=== PATIENT | female | born 1960 | race African-American/Black ===

== ENCOUNTER → 2016-05-31 | Outpatient (CLI) | payer MEDICARE, MEDICAID ==
[~2016-05-31] MED LIST: ACET-654 PO; ACET65TA PO; AMILODIPINE PO; AMLO2.5T PO; ANTIBIOTIC PO; BABY81CH OR; BACTROBAN TOP; CALCIUM CITRATE PO; CELE40TA PO; CIPR25SS PO; CLIN300C PO; COLA50CA3 PO; COZA50TA18 OR; DETR2CAP PO; DIOV320T OR; DIOV320T PO; DOCU10CA PO; GABAPOW41 PO; GLIP5TAB8 PO; HYDR25TA6 OR; INSULADS SC; INSULANT SC; INSULANT SQ; LASI40TA PO; LIDO5DIS36 TD; LISI20TA5 OR; LOPI600T OR; LOSA100T36 PO; MAG OX PO; METF500T4 OR; MONISTAT PV; MULTIVIT PO; NATU400T PO; NICO14DI3 TD; NICO21DI4 TD; NORCOTAB PO; NORV5TAB OR; NOVOINJ3 SC; PERC5TAB6 PO; PERC5TAB8 PO; ROBA750T4 PO; SITA50TAB PO; TRAM50TA2 PO; TRENTINOIN TOP; TRIA1CR TOP; VIT D PO; VOLT1GEL24 TD; ZOCO40TA OR; ZOLO50TA PO; [UNRECOGNIZED DRUG - OTHER] PO; celexa PO; drisdol PO; lantus SUBQ; trazadone PO
--- NOTE | 2016-06-01 10:14 | SLEEPCENT ---
DATE OF STUDY: 05/31/2016 ORDERING PROVIDER: Aquiles Caldwell DO Nocturnal polysomnography was performed for the titration of pressure therapy in this patient with obstructive sleep apnea syndrome, apnea-hypopnea index of 5.1. For testing, a ResMed Quattro full face mask of extra-small size was used. 4 cm of water pressure were applied to the circuit, and the lights were extinguished. 7 hours and 41 minutes of data were reviewed. There were 415 minutes of sleep identified. Sleep latency was mildly prolonged at 31 minutes. Rapid eye movement (REM) latency was more so prolonged at 179 minutes. Sleep architecture improved with optimal pressure therapy. Overall sleep efficiency was 92%. The patient's electrocardiogram (EKG) showed a sinus rhythm with an average heart rate of 78 beats per minute. Electroencephalogram (EEG) showed normal waveforms for awake and sleep. Respiratory events were best palliated with continuous positive airway pressure (CPAP) at a pressure of +8. CPAP tolerance was good. The remaining measures of sleep physiology were normal. IMPRESSION: Obstructive sleep apnea syndrome (G47.33). RECOMMENDATION: Nightly use of pressure therapy at 8 cm of water.
== END ==
LOC: M SLEEP 19:44
PROVIDERS: ATTEND Internal Medicine Pulmonary Disease
DX: G47.33 Obstructive sleep apnea (adult) (pediatric) (principal)

== ENCOUNTER → 2016-05-31 | Outpatient (CLI) | payer MEDICARE, MEDICAID ==
--- NOTE | 2016-06-11 01:18 | ECWPNPC ---
PATIENT NAME: PABLO HANSEN : 1960 GENDER: FEMALE VISIT DATE: 05/31/2016 DISCHARGE DATE: 05/31/16 1515 VISIT LOCKED DATE TIME: PHYSICIAN: RISSA MOORE RESOURCE: RISSA MOORE REASON FOR APPOINTMENT 1. FOLLOW UP-40 MIN HISTORY OF PRESENT ILLNESS HISTORY OF PRESENT ILLNESS: HERE FOR POST PROCEDURE F/U.HAD TPI 05-03-16. PAIN THE PATIENT DESCRIBES THE PAIN... THE PATIENT DESCRIBES THE PAIN... THE PATIENT DESCRIBES THE PAIN... THE PATIENT DESCRIBES THE PAIN... 55 YEAR OLD FEMALE PATIENT WITH HISTORY OF CHRONIC THORACIC BACK PAIN. PATIENT DESCRIBES THE PAIN THROBBING WITH THE PAIN COMING AND GOING WITH A PAIN SCORE OF 4/10. PATIENT RECEIVED TRIGGER POINT INJECTIONS ON 05-03-16 WHICH SHE STATES HELPED WITH THE PAIN FOR 2 WEEKS. PATIENT IS USING GABAPENTIN 800 MG 2 TIMES A DAY AND ROBAXIN UP TO 3 TABLETS A DAY.DISCUSSED ADDING MYOFASCIAL RELEASE VIA PT LNG WITH TPI. FALL RISK SCREENING: SCREENING :NO FALLS IN THE PAST YEAR :NO FALLS IN THE PAST YEAR SCREENING :NO FALLS IN THE PAST YEAR :NO FALLS IN THE PAST YEAR CURRENT MEDICATIONS TAKING TRIAMCINOLONE ACETONIDE 0.1 % LOTION 1 APPLICATION TO AFFECTED AREA EXTERNALLY TO DARKENED SPOTS ON ARMS AND LEGS TWICE A DAY TO EMEKA KNEES AND ELBOWS, NOTES: 1 MONTH AGO TAKING CALCIUM + D 600-200 MG-UNIT TABLET 1 TABLET ORALLY ONCE A DAY, NOTES: 12/11 AM TAKING BENZOYL PEROXIDE CLEANSER 6 % LOTION 1 APPLICATION TO AFFECTED AREA AT BEDTIME EXTERNALLY TO FACE ONCE A DAY, NOTES: 2 WEEKS TAKING POLYETHYLENE GLYCOL 3350 POWDER 17 GRAM IN WATER ORALLY ONCE A DAY, NOTES: 2 WEEKS TAKING ASPIRIN 81 MG TABLET DELAYED RELEASE 1 TABLET ORALLY ONCE A DAY, NOTES: 12/11 PM TAKING RETIN-A 0.025 % CREAM 1 APPLICATION TO AFFECTED AREA IN THE EVENING TO FACE EXTERNALLY TO FACE ONCE A DAY BEFORE BED, NOTES: 1 WEEK AGO TAKING FREESTYLE TEST STRIPS DX CODE E11.9 STRIP DIRECTED FOUR TIMES A DAY TAKING FREESTYLE SYSTEM DX CODE E11.9 METER DIRECTED DAILY TAKING LASIX 40 MG TABLET 1 TABLET ORALLY ONCE A DAY, NOTES: 12 AFTERNOON TAKING AMLODIPINE BESYLATE 5 MG TABLET 1 TABLET ORALLY ONCE A DAY, NOTES: 05/02 AM TAKING LOSARTAN POTASSIUM 100 TABLET 1 TABLET ORALLY ONCE A DAY, NOTES: 05/02 AM TAKING LANTUS SOLOSTAR 100 UNIT/ML SOLUTION 60 UNITS IN AM, 60 UNITS IN PM SUBCUTANEOUS TWICE A DAY, NOTES: 05/02 9PM TAKING HUMALOG 100 UNIT/ML SOLUTION PER SLIDING SCALE SUBCUTANEOUS DIRECTED PER SLIDING SCALE AC, NOTES: 05/02 NOON TAKING VENTOLIN HFA 108 (90 BASE) MCG/ACT AEROSOL SOLUTION 2 PUFFS NEEDED INHALATION EVERY 4 HRS, NOTES: 05/02 AM TAKING INCRUSE ELLIPTA 62.5 MCG/INH AEROSOL POWDER BREATH ACTIVATED 1 PUFF INHALATION ONCE A DAY, NOTES: 05/02 AM TAKING ATROVENT 0.06 % SOLUTION 2 DROPS IN EACH NOSTRIL NEEDED NASALLY THREE TIMES A DAY, NOTES: 05/02 AM TAKING TRAZODONE 150 150MG TABLET 1 TAB(S) ORAL DAILY, NOTES: 05/02 PM TAKING COLACE 100 MG CAPSULE 1 CAPSULE NEEDED ORALLY ONCE A DAY TAKING PEN NEEDLES 08/05" 31G X 5 MM PEN NEEDLE USE WITH LANTUS PEN SUBCUTANEOUSLY THREE TIMES A DAY DX; 250.00 TAKING DITROPAN 5 MG TABLET 1 TAB(S) ORALLY DAILY, NOTES: 05/02 AM TAKING SPIRONOLACTONE 50 MG TABLET 1 TABLET ORALLY ONCE A DAY, NOTES: 05/02 AM TAKING BLOOD GLUCOSE TEST - STRIP 1 STRIP IN VITRO 4 TIMES DAILY DX:E11.65 TAKING GLUCOMETER DIRECTED _ DX CODE:E11.65 TAKING ZOLOFT 100 MG TABLET 1 TABLET ORALLY ONCE A DAY, NOTES: 05/02 AM TAKING ROBAXIN 500 MG TABLET 1 TABLETS ORALLY TID PRN PRN FOR SPASMS AND PAIN, NOTES: 05/02 AM TAKING GABAPENTIN 800 MG TABLET 1 TABLET ORALLY THREE TIMES A DAY FOR PAIN, NOTES: 05/02 AM TAKING FREESTYLE LANCETS DX CODE E11.9 MISCELLANEOUS DIRECTED SUBCUTANEOUSLY FOUR TIMES A DAY TAKING VITAMIN E 400 UNIT CAPSULE 1 CAPSULE ORALLY ONCE A DAY NOT-TAKING VOLTAREN 1 % GEL TOPICAL TRANSDERMAL TO MID BACK TWICE DAILY NEEDED NOT-TAKING LIDODERM 5 % PATCH 2 PATCH TO INTACT SKIN REMOVE AFTER 12 HOURS EXTERNALLY ONCE A DAY FOR PAIN, NOTES: NONE NOT-TAKING CHANTIX 1 MG TABLET 1 TABLET ORALLY TWICE A DAY NOT-TAKING ZOFRAN 4 MG TABLET 1 TABLET ORALLY ONCE A DAY MEDICATION LIST REVIEWED AND RECONCILED WITH THE PATIENT PAST MEDICAL HISTORY DMII HTN CKD STAGE III - FOLLOWED BY HX DEPRESSIVE DISORDER TOBACCO ABUSE HX PANCREATITIS HYPERLIPIDEMIA ASCVD RISK 27.9% 09/2013 2NDARY HYPERPARATHYROIDISM EYE EXAM 01/2014 [facility] - DIABETES W/O RETINOPATHY POSSIBLE GLAUCOMA. CHOLEDOCHOLYTHIASIS. 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 SOCIAL HISTORY GENERAL: TOBACCO USE ARE YOU A:CURRENT SMOKER HOW MANY CIGARETTES A DAY DO YOU SMOKE?6-10 HOW SOON AFTER YOU WAKE UP DO YOU SMOKE YOUR FIRST CIGARETTE?6-30 MIN PATIENT COUNSELED ON THE DANGERS OF TOBACCO USE AND URGED TO QUIT: PT COUNCELED ON THE IMPORTANCE OF QUITTING. SHE IS INTERESTED IN QUITTING AND ALREADY HAS INFORMATION ON IT. ARE YOU INTERESTED IN QUITTING?THINKING ABOUT QUITTING PREVIOUS QUIT ATTEMPTS?YES, MORE THAN 6 MONTHS AGO. LEARNING BARRIERS / SPECIAL NEEDS ORIENTED TO PLAN OF CARE: PATIENT, PAIN MANAGEMENT PATIENT, ORIENTED TO PLAN OF CARE: PATIENT, PAIN MANAGEMENT PATIENT. NEW PATIENT PAIN DIARY TODAY'S VISITNOTES FROM 0-10, WHAT LEVEL IS YOUR PAIN TODAY?0 PAIN CLINIC PFS, CLERGY, PUBLIC HEALTH REFERRALS PFS REFERRAL NEEDED?NO CLERGY REFERRAL NEEDED?NO PUBLIC HEALTH REFERRAL NEEDED?NO WAS THE PROVIDER NOTIFIED OF ANY PERTINENT INFO?NO PFS REFERRAL NEEDED?NO CLERGY REFERRAL NEEDED?NO PUBLIC HEALTH REFERRAL NEEDED?NO WAS THE PROVIDER NOTIFIED OF ANY PERTINENT INFO?NO REVIEW OF SYSTEMS CONSTITUTIONAL: ANY CHANGE IN YOUR MEDICAL CONDITION? NO . RECENT ILLNESS DENIES . CHILLS NO . FEVER NO . WEIGHT LOSS DENIES . INFECTION: DO YOU HAVE NEW INFECTIONS? NO . DO YOU HAVE HISTORY OF MRSA? YES, RIGHT WRIST 2013 DID HAVE NEG CULTURE AFTER . MUSCULOSKELETAL: ANY NEW PATTERNS OF PAIN OR NUMBNESS? NO . GASTROENTEROLOGY: ANY NEW CHANGE IN BOWEL CONTROL? NO . GENITOURINARY: ANY NEW CHANGE IN BLADDER CONTROL? NO . IS THERE A CHANCE YOU COULD BE ? NO . HEMATOLOGY/LYMPH: DO YOU TAKE ANY BLOOD THINNERS? (FOR EXAMPLE- COUMADIN, PLAVIX, AGGRENOX, PLATEL, PRADAXA, OR XARELTO) NO . WHEN WAS YOUR LAST DOSE? DATE: TIME: . NEUROLOGY: HAVE YOU FALLEN IN THE PAST 6 MONTHS? NO . ANY NEW EXTREMITY NUMBNESS OR WEAKNESS? YES, BOTH LEGS NUMB WITH LEGS CRAMPS. WALKING MORE WITH RIGHT LEG TURNING IN. . CARDIOLOGY: DO YOU HAVE A PACEMAKER OR DEFIBRILLATOR? NO . CHEST PAIN DENIES . SHORTNESS OF BREATH DENIES . RESPIRATORY: HAVE YOU BEEN SICK IN THE PAST WEEK? NO . FEVER NO . FLU LIKE SYMPTOMS? NO . COUGH NO, DENIES . SHORTNESS OF BREATH DENIES . INTEGUMENTARY: DO YOU HAVE ANY RASHES OR OPEN SORES? NO . ALLERGIC/IMMUNO: ARE YOU ALLERGIC TO SHELLFISH OR IV DYE? NO . ANY NEW ALLERGIES? NO . PSYCHIATRIC: DO YOU HAVE THOUGHTS OF HURTING YOURSELF OR SOMEONE ELSE? NO . ARE YOU ABUSED, NEGLECTED, OR IN AN UNSAFE ENVIRONMENT? NO . ENDOCRINOLOGY: ARE YOU DIABETIC? YES FSBS THIS A.M. 123 . OTHER: DO YOU NEED ANY PRESCRIPTIONS? NO . IF YES, PLEASE LIST: ____ . ANY NEW PROBLEMS WITH YOUR MEDICATIONS? NO . WHEN DID YOU LAST EAT? ____ . WHEN DID YOU LAST DRINK? ____ . WHAT DID YOU LAST DRINK? ____ . NAME OF PERSON DRIVING YOU HOME? ____ . DO YOU HAVE ANY OTHER QUESTIONS OR CONCERNS NO . REVIEWED BY: PROVIDER: RISSA FRANCE . VITAL SIGNS WT 220.2 LBS, HT 65 IN, BMI 36.64 INDEX, BP 137/87 MM HG, HR 87 /MIN, RR 16 /MIN, TEMP 96.1 F, OXYGEN SAT % 96, NA INITIALS TL 1349, REVIEWED BY: [id number]. EXAMINATION GENERAL EXAMINATION: LUNGS:LUNG SOUNDS ARE CLEAR. HEART:HEART RATE REGULAR. MUSCULOSKELETAL:*, TRIGGER POINTS:, ELICITED WITH PALPATION OVER MID THORACIC MUSCLES R>L.PAIN IS AGGREVATED WITH USE OF LEFT ARM.. DIAGNOSTIC: . ASSESSMENTS MYALGIA - M79.1 (PRIMARY) PAIN IN THORACIC SPINE - M54.6 TREATMENT MYALGIA CONTINUE ROBAXIN TABLET, 500 MG, 1 TABLETS, ORALLY, TID PRN PRN FOR SPASMS AND PAIN, NOTES: 12/11 AM CONTINUE GABAPENTIN TABLET, 800 MG, 1 TABLET, ORALLY, THREE TIMES A DAY FOR PAIN, NOTES: 12/11 AM TRIGGER POINT 1-2 AREAS NOTES: TRIGGER POINT INJECTION MATERIAL WAS PRINTED,TRIGGER POINT INJECTION: YOUR EXPERIENCE MATERIAL WAS PRINTED. REFERRAL TO:PHYSICAL THERAPIST REASON:RIGHT MYOFASCIAL [id number] RELEASE PAIN IN THORACIC SPINE TRIGGER POINT 1-2 AREAS PROCEDURE CODES FA211 ESTABILISHED PATIENT [facility] CHARGE FOLLOW UP 4 WEEKS (REASON: TPI RIGHT THORACIC) ELECTRONICALLY SIGNED BY EDILMA CISNEROS ON 06/10/2016 AT 10:59 AM EST DISCLAIMER : THIS IS A VISIT SUMMARY EXTRACTED FROM THE [employer] CHART. IT IS NOT A COPY OF THE [employer] PROGRESS NOTE. ISABELLA
== END ==
LOC: M PAIN 14:00
PROVIDERS: ATTEND Nurse Practitioner Family
DX: Z09 Encounter for follow-up examination after completed treatment for conditions other than malignant neoplasm (principal); G89.29 Other chronic pain; M79.1 Myalgia; M54.6 Pain in thoracic spine; E11.319 Type 2 diabetes mellitus with unspecified diabetic retinopathy without macular edema; N18.3 Chronic kidney disease, stage 3 (moderate); I12.9 Hypertensive chronic kidney disease with stage 1 through stage 4 chronic kidney disease, or unspecified chronic kidney disease; E78.5 Hyperlipidemia, unspecified; E21.3 Hyperparathyroidism, unspecified; K80.51 Calculus of bile duct without cholangitis or cholecystitis with obstruction; G47.33 Obstructive sleep apnea (adult) (pediatric); J44.9 Chronic obstructive pulmonary disease, unspecified; F17.200 Nicotine dependence, unspecified, uncomplicated; Z79.82 Long term (current) use of aspirin; Z79.4 Long term (current) use of insulin; Z79.899 Other long term (current) drug therapy; Z86.59 Personal history of other mental and behavioral disorders; Z87.898 Personal history of other specified conditions
CPT/HCPCS: 95811; G0463

== ENCOUNTER → 2016-06-01 | Outpatient (CLI) | payer MEDICARE, MEDICAID | LOC: M HL 14:44 | PROVIDERS: ATTEND Family Medicine | DX: E11.9 Type 2 diabetes mellitus without complications (principal) ==

== ENCOUNTER → 2016-06-10 | Outpatient (CLI) | payer MEDICARE, MEDICAID | LOC: M HL 12:59 | PROVIDERS: ATTEND Family Medicine | DX: E11.9 Type 2 diabetes mellitus without complications (principal) ==

== ENCOUNTER → 2016-06-14 | Outpatient (REF) | payer MEDICARE, MEDICAID ==
[2016-06-14 15:45] LABS: CALCIUM LEVEL 8.9 MG/DL (8.5-10.1); CREATININE FOR GFR 1.35 MG/DL (0.55-1.02); GLOMERULAR FILTRATION RATE 52.7 (>51); POTASSIUM SERUM 4.3 MEQ/L (3.5-5.1)
== END ==
LOC: M SFHCPLAZ 13:14
PROVIDERS: ATTEND Family Medicine
DX: E11.9 Type 2 diabetes mellitus without complications (principal); Z51.81 Encounter for therapeutic drug level monitoring; Z79.4 Long term (current) use of insulin; Z79.82 Long term (current) use of aspirin; Z79.899 Other long term (current) drug therapy

== ENCOUNTER → 2016-06-16 | Outpatient (CLI) | payer MEDICARE, MEDICAID ==
[~2016-06-16] MED LIST changes: +BUPIVACAINE HCL 0.25% 10 ML VIAL As Ordered ONE; +BUPIVACAINE HCL 0.25% 30 ML VIAL As Ordered ONE; +TRIAMCINOLONE ACETONIDE SUSP 40 MG/ML VIAL (J3301) As Ordered ONE
--- NOTE | 2016-06-18 00:18 | ECWPNPC ---
PATIENT NAME: PABLO HANSEN : 1960 GENDER: FEMALE VISIT DATE: 06/16/2016 DISCHARGE DATE: 06/16/16 1058 VISIT LOCKED DATE TIME: PHYSICIAN: ENRICO VARGAS RESOURCE: ENRICO VARGAS REASON FOR APPOINTMENT 1. TRIGGER POINT HISTORY OF PRESENT ILLNESS HISTORY OF PRESENT ILLNESS: PAIN THE PATIENT DESCRIBES THE PAIN... FALL RISK SCREENING: SCREENING :NO FALLS IN THE PAST YEAR CURRENT MEDICATIONS TAKING TRIAMCINOLONE ACETONIDE 0.1 % LOTION 1 APPLICATION TO AFFECTED AREA EXTERNALLY TO DARKENED SPOTS ON ARMS AND LEGS TWICE A DAY TO EMEKA KNEES AND ELBOWS, NOTES: 1 MONTH AGO TAKING CALCIUM + D 600-200 MG-UNIT TABLET 1 TABLET ORALLY ONCE A DAY, NOTES: 06/15/16 1000 TAKING BENZOYL PEROXIDE CLEANSER 6 % LOTION 1 APPLICATION TO AFFECTED AREA AT BEDTIME EXTERNALLY TO FACE ONCE A DAY, NOTES: 2 WEEKS TAKING POLYETHYLENE GLYCOL 3350 POWDER 17 GRAM IN WATER ORALLY ONCE A DAY, NOTES: 2 WEEKS TAKING ASPIRIN 81 MG TABLET DELAYED RELEASE 1 TABLET ORALLY ONCE A DAY, NOTES: 06/15/16 2200 TAKING RETIN-A 0.025 % CREAM 1 APPLICATION TO AFFECTED AREA IN THE EVENING TO FACE EXTERNALLY TO FACE ONCE A DAY BEFORE BED, NOTES: 1 WEEK AGO TAKING [employer] SYSTEM DX CODE E11.9 METER DIRECTED DAILY TAKING AMLODIPINE BESYLATE 5 MG TABLET 1 TABLET ORALLY ONCE A DAY, NOTES: 06/15/16 1000 TAKING HUMALOG 100 UNIT/ML SOLUTION PER SLIDING SCALE SUBCUTANEOUS DIRECTED PER SLIDING SCALE AC, NOTES: 06/15/16 2200 4 UNITS TAKING VENTOLIN HFA 108 (90 BASE) MCG/ACT AEROSOL SOLUTION 2 PUFFS NEEDED INHALATION EVERY 4 HRS, NOTES: 06/15/16 1000 TAKING INCRUSE ELLIPTA 62.5 MCG/INH AEROSOL POWDER BREATH ACTIVATED 1 PUFF INHALATION ONCE A DAY, NOTES: 06/15/16 1000 TAKING ATROVENT 0.06 % SOLUTION 2 DROPS IN EACH NOSTRIL NEEDED NASALLY THREE TIMES A DAY, NOTES: 06/15/16 1000 TAKING COLACE 100 MG CAPSULE 1 CAPSULE NEEDED ORALLY ONCE A DAY, NOTES: 06/15/16 1400 TAKING PEN NEEDLES 3" 31G X 5 MM PEN NEEDLE USE WITH LANTUS PEN SUBCUTANEOUSLY THREE TIMES A DAY DX; 250.00 TAKING DITROPAN 5 MG TABLET 1 TAB(S) ORALLY DAILY, NOTES: 06/15/16 1000 TAKING BLOOD GLUCOSE TEST - STRIP 1 STRIP IN VITRO 4 TIMES DAILY DX:E11.65 TAKING GLUCOMETER DIRECTED _ DX CODE:E11.65 TAKING FREESTYLE LANCETS DX CODE E11.9 MISCELLANEOUS DIRECTED SUBCUTANEOUSLY FOUR TIMES A DAY TAKING VITAMIN E 400 UNIT CAPSULE 1 CAPSULE ORALLY ONCE A DAY, NOTES: 400 TAKING ROBAXIN 500 MG TABLET 1 TABLETS ORALLY TID PRN PRN FOR SPASMS AND PAIN, NOTES: 06/15/162199 TAKING GABAPENTIN 800 MG TABLET 1 TABLET ORALLY THREE TIMES A DAY FOR PAIN, NOTES: 06/15/162199 TAKING TOUJEO SOLOSTAR 300 UNIT/ML SOLUTION PEN-INJECTOR 60 U SUBCUTANEOUS EVERY MORNING, NOTES: HASN'T STARTED YET TAKING ZOLOFT 100 MG TABLET 1 TABLET ORALLY ONCE A DAY, NOTES: 06/15/16 1000 TAKING TRAZODONE 150 150MG TABLET 1 TAB(S) ORAL DAILY, NOTES: 06/15/162199 TAKING LASIX 40 MG TABLET 1 TABLET ORALLY ONCE A DAY, NOTES: 06/15/16 1400 TAKING LOSARTAN POTASSIUM 100 TABLET 1 TABLET ORALLY ONCE A DAY, NOTES: 06/15/16 1000 TAKING FREESTYLE TEST STRIPS DX CODE E11.9 STRIP DIRECTED FOUR TIMES A DAY NOT-TAKING VOLTAREN 1 % GEL TOPICAL TRANSDERMAL TO MID BACK TWICE DAILY NEEDED NOT-TAKING LIDODERM 5 % PATCH 2 PATCH TO INTACT SKIN REMOVE AFTER 12 HOURS EXTERNALLY ONCE A DAY FOR PAIN, NOTES: NONE NOT-TAKING CHANTIX 1 MG TABLET 1 TABLET ORALLY TWICE A DAY NOT-TAKING ZOFRAN 4 MG TABLET 1 TABLET ORALLY ONCE A DAY MEDICATION LIST REVIEWED AND RECONCILED WITH THE PATIENT PAST MEDICAL HISTORY DMII HTN CKD STAGE III - FOLLOWED BY HX DEPRESSIVE DISORDER TOBACCO ABUSE HX PANCREATITIS HYPERLIPIDEMIA ASCVD RISK 27.9% 09/2013 2NDARY HYPERPARATHYROIDISM EYE EXAM 01/2014 [facility] - DIABETES W/O RETINOPATHY POSSIBLE GLAUCOMA. CHOLEDOCHOLYTHIASIS. 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 SOCIAL HISTORY GENERAL: TOBACCO USE ARE YOU A:CURRENT SMOKER HOW MANY CIGARETTES A DAY DO YOU SMOKE?6-10 HOW SOON AFTER YOU WAKE UP DO YOU SMOKE YOUR FIRST CIGARETTE?31-60 MIN HOW OFTEN DO YOU SMOKE CIGARETTES?EVERY DAY PATIENT COUNSELED ON THE DANGERS OF TOBACCO USE AND URGED TO QUIT: COUNCELED ON THE IMPORTANCE OF QUITING. SHE IS THINKING ABOUT IT. SHE DECLINES ANY INFORMATION OR ASSISTANCE WITH THIS. ARE YOU INTERESTED IN QUITTING?THINKING ABOUT QUITTING LEARNING BARRIERS / SPECIAL NEEDS ORIENTED TO PLAN OF CARE: PATIENT, PAIN MANAGEMENT PATIENT, ORIENTED TO PLAN OF CARE: PATIENT, PAIN MANAGEMENT PATIENT. NEW PATIENT PAIN DIARY TODAY'S VISITNOTES FROM 0-10, WHAT LEVEL IS YOUR PAIN TODAY?0 PAIN CLINIC PFS, CLERGY, PUBLIC HEALTH REFERRALS PFS REFERRAL NEEDED?NO CLERGY REFERRAL NEEDED?NO PUBLIC HEALTH REFERRAL NEEDED?NO WAS THE PROVIDER NOTIFIED OF ANY PERTINENT INFO?NO PFS REFERRAL NEEDED?NO CLERGY REFERRAL NEEDED?NO PUBLIC HEALTH REFERRAL NEEDED?NO WAS THE PROVIDER NOTIFIED OF ANY PERTINENT INFO?NO REVIEW OF SYSTEMS CONSTITUTIONAL: ANY CHANGE IN YOUR MEDICAL CONDITION? NO . CHILLS NO . FEVER NO . INFECTION: DO YOU HAVE NEW INFECTIONS? NO . DO YOU HAVE HISTORY OF MRSA? NO . MUSCULOSKELETAL: ANY NEW PATTERNS OF PAIN OR NUMBNESS? NO . GASTROENTEROLOGY: ANY NEW CHANGE IN BOWEL CONTROL? NO . GENITOURINARY: ANY NEW CHANGE IN BLADDER CONTROL? NO . IS THERE A CHANCE YOU COULD BE ? NO . HEMATOLOGY/LYMPH: DO YOU TAKE ANY BLOOD THINNERS? (FOR EXAMPLE- COUMADIN, PLAVIX, AGGRENOX, PLATEL, PRADAXA, OR XARELTO) NO . WHEN WAS YOUR LAST DOSE? DATE: TIME: . NEUROLOGY: HAVE YOU FALLEN IN THE PAST 6 MONTHS? YES FELL WITHIN THE PAST COUPLE OF WEEKS--NO INJURY . ANY NEW EXTREMITY NUMBNESS OR WEAKNESS? NO . CARDIOLOGY: DO YOU HAVE A PACEMAKER OR DEFIBRILLATOR? NO . RESPIRATORY: HAVE YOU BEEN SICK IN THE PAST WEEK? NO . FEVER NO . FLU LIKE SYMPTOMS? NO . COUGH NO . INTEGUMENTARY: DO YOU HAVE ANY RASHES OR OPEN SORES? NO . ALLERGIC/IMMUNO: ARE YOU ALLERGIC TO SHELLFISH OR IV DYE? NO . ANY NEW ALLERGIES? NO . PSYCHIATRIC: DO YOU HAVE THOUGHTS OF HURTING YOURSELF OR SOMEONE ELSE? NO . ARE YOU ABUSED, NEGLECTED, OR IN AN UNSAFE ENVIRONMENT? NO . ENDOCRINOLOGY: ARE YOU DIABETIC? YES FSBS THIS A.M. WAS 94 . OTHER: DO YOU NEED ANY PRESCRIPTIONS? NO . IF YES, PLEASE LIST: ____ . ANY NEW PROBLEMS WITH YOUR MEDICATIONS? NO . WHEN DID YOU LAST EAT? ____06/15/16 BEFORE MIDNIGHT . WHEN DID YOU LAST DRINK? ____06/15/16 BEFORE MIDNIGHT . WHAT DID YOU LAST DRINK? ____ . NAME OF PERSON DRIVING YOU HOME? ____[facility] . DO YOU HAVE ANY OTHER QUESTIONS OR CONCERNS NO . REVIEWED BY: PROVIDER: . VITAL SIGNS WT 220 LBS, HT 65 IN, BMI 36.61 INDEX, BP 136/79 MM HG, HR 75 /MIN, RR 16 /MIN, TEMP 96.0 F, OXYGEN SAT % 96, NA INITIALS TL 0921, REVIEWED BY: AD. ASSESSMENTS MYALGIA - M79.1 (PRIMARY) PROCEDURES PN TRIGGER POINT INJECTION WITH STEROIDS PRE PROCEDURE DIAGNOSIS 1. MYALGIA 2. PAIN AT RIGHT THORACIC AREA POST PROCEDURE DIAGNOSIS 1. MYALGIA 2. PAIN AT RIGHT THORACIC AREA PROCEDURE TRIGGER POINT INJECTION AT RIGHT THORACIC AREA SURGEON DR. ENRICO VARGAS MANAGER MATH NONE ANESTHESIA LOCAL PRE PROCEDURE NOTE THE PATIENT HAS A HISTORY OF CHRONIC PAIN AT THE RIGHT THORACIC AREA. I EVALUATE THE PATIENT AND REVIEWED THE CHART. THERE IS EVIDENCE OF BANDS OF TISSUE WITH RESTRICTION OF MOVEMENT AND PRESENCE OF TRIGGER POINT AT THE AFFECTED AREA. I WENT OVER THE RISKS, ALTERNATIVES, AND BENEFITS ASSOCIATED WITH THIS PROCEDURE. THE PATIENT WOULD LIKE TO PROCEED AND GIVE CONSENT TO PERFORMED THE PROCEDURE. THE PATIENT DENIES UNEXPLAINABLE WEIGHT LOSS, FEVER, CHILLS, OR NEW CHANGES IN URINARY OR BOWEL CONTROL DESCRIPTION OF PROCEDURE THE PATIENT WAS BROUGHT TO THE PROCEDURE ROOM AND PLACED IN THE SITTING POSITION. THE AREA WAS CLEANED WITH ALCOHOL. THE PROCEDURE WAS DONE USING [employer] STERILE TECHNIQUE. I CHECKED LATERALITY AND THE LEVEL WHERE THE PROCEDURE WAS GOING TO BE PERFORMED WITH THE PATIENT AND THE SUPPORTING STAFF AT THE MOMENT OF THE TIME OUT IN THE PROCEDURE ROOM. USING A 25-GAUGE NEEDLE, TRIGGER POINTS WERE INJECTED AT THE RIGHT THORACIC AREA WITH A TOTAL OF 40 ML OF BUPIVACAINE 0.25% AND KENALOG 40 MG. THERE WAS NO EVIDENCE OF BLOOD, PARESTHESIA OR CEREBROSPINAL FLUID DURING THE PROCEDURE. THE PATIENT WAS SENT TO THE RECOVERY ROOM. THE PATIENT WAS MOVING THE EXTREMITIES AND DOING WELL. THERE WAS NO COMPLICATION DURING THE PROCEDURE POST PROCEDURE NOTE THE PATIENT WILL BE SEEN IN A FOLLOW UP IN THE NEXT FEW WEEKS. INSTRUCTIONS WERE GIVEN, QUESTIONS WERE ANSWERED, AND THE PATIENT EXPRESSED UNDERSTANDING AND AGREES WITH THE PLAN. I, OSCAR WILSON, DOCUMENTED THE ABOVE INFORMATION ACTING A SCRIBE FOR DR. VARGAS. I, DR. VARGAS, HAVE REVIEWED THE ABOVE DOCUMENT, SCRIBED BY OSCAR WILSON, AND I VERIFY THAT IT IS ACCURATE PROCEDURE CODES 77652 INJ TRIGGER POINT 05/24 MUSCL FOLLOW UP 3 WEEKS ELECTRONICALLY SIGNED BY ENRICO VARGAS MD ON 06/17/2016 AT 08:42 PM EST DISCLAIMER : THIS IS A VISIT SUMMARY EXTRACTED FROM THE [employer] CHART. IT IS NOT A COPY OF THE [employer] PROGRESS NOTE. ISABELLA
== END ==
LOC: M PAIN 09:20
PROVIDERS: ATTEND Anesthesiology
DX: G89.29 Other chronic pain (principal); M79.1 Myalgia; M54.6 Pain in thoracic spine; E11.319 Type 2 diabetes mellitus with unspecified diabetic retinopathy without macular edema; N18.3 Chronic kidney disease, stage 3 (moderate); I12.9 Hypertensive chronic kidney disease with stage 1 through stage 4 chronic kidney disease, or unspecified chronic kidney disease; E78.5 Hyperlipidemia, unspecified; K80.50 Calculus of bile duct without cholangitis or cholecystitis without obstruction; F17.200 Nicotine dependence, unspecified, uncomplicated; G47.30 Sleep apnea, unspecified; Z79.82 Long term (current) use of aspirin; Z79.4 Long term (current) use of insulin; Z79.899 Other long term (current) drug therapy; Z86.59 Personal history of other mental and behavioral disorders; Z87.19 Personal history of other diseases of the digestive system; Z98.890 Other specified postprocedural states
CPT/HCPCS: 20552; J3301

== ENCOUNTER → 2016-06-18 | Outpatient (CLI) | payer MEDICARE, MEDICAID ==
[~2016-06-18] MED LIST changes: -BUPIVACAINE HCL 0.25% 10 ML VIAL As Ordered ONE; -BUPIVACAINE HCL 0.25% 30 ML VIAL As Ordered ONE; -TRIAMCINOLONE ACETONIDE SUSP 40 MG/ML VIAL (J3301) As Ordered ONE
== END ==
LOC: M HL 12:36
PROVIDERS: ATTEND Family Medicine
DX: E11.9 Type 2 diabetes mellitus without complications (principal)

== ENCOUNTER → 2016-07-14 | Outpatient (CLI) | payer MEDICARE, MEDICAID ==
--- NOTE | 2016-07-20 02:04 | ECWPNPC ---
PATIENT NAME: PABLO HANSEN : 1960 GENDER: FEMALE VISIT DATE: 07/14/2016 DISCHARGE DATE: 07/14/16 1508 VISIT LOCKED DATE TIME: PHYSICIAN: RISSA MOORE RESOURCE: RISSA MOORE REASON FOR APPOINTMENT 1. BACK HISTORY OF PRESENT ILLNESS HISTORY OF PRESENT ILLNESS: HERE FOR POST PROCEDURE F/U.HAD TPI 16 RIGHT SCAPULAR AREA.REPORTS APROXIMATLEY ONE WEEK OF IMPROVEMENT THEN PAIN HAS GRADUALLY RETURNED.RATING PAIN VAS 3/10.GABAPENTIN AND ROBAXIN IS SOMEWHAT HELPFUL. PAIN THE PATIENT DESCRIBES THE PAIN... THE PATIENT DESCRIBES THE PAIN... THE PATIENT DESCRIBES THE PAIN... THE PATIENT DESCRIBES THE PAIN... THE PATIENT DESCRIBES THE PAIN... FALL RISK SCREENING: SCREENING :NO FALLS IN THE PAST YEAR CURRENT MEDICATIONS TAKING CALCIUM + D 600-200 MG-UNIT TABLET 1 TABLET ORALLY ONCE A DAY, NOTES: 06/15/16 1000 TAKING POLYETHYLENE GLYCOL 3350 POWDER 17 GRAM IN WATER ORALLY ONCE A DAY NEEDED, NOTES: 2 WEEKS TAKING ASPIRIN 81 MG TABLET DELAYED RELEASE 1 TABLET ORALLY ONCE A DAY, NOTES: 06/15/16 2200 TAKING FREEAtmospheir SYSTEM DX CODE E11.9 METER DIRECTED DAILY TAKING AMLODIPINE BESYLATE 5 MG TABLET 1 TABLET ORALLY ONCE A DAY, NOTES: 06/15/16 1000 TAKING HUMALOG 100 UNIT/ML SOLUTION PER SLIDING SCALE SUBCUTANEOUS DIRECTED PER SLIDING SCALE AC, NOTES: 06/15/16 2200 4 UNITS TAKING VENTOLIN HFA 108 (90 BASE) MCG/ACT AEROSOL SOLUTION 2 PUFFS NEEDED INHALATION EVERY 4 HRS, NOTES: 06/15/16 1000 TAKING INCRUSE ELLIPTA 62.5 MCG/INH AEROSOL POWDER BREATH ACTIVATED 1 PUFF INHALATION ONCE A DAY, NOTES: 06/15/16 1000 TAKING ATROVENT 0.06 % SOLUTION 2 DROPS IN EACH NOSTRIL NEEDED NASALLY THREE TIMES A DAY, NOTES: 06/15/16 1000 TAKING COLACE 100 MG CAPSULE 1 CAPSULE NEEDED ORALLY ONCE A DAY, NOTES: 06/15/16 1400 TAKING PEN NEEDLES 316" 31G X 5 MM PEN NEEDLE USE WITH LANTUS PEN SUBCUTANEOUSLY THREE TIMES A DAY DX; 250.00 TAKING DITROPAN 5 MG TABLET 1 TAB(S) ORALLY DAILY, NOTES: 06/15/16 1000 TAKING BLOOD GLUCOSE TEST - STRIP 1 STRIP IN VITRO 4 TIMES DAILY DX:E11.65 TAKING GLUCOMETER DIRECTED _ DX CODE:E11.65 TAKING FREESTYLE LANCETS DX CODE E11.9 MISCELLANEOUS DIRECTED SUBCUTANEOUSLY FOUR TIMES A DAY TAKING VITAMIN E 400 UNIT CAPSULE 1 CAPSULE ORALLY ONCE A DAY, NOTES: 400 TAKING ROBAXIN 500 MG TABLET 1 TABLETS ORALLY TID PRN PRN FOR SPASMS AND PAIN, NOTES: 06/15/162199 TAKING GABAPENTIN 800 MG TABLET 1 TABLET ORALLY THREE TIMES A DAY FOR PAIN, NOTES: 06/15/162199 TAKING ZOLOFT 100 MG TABLET 1 TABLET ORALLY ONCE A DAY, NOTES: 06/15/16 1000 TAKING TRAZODONE 150 150MG TABLET 1 TAB(S) ORAL DAILY, NOTES: 06/15/162199 TAKING LASIX 40 MG TABLET 1 TABLET ORALLY ONCE A DAY, NOTES: 06/15/16 1400 TAKING LOSARTAN POTASSIUM 100 TABLET 1 TABLET ORALLY ONCE A DAY, NOTES: 06/15/16 1000 TAKING FREESTYLE TEST STRIPS DX CODE E11.9 STRIP DIRECTED FOUR TIMES A DAY TAKING CHANTIX 1 MG TABLET 1 TABLET ORALLY TWICE A DAY TAKING TOUJEO SOLOSTAR 300 UNIT/ML SOLUTION PEN-INJECTOR 70 U SUBCUTANEOUS EVERY MORNING, NOTES: HASN'T STARTED YET TAKING TRIAMCINOLONE ACETONIDE 0.1 % LOTION 1 APPLICATION TO AFFECTED AREA EXTERNALLY TO DARKENED SPOTS ON ARMS AND LEGS TWICE A DAY TO EMEKA KNEES AND ELBOWS, NOTES: 1 MONTH AGO TAKING BENZOYL PEROXIDE CLEANSER 6 % LOTION 1 APPLICATION TO AFFECTED AREA AT BEDTIME EXTERNALLY TO FACE ONCE A DAY, NOTES: 2 WEEKS TAKING RETIN-A 0.025 % CREAM 1 APPLICATION TO AFFECTED AREA IN THE EVENING TO FACE EXTERNALLY TO FACE ONCE A DAY BEFORE BED, NOTES: 1 WEEK AGO NOT-TAKING VOLTAREN 1 % GEL TOPICAL TRANSDERMAL TO MID BACK TWICE DAILY NEEDED NOT-TAKING LIDODERM 5 % PATCH 2 PATCH TO INTACT SKIN REMOVE AFTER 12 HOURS EXTERNALLY ONCE A DAY FOR PAIN, NOTES: NONE NOT-TAKING ZOFRAN 4 MG TABLET 1 TABLET ORALLY ONCE A DAY MEDICATION LIST REVIEWED AND RECONCILED WITH THE PATIENT PAST MEDICAL HISTORY DMII HTN CKD STAGE III - FOLLOWED BY HX DEPRESSIVE DISORDER TOBACCO ABUSE HX PANCREATITIS HYPERLIPIDEMIA ASCVD RISK 27.9% 09/2013 2NDARY HYPERPARATHYROIDISM EYE EXAM 01/2014 [facility] - DIABETES W/O RETINOPATHY POSSIBLE GLAUCOMA. CHOLEDOCHOLYTHIASIS. 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 SOCIAL HISTORY GENERAL: TOBACCO USE ARE YOU A:NONSMOKER LEARNING BARRIERS / SPECIAL NEEDS ORIENTED TO PLAN OF CARE: PATIENT, PAIN MANAGEMENT PATIENT, ORIENTED TO PLAN OF CARE: PATIENT, PAIN MANAGEMENT PATIENT. NEW PATIENT PAIN DIARY TODAY'S VISITNOTES FROM 0-10, WHAT LEVEL IS YOUR PAIN TODAY?0 PAIN CLINIC PFS, CLERGY, PUBLIC HEALTH REFERRALS PFS REFERRAL NEEDED?NO CLERGY REFERRAL NEEDED?NO PUBLIC HEALTH REFERRAL NEEDED?NO WAS THE PROVIDER NOTIFIED OF ANY PERTINENT INFO?NO PFS REFERRAL NEEDED?NO CLERGY REFERRAL NEEDED?NO PUBLIC HEALTH REFERRAL NEEDED?NO WAS THE PROVIDER NOTIFIED OF ANY PERTINENT INFO?NO REVIEW OF SYSTEMS CONSTITUTIONAL: ANY CHANGE IN YOUR MEDICAL CONDITION? NO . CHILLS NO . FEVER NO . INFECTION: DO YOU HAVE NEW INFECTIONS? NO . DO YOU HAVE HISTORY OF MRSA? YES WOUND RIGHT WRIST . MUSCULOSKELETAL: ANY NEW PATTERNS OF PAIN OR NUMBNESS? NO . GASTROENTEROLOGY: ANY NEW CHANGE IN BOWEL CONTROL? NO . GENITOURINARY: ANY NEW CHANGE IN BLADDER CONTROL? NO . IS THERE A CHANCE YOU COULD BE ? NO . HEMATOLOGY/LYMPH: DO YOU TAKE ANY BLOOD THINNERS? (FOR EXAMPLE- COUMADIN, PLAVIX, AGGRENOX, PLATEL, PRADAXA, OR XARELTO) NO . WHEN WAS YOUR LAST DOSE? DATE: TIME: . NEUROLOGY: HAVE YOU FALLEN IN THE PAST 6 MONTHS? YES FELL TUESDAY-NO INJURY/NO ED EVAL. . ANY NEW EXTREMITY NUMBNESS OR WEAKNESS? NO . CARDIOLOGY: DO YOU HAVE A PACEMAKER OR DEFIBRILLATOR? NO . RESPIRATORY: HAVE YOU BEEN SICK IN THE PAST WEEK? NO . FEVER NO . FLU LIKE SYMPTOMS? NO . COUGH NO . INTEGUMENTARY: DO YOU HAVE ANY RASHES OR OPEN SORES? NO . ALLERGIC/IMMUNO: ARE YOU ALLERGIC TO SHELLFISH OR IV DYE? NO . ANY NEW ALLERGIES? NO . PSYCHIATRIC: DO YOU HAVE THOUGHTS OF HURTING YOURSELF OR SOMEONE ELSE? NO . ARE YOU ABUSED, NEGLECTED, OR IN AN UNSAFE ENVIRONMENT? NO . ENDOCRINOLOGY: ARE YOU DIABETIC? YES . OTHER: DO YOU NEED ANY PRESCRIPTIONS? NO . IF YES, PLEASE LIST: ____ . ANY NEW PROBLEMS WITH YOUR MEDICATIONS? NO . WHEN DID YOU LAST EAT? ____ . WHEN DID YOU LAST DRINK? ____ . WHAT DID YOU LAST DRINK? ____ . NAME OF PERSON DRIVING YOU HOME? ____ . DO YOU HAVE ANY OTHER QUESTIONS OR CONCERNS NO . REVIEWED BY: PROVIDER: RISSA FRANCE . VITAL SIGNS WT 220.6 LBS, HT 65 IN, BMI 36.71 INDEX, BP 134/84 MM HG, HR 95 /MIN, RR 18 /MIN, TEMP 97.0 F, OXYGEN SAT % 94%, NA INITIALS SC 14:17, REVIEWED BY: MLF. EXAMINATION GENERAL EXAMINATION: LUNGS:LUNG SOUNDS ARE CLEAR. HEART:HEART RATE REGULAR. MUSCULOSKELETAL:*, TRIGGER POINTS:, ELICITED WITH PALPATION OVER MID THORACIC MUSCLES R>L.PAIN IS AGGREVATED WITH USE OF LEFT ARM.. DIAGNOSTIC: . ASSESSMENTS MYALGIA - M79.1 (PRIMARY) PAIN IN THORACIC SPINE - M54.6 TREATMENT MYALGIA CONTINUE GABAPENTIN TABLET, 800 MG, 1 TABLET, ORALLY, THREE TIMES A DAY FOR PAIN, NOTES: 06/15/162199 CONTINUE ROBAXIN TABLET, 500 MG, 1 TABLETS, ORALLY, TID PRN PRN FOR SPASMS AND PAIN, NOTES: 06/15/162199 [facility] MRI SPINE,THORACIC WITHOUT [id number] REFERRAL TO:PHYSICAL THERAPY INNOVATIVEPHYSICAL THERAPIST REASON:MYOFASCIAL PAIN RIGHT SCAPULA S/P THORACIC SURGERY 2 YRS AGO-T7,8,9-MYOFASCIAL RELEASE 2XWK X8WK PROCEDURE CODES FA211 ESTABILISHED PATIENT [facility] CHARGE DISPOSITION & COMMUNICATION FOLLOW UP 6 WEEKS ELECTRONICALLY SIGNED BY EDILMA CISNEROS ON 07/19/2016 AT 04:58 PM EST DISCLAIMER : THIS IS A VISIT SUMMARY EXTRACTED FROM THE [employer] CHART. IT IS NOT A COPY OF THE [employer] PROGRESS NOTE. MTDD
== END ==
LOC: M PAIN 14:00
PROVIDERS: ATTEND Nurse Practitioner Family
DX: Z09 Encounter for follow-up examination after completed treatment for conditions other than malignant neoplasm (principal); G89.29 Other chronic pain; M79.1 Myalgia; M54.6 Pain in thoracic spine; E11.65 Type 2 diabetes mellitus with hyperglycemia; I12.9 Hypertensive chronic kidney disease with stage 1 through stage 4 chronic kidney disease, or unspecified chronic kidney disease; N18.3 Chronic kidney disease, stage 3 (moderate); G47.33 Obstructive sleep apnea (adult) (pediatric); Z79.82 Long term (current) use of aspirin; Z79.4 Long term (current) use of insulin; Z79.899 Other long term (current) drug therapy; Z86.59 Personal history of other mental and behavioral disorders; Z87.891 Personal history of nicotine dependence; Z86.14 Personal history of Methicillin resistant Staphylococcus aureus infection

== ENCOUNTER → 2016-07-29 | Outpatient (CLI) | payer MEDICARE, MEDICAID ==
[~2016-07-29] MED LIST changes: +ALBU17IN INH; +AMLO5TAB2 PO; +ASPI1TAB PO; +CALCTAB68 PO; +COLA100C PO; +GABA800T PO; +INCR1INH INH; +OXYB5TA PO; +ROBA500T PO; +SERT-138 PO; +ST J PO; +TOUJ1.2I SC; +TRAZ150T14 PO; +VARE1TA PO; -VOLT1GEL24 TD; +VOLT1GEL24 TOP; +[UNRECOGNIZED DRUG - OTHER]
--- NOTE | 2016-07-29 12:53 | REP ---
MR THORACIC SPINE WITHOUT CONTRAST: HISTORY: Myalgia. COMPARISON: 09/27/2014 and 11/06/2014. A small right paracentral disc protrusion is present at the T1-2 level. There is minimal effacement of the thecal sac without spinal cord compression. The T1 neural foramina are patent. A small left paracentral disc protrusion is present at the T5-6 level. There is minimal effacement of the thecal sac without spinal cord compression. The T5 neural foramina are patent. A disc bulge is present at the T6-7 level. There is minimal effacement of the thecal sac without spinal cord compression. The T6 neural foramina are patent. A small central disc protrusion is present at the T7-8 level. The disc protrusion is decreased in size. There is minimal effacement of the thecal sac without spinal cord compression. The T7 neural foramina are patent. A small left paracentral and intraforaminal disc protrusion is present at the T8-9 level. There is minimal effacement of the thecal sac without spinal cord compression. There is mild narrowing of the left T8 neural foramen without definite nerve compression. A disc bulge is present at the T9-10 level. There is minimal effacement of the thecal sac without spinal cord compression. The T9 neural foramina are patent. There is no other disc bulge or herniation. The remaining neural foramina are patent. Increased signal intensity on T2-weighted images is present in the spinal cord at the T7-8 level. The spinal cord is small in size. This is consistent with myelomalacia. There is posterior retraction of the spinal cord at this level secondary to granulation tissue. Normal signal intensity is present in the thoracic vertebral bodies. The patient is status post T7-9 laminectomy. IMPRESSION: 1. Small disc protrusions at the T1-2, T5-6, and T8-9 levels without spinal cord compression. The disc protrusion at the T7-8 level is decreased in size. The disc protrusion at the T8-9 level is new. 2. Disc bulges at the T6-7 and T9-10 levels without spinal cord compression. The disc bulge at the T9-10 level is new. 3. The patient is status post T7-9 laminectomy. Myelomalacia is present at the T7-8 level. The postoperative change is a new finding. Signed by Cal Tai MD 07/29/2016 01:02 P
== END ==
LOC: M RAD 10:48
PROVIDERS: ATTEND Nurse Practitioner Family
DX: M79.1 Myalgia (principal); Z79.899 Other long term (current) drug therapy; I10 Essential (primary) hypertension; Z13.21 Encounter for screening for nutritional disorder; Z13.220 Encounter for screening for lipoid disorders

== ENCOUNTER → 2016-07-29 | Outpatient (CLI) | payer MEDICARE, MEDICAID ==
[2016-07-29 13:03] LABS: ALBUMIN 3.4 GM/DL (3.2-5.2); ALBUMIN/GLOBULIN RATIO 0.79 (1.00-1.93); ALKALINE PHOSPHATASE 145 U/L (45-117); ALT/SGPT 40 U/L (12-78); ANION GAP 12 MEQ/L (8-16); AST/SGOT 43 U/L (15-37); BILIRUBIN,TOTAL 0.7 MG/DL (0.2-1.0); BLOOD UREA NITROGEN 13 MG/DL (7-18); CALCIUM LEVEL 9.4 MG/DL (8.5-10.1); CARBON DIOXIDE LEVEL 23 MEQ/L (21-32); CHLORIDE LEVEL 108 MEQ/L (98-107); CHOLESTEROL LEVEL 254 MG/DL (<200); CREATININE FOR GFR 1.17 MG/DL (0.55-1.02); GLOMERULAR FILTRATION RATE > 60.0 (>51); GLUCOSE, FASTING 112 MG/DL (70-105); POTASSIUM SERUM 4.2 MEQ/L (3.5-5.1); SODIUM LEVEL 143 MEQ/L (136-145); TOTAL PROTEIN 7.7 GM/DL (6.4-8.2); TRIGLYCERIDES LEVEL 154 MG/DL (<150)
== END ==
LOC: M LAB 11:49
PROVIDERS: ATTEND Family Medicine
DX: Z13.21 Encounter for screening for nutritional disorder (principal); Z13.220 Encounter for screening for lipoid disorders; I10 Essential (primary) hypertension

== ENCOUNTER 2016-08-02 12:56 | Observation (INO) | payer MEDICARE, MEDICAID ==
[~2016-08-02] VITALS: Ht 167.6 cm; Wt 100.8 kg
[2016-08-02] MEDS: ADVAIR DISKUS 250/50 INH PWD INH SCH (03:25)
[~2016-08-02 12:56] MED LIST changes: -ALBU17IN INH; -AMLO5TAB2 PO; -ASPI1TAB PO; -CALCTAB68 PO; -COLA100C PO; -GABA800T PO; -INCR1INH INH; -LACT10SO29 PO; -LACT20EL PO; +NICOTINE 7 MG/24 HR TRANSDERMAL TD ONE; -OXYB5TA PO; -ROBA500T PO; -SERT-138 PO; -ST J PO; -TOUJ1.2I SC; -TRAZ150T14 PO; -VARE1TA PO; -[UNRECOGNIZED DRUG - OTHER]
[2016-08-02] MEDS ORDERED: [UNRECOGNIZED DRUG - OTHER] (13:30)
[2016-08-02 14:00] LABS: CALCIUM LEVEL 9.7 MG/DL (8.5-10.1); CREATININE FOR GFR 1.24 MG/DL (0.55-1.02); GLOMERULAR FILTRATION RATE 58.1 (>51); POTASSIUM SERUM 3.2 MEQ/L (3.5-5.1)
[2016-08-02 14:29] LABS: BASO % 0.5 % (0.0-1.0); EOS % 0.8 % (0.0-3.0); LARGE UNSTAINED CELL % 1.9 % (0.0-4.0); LYMPH % 37.1 % (24.0-44.0); MEAN CORPUSCULAR HEMOGLOBIN 33.5 pg (27.0-33.0); MEAN CORPUSCULAR HGB CONC 33.9 g/dl (32.0-36.5); MEAN CORPUSCULAR VOLUME 98.8 fl (80.0-96.0); MONO % 7.6 % (0.0-5.0); NEUTROPHILS % 52.1 % (36.0-66.0); PLATELET COUNT, AUTOMATED 209 k/mm3 (150-450); RED CELL DISTRIBUTION WIDTH 12.8 % (11.5-14.5); WHITE BLOOD COUNT 10.8 K/mm3 (4.0-10.0)
[2016-08-02 14:30] LABS: BASO # 0.1 K/mm3 (0.0-0.2); DIFF SLIDE NUMBER 237; EOS # 0.1 K/mm3 (0.0-0.50); LARGE UNSTAINED CELL # 0.2 K/mm3 (0.0-0.4); MONO # 0.8 K/mm3 (0.0-0.8); NEUTROPHILS # 5.6 K/mm3 (1.8-7.7)
--- NOTE | 2016-08-02 14:36 | REP ---
AP PORTABLE CHEST: 08/02/2016. Comparison: 11/06/2014. Clinical history: Dyspnea and cough. Findings: There is elevation of the right diaphragm as on previous studies. Old granulomas seen in the right base as on previous chest x-ray and CT. There is no gross cardiomegaly, vascular redistribution or edema. The airway is intact. The aorta is normal for age. Degenerative changes in the spine. No acute finding. Impression: 1. Elevated right diaphragm without cardiomegaly, edema, effusion or acute infiltrate. There are old granulomatous changes noted. Signed by Hermelindo Crowe MD 08/02/2016 05:10 P
[2016-08-02] MEDS ORDERED: DEXTROSE 50% 50 ML SYRINGE IV STA (14:55)
[2016-08-02] MEDS ORDERED: DEXTROSE 50% 50 ML VIAL IV ONE (15:00)
[2016-08-02 15:17] LABS: ABG BASE EXCESS 2.1 (-2.0-2.0); ABG HCO3 28.4 MEQ/L (22.0-26.0); ABG PARTIAL PRESSURE CO2 51.3 mmHg (35.0-45.0); ABG PARTIAL PRESSURE O2 57.9 mmHg (75.0-100.0); ABG STANDARD HCO3 26.2 MEQ/L (22.0-26.0); ABG pH (ARTERIAL) 7.361 UNITS (7.350-7.450)
--- NOTE | 2016-08-02 15:24 | REP ---
CT BRAIN WITHOUT CONTRAST: 08/02/2016. Clinical history: Altered mental status. No prior study. Findings: Noncontrast soft tissue and bone window settings are reviewed. Ventricles are midline symmetric and without abnormal dilatation or displacement. Third and fourth ventricles intact. Basal ganglia symmetric. The wise-white junction show a few areas of subtly hypodense white matter in heterogeneous pattern which reflects some mild and chronic white matter disease. Cortical stripe is preserved. There is no vascular territory infarct, intracranial hemorrhage, mass or mass effect. Brainstem intact. The cerebellum and cisterna magna are also intact. Mastoids are unremarkable. The skull base and calvarium show no fracture or focal lesion. There are vascular calcifications in the carotid siphons. Visualized sinuses clear. Impression: 1. Chronic mild small vessel white matter ischemic changes without acute infarct, hemorrhage, mass or mass effect. 2. No significant atrophy, bleed or abnormalities of the basilar cisterns. 3. Mastoids, sinuses, skull base and calvarium intact. Signed by Hermelidno Crowe MD 08/02/2016 05:11 P
[2016-08-02] MEDS ORDERED: ISOVUE-370 76% 100ML VIAL (Q9967) As Ordered ONE (15:43)
[2016-08-02] MEDS ORDERED: NALOXONE INJ 0.4 MG/1 ML VIAL (J2310) IV STA (15:49)
--- NOTE | 2016-08-02 16:49 | REP ---
CT pulmonary angiogram: With IV contrast. History: Shortness of breath. Comparison studies: July 29, 2015. Contrast dose: 75 cc's of Isovue [address] technique: Helical scanning is acquired and overlapping 1.5 mm and contiguous 3 mm axial images are reformatted. In addition, a 3-D work station is deployed to generate thick slab maximum intensity projection images in sagittal and coronal imaging projections. CT pulmonary angiographic findings: There is good opacification of the pulmonary arterial tree. There is no CT evidence of pulmonary embolism. The thoracic aorta is normal in course and caliber and homogeneous in contrast enhancement. No pleural or pericardial effusion is seen. Maximal intensity projection images show no evidence of filling defect or vessel cutoff. There are granulomatous calcific residuals in the right hilus and right middle lobe. No other significant pulmonary nodule or mass lesion is seen. There is a micronodular liver contour and some hypertrophy of the left lobe of the liver consistent with cirrhosis. The spleen is prominent in size measuring 14 cm. No focal splenic lesion is seen. There are clips in the right upper quadrant post cholecystectomy. No adrenal lesion is seen. There are some slightly prominent aortopulmonary window and anterior mediastinal lymph nodes. The largest of these measures 12 x 13 mm and this is felt to be unchanged from the comparison study. No progressive adenopathy is seen. No bony destructive lesion is observed. Impression: 1. No CT evidence of pulmonary embolism. 2. Old granulomatous disease. 3. Evidence of cirrhosis and mild splenomegaly, unchanged from comparison CT study. 4. Borderline mediastinal lymph nodes, stable since the prior study July 29, 2015. Signed by Maged Kay MD 08/02/2016 07:20 P
[2016-08-02] MEDS ORDERED: TOUJ1.2I SC (16:57)
[2016-08-02] MEDS ORDERED: INCR1INH INH (16:57)
[2016-08-02] MEDS ORDERED: AMLO5TAB2 PO (16:57)
[2016-08-02] MEDS ORDERED: TRAZ150T14 PO (16:57)
[2016-08-02] MEDS ORDERED: SERT-138 PO (16:57)
[2016-08-02] MEDS ORDERED: CALCTAB68 PO (16:57)
[2016-08-02] MEDS ORDERED: OXYB5TA PO (16:57)
[2016-08-02] MEDS ORDERED: ALBU17IN INH (16:57)
[2016-08-02] MEDS ORDERED: VARE1TA PO (16:57)
[2016-08-02] MEDS ORDERED: GABA800T PO (16:57)
[2016-08-02] MEDS ORDERED: ROBA500T PO (16:57)
[2016-08-02] MEDS ORDERED: COLA100C PO (16:57)
[2016-08-02] MEDS ORDERED: ST J PO (16:57)
[2016-08-02] MEDS ORDERED: ASPI1TAB PO (16:58)
[2016-08-02] MEDS ORDERED: POTASSIUM CHLORIDE 10 MEQ SR TABLET PO ONE (17:00)
[2016-08-02] MEDS ORDERED: D5W/0.45% SODIUM CHLORIDE 1,000 ML IV SCH (17:00)
[2016-08-02 17:26] LABS: ALBUMIN 3.5 GM/DL (3.2-5.2); ALBUMIN/GLOBULIN RATIO 0.73 (1.00-1.93); BILIRUBIN,DIRECT 0.2 MG/DL (0.0-0.2); BILIRUBIN,TOTAL 0.6 MG/DL (0.2-1.0); MAGNESIUM LEVEL 2.1 MG/DL (1.8-2.4); TOTAL PROTEIN 8.3 GM/DL (6.4-8.2)
--- NOTE | 2016-08-02 18:13 | HPEPDOC ---
Medical History and Physical Date of Admission Aug 02, 2016 at 17:59 History and Physical HISTORY AND PHYSICAL Date of admission: 08/02/2016 PCP: Dr. Crystal Junior in [place] Chief complaint: She felt like her heart was fluttering and was going to shut down HPI: 63-year-old female with severe aortic stenosis status post porcine aortic valve repair, chronic diastolic CHF, severe pulmonary hypertension, COPD, chronic hypoxic respiratory failure on 2 L of oxygen at home, diabetes mellitus type 2, hypothyroidism, morbid obesity, chronic kidney disease stage III, hypertension, anxiety, depression, hyperlipidemia, history of CVA, leukemia, ovarian cancer who presented to the emergency department with the sensation that her heart was fluttering and felt like it was going to shut down. She describes a heaviness in the center of her chest that did not radiate anywhere. She states it was accompanied by pain that went down her left arm. She says that nothing made it better and nothing made it worse, and she has never experienced anything like this before. She states that after a period of time she cannot determine, it subsided on its own. However, it then returned, and subsided again. In the emergency department, she states that once again returned and subsided on its own. Past medical history: severe aortic stenosis status post porcine aortic valve repair, chronic diastolic CHF, severe pulmonary hypertension, COPD, chronic hypoxic respiratory failure on 2 L of oxygen at home, diabetes mellitus type 2, hypothyroidism, morbid obesity, chronic kidney disease stage III, hypertension, anxiety, depression, hyperlipidemia, history of CVA, leukemia, ovarian cancer Past surgical history: Porcine aortic valve replacement, cholecystectomy, thyroidectomy Family history: Coronary artery disease, thyroid disease, hypertension, CHF, hyperlipidemia Social history: The patient quit smoking over 40 years ago. She denies any drug or alcohol use. She currently lives with her roommate of 22 years Allergies: Meperidine Review of systems: General: Positive for chills. Negative for fever Eyes: Negative for vision changes and ocular discharge ENT: Negative for sore throat and nose bleed Cardiovascular: Positive for chest pain and palpitations Respiratory: Positive for cough and shortness of breath. Negative for sputum GI: Positive for nausea. Negative for vomiting, diarrhea, constipation Musculoskeletal: Negative for neck and back pain Skin: Negative for rash Neuro:. Negative for Headache, dizziness, numbness, tingling Psych: Negative for depression and suicidal ideation Endocrine: Negative for polyuria : Negative for dysuria Heme: Negative for bruising and bleeding Home meds: See below Physical exam: Vital signs: Vital Sign - Last 24 Hours 08/02/16 08/02/16 08/02/16 08/02/16 12:57 13:05 13:35 13:41 Temp 97.8 97.8 Pulse 89 89 78 Resp 18 18 B/P 101/59 101/59 Pulse Ox 91 91 96 O2 Delivery Room Air Room Air Room Air 08/02/16 08/02/16 08/02/16 08/02/16 13:45 13:56 14:00 14:11 Pulse 78 76 B/P 108/61 109/58 Pulse Ox 96 96 08/02/16 08/02/16 08/02/16 08/02/16 14:15 14:26 14:30 14:41 Pulse 74 70 B/P 112/58 107/56 Pulse Ox 96 99 08/02/16 08/02/16 08/02/16 08/02/16 14:44 14:45 14:56 15:00 Pulse 70 B/P 96/57 93/54 100/58 08/02/16 08/02/16 08/02/16 08/02/16 15:11 15:15 15:26 15:30 Pulse 68 66 B/P 98/58 101/56 Pulse Ox 91 92 08/02/16 08/02/16 08/02/16 08/02/16 15:31 15:45 15:46 15:47 Temp 97.0 Pulse 64 62 62 64 Resp 15 B/P 118/69 Pulse Ox 92 94 94 94 O2 Delivery Room Air 08/02/16 08/02/16 08/02/16 08/02/16 16:00 16:02 16:15 16:17 Pulse 64 60 B/P 147/75 109/68 Pulse Ox 95 94 08/02/16 08/02/16 08/02/16 08/02/16 16:18 16:48 16:53 17:03 Pulse 62 68 70 B/P 172/75 Pulse Ox 94 99 99 Gen.: awake, alert, no acute distress Eyes: Extraocular movements intact, normal sclera ENT: Moist mucous membranes Cardiovascular: RRR, no murmurs rubs or gallops Lungs: clear to auscultation bilaterally, no rales, rhonchi, or wheeze Abdomen: Soft, NT/ND, normal BS Musculoskeletal: normal range of motion Extremities: 2+ peripheral edema Neuro: alert and oriented 3, normal speech, no focal deficits Psych: Normal mood with congruent affect Labs and radiology: See below Troponin 0.10, 0.3 to Potassium 3.3 Chest x-ray unremarkable Creatinine 1.35 Hemoglobin 9.4 Assessment and plan: 63-year-old female with severe aortic stenosis status post porcine aortic valve repair, chronic diastolic CHF, severe pulmonary hypertension, COPD, chronic hypoxic respiratory failure on 2 L of oxygen at home, diabetes mellitus type 2, hypothyroidism, morbid obesity, chronic kidney disease stage III, hypertension, anxiety, depression, hyperlipidemia, history of CVA, leukemia, ovarian cancer who presented to the emergency department with the sensation that her heart was fluttering and felt like it was going to shut down. She is admitted with chest pain. 1. Chest pain: Although her EKG does have some T-wave inversion, this appears to be old when it is compared to prior EKGs. We will monitor the patient on telemetry, continue to trend her cardiac markers. The patient will be started on a daily aspirin, and Dr. Payan has graciously agreed to see her in consultation. She does not appear to be volume overloaded, as her chest x-ray is clear. 2. Hypokalemia: Replace, we will also continue her home daily replacement. 3. Chronic diastolic CHF: Although the patient has swelling of her lower extremities, her lungs sound clear, and a chest x-ray is unremarkable. It appears that she is relatively compensated at this time. We will check a BNP, continue her on her home spironolactone, Lasix, KCl. 4. COPD: The patient currently does not have any wheeze. She does not report any home medications for this. We will continue to monitor closely 5. Chronic hypoxic respiratory failure on 2 L of oxygen at home: This is secondary to her multiple underlying conditions such as chronic diastolic CHF, COPD, and severe pulmonary hypertension. She currently appears to be stable at her baseline. 6. Diabetes mellitus type 2: We will continue the patient's home Lantus 85 units twice a day. We will hold the patient's home metformin. We will use sliding scale insulin while the patient is in-house. 7. Hypothyroidism. Continue home replacement therapy. 8. Chronic kidney disease stage III: The patient's baseline creatinine appears to be in the low ones. She appears to be at baseline at this time. Continue home calcitriol. Continue to monitor closely. 9. Hypertension: Blood pressure is currently controlled. The patient does not report any therapy for this at home. Continue to monitor closely. 10. Anxiety and depression: Continue home trazodone, Effexor, Depakote. 11. Hyperlipidemia: The patient does not report any statin at home. 12. History of CVA: The patient is not on any home aspirin or Plavix. As mentioned above, we will be starting the patient on a daily baby aspirin. She does report taking pentoxifylline at home, which we will continue. She is also not on a statin, and I highly recommend that she discuss adding a statin with her primary care physician. 13. Ovarian cancer: Continue home letrozole. 14. Chronic anemia: A slim hemoglobin appears to be in the 8-9 range. She is currently at baseline. We will continue home iron. I suspect this may be secondary to her chronic kidney disease. DVT prophylaxis: Lovenox Dispo: Place in observation status on the service of Dr. Severino CODE STATUS: Full code Vital Signs see above Laboratory Data Labs 24H Laboratory Tests 2 08/02/16 13:31: Aspartate Amino Transf (AST/SGOT) 41H, Alanine Aminotransferase (ALT/SGPT) 40, Alkaline Phosphatase 148H, Total Bilirubin 0.6, Direct Bilirubin 0.2, Albumin 3.5, Albumin/Globulin Ratio 0.73L, Anion Gap 8, B-Type Natriuretic Peptide 51.9 , White Blood Count 10.8H, Red Blood Count 3.98L, Hemoglobin 13.3, Hematocrit 39.3, Mean Corpuscular Volume 98.8H, Mean Corpuscular Hemoglobin 33.5H, Mean Corpuscular Hemoglobin Concent 33.9, Red Cell Distribution Width 12.8, Platelet Count 209, Neutrophils (%) (Auto) 52.1, Lymphocytes (%) (Auto) 37.1, Monocytes ( %) (Auto) 7.6H, Eosinophils (%) (Auto) 0.8, Basophils (%) (Auto) 0.5, Neutrophils # (Auto) 5.6, Lymphocytes # (Auto) 4.0, Monocytes # (Auto) 0.8, Eosinophils # (Auto) 0.1, Basophils # (Auto) 0.1, Calcium Level 9.7, Glomerular Filtration Rate 58.1, Lactic Acid (Sepsis) 1.8, Large Unclassified Cells # 0.2, Large Unclassified Cells % 1.9, Magnesium Level 2.1, Thyroid Stimulating Hormone (TSH) 3.640, Total Protein 8.3H 08/02/16 14:45: Bedside Glucose (Misc Panel) 69L 08/02/16 15:02: Arterial Blood pH 7.361, Arterial Blood Partial Pressure CO2 51.3H, Arterial Blood Partial Pressure O2 57.9L, Arterial Blood Total CO2 30.0H, Arterial Blood HCO3 28.4H, Arterial Blood Base Excess 2.1H, Arterial Blood Oxygen Saturation 89.4L, Blood Gas Bicarbonate Standard 26.2H 08/02/16 16:00: Ammonia 92H 08/02/16 16:42: CBC/BMP Laboratory Tests 08/02/16 13:31 Red Blood Count 3.98 L, Mean Corpuscular Volume 98.8 H, Mean Corpuscular Hemoglobin 33.5 H, Mean Corpuscular Hemoglobin Concent 33.9, Red Cell Distribution Width 12.8, Neutrophils (%) (Auto) 52.1, Lymphocytes (%) (Auto) 37.1, Monocytes (%) (Auto) 7.6 H, Eosinophils (%) (Auto) 0.8, Basophils (%) ( Auto) 0.5, Neutrophils # (Auto) 5.6, Lymphocytes # (Auto) 4.0, Monocytes # (Auto ) 0.8, Eosinophils # (Auto) 0.1, Basophils # (Auto) 0.1 Home Medications Scheduled (Scarlet Hylton) 300 Unit/Ml Inj 800 UNIT SC DAILY (Incruse Ellipta) 62.5 Mcg/Inh Inh 62.5 MCG INH DAILY Alpha Tocopheryl Acid Succinat (Vitamin E) 400 Unit Tab 400 UNIT PO DAILY Amlodipine Besylate (Amlodipine Besylate) 5 Mg Tab 5 MG PO DAILY Aspirin (Aspirin 81) 81 Mg Tab 81 MG PO QHS Calcium/Vitamin D (Calcium 600 + D 600-400 mg-Unit) 1 Tab Tab 1 TAB PO DAILY Furosemide (Lasix) 40 Mg Tab 40 MG PO DAILY Gabapentin (Gabapentin) 800 Mg Tab 800 MG PO TID Losartan Potassium (Losartan Potassium) 100 Mg Tab 100 MG PO DAILY Oxybutynin Chloride (Oxybutynin Chloride) 5 Mg Tab 5 MG PO DAILY Sertraline HCl (Sertraline HCl) 100 Mg Tab 100 MG PO DAILY Trazodone HCl (Trazodone HCl) 150 Mg Tab 150 MG PO QHS Varenicline (Chantix) 1 Mg Tab 1 MG PO DAILY Scheduled PRN (Voltaren) 1 % Gel 1 DOSE TOP QID PRN PRN PAIN APPLY TO MID BACK Albuterol Sulfate (Ventolin Hfa) 200 Puff/8 Gm Aers 2 PUFF INH Q4H PRN PRN SHORTNESS OF BREATH Docusate Sodium (Colace) 100 Mg Cap 100 MG PO BID PRN PRN CONSTIPATION Lidocaine (Lidoderm) 5 % Dis 1 PATCH TD DAILY PRN PRN PAIN APPLY TO MID BACK Methocarbamol (Robaxin) 500 Mg Tab 1 TAB PO TID PRN PRN SPASMS Triamcinolone Acet (Triamcinolone Acetonide 0.1% Crm) 1 Dose/15 Gm Cr 1 DOSE TOP BID PRN PRN ITCHING APPLY TO FACE Allergies Coded Allergies: No Known Allergies (Verified , 02/12/11) NOAH RUFF Aug 02, 2016 18:13
[2016-08-02] MEDS ORDERED: IPRATROPIUM 0.5MG/ALBUTEROL 2.5MG INH SOL UD 3ML (DUONEB)(J7620) NEB PRN (18:15)
[2016-08-02] MEDS ORDERED: ONDANSETRON 4MG/2ML VIAL (J2405) IV PRN (18:15)
[2016-08-02] MEDS ORDERED: ACETAMINOPHEN TAB 650MG DOSE (2X325MG) PO PRN (18:15)
[2016-08-02] MEDS ORDERED: LACTULOSE 20 GM/30 ML SYRUP UD PO ONE (18:30)
[2016-08-02 18:35] LABS: METHADONE URINE NEGATIVE (NEGATIVE)
[2016-08-02] MEDS ORDERED: LIDOCAINE 5% (LIDODERM) PATCH TD PRN (18:45)
[2016-08-02 19:13] LABS: INR 1.04
[2016-08-02] MEDS: HumaLOG INSULIN (NovoLOG) PER UNIT SC SCH (21:00)
[2016-08-02] MEDS ORDERED: **NOTE PATIENT COMMENT** MISC XX SCH (21:00)
[2016-08-02 21:05] VITALS: BP 167/79
--- NOTE | 2016-08-02 21:42 | HPE ---
DATE OF ADMISSION: 08/02/2016 TIME PATIENT WAS SEEN: This afternoon at 1700. PRIMARY CARE PROVIDER: Dr. Winston. CHIEF COMPLAINT: Confusion, shortness of breath. HISTORY OF PRESENT ILLNESS: A 55-year-old female with past medical history of type 2 diabetes insulin dependent, hypertension, chronic kidney disease stage III, follows with Dr. Preston, depressive disorder, tobacco abuse, history of pancreatitis, hyperlipidemia, secondary hyperparathyroidism, choledocholithiasis, history of crack cocaine last use in 2010, anterior herniation of spinal cord, diverticulosis, obstructive sleep apnea on continuous positive airway pressure (CPAP), chronic obstructive pulmonary disease (COPD), who presented with shortness of breath and confusion starting this morning at around 10 a.m. Per patient, she does not remember what happened, and it got worse once the patient arrived at physical therapy. The patient also stated that she has chest pain with it; however, she could not go into detail describing the chest pain. She believes it might be sharp, and could not remember when the chest pain ended. She said she had a similar episode about a month ago and did not seek medical attention. In addition, she recently developed swelling in the lower extremities. According to her, it has been getting worse this morning, and usually better at night, and got worse as soon as she started walking in the morning, and she has been placed on Lasix recently. Otherwise, the patient denies any fever or chills, any abdominal pain, nausea, vomiting, diarrhea, constipation, any problems with urination, any recent weight changes. ALLERGIES: No known drug allergies. HOME MEDICATIONS: - Ventolin two puff inhalation every four hours as needed - vitamin E 400 units one tablet by mouth daily - Norvasc 5 mg one tablet by mouth daily - aspirin 81 mg one tablet at bedtime - calcium/vitamin D one tablet by mouth daily - Colace 100 mg one tablet by mouth twice a day as needed - Lasix 40 mg one tablet by mouth daily - gabapentin 800 mg one tablet by mouth three times a day - Incruse 62.5 mcg one inhalation daily - lidocaine patch topically as needed every day to the mid back - losartan 100 mg one tablet by mouth daily - methocarbamol one tablet by mouth three times a day as needed for muscle spasm - oxybutynin 5 mg one tablet by mouth daily - sertraline 100 mg one tablet by mouth daily - Toujeo 800 units subcutaneously daily - trazodone 150 mg one tablet by mouth at bedtime - triamcinolone one dose topically twice a day as needed - varenicline (Chantix) one mg one tablet by mouth daily - voltaren 1% gel topically four times a day as needed PAST MEDICAL HISTORY: 1. Insulin-dependent type 2 diabetes. 2. Hypertension. 3. Chronic kidney disease stage III. 4. Depressive disorder. 5. Tobacco abuse. 6. History of pancreatitis. 7. Hyperlipidemia. 8. Secondary hyperparathyroidism. 9. Choledocholithiasis. 10. History of crack cocaine use for four years, last use was in 2010. 11. 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 12. Diverticulosis with colonoscopy in 2014. 13. Obstructive sleep apnea on CPAP at night. 14. COPD. PAST SURGICAL HISTORY: 1. Hysterectomy. 2. Cholecystectomy. 3. Left breast cyst removal. 4. T7-9 laminectomy in 2014. 5. Colonoscopy November 2014. SOCIAL HISTORY: The patient smokes about 1/4 pack per day which was reduced from one pack per day about a month ago, and the patient has been smoking since 40 years ago. Denies any drinking or recreational drug use. However, the patient does have a history of cocaine use. Otherwise, the patient lives alone. However, she was taking care of herself at home. FAMILY HISTORY: The patient's mother had diabetes. Uncle had chronic kidney disease, was on hemodialysis. Father also had diabetes. REVIEW OF SYSTEMS: GENERAL: The patient denies any recent traveling, sick contact, weight changes. Denies any fever or chills, any headache. HEENT: Denies any changes with vision, smell, hearing or taste. Denies any sore throat or trouble swallowing. CARDIOVASCULAR: Admits to chest pain in mid sternum, which the patient stated could be sharp and had previous episode about a month ago. PULMONARY: Admits to trouble breathing. Does have a history of COPD and obstructive sleep apnea on CPAP at night. The patient did develop swelling in the lower extremities recently. However, has been controlled on Lasix recently, got slightly worse this morning. The patient otherwise does not use oxygen at home and has long-term tobacco abuse history. GASTROINTESTINAL: Denies any abdominal pain. Denies any nausea, vomiting, diarrhea, constipation, any blood in the stool. GENITOURINARY: Denies any problem with urination, any dysuria, any blood in the urine. MUSCULOSKELETAL: Admits to chronic pains. ENDOCRINE: Admits to insulin-dependent type 2 diabetes. Denies any cold or heat intolerance. HEMATOLOGY/ONCOLOGY: Denies any weight changes, any night sweats, any bruising or bleeding anywhere. NEUROLOGIC: Denies any weakness on any one side of the body. Admits to confusion this morning and does not remember what happened. Denies any change of sensations, any slurred speech or blurred vision. PSYCHIATRIC: Admits to depression, controlled with home medications. PHYSICAL EXAMINATION: VITAL SIGNS: Temperature 97, pulse 70, blood pressure runs between 109/68 and 172/75. Oxygen saturating at 99% on room air. GENERAL: The patient is obese, middle-aged female who is alert, awake, oriented times three; however, earlier the patient was confused before Narcan was given. She was currently lying comfortably in bed with head elevated at a 45-degree angle. HEENT: Normocephalic, atraumatic. Extraocular motor intact. Mucus moist. Neck is supple. No neck lymphadenopathy. The patient does have hirsutism. CARDIOVASCULAR: Regular rate and rhythm. S1, S2. No murmurs, rubs, or gallops. LUNGS: Clear to auscultation bilaterally. No wheezes, rales, or rhonchi. ABDOMEN: Positive bowel sounds. Soft, nontender, nondistended. No peritoneal signs. No ecchymosis. EXTREMITIES: 1+ pedal edema with edema extending to below the ankle. No clubbing , no cyanosis. SKIN: Warm and dry. NEUROLOGIC: Cranial nerves II through XII intact. No focal neurologic deficit. LABORATORY DATA: WBC 10.8, hemoglobin 13.3, hematocrit 39.3, with platelet count of 209, and MCV of 98.8. Sodium 144, potassium 3.2, chloride 108, bicarbonate 28, anion gap 8, BUN 15, creatinine 1.24, GFR 58, fasting glucose was reduced 57, lactic acid 1.7. Calcium 9.7, magnesium 2.1. Total bilirubin 0.6, direct bilirubin 0.2, AST 41, ALT 40, alkaline phosphatase 148. Ammonia level was elevated at 92. BNP 51.9. Total protein 8.3, albumin 3.5. TSH 3.64. Urine toxicology screen is currently pending. The patient had a blood gas in the emergency room that shows a pH of 7.36, pCO2 of 51.3, pO2 of 57.9, with oxygen saturation at 89.4%, with base excess of 2.1. MICROBIOLOGY: No new cultures. Urine culture is pending. IMAGING: The patient did have a portable chest x-ray in the emergency room which shows elevated right hemidiaphragm without cardiomegaly, edema, effusion, or acute infiltrate. The patient had a CT head without contrast in the emergency department (ED) today that shows chronic, mild small-vessel and white-matter ischemic changes without acute infarct, hemorrhage, mass or mass effect. No significant atrophy, bleeding abnormality of the basilar systems. Mastoid sinuses, skull base, and calvarium intact. The patient also had CT angiogram of the chest in the emergency room that shows no evidence for pulmonary embolism (PE), old granulomatous disease. Evidence for cirrhosis and mild splenomegaly unchanged from comparison CT study. Borderline mediastinal lymph nodes, stable since prior study in 07/2015. ASSESSMENT AND PLAN: A 55-year-old female with past medical history of most significantly, type 2 diabetes, hypertension, chronic obstructive pulmonary disease (COPD), obstructive sleep apnea (JAYLEN), history of crack cocaine abuse, who presented with: 1. Confusion with altered mental status and shortness of breath, likely secondary to narcotic overdose. The patient responded with Narcan. However, the patient herself denied that she was on any narcotics. Urine drug screen is currently pending. We will followup. Other possible causes including hypoglycemia which could also be caused by narcotic overdose, as well as metabolic encephalopathy due to hyperammonemia due to ammonia level is 92. Otherwise, we will also rule out infectious etiologies and followup with urine culture and urinalysis. Due to possibility of narcotic overdose, we will start the patient on seizure precautions and continue to monitor patient for any signs of withdrawal. 2. Hyperammonemia with ammonia level of 92. CT angiogram of the chest did show that patient likely has cirrhosis. We will start patient on Lactulose and trend the patient's ammonia level for tomorrow morning. The patient does admit to some tremor. 3. Hypokalemia with a potassium level of 3.2, which has been repleted. We will continue to monitor and replete as necessary. 4. Chronic kidney disease with creatinine of 1.24. The patient does follow with Dr. Preston outpatient. The patient's baseline appears to be around 1.1. We will continue to monitor. Possibly slightly dehydrated. 5. Lower extremity swelling. The patient has been started on Lasix recently. However, the swelling continues present, and appears to be dependent. We will continue to monitor currently. The patient did have slightly worsening creatinine; therefore, will not start Lasix, and the patient's lungs were free of edema. Continue to monitor. 6. Mediastinal lymphadenopathy, stable compared to study in 2016. Will continue to monitor. 7. Hypoglycemia with a glucose of 58. Will continue the patient on insulin sliding scale only for now. The patient did receive boluses of dextrose 5% in water (D5W) in the emergency room. Will restart patient on home insulin as needed. 8. Hypertension. We will continue the patient on home medications as needed, with hold parameters systolic less than 120. 9. Anxiety/depression. Continue home medication. 10. Urinary incontinence. Will hold the patient's medication for now due to altered mental status. 11. Chronic pain. Will hold the muscle relaxer for now due to her altered mental status. 12. History of tobacco abuse. Will place the patient on Nicoderm patch. Continue to monitor. 13. Deep venous thrombosis (DVT) prophylaxis, on subcutaneous heparin. DISPOSITION: The patient's altered mental status and shortness of breath likely secondary to narcotic overdose; however, the patient denies. Will followup with urine drug screen. In the meanwhile, we will need to rule out any infectious etiologies. The patient also appears to have hyperammonemia likely secondary to cirrhosis. The patient may need further workup, as well as hypoglycemia which was likely an effect of her narcotic overdose. Will continue to monitor. The patient has been discussed with attending doctor, Dr. Velazquez. In addition, the patient will be assigned to Dr. Severino for tomorrow. My preceptor for this patient encounter was Dr. Caroline Velazquez. The preceptor was physically present in the building during the encounter and was fully available as needed. All aspects of the patient interview, examination, medical decision making process, and medical care plan development were reviewed and approved by the preceptor. The preceptor is aware and concurs with the plan as stated in the body of this note and will attest to such by his/her co-signature. I, Caroline Velazquez, have seen and examined the above patient and agree with the assessment and plan as documented above. MTDD
[2016-08-02] MEDS ORDERED: GLUCAGON FOR INJ 1 MG VIAL (J1610) SC PRN (22:00)
[2016-08-02] MEDS ORDERED: GLUCOSE 4 GM CHEW TABLET PO PRN (22:00)
[2016-08-02] MEDS ORDERED: DEXTROSE 50% 50 ML SYRINGE IV PRN (22:00)
[2016-08-02] MEDS: ASPIRIN 81 MG ENTERIC TAB PO SCH (22:24)
[2016-08-02] MEDS: traZODone 50 MG TAB PO SCH (22:24)
[2016-08-02] MEDS: DOCUSATE SODIUM 100 MG CAP PO SCH (22:24)
[2016-08-02] MEDS: HEPARIN SOD (PORCINE) 5000 UNITS/ML VIAL SC SCH (22:25)
[2016-08-02] MEDS ORDERED: NICOTINE 7 MG/24 HR TRANSDERMAL TD ONE (23:00)
[2016-08-02] MEDS: IPRATROPIUM 0.5MG/ALBUTEROL 2.5MG INH SOL UD 3ML (DUONEB)(J7620) NEB SCH (23:27)
[2016-08-03 00:09] VITALS: BP 172/89
[2016-08-03] MEDS ORDERED: **NOTE PATIENT COMMENT** MISC XX PRN (00:15)
[2016-08-03] MEDS ORDERED: SLF 3 ML SYR IV PRN (01:30)
[2016-08-03] MEDS ORDERED: hydrALAZINE INJ 20 MG/ML VIAL IV ONE (01:45)
[2016-08-03 04:00] VITALS: BP 132/67
[2016-08-03] MEDS: SLF 3 ML SYR IV SCH ×3 (05:38→21:01)
[2016-08-03] MEDS: HEPARIN SOD (PORCINE) 5000 UNITS/ML VIAL SC SCH ×3 (05:39→21:01)
[2016-08-03 05:45] LABS: MEAN CORPUSCULAR HEMOGLOBIN 33.2 pg (27.0-33.0); MEAN CORPUSCULAR HGB CONC 33.9 g/dl (32.0-36.5); RED CELL DISTRIBUTION WIDTH 12.5 % (11.5-14.5); WHITE BLOOD COUNT 5.5 K/mm3 (4.0-10.0)
[2016-08-03 06:02] LABS: ANION GAP 6 MEQ/L (8-16); BLOOD UREA NITROGEN 15 MG/DL (7-18); CALCIUM LEVEL 8.6 MG/DL (8.5-10.1); CARBON DIOXIDE LEVEL 29 MEQ/L (21-32); CHLORIDE LEVEL 109 MEQ/L (98-107); GLOMERULAR FILTRATION RATE > 60.0 (>51); GLUCOSE, FASTING 153 MG/DL (70-105); POTASSIUM SERUM 3.9 MEQ/L (3.5-5.1); SODIUM LEVEL 144 MEQ/L (136-145)
[2016-08-03] MEDS: HumaLOG INSULIN (NovoLOG) PER UNIT SC SCH ×4 (07:30→21:02)
[2016-08-03] MEDS: ADVAIR DISKUS 250/50 INH PWD INH SCH ×3 (07:33→21:54)
[2016-08-03] MEDS: IPRATROPIUM 0.5MG/ALBUTEROL 2.5MG INH SOL UD 3ML (DUONEB)(J7620) NEB SCH ×2 (07:35→15:25)
[2016-08-03 07:59] VITALS: BP 135/70
[2016-08-03] MEDS: amLODIPine 5 MG TAB PO SCH ×2 (09:00→12:33)
[2016-08-03] MEDS: LOSARTAN 50 MG TAB PO SCH ×2 (09:00→12:35)
--- NOTE | 2016-08-03 09:00 | ECGEPIP ---
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
[2016-08-03] MEDS: DOCUSATE SODIUM 100 MG CAP PO SCH ×2 (10:57→21:00)
[2016-08-03] MEDS: CALCIUM/VITAMIN D 500 MG TAB PO SCH (10:57)
--- NOTE | 2016-08-03 11:03 | REP ---
Right upper quadrant sonography: History: Cirrhosis and ascites. Findings: Scanning through the right upper quadrant of the abdomen demonstrates a somewhat coarse liver texture with micronodular contour consistent with cirrhosis. There is evidence of mild fatty infiltration of the liver. The liver is also felt to be mildly enlarged with craniocaudal span in the midclavicular line of 18 cm. No hepatic mass lesion is seen. The gallbladder is surgically absent. Common bile duct is normal post cholecystectomy measuring 0.6 cm in greatest diameter. Limited views of the pancreas show no abnormality. There is no evidence of ascites. There is a 1.0 cm cyst in the lateral aspect of the right mid kidney. Right renal dimensions are 10.2 x 4.1 x 4.5 cm. The right kidney is otherwise unremarkable. Impression: Mild hepatomegaly and coarse liver texture consistent with cirrhosis. No ascites seen. Gallbladder is surgically absent. Small cyst right kidney. Signed by Maged Kay MD 08/03/2016 01:09 P
[2016-08-03] MEDS ORDERED: METHOCARBAMOL 500 MG TAB PO PRN (12:30)
[2016-08-03] MEDS: GABAPENTIN 300 MG CAP PO SCH ×3 (12:32→21:00)
[2016-08-03] MEDS: LACTULOSE 20 GM/30 ML SYRUP UD PO SCH ×2 (14:15→21:01)
--- NOTE | 2016-08-03 14:25 | IPN ---
DATE: 08/03/2016 SUBJECTIVE: The patient is seen and examined in the room today. The patient stated that her mentation has been improving. She has been having intermittent confusion for the past two weeks; however, it has been getting better. The patient was told that she was diagnosed with liver cirrhosis last year. The patient has been following with her primary care provider. Denies any alcohol use. Denies any recreational drug use. Denies any new medications it the last several months. OBJECTIVE: VITAL SIGNS: Temperature is 97, pulse is 89, respirations 18, blood pressure is 135/70. Pulse oximetry is 98% on room air. GENERAL: No sign of acute distress. Alert and oriented times three. HEENT: Normocephalic, atraumatic. Extraocular motors are grossly intact. CARDIOVASCULAR: Positive S1, S2. Regular rate. LUNGS: Clear to auscultation bilaterally. ABDOMEN: Soft, nontender, nondistended . Bowel sounds present. EXTREMITIES: Mild pitting edema bilaterally. No sign of cyanosis. LABORATORY DATA: WBC is 5.5, hemoglobin 12.3, hematocrit is 36.4, platelet count is 129. Sodium is 144, potassium 3.9, chloride is 109, carbon dioxide is 29, BUN 15, creatinine 1.2, GFR greater than 60, fasting glucose 153, calcium is 8.6, ammonia level is 67. Urine toxicology is negative. PT is 13.7, INR is 1.04. ASSESSMENT AND PLAN: 1. Metabolic encephalopathy. The patient has an elevated ammonia level. Liver ultrasound was ordered and it shows the patient has liver cirrhosis. The patient is currently being treated for elevated ammonia level. We will follow. We will try to also rule out the causes for her liver cirrhosis. The patient denies any significant alcohol usage history. The patient denies any recreational drug use in the last few years. The patient denies any hepatotoxic medication use in the past. 2. Type 2 diabetes, on sliding scale and consistent carbohydrate diet. 3. Chronic kidney disease stage III, stable. 4. Hypertension. 5. Tobacco abuse. 6. Hyperlipidemia. 7. History of crack cocaine use, last use was in 2010. 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 9. History of chronic obstructive pulmonary disease (COPD), currently compensated. 10. Obstructive sleep apnea on CPAP. 11. Anxiety/depression. Continue home medications. 12. Deep vein thrombosis (DVT) prophylaxis. The patient is on heparin. MTDD
[2016-08-03 16:30] VITALS: BP 137/82
[2016-08-03 16:52] LABS: PERCENT SATURATION 25.2 % (13.2-37.4)
[2016-08-03] MEDS: ASPIRIN 81 MG ENTERIC TAB PO SCH (21:00)
[2016-08-03] MEDS: traZODone 50 MG TAB PO SCH (21:00)
[2016-08-03 22:00] VITALS: BP 154/92
[2016-08-04 06:00] VITALS: BP 136/77
[2016-08-04] MEDS: LACTULOSE 20 GM/30 ML SYRUP UD PO SCH (06:06)
[2016-08-04] MEDS: HEPARIN SOD (PORCINE) 5000 UNITS/ML VIAL SC SCH (06:06)
[2016-08-04] MEDS: SLF 3 ML SYR IV SCH (06:06)
[2016-08-04 07:45] LABS: MEAN CORPUSCULAR HEMOGLOBIN 32.7 pg (27.0-33.0); MEAN CORPUSCULAR HGB CONC 33.1 g/dl (32.0-36.5); MEAN CORPUSCULAR VOLUME 98.9 fl (80.0-96.0); RED CELL DISTRIBUTION WIDTH 12.7 % (11.5-14.5); WHITE BLOOD COUNT 5.3 K/mm3 (4.0-10.0)
[2016-08-04] MEDS: ADVAIR DISKUS 250/50 INH PWD INH SCH (07:47)
[2016-08-04] MEDS: IPRATROPIUM 0.5MG/ALBUTEROL 2.5MG INH SOL UD 3ML (DUONEB)(J7620) NEB SCH ×2 (07:48)
[2016-08-04 08:22] LABS: ANION GAP 9 MEQ/L (8-16); BLOOD UREA NITROGEN 14 MG/DL (7-18); CALCIUM LEVEL 9.1 MG/DL (8.5-10.1); CARBON DIOXIDE LEVEL 28 MEQ/L (21-32); CHLORIDE LEVEL 106 MEQ/L (98-107); CREATININE FOR GFR 1.13 MG/DL (0.55-1.02); GLOMERULAR FILTRATION RATE > 60.0 (>51); GLUCOSE, FASTING 190 MG/DL (70-105); SODIUM LEVEL 143 MEQ/L (136-145)
[2016-08-04 09:42] VITALS: BP 129/89
[2016-08-04] MEDS: amLODIPine 5 MG TAB PO SCH (09:42)
[2016-08-04] MEDS: LOSARTAN 50 MG TAB PO SCH (09:42)
[2016-08-04] MEDS: GABAPENTIN 300 MG CAP PO SCH (09:42)
[2016-08-04] MEDS: DOCUSATE SODIUM 100 MG CAP PO SCH (09:42)
[2016-08-04] MEDS: CALCIUM/VITAMIN D 500 MG TAB PO SCH (09:42)
[2016-08-04] MEDS: HumaLOG INSULIN (NovoLOG) PER UNIT SC SCH ×2 (09:43→12:09)
[2016-08-04] MEDS ORDERED: LACT20EL PO (11:14)
[2016-08-04] MEDS ORDERED: LACT10SO29 PO ×2 (12:46→12:57)
--- NOTE | 2016-08-04 13:43 | DSES ---
DATE OF ADMISSION: 08/02/2016 DATE OF DISCHARGE: PRIMARY CARE PROVIDER: Dr. Mahamed Winston CONSULTANTS: None. PROCEDURES: None. COMPLICATIONS: None. ADMISSION/DISCHARGE DIAGNOSES: 1. Metabolic encephalopathy. 2. Type 2 diabetes. 3. Chronic kidney disease Stage III. 4. Hypertension. 5. Tobacco abuse. 6. Hyperlipidemia. 7. History of crack cocaine use. 8. Herniation of spinal cord at T7. 9. Chronic obstructive pulmonary disease. 10. Obstructive sleep apnea on CPAP. 11. Anxiety/depression. HOSPITAL COURSE: The patient is a 55-year-old female who presented to [facility] on 08/02/2016 for worsening confusion. In the emergency room, the patient received one dose of Narcan and the patient's mentation showed significant improvement afterwards. Urine sample was obtained for urine toxicology and the patient was also found to have elevated ammonia level and lactulose was initiated. With continued lactulose treatment, the patient's ammonia level continued to trend down and there was no recurrence of the altered mental status. Later, the urine toxicology came back negative for any type of illicit medication use. Due to suspicion for liver cirrhosis, abdominal ultrasound was obtained which confirmed the diagnosis for liver cirrhosis. Laboratory work up was ordered to further investigate the possible cause of the liver cirrhosis. On 08/04/2016, the patient was been determined medically stable for discharge home with the recommendation to continue taking lactulose. The patient will need to followup with her primary care provider, Dr. Mahamed Winston, within one week. OBJECTIVE: VITAL SIGNS: Temperature 97.4, pulse 70, respirations 22, blood pressure 136/77, pulse oximetry 98% in room air . LABORATORY DATA: WBC 5.3, hemoglobin 12.4, hematocrit 37.5, and platelet count 137. Sodium 143, potassium 4, chloride 106, carbon dioxide 28, BUN 14, creatinine 1.13, GFR greater than 60, fasting glucose 190. Calcium is 9.1. Ammonia level is 53 (initial ammonia level was 92). PT 13.7, INR 1.04. Urine toxicology negative. IgG level is 1480. LENKA antibody level pending. Hepatitis A, B and C is negative. IMAGING STUDIES: Chest x-ray showed elevated right hemidiaphragm without cardiomegaly, edema, effusion, or acute infiltrate. Old granulomatous change noted. CT of the head without contrast showed chronic mild small vessel white matter ischemic changes without acute infarct, hemorrhage, mass or mass effect. No significant atrophy, bleed or abnormalities of the basal cisterns. CT angiogram of the chest showed no evidence of pulmonary embolus (PE). Old granulomatous disease. Evidence of cirrhosis and mild splenomegaly. Abdominal ultrasound showed coarse liver texture consistent with cirrhosis. No ascites seen. Gallbladder is surgical absent. Small cyst of the right kidney. DISCHARGE MEDICATIONS: - lactulose 30 mL by mouth three times a day - Ventolin 2 puff inhalation every 4 hours as needed for shortness of breath - Vitamin E 400 units by mouth daily - amlodipine 5 mg by mouth daily - aspirin 81 mg by mouth at bedtime - calcium with vitamin D 1 tablet by mouth daily - Colace 100 mg by mouth twice a day as needed for constipation - Lasix 40 mg by mouth daily - gabapentin 800 mg by mouth three times a day - Incruse Ellipta 62.5 mcg inhalation daily - Lidoderm patch transdermal daily as needed - Losartan 100 mg by mouth daily - Robaxin 1 tablet by mouth three times a day as needed for muscle spasms - oxybutynin 5 mg by mouth daily - Sertraline 100 mg by mouth daily - Toujeo Solostar 800 units subcutaneous daily - trazodone 150 mg by mouth at bedtime - Chantix 1 mg by mouth daily - Voltaren gel topical four times a day as needed DISCHARGE INSTRUCTIONS: Discharge home. Activity as tolerated. Consistent carbohydrate diet as tolerated. The patient will continue taking lactulose three times daily. The patient will have repeat laboratory tests done two days before the PCP appointment. The patient will followup with her primary care provider, Dr. Mahamed Winston, in one week. DISCHARGE CONDITION: Stable. DISCHARGE TIME: Greater than 30 minutes.
[2016-08-06 00:10] LABS: SJOGREN'S ANTI SS-A <0.2 AI (0.0-0.9); SJOGREN'S ANTI SS-B <0.2 AI (0.0-0.9)
== END 2016-08-04 13:07 | disposition home or self-care (01) ==
LOC: M ED 14:33 → M ED INP 17:59 → M PCU 20:51 → M MSPAV 08-03 16:15
PROVIDERS: ADMIT Hospitalist; ATTEND Internal Medicine
DX: G93.41 Metabolic encephalopathy (principal); E11.9 Type 2 diabetes mellitus without complications; N18.3 Chronic kidney disease, stage 3 (moderate); E78.4 Other hyperlipidemia; J44.9 Chronic obstructive pulmonary disease, unspecified; G47.33 Obstructive sleep apnea (adult) (pediatric); F14.10 Cocaine abuse, uncomplicated; Z79.899 Other long term (current) drug therapy; Z79.82 Long term (current) use of aspirin; F41.9 Anxiety disorder, unspecified; F32.9 Major depressive disorder, single episode, unspecified; R06.02 Shortness of breath; Z13.220 Encounter for screening for lipoid disorders; Z13.21 Encounter for screening for nutritional disorder; Z11.59 Encounter for screening for other viral diseases
CPT/HCPCS: 36415; 36600; 70450; 71010; 71275; 76705; 80048; 80076; 80306; 82043; 82140; 82164; 82550; 82553; 82728; 82784; 83550; 83605; 83690; 83735; 83880; 84443; 84484; 85025; 85027; 85610; 85730; 86038; 86255; 86705; 86709; 86803; 87340; 93005; 93041; 94640; 94760; 96372; 96375; 97161; 97530; 99285; G0378; J2310; Q9967

== ENCOUNTER → 2016-08-02 | Outpatient (REF) | payer MEDICARE, MEDICAID ==
[~2016-08-02] MED LIST changes: +LACT10SO29 PO; +LACT20EL PO
== END ==
LOC: M SFHCPLAZ 15:04
PROVIDERS: ATTEND Family Medicine
DX: I10 Essential (primary) hypertension (principal); Z13.21 Encounter for screening for nutritional disorder; Z13.220 Encounter for screening for lipoid disorders

== ENCOUNTER 2016-08-06 15:17 | Emergency (ER) | payer MEDICARE, MEDICAID ==
[~2016-08-06] VITALS: Ht 167.6 cm; Wt 99.8 kg
[~2016-08-06 15:17] MED LIST changes: +ALBU17IN INH; +AMLO5TAB2 PO; +ASPI1TAB PO; +CALCTAB68 PO; +COLA100C PO; +GABA800T PO; +INCR1INH INH; +LACT10SO29 PO; +LACT20EL PO; -NICOTINE 7 MG/24 HR TRANSDERMAL TD ONE; +OXYB5TA PO; +ROBA500T PO; +SERT-138 PO; +ST J PO; +TOUJ1.2I SC; +TRAZ150T14 PO; +VARE1TA PO; +[UNRECOGNIZED DRUG - OTHER]
[2016-08-06] MEDS ORDERED: TOUJ1.2I SC (15:42)
[2016-08-06 19:20] LABS: BASO % 0.6 % (0.0-1.0); EOS # 0.1 K/mm3 (0.0-0.50); EOS % 2.2 % (0.0-3.0); LARGE UNSTAINED CELL # 0.1 K/mm3 (0.0-0.4); LARGE UNSTAINED CELL % 1.5 % (0.0-4.0); LYMPH # 1.8 K/mm3 (1.5-4.5); MEAN CORPUSCULAR HEMOGLOBIN 32.1 pg (27.0-33.0); MEAN CORPUSCULAR HGB CONC 32.4 g/dl (32.0-36.5); MEAN CORPUSCULAR VOLUME 99.1 fl (80.0-96.0); MONO # 0.4 K/mm3 (0.0-0.8); MONO % 6.5 % (0.0-5.0); NEUTROPHILS # 3.1 K/mm3 (1.8-7.7); NEUTROPHILS % 56.2 % (36.0-66.0); PLATELET COUNT, AUTOMATED 161 k/mm3 (150-450); RED CELL DISTRIBUTION WIDTH 12.5 % (11.5-14.5); WHITE BLOOD COUNT 5.6 K/mm3 (4.0-10.0)
[2016-08-06 19:43] LABS: ALBUMIN 3.5 GM/DL (3.2-5.2); ALBUMIN/GLOBULIN RATIO 0.8 (1.00-1.93); BILIRUBIN,DIRECT 0.2 MG/DL (0.0-0.2); BILIRUBIN,TOTAL 0.5 MG/DL (0.2-1.0); TOTAL PROTEIN 7.9 GM/DL (6.4-8.2)
[2016-08-06 20:12] VITALS: BP 136/87
[2016-08-06] MEDS: LACTULOSE 20 GM/30 ML SYRUP UD PO ONE (20:24)
--- NOTE | 2016-08-06 20:32 | REP ---
Abdomen series: Two views. History: Abdominal cramping. Findings: Supine and erect views of the abdomen show clips in the right upper quadrant. Moderate colonic stool is seen. No significant air-fluid level is noted. Psoas margins and flank stripes are unremarkable. Impression: Moderate stool. Clips in the right upper quadrant. Otherwise negative. Signed by Maged Kay MD 08/07/2016 07:46 A
[2016-08-06] MEDS ORDERED: LACT10SO29 PO (20:51)
[2016-08-06] MEDS ORDERED: FLEEENE4 PR (20:54)
== END 2016-08-06 21:11 | disposition home or self-care (01) ==
LOC: M ED 16:27
DX: K59.00 Constipation, unspecified (principal)

== ENCOUNTER → 2016-08-11 | Outpatient (CLI) | payer MEDICARE, MEDICAID ==
[~2016-08-11] MED LIST changes: +FLEEENE4 PR
[2016-08-11 14:17] LABS: ALBUMIN 3.2 GM/DL (3.2-5.2); ALBUMIN/GLOBULIN RATIO 0.76 (1.00-1.93); BILIRUBIN,DIRECT 0.2 MG/DL (0.0-0.2); BILIRUBIN,TOTAL 0.5 MG/DL (0.2-1.0); CREATININE FOR GFR 1.28 MG/DL (0.55-1.02); POTASSIUM SERUM 4.2 MEQ/L (3.5-5.1); TOTAL PROTEIN 7.4 GM/DL (6.4-8.2)
== END ==
LOC: M LAB 13:19
PROVIDERS: ATTEND Internal Medicine
DX: K74.69 Other cirrhosis of liver (principal)

== ENCOUNTER → 2016-08-29 | Outpatient (CLI) | payer MEDICARE, MEDICAID ==
[~2016-08-29] MED LIST changes: -COLA100C PO; +COLA100C3 PO
== END ==
LOC: M WUC 13:53
DX: R76.8 Other specified abnormal immunological findings in serum (principal); E72.20 Disorder of urea cycle metabolism, unspecified

== ENCOUNTER → 2016-08-30 | Outpatient (REF) | payer MEDICARE, MEDICAID | LOC: M SFHCPLAZ 13:32 | PROVIDERS: ATTEND Family Medicine | DX: E72.20 Disorder of urea cycle metabolism, unspecified (principal); Z53.8 Procedure and treatment not carried out for other reasons ==

== ENCOUNTER → 2016-08-31 | Outpatient (CLI) | payer MEDICARE, MEDICAID ==
--- NOTE | 2016-09-03 00:49 | ECWPNPC ---
PATIENT NAME: PABLO HANSEN : 1960 GENDER: FEMALE VISIT DATE: 08/31/2016 DISCHARGE DATE: 08/31/16 1220 VISIT LOCKED DATE TIME: PHYSICIAN: RISSA MOORE RESOURCE: RISSA MOORE REASON FOR APPOINTMENT 1. BACK HISTORY OF PRESENT ILLNESS HISTORY OF PRESENT ILLNESS: 55 Y/O FEMALE HERE FOR ONE MONTH F/U FOR CHRONIC RIGHT MID THORACIC PAIN THAT RADIATES INTO RIGHT AXILLARY REGION.DESCRIBES PAIN INTERMITTENT STABBING PAIN.RATING PAIN VAS 2/10.RECENT HOSPITALIZATION FOR HIGH AMMONIA LEVELS AND DIAGNOSED WITH ELEVATED AMMONIA LEVELS AND DIAGNOSED WITH CIRHOSIS OF LIVER.DISCUSSED MEDICATION AND TREATMENT OPTIONS.REVIEWED MRI THORACIC SPINE DONE 07-29-16. PAIN THE PATIENT DESCRIBES THE PAIN... FALL RISK SCREENING: SCREENING :NO FALLS IN THE PAST YEAR CURRENT MEDICATIONS TAKING ZOLOFT 100 MG TABLET 1 TABLET ORALLY ONCE A DAY TAKING PEN NEEDLES 08/05" 31G X 5 MM PEN NEEDLE USE WITH LANTUS PEN SUBCUTANEOUSLY THREE TIMES A DAY DX; 250.00 TAKING DITROPAN 5 MG TABLET 1 TAB(S) ORALLY DAILY TAKING CALCIUM + D 600-200 MG-UNIT TABLET 1 TABLET ORALLY ONCE A DAY TAKING POLYETHYLENE GLYCOL 3350 POWDER 17 GRAM IN WATER ORALLY ONCE A DAY NEEDED, NOTES: 2 WEEKS TAKING FREESTYLE SYSTEM DX CODE E11.9 METER DIRECTED DAILY TAKING VENTOLIN HFA 108 (90 BASE) MCG/ACT AEROSOL SOLUTION 2 PUFFS NEEDED INHALATION EVERY 4 HRS TAKING INCRUSE ELLIPTA 62.5 MCG/INH AEROSOL POWDER BREATH ACTIVATED 1 PUFF INHALATION ONCE A DAY TAKING ATROVENT 0.06 % SOLUTION 2 DROPS IN EACH NOSTRIL NEEDED NASALLY THREE TIMES A DAY TAKING BLOOD GLUCOSE TEST - STRIP 1 STRIP IN VITRO 4 TIMES DAILY DX:E11.65 TAKING GLUCOMETER DIRECTED _ DX CODE:E11.65 TAKING FREESTYLE LANCETS DX CODE E11.9 MISCELLANEOUS DIRECTED SUBCUTANEOUSLY FOUR TIMES A DAY TAKING VITAMIN E 400 UNIT CAPSULE 1 CAPSULE ORALLY ONCE A DAY TAKING TRAZODONE 150 150MG TABLET 1 TAB(S) ORAL DAILY TAKING LASIX 40 MG TABLET 1 TABLET ORALLY ONCE A DAY TAKING FREESTYLE TEST STRIPS DX CODE E11.9 STRIP DIRECTED FOUR TIMES A DAY TAKING TRIAMCINOLONE ACETONIDE 0.1 % LOTION 1 APPLICATION TO AFFECTED AREA EXTERNALLY TO DARKENED SPOTS ON ARMS AND LEGS TWICE A DAY TO EMEKA KNEES AND ELBOWS, NOTES: 1 MONTH AGO TAKING BENZOYL PEROXIDE CLEANSER 6 % LOTION 1 APPLICATION TO AFFECTED AREA AT BEDTIME EXTERNALLY TO FACE ONCE A DAY, NOTES: 2 WEEKS TAKING GABAPENTIN 800 MG TABLET 1 TABLET ORALLY THREE TIMES A DAY FOR PAIN TAKING ROBAXIN 500 MG TABLET 1 TABLETS ORALLY TID PRN PRN FOR SPASMS AND PAIN TAKING TOUJEO SOLOSTAR 300 UNIT/ML SOLUTION PEN-INJECTOR 70 U SUBCUTANEOUS EVERY MORNING TAKING HUMALOG 100 UNIT/ML SOLUTION PER SLIDING SCALE SUBCUTANEOUS DIRECTED PER SLIDING SCALE AC, NOTES: 06/15/16 2200 4 UNITS TAKING AMLODIPINE BESYLATE 5 MG TABLET 1 TABLET ORALLY ONCE A DAY TAKING ASPIRIN 81 MG TABLET DELAYED RELEASE 1 TABLET ORALLY ONCE A DAY TAKING LOSARTAN POTASSIUM 100 TABLET 1 TABLET ORALLY ONCE A DAY TAKING LACTULOSE 10 GM/15ML SYRUP 45 ML ORALLY BID TAKING RIFAXIMIN 550 MG TABLET 1 TABLET ORALLY TWICE A DAY NOT-TAKING RETIN-A 0.025 % CREAM 1 APPLICATION TO AFFECTED AREA IN THE EVENING TO FACE EXTERNALLY TO FACE ONCE A DAY BEFORE BED, NOTES: 1 WEEK AGO NOT-TAKING CHANTIX 1 MG TABLET 1 TABLET ORALLY ONCE A DAY NOT-TAKING VOLTAREN 1 % GEL TOPICAL TRANSDERMAL TO MID BACK TWICE DAILY NEEDED NOT-TAKING LIDODERM 5 % PATCH 2 PATCH TO INTACT SKIN REMOVE AFTER 12 HOURS EXTERNALLY ONCE A DAY FOR PAIN, NOTES: NONE NOT-TAKING ZOFRAN 4 MG TABLET 1 TABLET ORALLY ONCE A DAY MEDICATION LIST REVIEWED AND RECONCILED WITH THE PATIENT PAST MEDICAL HISTORY DMII HTN CKD STAGE III - FOLLOWED BY HX DEPRESSIVE DISORDER TOBACCO ABUSE HX PANCREATITIS HYPERLIPIDEMIA ASCVD RISK 27.9% 09/2013 2NDARY HYPERPARATHYROIDISM EYE EXAM 01/2014 [facility] - DIABETES W/O RETINOPATHY POSSIBLE GLAUCOMA. CHOLEDOCHOLYTHIASIS. 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 SOCIAL HISTORY GENERAL: PAIN CLINIC PFS, CLERGY, PUBLIC HEALTH REFERRALS CLERGY REFERRAL NEEDED?NO WAS THE PROVIDER NOTIFIED OF ANY PERTINENT INFO?NO PFS REFERRAL NEEDED?NO PUBLIC HEALTH REFERRAL NEEDED?NO PATIENT: ____. REVIEW OF SYSTEMS CONSTITUTIONAL: ANY CHANGE IN YOUR MEDICAL CONDITION? , YES RECENT DIAGNOSED WITH HIGH AMMONIA LEVELS AND DIAGNOSED W CIRHOSISLIVER.HOSPITALIZED X3 DAYS IN [place] . CHILLS NO . FEVER NO . INFECTION: DO YOU HAVE NEW INFECTIONS? NO . DO YOU HAVE HISTORY OF MRSA? NO . MUSCULOSKELETAL: ANY NEW PATTERNS OF PAIN OR NUMBNESS? NO . GASTROENTEROLOGY: ANY NEW CHANGE IN BOWEL CONTROL? NO . GENITOURINARY: ANY NEW CHANGE IN BLADDER CONTROL? NO . IS THERE A CHANCE YOU COULD BE ? NO . HEMATOLOGY/LYMPH: DO YOU TAKE ANY BLOOD THINNERS? (FOR EXAMPLE- COUMADIN, PLAVIX, AGGRENOX, PLATEL, PRADAXA, OR XARELTO) NO . WHEN WAS YOUR LAST DOSE? DATE: TIME: . NEUROLOGY: HAVE YOU FALLEN IN THE PAST 6 MONTHS? NO . ANY NEW EXTREMITY NUMBNESS OR WEAKNESS? NO . CARDIOLOGY: DO YOU HAVE A PACEMAKER OR DEFIBRILLATOR? NO . RESPIRATORY: HAVE YOU BEEN SICK IN THE PAST WEEK? NO . FEVER NO . FLU LIKE SYMPTOMS? NO . COUGH NO . INTEGUMENTARY: DO YOU HAVE ANY RASHES OR OPEN SORES? NO . ALLERGIC/IMMUNO: ARE YOU ALLERGIC TO SHELLFISH OR IV DYE? NO . ANY NEW ALLERGIES? NO . PSYCHIATRIC: DO YOU HAVE THOUGHTS OF HURTING YOURSELF OR SOMEONE ELSE? NO . ARE YOU ABUSED, NEGLECTED, OR IN AN UNSAFE ENVIRONMENT? NO . ENDOCRINOLOGY: ARE YOU DIABETIC? YES . OTHER: DO YOU NEED ANY PRESCRIPTIONS? NO . IF YES, PLEASE LIST: ____ . ANY NEW PROBLEMS WITH YOUR MEDICATIONS? NO . WHEN DID YOU LAST EAT? ____ . WHEN DID YOU LAST DRINK? ____ . WHAT DID YOU LAST DRINK? ____ . NAME OF PERSON DRIVING YOU HOME? ____ . DO YOU HAVE ANY OTHER QUESTIONS OR CONCERNS NO . REVIEWED BY: PROVIDER: RISSA FRANCE . VITAL SIGNS WT 222 LBS, HT 65 IN, BMI 36.94 INDEX, BP 122/73 MM HG, HR 88 /MIN, RR 20 /MIN, TEMP 97.7 F, OXYGEN SAT % 93, NA INITIALS AW 1135. EXAMINATION GENERAL EXAMINATION: LUNGS:LUNG SOUNDS ARE CLEAR. HEART:HEART RATE REGULAR. MUSCULOSKELETAL:*, TRIGGER POINTS:, ELICITED WITH PALPATION OVER MID THORACIC MUSCLES R>L.PAIN IS AGGREVATED WITH USE OF LEFT ARM.. DIAGNOSTIC:MRI THORACIC [id number]-REVIEWED. ASSESSMENTS MYALGIA - M79.1 (PRIMARY) PAIN IN THORACIC SPINE - M54.6 TREATMENT MYALGIA CONTINUE GABAPENTIN TABLET, 800 MG, 1 TABLET, ORALLY, THREE TIMES A DAY FOR PAIN STOP ROBAXIN TABLET, 500 MG, 1 TABLETS, ORALLY, TID PRN PRN FOR SPASMS AND PAIN NOTES: SLOWLY DECREASE AND DISCONTINUE ROBAXIN. CONTINUE PT,LUMBAR EPIDURAL INJECTION: YOUR PROCEDURE MATERIAL WAS PRINTED. PAIN IN THORACIC SPINE SPINAL INJECTION PROCEDURES RISSA BROWN 08/31/2016 12:04:07 PM > T9/10 EPIDURA PROCEDURE CODES FA211 ESTABILISHED PATIENT [facility] CHARGE G8730 PAIN ASSESS POS TOOL F/U PLAN DOC G8427 DOC MEDS VERIFIED W/PT OR RE DISPOSITION & COMMUNICATION FOLLOW UP 2WK POST (REASON: T9/10 THORACIC EPIDURAL) ELECTRONICALLY SIGNED BY EDILMA CISNEROS ON 08/31/2016 AT 12:20 PM EDT DISCLAIMER : THIS IS A VISIT SUMMARY EXTRACTED FROM THE [email or web address] CHART. IT IS NOT A COPY OF THE [employer] PROGRESS NOTE. MTDD
== END ==
LOC: M PAIN 11:00
PROVIDERS: ATTEND Nurse Practitioner Family
DX: Z09 Encounter for follow-up examination after completed treatment for conditions other than malignant neoplasm (principal); G89.29 Other chronic pain; M79.1 Myalgia; M54.6 Pain in thoracic spine; E11.9 Type 2 diabetes mellitus without complications; I12.9 Hypertensive chronic kidney disease with stage 1 through stage 4 chronic kidney disease, or unspecified chronic kidney disease; N18.3 Chronic kidney disease, stage 3 (moderate); F32.9 Major depressive disorder, single episode, unspecified; Z87.891 Personal history of nicotine dependence; N25.81 Secondary hyperparathyroidism of renal origin; F10.20 Alcohol dependence, uncomplicated; G47.33 Obstructive sleep apnea (adult) (pediatric); J44.9 Chronic obstructive pulmonary disease, unspecified; K74.60 Unspecified cirrhosis of liver; Z79.4 Long term (current) use of insulin; Z79.82 Long term (current) use of aspirin; Z79.899 Other long term (current) drug therapy

== ENCOUNTER → 2016-09-13 | Outpatient (REF) | payer MEDICARE, MEDICAID | LOC: M SFHCPLAZ 14:17 | PROVIDERS: ATTEND Family Medicine | DX: E72.20 Disorder of urea cycle metabolism, unspecified (principal) ==

== ENCOUNTER → 2016-09-15 | Outpatient (REF) | payer MEDICARE, MEDICAID | LOC: M SFHCPLAZ 09:34 | PROVIDERS: ATTEND Family Medicine | DX: E72.20 Disorder of urea cycle metabolism, unspecified (principal); Z53.8 Procedure and treatment not carried out for other reasons ==

== ENCOUNTER → 2016-09-16 | Outpatient (CLI) | payer MEDICARE, MEDICAID ==
--- NOTE | 2016-09-28 02:04 | ECWPNPC ---
PATIENT NAME: PABLO HANSEN : 1960 GENDER: FEMALE VISIT DATE: 09/16/2016 DISCHARGE DATE: 09/16/16 1151 VISIT LOCKED DATE TIME: PHYSICIAN: ENRICO VARGAS RESOURCE: ENRICO VARGAS REASON FOR APPOINTMENT 1. THORACIC EPIDURAL HISTORY OF PRESENT ILLNESS HISTORY OF PRESENT ILLNESS: PAIN THE PATIENT DESCRIBES THE PAIN... 56 YEAR OLD FEMALE WITH HISTORY OF CHRONIC THORACIC PAIN. PATIENT DESCRIBES THE PAIN TENDER AND IT COMES AND GOES WITH A PAIN SCORE OF 2/10 ON TODAY'S VISIT. PATIENT REPORTS OF THORACIC BACK PAIN THAT RADIATES IN THE RIGHT RIB AREA. PATIENT DENIES UNEXPLAINABLE WEIGHT LOSS, FEVER, CHILLS, NEW CHANGES ON HER URINARY OR BOWEL CONTROL. FALL RISK SCREENING: SCREENING :NO FALLS IN THE PAST YEAR CURRENT MEDICATIONS TAKING LACTULOSE 10 GM/15ML SYRUP 35 ML ORALLY BID, NOTES: 09/15/16 1800 TAKING RIFAXIMIN 550 MG TABLET 1 TABLET ORALLY TWICE A DAY, NOTES: 09/15/16 1800 TAKING ZOLOFT 100 MG TABLET 1 TABLET ORALLY ONCE A DAY, NOTES: 09/15/16 1100 TAKING PEN NEEDLES 3" 31G X 5 MM PEN NEEDLE USE WITH LANTUS PEN SUBCUTANEOUSLY THREE TIMES A DAY DX; 250.00 TAKING DITROPAN 5 MG TABLET 1 TAB(S) ORALLY DAILY, NOTES: 09/15/16 1100 TAKING CALCIUM + D 600-200 MG-UNIT TABLET 1 TABLET ORALLY ONCE A DAY, NOTES: 09/15/16 1100 TAKING POLYETHYLENE GLYCOL 3350 POWDER 17 GRAM IN WATER ORALLY ONCE A DAY NEEDED, NOTES: 3-4 WEEKS TAKING FREESTYLE SYSTEM DX CODE E11.9 METER DIRECTED DAILY TAKING VENTOLIN HFA 108 (90 BASE) MCG/ACT AEROSOL SOLUTION 2 PUFFS NEEDED INHALATION EVERY 4 HRS, NOTES: 09/15/16 1800 TAKING ATROVENT 0.06 % SOLUTION 2 DROPS IN EACH NOSTRIL NEEDED NASALLY THREE TIMES A DAY, NOTES: 09/15/16 1100 TAKING BLOOD GLUCOSE TEST - STRIP 1 STRIP IN VITRO 4 TIMES DAILY DX:E11.65 TAKING GLUCOMETER DIRECTED _ DX CODE:E11.65 TAKING FREESTYLE LANCETS DX CODE E11.9 MISCELLANEOUS DIRECTED SUBCUTANEOUSLY FOUR TIMES A DAY TAKING VITAMIN E 400 UNIT CAPSULE 1 CAPSULE ORALLY ONCE A DAY, NOTES: 09/15/161799 TAKING TRAZODONE 150 150MG TABLET 1 TAB(S) ORAL DAILY, NOTES: 09/15/161799 TAKING LASIX 40 MG TABLET 1 TABLET ORALLY ONCE A DAY, NOTES: 09/15/161799 TAKING FREESTYLE TEST STRIPS DX CODE E11.9 STRIP DIRECTED FOUR TIMES A DAY TAKING TRIAMCINOLONE ACETONIDE 0.1 % LOTION 1 APPLICATION TO AFFECTED AREA EXTERNALLY TO DARKENED SPOTS ON ARMS AND LEGS TWICE A DAY TO EMEKA KNEES AND ELBOWS, NOTES: 09/14/16 TAKING BENZOYL PEROXIDE CLEANSER 6 % LOTION 1 APPLICATION TO AFFECTED AREA AT BEDTIME EXTERNALLY TO FACE ONCE A DAY, NOTES: 09/15/161799 TAKING TOUJEO SOLOSTAR 300 UNIT/ML SOLUTION PEN-INJECTOR 70 U SUBCUTANEOUS EVERY MORNING, NOTES: 09/15/161099 TAKING HUMALOG 100 UNIT/ML SOLUTION PER SLIDING SCALE SUBCUTANEOUS DIRECTED PER SLIDING SCALE AC, NOTES: 09/15/161799 TAKING AMLODIPINE BESYLATE 5 MG TABLET 1 TABLET ORALLY ONCE A DAY, NOTES: 09/15/161099 TAKING ASPIRIN 81 MG TABLET DELAYED RELEASE 1 TABLET ORALLY ONCE A DAY, NOTES: 09/15/161799 TAKING LOSARTAN POTASSIUM 100 TABLET 1 TABLET ORALLY ONCE A DAY, NOTES: 09/15/161099 TAKING GABAPENTIN 800 MG TABLET 1 TABLET ORALLY THREE TIMES A DAY FOR PAIN, NOTES: 09/15/161799 TAKING RETIN-A 0.025 % CREAM 1 APPLICATION TO AFFECTED AREA IN THE EVENING TO FACE EXTERNALLY TO FACE ONCE A DAY BEFORE BED, NOTES: 09/15/161799 TAKING CHANTIX 1 MG TABLET 1 TABLET ORALLY ONCE A DAY, NOTES: NONE RECENTLY TAKING VOLTAREN 1 % GEL TOPICAL TRANSDERMAL TO MID BACK TWICE DAILY NEEDED, NOTES: 1 WEEK AGO TAKING LIDODERM 5 % PATCH 2 PATCH TO INTACT SKIN REMOVE AFTER 12 HOURS EXTERNALLY ONCE A DAY FOR PAIN, NOTES: NONE RECENTLY NOT-TAKING INCRUSE ELLIPTA 62.5 MCG/INH AEROSOL POWDER BREATH ACTIVATED 1 PUFF INHALATION ONCE A DAY NOT-TAKING ZOFRAN 4 MG TABLET 1 TABLET ORALLY ONCE A DAY MEDICATION LIST REVIEWED AND RECONCILED WITH THE PATIENT PAST MEDICAL HISTORY DMII HTN CKD STAGE III - FOLLOWED BY HX DEPRESSIVE DISORDER TOBACCO ABUSE HX PANCREATITIS HYPERLIPIDEMIA ASCVD RISK 27.9% 09/2013 2NDARY HYPERPARATHYROIDISM EYE EXAM 01/2014 [facility] - DIABETES W/O RETINOPATHY POSSIBLE GLAUCOMA. CHOLEDOCHOLYTHIASIS. 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 SURGICAL HISTORY HYSTERECTOMY 2007 CHOLECYSTECTOMY LEFT BREAST CYST REMOVAL T 7-9 LAMINECTOMY 12/2014 COLONOSCOPY 12/12/14 FAMILY HISTORY FATHER: ALIVE, DIABETES, HTN MOTHER: ALIVE, DIABETES, HTN SIBLINGS: ALIVE 2 BROTHER(S) , 1 SISTER(S) - HEALTHY. SOCIAL HISTORY GENERAL: PAIN CLINIC PFS, CLERGY, PUBLIC HEALTH REFERRALS CLERGY REFERRAL NEEDED?NO WAS THE PROVIDER NOTIFIED OF ANY PERTINENT INFO?NO PFS REFERRAL NEEDED?NO PUBLIC HEALTH REFERRAL NEEDED?NO PATIENT: ____. UNEMPLOYED, NOT , NO CHILDREN. MOVED TO [place] FROM [place] AT BEGINNING OF 2010. CURRENTLY SMOKES 1/2PPD PRIOR TO HOSPITALIZATION 1 PPD FOR 35 YEARS, NO ETOH OR ILLICITS, 3 CAFFEINATED BEVERAGES A DAY, NO REGULAR EXERCISE. HOSPITALIZATION/MAJOR DIAGNOSTIC PROCEDURE [facility] ACUTE PANCREATITIS SECONDARY TO HYPERTRIGLYCERDEMIA AND UNCONTROLED DMII 02/11- [facility] MRSA CELLULITIS 02/17/2011 [place] E COLI INFECTION [facility] ACUTE PANCREATITIS 03/16- BACK SURGERY 01/06/15-01/10/15 FAINTING SPELLS 08/02/16-08/04/16 REVIEW OF SYSTEMS CONSTITUTIONAL: ANY CHANGE IN YOUR MEDICAL CONDITION? NO . CHILLS NO . FEVER NO . INFECTION: DO YOU HAVE NEW INFECTIONS? NO . DO YOU HAVE HISTORY OF MRSA? NO . MUSCULOSKELETAL: ANY NEW PATTERNS OF PAIN OR NUMBNESS? NO . GASTROENTEROLOGY: ANY NEW CHANGE IN BOWEL CONTROL? NO . GENITOURINARY: ANY NEW CHANGE IN BLADDER CONTROL? NO . IS THERE A CHANCE YOU COULD BE ? NO . HEMATOLOGY/LYMPH: DO YOU TAKE ANY BLOOD THINNERS? (FOR EXAMPLE- COUMADIN, PLAVIX, AGGRENOX, PLATEL, PRADAXA, OR XARELTO) NO . WHEN WAS YOUR LAST DOSE? DATE: TIME: . NEUROLOGY: HAVE YOU FALLEN IN THE PAST 6 MONTHS? YES . ANY NEW EXTREMITY NUMBNESS OR WEAKNESS? NO . CARDIOLOGY: DO YOU HAVE A PACEMAKER OR DEFIBRILLATOR? NO . RESPIRATORY: HAVE YOU BEEN SICK IN THE PAST WEEK? NO . FEVER NO . FLU LIKE SYMPTOMS? NO . COUGH NO . INTEGUMENTARY: DO YOU HAVE ANY RASHES OR OPEN SORES? NO . ALLERGIC/IMMUNO: ARE YOU ALLERGIC TO SHELLFISH OR IV DYE? NO . ANY NEW ALLERGIES? NO . PSYCHIATRIC: DO YOU HAVE THOUGHTS OF HURTING YOURSELF OR SOMEONE ELSE? NO . ARE YOU ABUSED, NEGLECTED, OR IN AN UNSAFE ENVIRONMENT? NO . ENDOCRINOLOGY: ARE YOU DIABETIC? YES . OTHER: DO YOU NEED ANY PRESCRIPTIONS? YES . IF YES, PLEASE LIST: GABAPENTIN, ROBAXIN . ANY NEW PROBLEMS WITH YOUR MEDICATIONS? NO . WHEN DID YOU LAST EAT? LAST NIGHT . WHEN DID YOU LAST DRINK? LAST NIGHT . WHAT DID YOU LAST DRINK? WATER . NAME OF PERSON DRIVING YOU HOME? ____ . DO YOU HAVE ANY OTHER QUESTIONS OR CONCERNS NO . REVIEWED BY: PROVIDER: ENRICO VARGAS MD . VITAL SIGNS WT 225.0 LBS, HT 65 IN, BMI 37.44 INDEX, BP 141/85 MM HG, HR 87 /MIN, RR 16 /MIN, TEMP 97.7 F, OXYGEN SAT % 96%, NA INITIALS TL 1022, REVIEWED BY: LS. EXAMINATION : PATIENT IS ALERT O X 3 AND COOPERATIVE. THERE IS TENDERNESS IN THE THORACIC AREA LATERAL TO THE SCAR. MRI OF THE THORACIC SPINE DONE ON 07-29-2016 SHOWS A DISC PROTRUSIONS AT T1-2, T5-6, T7-8, AND T8-9, A DISC BULGE AT T6-7 AND T9-10, AND A STATUS POST LAMINECTOMY AT T7-9. 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 TREATMENT POSTLAMINECTOMY SYNDROME, NOT ELSEWHERE CLASSIFIED NOTES: WE DISCUSSED SEVERAL ISSUES WITH MS. HANSEN'S PAIN MANAGEMENT CASE. AT THIS TIME THE PATIENT WILL CONTINUE ON THE SAME MEDICATION REGIMEN BEFORE. DUE TO THE LAMINECTOMY SCAR IN THE THORACIC AREA, DOING AN EPIDURAL IS NOT ADVISED AT THIS TIME, AFTER FURTHER EXAMINING THE PATIENT AND REVIEWING THE MRI, PATIENT IS A GOOD CANDIDATE FOR A THORACIC FACET BLOCK THERAPEUTIC. BUT DUE TO THE HIGH AMMONIA LEVELS IN THE BLOOD, PATIENT WILL FOLLOW UP WITH THE PRIMARY. DISCUSSED WITH THE PATIENT THAT ONCE THE AMMONIA LEVELS HAVE DECREASE WE CAN PROCEED FORWARD WITH THE TFBT. WE DISCUSSED THE RISK, BENEFITS, AND ALTERNATIVES AND THE PATIENT WOULD LIKE TO PROCEED. PATIENT TO FOLLOW UP WITH RISSA MOORE IN 3 WEEKS. INSTRUCTIONS WERE GIVEN, QUESTIONS WERE ANSWERED, PATIENT REPORTS UNDERSTANDING AND AGREES WITH THE PLAN. I, SABINE LAMAS, DOCUMENTED THE ABOVE INFORMATION ACTING A SCRIBE FOR DR. VARGAS. I HAVE REVIEWED THE ABOVE DOCUMENT, WRITTEN BY SABINE LAMAS SCRIBE AND I VERIFY THAT IT IS ACCURATE. PROCEDURE CODES FA211 ESTABILISHED PATIENT [facility] CHARGE G8730 PAIN ASSESS POS TOOL F/U PLAN DOC G8427 DOC MEDS VERIFIED W/PT OR RE DISPOSITION & COMMUNICATION FOLLOW UP 3 WEEKS ELECTRONICALLY SIGNED BY ENRICO VARGAS MD ON 09/27/2016 AT 01:10 PM EDT DISCLAIMER : THIS IS A VISIT SUMMARY EXTRACTED FROM THE [employer] CHART. IT IS NOT A COPY OF THE [employer] PROGRESS NOTE. MTDD
== END ==
LOC: M PAIN 10:20
PROVIDERS: ATTEND Anesthesiology
DX: M96.1 Postlaminectomy syndrome, not elsewhere classified (principal); M47.814 Spondylosis without myelopathy or radiculopathy, thoracic region; Z79.891 Long term (current) use of opiate analgesic; Z79.899 Other long term (current) drug therapy; Z79.84 Long term (current) use of oral hypoglycemic drugs; Z79.52 Long term (current) use of systemic steroids; Z79.4 Long term (current) use of insulin; E11.65 Type 2 diabetes mellitus with hyperglycemia; F32.9 Major depressive disorder, single episode, unspecified; N18.3 Chronic kidney disease, stage 3 (moderate); E11.42 Type 2 diabetes mellitus with diabetic polyneuropathy; E11.49 Type 2 diabetes mellitus with other diabetic neurological complication; M54.30 Sciatica, unspecified side; F17.200 Nicotine dependence, unspecified, uncomplicated; I12.9 Hypertensive chronic kidney disease with stage 1 through stage 4 chronic kidney disease, or unspecified chronic kidney disease

== ENCOUNTER 2016-10-04 14:49 | Outpatient (RCR) | payer MEDICARE, MEDICAID | END 2016-10-20 | disposition home or self-care (01) | LOC: M PT 14:49 | PROVIDERS: ATTEND Nurse Practitioner Family | DX: Z51.89 Encounter for other specified aftercare (principal); M79.1 Myalgia; M54.6 Pain in thoracic spine | CPT/HCPCS: 97110; 97140; 97161; G8981; G8982 ==

== ENCOUNTER → 2016-10-04 | Outpatient (REF) | payer MEDICARE, MEDICAID | LOC: M SFHCPLAZ 13:26 | PROVIDERS: ATTEND Family Medicine | DX: E72.20 Disorder of urea cycle metabolism, unspecified (principal) ==

== ENCOUNTER → 2016-10-20 | Outpatient (CLI) | payer MEDICARE, MEDICAID | LOC: M LAB 13:32 | PROVIDERS: ATTEND Family Medicine | DX: E72.20 Disorder of urea cycle metabolism, unspecified (principal) ==

== ENCOUNTER → 2016-10-29 | Outpatient (REF) | payer MEDICARE, MEDICAID | LOC: M SFHCPLAZ 10:51 | PROVIDERS: ATTEND Family Medicine | DX: E72.20 Disorder of urea cycle metabolism, unspecified (principal); Z53.8 Procedure and treatment not carried out for other reasons ==

== ENCOUNTER → 2016-11-05 | Outpatient (CLI) | payer MEDICARE, MEDICAID ==
[~2016-11-05] MED LIST changes: -COLA100C3 PO; +COLA100C5 PO; -LIDO5DIS36 TD; +LIDO5DIS41 TD; -OXYB5TA PO; +OXYB5TAB10 PO; +PERC5TAB12 PO; -PERC5TAB6 PO; -TRAZ150T14 PO; +TRAZ1TAB14 PO; +VOLT1GEL15 TOP; -VOLT1GEL24 TOP
--- NOTE | 2016-11-16 02:10 | ECWPNPC ---
PATIENT NAME: PABLO HANSEN : 1960 GENDER: FEMALE VISIT DATE: 11/05/2016 DISCHARGE DATE: 11/05/16 1131 VISIT LOCKED DATE TIME: PHYSICIAN: RISSA MOORE RESOURCE: RISSA MOORE REASON FOR APPOINTMENT 1. BACK HISTORY OF PRESENT ILLNESS HISTORY OF PRESENT ILLNESS: 55 Y/O FEMALE HERE FOR ONE MONTH F/U FOR CHRONIC RIGHT MID THORACIC PAIN THAT RADIATES INTO RIGHT AXILLARY REGION.DESCRIBES PAIN INTERMITTENT STABBING PAIN.RATING PAIN VAS 2/10.RECENT HOSPITALIZATION FOR HIGH AMMONIA LEVELS AND DIAGNOSED WITH ELEVATED AMMONIA LEVELS AND DIAGNOSED WITH CIRHOSIS OF LIVER.DISCUSSED MEDICATION AND TREATMENT OPTIONS.REVIEWED MRI THORACIC SPINE DONE 07-29-16. PAIN THE PATIENT DESCRIBES THE PAIN... THE PATIENT DESCRIBES THE PAIN... PAIN THE PATIENT DESCRIBES THE PAIN... THE PATIENT DESCRIBES THE PAIN... FALL RISK SCREENING: SCREENING :NO FALLS IN THE PAST YEAR CURRENT MEDICATIONS TAKING TRAZODONE 150 150MG TABLET 1 TAB(S) ORAL DAILY TAKING BLOOD GLUCOSE TEST - STRIP 1 STRIP IN VITRO 4 TIMES DAILY DX:E11.65 TAKING GABAPENTIN 800 MG TABLET 1 TABLET ORALLY THREE TIMES A DAY FOR PAIN TAKING ZOLOFT 100 MG TABLET 1 TABLET ORALLY ONCE A DAY TAKING PEN NEEDLES 08/05" 31G X 5 MM PEN NEEDLE USE WITH LANTUS PEN SUBCUTANEOUSLY THREE TIMES A DAY DX; 250.00 TAKING DITROPAN 5 MG TABLET 1 TAB(S) ORALLY DAILY TAKING CALCIUM + D 600-200 MG-UNIT TABLET 1 TABLET ORALLY ONCE A DAY TAKING POLYETHYLENE GLYCOL 3350 POWDER 17 GRAM IN WATER ORALLY ONCE A DAY NEEDED TAKING FREESTYLE SYSTEM DX CODE E11.9 METER DIRECTED DAILY TAKING VENTOLIN HFA 108 (90 BASE) MCG/ACT AEROSOL SOLUTION 2 PUFFS NEEDED INHALATION EVERY 4 HRS TAKING ATROVENT 0.06 % SOLUTION 2 DROPS IN EACH NOSTRIL NEEDED NASALLY THREE TIMES A DAY TAKING GLUCOMETER DIRECTED _ DX CODE:E11.65 TAKING FREESTYLE LANCETS DX CODE E11.9 MISCELLANEOUS DIRECTED SUBCUTANEOUSLY FOUR TIMES A DAY TAKING VITAMIN E 400 UNIT CAPSULE 1 CAPSULE ORALLY ONCE A DAY TAKING LASIX 40 MG TABLET 1 TABLET ORALLY TWICE DAILY TAKING FREESTYLE TEST STRIPS DX CODE E11.9 STRIP DIRECTED FOUR TIMES A DAY TAKING TRIAMCINOLONE ACETONIDE 0.1 % LOTION 1 APPLICATION TO AFFECTED AREA EXTERNALLY TO DARKENED SPOTS ON ARMS AND LEGS TWICE A DAY TO EMEKA KNEES AND ELBOWS TAKING BENZOYL PEROXIDE CLEANSER 6 % LOTION 1 APPLICATION TO AFFECTED AREA AT BEDTIME EXTERNALLY TO FACE ONCE A DAY TAKING TOUJEO SOLOSTAR 300 UNIT/ML SOLUTION PEN-INJECTOR 70 U SUBCUTANEOUS EVERY MORNING TAKING HUMALOG 100 UNIT/ML SOLUTION PER SLIDING SCALE SUBCUTANEOUS DIRECTED PER SLIDING SCALE AC TAKING AMLODIPINE BESYLATE 5 MG TABLET 1 TABLET ORALLY ONCE A DAY TAKING ASPIRIN 81 MG TABLET DELAYED RELEASE 1 TABLET ORALLY ONCE A DAY TAKING LOSARTAN POTASSIUM 100 TABLET 1 TABLET ORALLY ONCE A DAY TAKING RETIN-A 0.025 % CREAM 1 APPLICATION TO AFFECTED AREA IN THE EVENING TO FACE EXTERNALLY TO FACE ONCE A DAY BEFORE BED TAKING VOLTAREN 1 % GEL TOPICAL TRANSDERMAL TO MID BACK TWICE DAILY NEEDED TAKING LIDODERM 5 % PATCH 2 PATCH TO INTACT SKIN REMOVE AFTER 12 HOURS EXTERNALLY ONCE A DAY FOR PAIN TAKING ROBAXIN 500 MG TABLET 1.5 TABLETS ORALLY EVERY 8H PRN TAKING INCRUSE ELLIPTA 62.5 MCG/INH AEROSOL POWDER BREATH ACTIVATED 1 PUFF INHALATION ONCE A DAY TAKING LACTULOSE 10 GM/15ML SYRUP 45 ML ORALLY BID TAKING RIFAXIMIN 550 MG TABLET 1 TABLET ORALLY TWICE A DAY NOT-TAKING CHANTIX 1 MG TABLET 1 TABLET ORALLY ONCE A DAY, NOTES: NONE RECENTLY NOT-TAKING ZOFRAN 4 MG TABLET 1 TABLET ORALLY ONCE A DAY MEDICATION LIST REVIEWED AND RECONCILED WITH THE PATIENT PAST MEDICAL HISTORY DMII HTN CKD STAGE III - FOLLOWED BY HX DEPRESSIVE DISORDER TOBACCO ABUSE HX PANCREATITIS HYPERLIPIDEMIA ASCVD RISK 27.9% 09/2013 2NDARY HYPERPARATHYROIDISM EYE EXAM 01/2014 [facility] - DIABETES W/O RETINOPATHY POSSIBLE GLAUCOMA. CHOLEDOCHOLYTHIASIS. 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 SOCIAL HISTORY GENERAL: TOBACCO USE ARE YOU A:CURRENT SMOKER HOW MANY CIGARETTES A DAY DO YOU SMOKE?5 OR LESS HOW SOON AFTER YOU WAKE UP DO YOU SMOKE YOUR FIRST CIGARETTE?6-30 MIN HOW OFTEN DO YOU SMOKE CIGARETTES?EVERY DAY PATIENT COUNSELED ON THE DANGERS OF TOBACCO USE AND URGED TO QUIT:08/13/2016 PT COUNCELED ON THE IMPORTANCE OF QUITTING. SHE IS INTERESTED IN QUITTING AND ALREADY HAS INFORMATION ON IT. ARE YOU INTERESTED IN QUITTING?THINKING ABOUT QUITTING PREVIOUS QUIT ATTEMPTS?YES, WITHIN THE LAST 6 MONTHS. COUNSELED THE PATIENT ON SMOKING CESSATION, EDUCATION [id number]/24/2017 BMI CARE GOAL FOLLOW-UP ABOVE NORMAL BMI FOLLOW-UPDIETARY NEEDS EDUCATION ALCOHOL SCREENING DID YOU HAVE A DRINK CONTAINING ALCOHOL IN THE PAST YEAR?NO POINTS0 INTERPRETATIONNEGATIVE RECREATIONAL DRUG USE DRUG USE?NO CAFFEINE CAFFEINE USE?YES SEXUAL HX HAD SEX IN THE LAST 12 MONTHS (VAGINAL, ORAL, OR ANAL)?NO HIV / HEP-C SCREENING HIV TEST OFFERED TO PATIENT:YES DATE OFFERED:06/10/2011 TEST ACCEPTED:NO REASON:PATIENT DECLINED OCCUPATION: UNEMPLOYED. DIET: REGULAR. EXERCISE: NO REGULAR EXERCISE. MARITAL STATUS: .. OTHERS AT HOME: NONE. PETS: NONE. [place]VENT NO GNOSTICISM BELIEFS THAT WOULD IMPACT HEALTH CARE. LANGUAGE CHADIAN. LEARNING BARRIERS / SPECIAL NEEDS CHANGE FROM LAST VISIT?YES BARRIERS TO LEARNING?NO HEARING IMPAIRED?NO VISION IMPAIRED?YES :CORRECTIVE LENSES COGNITIVELY IMPAIRED?NO READINESS TO LEARN?YES LEARNING PREFERENCES?NO LEARNING CAPABILITIES PRESENT?YES EMOTIONAL BARRIERS?NO SPECIAL DEVICES?NO SOCIAL SERVICES DIRECTOR NEEDED?NO NEW PATIENT PAIN DIARY TODAY'S VISIT NOTES, FROM 0-10, WHAT LEVEL IS YOUR PAIN TODAY? 0. PAIN CLINIC PFS, CLERGY, PUBLIC HEALTH REFERRALS PFS REFERRAL NEEDED?NO CLERGY REFERRAL NEEDED?NO PUBLIC HEALTH REFERRAL NEEDED?NO HAS THE PATIENT BEEN EDUCATED REGARDING HIS/HER PLAN OF CARE?YES HAS THE PATIENT BEEN EDUCATED REGARDING PAIN, THE RISK FOR PAIN, THE IMPORTANCE OF EFFECTIVE PAIN MANAGEMENT, AND THE PAIN ASSESSMENT PROCESS?YES UNEMPLOYED, NOT , NO CHILDREN. MOVED TO [place] FROM [place] AT BEGINNING OF 2010. CURRENTLY SMOKES 1/2PPD PRIOR TO HOSPITALIZATION 1 PPD FOR 35 YEARS, NO ETOH OR ILLICITS, 3 CAFFEINATED BEVERAGES A DAY, NO REGULAR EXERCISE. REVIEW OF SYSTEMS REVIEWED BY: PROVIDER: RISSA FRANCE . CONSTITUTIONAL: ANY CHANGE IN YOUR MEDICAL CONDITION? NO . CHILLS NO . FEVER NO . INFECTION: DO YOU HAVE NEW INFECTIONS? NO . DO YOU HAVE HISTORY OF MRSA? NO . MUSCULOSKELETAL: ANY NEW PATTERNS OF PAIN OR NUMBNESS? NO . GASTROENTEROLOGY: ANY NEW CHANGE IN BOWEL CONTROL? NO . GENITOURINARY: ANY NEW CHANGE IN BLADDER CONTROL? NO . IS THERE A CHANCE YOU COULD BE ? NO . HEMATOLOGY/LYMPH: DO YOU TAKE ANY BLOOD THINNERS? (FOR EXAMPLE- COUMADIN, PLAVIX, AGGRENOX, PLATEL, PRADAXA, OR XARELTO) NO . WHEN WAS YOUR LAST DOSE? DATE: TIME: . NEUROLOGY: HAVE YOU FALLEN IN THE PAST 6 MONTHS? YES . ANY NEW EXTREMITY NUMBNESS OR WEAKNESS? NO . CARDIOLOGY: DO YOU HAVE A PACEMAKER OR DEFIBRILLATOR? NO . RESPIRATORY: HAVE YOU BEEN SICK IN THE PAST WEEK? NO . FEVER NO . FLU LIKE SYMPTOMS? NO . COUGH NO . INTEGUMENTARY: DO YOU HAVE ANY RASHES OR OPEN SORES? NO . ALLERGIC/IMMUNO: ARE YOU ALLERGIC TO SHELLFISH OR IV DYE? NO . ANY NEW ALLERGIES? NO . PSYCHIATRIC: DO YOU HAVE THOUGHTS OF HURTING YOURSELF OR SOMEONE ELSE? NO . ARE YOU ABUSED, NEGLECTED, OR IN AN UNSAFE ENVIRONMENT? NO . ENDOCRINOLOGY: ARE YOU DIABETIC? YES . OTHER: DO YOU NEED ANY PRESCRIPTIONS? NO . IF YES, PLEASE LIST: ____ . ANY NEW PROBLEMS WITH YOUR MEDICATIONS? NO . WHEN DID YOU LAST EAT? ____ . WHEN DID YOU LAST DRINK? ____ . WHAT DID YOU LAST DRINK? ____ . NAME OF PERSON DRIVING YOU HOME? ____ . DO YOU HAVE ANY OTHER QUESTIONS OR CONCERNS NO . VITAL SIGNS WT 222.8 LBS, HT 65 IN, BMI 37.07 INDEX, BP 144/86 MM HG, HR 97 /MIN, RR 18 /MIN, TEMP 97.0 F, OXYGEN SAT % 96%, NA INITIALS TL 1046, REVIEWED BY: CS. EXAMINATION GENERAL EXAMINATION: LUNGS:LUNG SOUNDS ARE CLEAR. HEART:HEART RATE REGULAR. MUSCULOSKELETAL:*, TRIGGER POINTS:, ELICITED WITH PALPATION OVER MID THORACIC MUSCLES R>L.PAIN IS AGGREVATED WITH USE OF LEFT ARM.. DIAGNOSTIC:MRI THORACIC RSOAD-4-4-17-REVIEWED. ASSESSMENTS MYALGIA - M79.1 (PRIMARY) PAIN IN THORACIC SPINE - M54.6 TREATMENT MYALGIA STOP GABAPENTIN TABLET, 800 MG, 1 TABLET, ORALLY, THREE TIMES A DAY FOR PAIN START GABAPENTIN CAPSULE, 300 MG, 2, ORALLY, BID, 30 DAY(S), 120, REFILLS 2 NOTES: REDUCE GABAPENTIN SLOWLY-TAKE TWO 300MG THREE TIMES PER DAY X 10 DAYS THEN TWO TAB TWICE PER DAYLIFENET [phone] 2XWK X 6 WK. PREVENTIVE MEDICINE PAIN CLINIC TEACHING: MEDICATIONS INSTRUCTIONS ON DECREASING GABAPENTIN. PROCEDURE CODES FA211 ESTABILISHED PATIENT [facility] CHARGE DISPOSITION & COMMUNICATION FOLLOW UP 6 WEEKS ELECTRONICALLY SIGNED BY EDILMA CISNEROS ON 11/15/2016 AT 01:31 PM EDT DISCLAIMER : THIS IS A VISIT SUMMARY EXTRACTED FROM THE [employer] CHART. IT IS NOT A COPY OF THE [employer] PROGRESS NOTE. ISABELLA
== END ==
LOC: M PAIN 10:40
PROVIDERS: ATTEND Nurse Practitioner Family
DX: M79.1 Myalgia (principal); M54.6 Pain in thoracic spine; G89.29 Other chronic pain; Z79.4 Long term (current) use of insulin; Z79.82 Long term (current) use of aspirin; Z79.899 Other long term (current) drug therapy; F17.210 Nicotine dependence, cigarettes, uncomplicated; E11.9 Type 2 diabetes mellitus without complications; I10 Essential (primary) hypertension; F32.9 Major depressive disorder, single episode, unspecified; N18.3 Chronic kidney disease, stage 3 (moderate); E78.2 Mixed hyperlipidemia; L68.0 Hirsutism; E27.0 Other adrenocortical overactivity

== ENCOUNTER → 2016-11-08 | Outpatient (REF) | payer MEDICARE, MEDICAID ==
[~2016-11-08] MED LIST changes: +COLA100C3 PO; -COLA100C5 PO; +LIDO5DIS36 TD; -LIDO5DIS41 TD; +OXYB5TA PO; -OXYB5TAB10 PO; -PERC5TAB12 PO; +PERC5TAB6 PO; +TRAZ150T14 PO; -TRAZ1TAB14 PO; -VOLT1GEL15 TOP; +VOLT1GEL24 TOP
== END ==
LOC: M SFHCPLAZ 16:09
PROVIDERS: ATTEND Family Medicine
DX: E11.9 Type 2 diabetes mellitus without complications (principal); Z53.8 Procedure and treatment not carried out for other reasons

== ENCOUNTER 2016-11-09 12:29 | Outpatient (RCR) | payer MEDICARE, MEDICAID ==
[~2016-11-09 12:29] MED LIST changes: -COLA100C3 PO; +COLA100C5 PO; -LIDO5DIS36 TD; +LIDO5DIS41 TD; -OXYB5TA PO; +OXYB5TAB10 PO; +PERC5TAB12 PO; -PERC5TAB6 PO; -TRAZ150T14 PO; +TRAZ1TAB14 PO; +VOLT1GEL15 TOP; -VOLT1GEL24 TOP
== END 2016-11-19 | disposition home or self-care (01) ==
LOC: M PT 12:29
PROVIDERS: ATTEND Nurse Practitioner Family
DX: M79.1 Myalgia (principal); M54.6 Pain in thoracic spine; Z51.89 Encounter for other specified aftercare

== ENCOUNTER → 2016-11-12 | Outpatient (CLI) | payer MEDICARE, MEDICAID ==
[~2016-11-12] MED LIST changes: +COLA100C3 PO; -COLA100C5 PO; +LIDO5DIS36 TD; -LIDO5DIS41 TD; +OXYB5TA PO; -OXYB5TAB10 PO; -PERC5TAB12 PO; +PERC5TAB6 PO; +TRAZ150T14 PO; -TRAZ1TAB14 PO; -VOLT1GEL15 TOP; +VOLT1GEL24 TOP
== END ==
LOC: M LAB 12:25
PROVIDERS: ATTEND Family Medicine
DX: E11.9 Type 2 diabetes mellitus without complications (principal)

== ENCOUNTER → 2016-12-03 | Outpatient (REF) | payer MEDICARE, MEDICAID ==
[~2016-12-03] MED LIST changes: -COLA100C3 PO; +COLA100C5 PO; -LIDO5DIS36 TD; +LIDO5DIS41 TD; -OXYB5TA PO; +OXYB5TAB10 PO; +PERC5TAB12 PO; -PERC5TAB6 PO; -TRAZ150T14 PO; +TRAZ1TAB14 PO; +VOLT1GEL15 TOP; -VOLT1GEL24 TOP
== END ==
LOC: M SFHCPLAZ 10:07
PROVIDERS: ATTEND Family Medicine
DX: E72.20 Disorder of urea cycle metabolism, unspecified (principal); E11.65 Type 2 diabetes mellitus with hyperglycemia; K74.69 Other cirrhosis of liver; N18.3 Chronic kidney disease, stage 3 (moderate); E78.2 Mixed hyperlipidemia

== ENCOUNTER → 2016-12-07 | Outpatient (CLI) | payer MEDICARE, MEDICAID ==
[2016-12-07 14:48] LABS: INR 1.06
[2016-12-07 15:04] LABS: ALBUMIN 3.6 GM/DL (3.2-5.2); ALBUMIN/GLOBULIN RATIO 0.75 (1.00-1.93); BILIRUBIN,TOTAL 0.7 MG/DL (0.2-1.0); CALCIUM LEVEL 9.6 MG/DL (8.5-10.1); CREATININE FOR GFR 1.78 MG/DL (0.55-1.02); GLOMERULAR FILTRATION RATE 38.2 (>51); POTASSIUM SERUM 3.5 MEQ/L (3.5-5.1); TOTAL PROTEIN 8.4 GM/DL (6.4-8.2)
== END ==
LOC: M LAB 14:13
PROVIDERS: ATTEND Family Medicine
DX: E11.65 Type 2 diabetes mellitus with hyperglycemia (principal)

== ENCOUNTER 2016-12-16 13:34 | Outpatient (RCR) | payer MEDICARE, MEDICAID | END 2016-12-20 | LOC: M PT 13:34 | PROVIDERS: ATTEND Nurse Practitioner Family | DX: Z51.89 Encounter for other specified aftercare (principal); M79.1 Myalgia; M54.6 Pain in thoracic spine ==

== ENCOUNTER → 2016-12-20 | Outpatient (CLI) | payer MEDICARE, MEDICAID ==
--- NOTE | 2017-01-09 00:03 | ECWPNPC ---
PATIENT NAME: PABLO HANSEN : 1960 GENDER: FEMALE VISIT DATE: 12/20/2016 DISCHARGE DATE: 12/20/16 1257 VISIT LOCKED DATE TIME: PHYSICIAN: RISSA MOORE RESOURCE: RISSA MOORE REASON FOR APPOINTMENT 1. FOLLOWUP HISTORY OF PRESENT ILLNESS HISTORY OF PRESENT ILLNESS: 55 Y/O FEMALE HERE FOR ONE MONTH F/U FOR CHRONIC RIGHT MID THORACIC PAIN THAT RADIATES INTO RIGHT AXILLARY REGION.DESCRIBES PAIN INTERMITTENT STABBING PAIN.RATING PAIN VAS 3/10.RECENT HOSPITALIZATION FOR HIGH AMMONIA LEVELS AND DIAGNOSED WITH ELEVATED AMMONIA LEVELS AND DIAGNOSED WITH CIRHOSIS OF LIVER.DISCUSSED MEDICATION AND TREATMENT OPTIONS.REVIEWED MRI THORACIC SPINE DONE 07-29-16.CURRENTLY ATTENDING PT 2X WEEK WHICH SHE STATES IS HELPFUL. PAIN THE PATIENT DESCRIBES THE PAIN... THE PATIENT DESCRIBES THE PAIN... THE PATIENT DESCRIBES THE PAIN... FALL RISK SCREENING: SCREENING :NO FALLS IN THE PAST YEAR CURRENT MEDICATIONS TAKING TOUJEO SOLOSTAR 300 UNIT/ML SOLUTION PEN-INJECTOR 70 U SUBCUTANEOUS EVERY MORNING TAKING DITROPAN 5 MG TABLET 1 TAB(S) ORALLY DAILY TAKING ZOLOFT 100 MG TABLET 1 TABLET ORALLY ONCE A DAY TAKING LASIX 40 MG TABLET 1 TABLET ORALLY ONCE DAILY TAKING TRAZODONE 150 150MG TABLET 1 TAB(S) ORAL DAILY TAKING BLOOD GLUCOSE TEST - STRIP 1 STRIP IN VITRO 4 TIMES DAILY DX:E11.65 TAKING PEN NEEDLES 3/16" 31G X 5 MM PEN NEEDLE USE WITH LANTUS PEN SUBCUTANEOUSLY THREE TIMES A DAY DX; 250.00 TAKING CALCIUM + D 600-200 MG-UNIT TABLET 1 TABLET ORALLY ONCE A DAY TAKING FREESTYLE SYSTEM DX CODE E11.9 METER DIRECTED DAILY TAKING VENTOLIN HFA 108 (90 BASE) MCG/ACT AEROSOL SOLUTION 2 PUFFS NEEDED INHALATION EVERY 4 HRS TAKING ATROVENT 0.06 % SOLUTION 2 DROPS IN EACH NOSTRIL NEEDED NASALLY THREE TIMES A DAY TAKING GLUCOMETER DIRECTED _ DX CODE:E11.65 TAKING FREESTYLE LANCETS DX CODE E11.9 MISCELLANEOUS DIRECTED SUBCUTANEOUSLY FOUR TIMES A DAY TAKING VITAMIN E 400 UNIT CAPSULE 1 CAPSULE ORALLY ONCE A DAY TAKING FREESTYLE TEST STRIPS DX CODE E11.9 STRIP DIRECTED FOUR TIMES A DAY TAKING TRIAMCINOLONE ACETONIDE 0.1 % LOTION 1 APPLICATION TO AFFECTED AREA EXTERNALLY TO DARKENED SPOTS ON ARMS AND LEGS TWICE A DAY TO EMEKA KNEES AND ELBOWS TAKING BENZOYL PEROXIDE CLEANSER 6 % LOTION 1 APPLICATION TO AFFECTED AREA AT BEDTIME EXTERNALLY TO FACE ONCE A DAY TAKING HUMALOG 100 UNIT/ML SOLUTION PER SLIDING SCALE SUBCUTANEOUS DIRECTED PER SLIDING SCALE AC TAKING AMLODIPINE BESYLATE 5 MG TABLET 1 TABLET ORALLY ONCE A DAY TAKING ASPIRIN 81 MG TABLET DELAYED RELEASE 1 TABLET ORALLY ONCE A DAY TAKING LOSARTAN POTASSIUM 100 TABLET 1 TABLET ORALLY ONCE A DAY TAKING RETIN-A 0.025 % CREAM 1 APPLICATION TO AFFECTED AREA IN THE EVENING TO FACE EXTERNALLY TO FACE ONCE A DAY BEFORE BED TAKING VOLTAREN 1 % GEL TOPICAL TRANSDERMAL TO MID BACK TWICE DAILY NEEDED TAKING LIDODERM 5 % PATCH 2 PATCH TO INTACT SKIN REMOVE AFTER 12 HOURS EXTERNALLY ONCE A DAY FOR PAIN TAKING ROBAXIN 500 MG TABLET 1.5 TABLETS ORALLY EVERY 8H PRN TAKING LACTULOSE 10 GM/15ML SYRUP 35 ML ORALLY BID TAKING RIFAXIMIN 550 MG TABLET 1 TABLET ORALLY TWICE A DAY TAKING GABAPENTIN 300 MG CAPSULE 2 ORALLY BID TAKING NICODERM CQ 21 MG/24HR PATCH 24 HOUR 1 PATCH TO SKIN TRANSDERMAL ONCE A DAY TAKING SPIRONOLACTONE 25 MG TABLET 1 TABLET ORALLY ONCE A DAY MEDICATION LIST REVIEWED AND RECONCILED WITH THE PATIENT PAST MEDICAL HISTORY DMII HTN CKD STAGE III - FOLLOWED BY MAJOR DEPRESSIVE DISORDER TOBACCO ABUSE HX PANCREATITIS HYPERLIPIDEMIA ASCVD RISK 14.0% 07/2016 (10 YEAR RISK) 2NDARY HYPERPARATHYROIDISM EYE EXAM 01/2014 [facility] - DIABETES W/O RETINOPATHY POSSIBLE GLAUCOMA. 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 SURGICAL HISTORY HYSTERECTOMY 2007 CHOLECYSTECTOMY LEFT BREAST CYST REMOVAL T 7-9 LAMINECTOMY 12/2014 COLONOSCOPY 12/12/14 HOSPITALIZATION/MAJOR DIAGNOSTIC PROCEDURE [facility] ACUTE PANCREATITIS SECONDARY TO HYPERTRIGLYCERDEMIA AND UNCONTROLED DMII 02/11- [facility] MRSA CELLULITIS 02/17/2011 [place] COLI INFECTION [facility] ACUTE PANCREATITIS 03/16- BACK SURGERY 01/06/15-01/10/15 FAINTING SPELLS (HYPERAMMONEMIA) 08/02/16-08/04/16 REVIEW OF SYSTEMS REVIEWED BY: PROVIDER: RISSA FRANCE . CONSTITUTIONAL: ANY CHANGE IN YOUR MEDICAL CONDITION? NO . CHILLS NO . FEVER NO . INFECTION: DO YOU HAVE NEW INFECTIONS? NO . DO YOU HAVE HISTORY OF MRSA? NO . MUSCULOSKELETAL: ANY NEW PATTERNS OF PAIN OR NUMBNESS? NO . GASTROENTEROLOGY: ANY NEW CHANGE IN BOWEL CONTROL? NO . GENITOURINARY: ANY NEW CHANGE IN BLADDER CONTROL? NO . IS THERE A CHANCE YOU COULD BE ? NO . HEMATOLOGY/LYMPH: DO YOU TAKE ANY BLOOD THINNERS? (FOR EXAMPLE- COUMADIN, PLAVIX, AGGRENOX, PLATEL, PRADAXA, OR XARELTO) NO . WHEN WAS YOUR LAST DOSE? DATE: TIME: . NEUROLOGY: HAVE YOU FALLEN IN THE PAST 6 MONTHS? YES, PT STATES SHE FELL FROM LOSS OF BALANCE, PT STATES SHE CANNOT RECALL THE DETAILS . ANY NEW EXTREMITY NUMBNESS OR WEAKNESS? NO . CARDIOLOGY: DO YOU HAVE A PACEMAKER OR DEFIBRILLATOR? NO . RESPIRATORY: HAVE YOU BEEN SICK IN THE PAST WEEK? NO . FEVER NO . FLU LIKE SYMPTOMS? NO . COUGH NO . INTEGUMENTARY: DO YOU HAVE ANY RASHES OR OPEN SORES? NO . ALLERGIC/IMMUNO: ARE YOU ALLERGIC TO SHELLFISH OR IV DYE? NO . ANY NEW ALLERGIES? NO . PSYCHIATRIC: DO YOU HAVE THOUGHTS OF HURTING YOURSELF OR SOMEONE ELSE? NO . ARE YOU ABUSED, NEGLECTED, OR IN AN UNSAFE ENVIRONMENT? NO . ENDOCRINOLOGY: ARE YOU DIABETIC? YES . OTHER: DO YOU NEED ANY PRESCRIPTIONS? NO . IF YES, PLEASE LIST: ____ . ANY NEW PROBLEMS WITH YOUR MEDICATIONS? NO . WHEN DID YOU LAST EAT? ____ . WHEN DID YOU LAST DRINK? ____ . WHAT DID YOU LAST DRINK? ____ . NAME OF PERSON DRIVING YOU HOME? ____ . DO YOU HAVE ANY OTHER QUESTIONS OR CONCERNS NO . VITAL SIGNS WT 216.4 LBS, HT 65 IN, BMI 36.01 INDEX, BP 140/86 MM HG, HR 71 /MIN, RR 16 /MIN, TEMP 97.4 F, OXYGEN SAT % 96%, SAFE IN ENV? (Y/N) Y, NA INITIALS TL 1100, REVIEWED BY: EM. EXAMINATION GENERAL EXAMINATION: LUNGS:LUNG SOUNDS ARE CLEAR. HEART:HEART RATE REGULAR. MUSCULOSKELETAL:*, TRIGGER POINTS:, ELICITED WITH PALPATION OVER MID THORACIC MUSCLES R>L.PAIN IS AGGREVATED WITH USE OF LEFT ARM.. DIAGNOSTIC:MRI THORACIC [id number]-REVIEWED. ASSESSMENTS MYALGIA - M79.1 (PRIMARY) PAIN IN THORACIC SPINE - M54.6 TREATMENT MYALGIA DECREASE GABAPENTIN CAPSULE, 300 MG, 1, ORALLY, BID, 30 DAY(S), 60, REFILLS 2 REFILL ROBAXIN TABLET, 500 MG, 1.5 TABLETS, ORALLY, EVERY 8H PRN, 30 DAY(S), 90, REFILLS 2 PROCEDURE CODES FA211 ESTABILISHED PATIENT [facility] CHARGE G8730 PAIN ASSESS POS TOOL F/U PLAN DOC G8427 DOC MEDS VERIFIED W/PT OR RE DISPOSITION & COMMUNICATION FOLLOW UP 2 MONTHS ELECTRONICALLY SIGNED BY EDILMA CISNEROS ON 01/06/2017 AT 06:34 PM EDT DISCLAIMER : THIS IS A VISIT SUMMARY EXTRACTED FROM THE [employer] CHART. IT IS NOT A COPY OF THE [employer] PROGRESS NOTE. MTDD
== END ==
LOC: M PAIN 11:00
PROVIDERS: ATTEND Nurse Practitioner Family
DX: M79.1 Myalgia (principal); M54.6 Pain in thoracic spine; G89.29 Other chronic pain; E11.65 Type 2 diabetes mellitus with hyperglycemia; I12.9 Hypertensive chronic kidney disease with stage 1 through stage 4 chronic kidney disease, or unspecified chronic kidney disease; L68.0 Hirsutism; N18.3 Chronic kidney disease, stage 3 (moderate); G47.33 Obstructive sleep apnea (adult) (pediatric); E55.9 Vitamin D deficiency, unspecified; F32.9 Major depressive disorder, single episode, unspecified; Z79.82 Long term (current) use of aspirin; Z79.4 Long term (current) use of insulin; Z79.899 Other long term (current) drug therapy; Z87.891 Personal history of nicotine dependence

== ENCOUNTER 2016-12-30 12:40 | Outpatient (RCR) | payer MEDICARE, MEDICAID | END 2017-01-20 | disposition home or self-care (01) | LOC: M PT 12:40 | PROVIDERS: ATTEND Nurse Practitioner Family | DX: Z51.89 Encounter for other specified aftercare (principal); M79.1 Myalgia; M54.6 Pain in thoracic spine ==

== ENCOUNTER → 2017-01-17 | Outpatient (CLI) | payer MEDICARE, MEDICAID ==
--- NOTE | 2017-01-17 13:30 | REP ---
Bilateral rib series: Five views including PA chest. History: No known injury. Discomfort and pain under the right 10th rib and mid epigastric region. Comparison study: August 02, 2016. Findings: PA chest radiograph is unremarkable. There is no evidence of pneumothorax, hydrothorax, mediastinal widening, or pulmonary infiltrate. There is a granulomatous calcification in the right base again noted unchanged. Multiple views of the rib cage bilaterally shows clips in the right upper quadrant. No bony destructive lesion or fracture is seen. Impression: Negative bilateral rib series. Signed by Maged Kay MD 01/17/2017 02:48 P
== END ==
LOC: M RAD 12:09
PROVIDERS: ATTEND Hospitalist
DX: R07.89 Other chest pain (principal)

== ENCOUNTER → 2017-01-31 | Outpatient (REF) | payer MEDICARE, MEDICAID | LOC: M SFHCPLAZ 18:52 | PROVIDERS: ATTEND Family Medicine | DX: E72.20 Disorder of urea cycle metabolism, unspecified (principal); E11.65 Type 2 diabetes mellitus with hyperglycemia ==

== ENCOUNTER → 2017-01-31 | Outpatient (REF) | payer MEDICARE, MEDICAID | LOC: M SFHCPLAZ 14:50 | PROVIDERS: ATTEND Obstetrics & Gynecology | DX: E72.20 Disorder of urea cycle metabolism, unspecified (principal); E11.65 Type 2 diabetes mellitus with hyperglycemia ==

== ENCOUNTER → 2017-02-02 | Outpatient (CLI) | payer MEDICARE, MEDICAID ==
--- NOTE | 2017-02-13 23:28 | ECWPNPC ---
PATIENT NAME: PABLO HANSEN : 1960 GENDER: FEMALE VISIT DATE: 02/02/2017 DISCHARGE DATE: 02/02/17 1505 VISIT LOCKED DATE TIME: PHYSICIAN: RISSA MOORE RESOURCE: RISSA MOORE REASON FOR APPOINTMENT 1. BACK HISTORY OF PRESENT ILLNESS HISTORY OF PRESENT ILLNESS: 55 Y/O FEMALE HERE FOR ONE MONTH F/U FOR CHRONIC RIGHT MID THORACIC PAIN THAT RADIATES INTO RIGHT AXILLARY REGION.DESCRIBES PAIN INTERMITTENT STABBING PAIN.RATING PAIN VAS 4/10.RECENT HOSPITALIZATION FOR HIGH AMMONIA LEVELS AND DIAGNOSED WITH ELEVATED AMMONIA LEVELS AND DIAGNOSED WITH CIRHOSIS OF LIVER.DISCUSSED MEDICATION AND TREATMENT OPTIONS.REVIEWED MRI THORACIC SPINE DONE 07-29-16.STATES SHE WAS DECREASED TO ONCE DAILY ON GABAPENTIN 300MG AND PAIN HAS INCREASED.TAKING ROBAXIN 500MG TID WHICH IS SOMEWHAT HELPFUL. PAIN THE PATIENT DESCRIBES THE PAIN... THE PATIENT DESCRIBES THE PAIN... THE PATIENT DESCRIBES THE PAIN... THE PATIENT DESCRIBES THE PAIN... FALL RISK SCREENING: SCREENING :NO FALLS IN THE PAST YEAR CURRENT MEDICATIONS TAKING PENNSAID 1.5% 1.5% DROPS 10 TOPICALLY FOUR TIMES DAILY TAKING DITROPAN 5 MG TABLET 1 TAB(S) ORALLY DAILY TAKING ZOLOFT 100 MG TABLET 1 TABLET ORALLY ONCE A DAY TAKING LASIX 40 MG TABLET 1 TABLET ORALLY ONCE DAILY TAKING BLOOD GLUCOSE TEST - STRIP 1 STRIP IN VITRO 4 TIMES DAILY DX:E11.65 TAKING PEN NEEDLES 08/05" 31G X 5 MM PEN NEEDLE USE WITH LANTUS PEN SUBCUTANEOUSLY THREE TIMES A DAY DX; 250.00 TAKING CALCIUM + D 600-200 MG-UNIT TABLET 1 TABLET ORALLY ONCE A DAY TAKING FREESTYLE SYSTEM DX CODE E11.9 METER DIRECTED DAILY TAKING VENTOLIN HFA 108 (90 BASE) MCG/ACT AEROSOL SOLUTION 2 PUFFS NEEDED INHALATION EVERY 4 HRS TAKING ATROVENT 0.06 % SOLUTION 2 DROPS IN EACH NOSTRIL NEEDED NASALLY THREE TIMES A DAY TAKING VITAMIN E 400 UNIT CAPSULE 1 CAPSULE ORALLY ONCE A DAY TAKING FREESTYLE TEST STRIPS DX CODE E11.9 STRIP DIRECTED FOUR TIMES A DAY TAKING TRIAMCINOLONE ACETONIDE 0.1 % LOTION 1 APPLICATION TO AFFECTED AREA EXTERNALLY TO DARKENED SPOTS ON ARMS AND LEGS TWICE A DAY TO EMEKA KNEES AND ELBOWS TAKING BENZOYL PEROXIDE CLEANSER 6 % LOTION 1 APPLICATION TO AFFECTED AREA AT BEDTIME EXTERNALLY TO FACE ONCE A DAY TAKING HUMALOG 100 UNIT/ML SOLUTION PER SLIDING SCALE SUBCUTANEOUS DIRECTED PER SLIDING SCALE AC TAKING AMLODIPINE BESYLATE 5 MG TABLET 1 TABLET ORALLY ONCE A DAY TAKING ASPIRIN 81 MG TABLET DELAYED RELEASE 1 TABLET ORALLY ONCE A DAY TAKING LOSARTAN POTASSIUM 100 TABLET 1 TABLET ORALLY ONCE A DAY TAKING RETIN-A 0.025 % CREAM 1 APPLICATION TO AFFECTED AREA IN THE EVENING TO FACE EXTERNALLY TO FACE ONCE A DAY BEFORE BED TAKING LACTULOSE 10 GM/15ML SYRUP 35 ML ORALLY BID TAKING RIFAXIMIN 550 MG TABLET 1 TABLET ORALLY TWICE A DAY TAKING SPIRONOLACTONE 25 MG TABLET 1 TABLET ORALLY ONCE A DAY TAKING GABAPENTIN 300 MG CAPSULE 1 ORALLY BID TAKING TOUJEO SOLOSTAR 300 UNIT/ML SOLUTION PEN-INJECTOR 70 U SUBCUTANEOUS EVERY MORNING TAKING TRAZODONE 150 150MG TABLET 1 TAB(S) ORAL DAILY NOT-TAKING PENNSAID 1.5% 1.5% DROPS 10 10 GTTS TO AFFECTED AREA FOUR TIMES DAILY MEDICATION LIST REVIEWED AND RECONCILED WITH THE PATIENT PAST MEDICAL HISTORY DMII HTN CKD STAGE III - FOLLOWED BY MAJOR DEPRESSIVE DISORDER TOBACCO ABUSE HX PANCREATITIS HYPERLIPIDEMIA ASCVD RISK 14.0% 07/2016 (10 YEAR RISK) 2NDARY HYPERPARATHYROIDISM EYE EXAM 01/2014 [facility] - DIABET[facility] W/O RETINOPATHY POSSIBLE GLAUCOMA. 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 SURGICAL HISTORY HYSTERECTOMY 2007 CHOLECYSTECTOMY LEFT BREAST CYST REMOVAL T 7-9 LAMINECTOMY 12/2014 COLONOSCOPY 12/12/14 HOSPITALIZATION/MAJOR DIAGNOSTIC PROCEDURE [facility] ACUTE PANCREATITIS SECONDARY TO HYPERTRIGLYCERDEMIA AND UNCONTROLED DMII 02/11- [facility] MRSA CELLULITIS 02/17/2011 [place] COLI INFECTION [facility] ACUTE PANCREATITIS 03/16- BACK SURGERY 01/06/15-01/10/15 FAINTING SPELLS (HYPERAMMONEMIA) 08/02/16-08/04/16 REVIEW OF SYSTEMS REVIEWED BY: PROVIDER: RISSA FRANCE . CONSTITUTIONAL: ANY CHANGE IN YOUR MEDICAL CONDITION? NO . CHILLS NO . FEVER NO . INFECTION: DO YOU HAVE NEW INFECTIONS? NO . DO YOU HAVE HISTORY OF MRSA? NO . MUSCULOSKELETAL: ANY NEW PATTERNS OF PAIN OR NUMBNESS? NO . GASTROENTEROLOGY: ANY NEW CHANGE IN BOWEL CONTROL? NO . GENITOURINARY: ANY NEW CHANGE IN BLADDER CONTROL? NO . IS THERE A CHANCE YOU COULD BE ? NO . HEMATOLOGY/LYMPH: DO YOU TAKE ANY BLOOD THINNERS? (FOR EXAMPLE- COUMADIN, PLAVIX, AGGRENOX, PLATEL, PRADAXA, OR XARELTO) NO . WHEN WAS YOUR LAST DOSE? DATE: TIME: . NEUROLOGY: HAVE YOU FALLEN IN THE PAST 6 MONTHS? YES, PT STATES SHE FELL FROM LOSS OF BALANCE, PT DENIES MAJOR INJURIES REQUIRING MEDICAL ATTENTION . ANY NEW EXTREMITY NUMBNESS OR WEAKNESS? NO . CARDIOLOGY: DO YOU HAVE A PACEMAKER OR DEFIBRILLATOR? NO . RESPIRATORY: HAVE YOU BEEN SICK IN THE PAST WEEK? NO . FEVER NO . FLU LIKE SYMPTOMS? NO . COUGH NO . INTEGUMENTARY: DO YOU HAVE ANY RASHES OR OPEN SORES? NO . ALLERGIC/IMMUNO: ARE YOU ALLERGIC TO SHELLFISH OR IV DYE? NO . ANY NEW ALLERGIES? NO . PSYCHIATRIC: DO YOU HAVE THOUGHTS OF HURTING YOURSELF OR SOMEONE ELSE? NO . ARE YOU ABUSED, NEGLECTED, OR IN AN UNSAFE ENVIRONMENT? NO . ENDOCRINOLOGY: ARE YOU DIABETIC? YES . OTHER: DO YOU NEED ANY PRESCRIPTIONS? NO . IF YES, PLEASE LIST: ____ . ANY NEW PROBLEMS WITH YOUR MEDICATIONS? NO . WHEN DID YOU LAST EAT? ____ . WHEN DID YOU LAST DRINK? ____ . WHAT DID YOU LAST DRINK? ____ . NAME OF PERSON DRIVING YOU HOME? ____ . DO YOU HAVE ANY OTHER QUESTIONS OR CONCERNS NO . VITAL SIGNS WT 208 LBS, HT 65 IN, BMI 34.61 INDEX, BP 144/88 MM HG, HR 93 /MIN, RR 16 /MIN, TEMP 98.0 F, OXYGEN SAT % 99, REVIEWED BY: EM. EXAMINATION GENERAL EXAMINATION: LUNGS:LUNG SOUNDS ARE CLEAR. HEART:HEART RATE REGULAR. MUSCULOSKELETAL:*, TRIGGER POINTS:, ELICITED WITH PALPATION OVER MID THORACIC MUSCLES R>L.PAIN IS AGGREVATED WITH USE OF LEFT ARM.. DIAGNOSTIC:MRI THORACIC UPGAT-1-5-17-REVIEWED. ASSESSMENTS MYALGIA - M79.1 (PRIMARY) PAIN IN THORACIC SPINE - M54.6 TREATMENT MYALGIA INCREASE GABAPENTIN CAPSULE, 300 MG, 1, ORALLY, TID, 30 DAY(S), 90, REFILLS 2 START ROBAXIN TABLET, 500 MG, 1 CAP, ORALLY, TID, 30 DAY(S), 90, REFILLS 2 NOTES: ASPERCREME/WITH LIDOCAINE. PROCEDURE CODES FA211 ESTABILISHED PATIENT [facility] CHARGE G8730 PAIN ASSESS POS TOOL F/U PLAN DOC G8427 DOC MEDS VERIFIED W/PT OR RE DISPOSITION & COMMUNICATION FOLLOW UP 2 MONTHS ELECTRONICALLY SIGNED BY EDILMA CISNEROS ON 02/13/2017 AT 06:49 PM EDT DISCLAIMER : THIS IS A VISIT SUMMARY EXTRACTED FROM THE Company CHART. IT IS NOT A COPY OF THE [employer] PROGRESS NOTE. NELDAD
== END ==
LOC: M PAIN 14:30
PROVIDERS: ATTEND Nurse Practitioner Family
DX: M79.1 Myalgia (principal); M54.6 Pain in thoracic spine

== ENCOUNTER → 2017-02-14 | Outpatient (CLI) | payer MEDICARE, MEDICAID ==
--- NOTE | 2017-02-14 09:47 | REP ---
RIGHT UPPER QUADRANT ULTRASOUND: Real-time sonographic evaluation of the right upper quadrant performed. The patient has had a prior cholecystectomy. The common bile duct is upper limits of normal at 7 mm. The liver demonstrates diffuse heterogeneous coarsened echotexture with no focal mass. Pancreas demonstrates no focal mass. Right kidney demonstrates no hydronephrosis with normal size at 10 cm in length. There is a cyst in the mid right kidney 1.0 cm in diameter. The visualized abdominal aorta is normal in caliber. No free fluid is seen. IMPRESSION: Status post cholecystectomy. Heterogenous echotexture of the liver. No biliary dilatation. Right renal cyst. Signed by Cy Henderson MD 02/14/2017 05:31 P
== END ==
LOC: M RAD 06:44
PROVIDERS: ATTEND Nurse Practitioner Family
DX: R76.8 Other specified abnormal immunological findings in serum (principal); N28.1 Cyst of kidney, acquired; Z90.49 Acquired absence of other specified parts of digestive tract

== ENCOUNTER → 2017-02-28 | Outpatient (CLI) | payer MEDICARE, MEDICAID ==
--- NOTE | 2017-02-28 11:55 | REP ---
KUB, TWO VIEWS: HISTORY: Cirrhosis. COMPARISON: 08/06/2016. Air is present in small and large intestine. There are no air fluid levels or dilated loops of intestine. There is no pneumoperitoneum. Surgical clips are present in the right upper quadrant. IMPRESSION: Nonspecific bowel gas pattern. Signed by Cal Tai MD 02/28/2017 11:59 A
[2017-02-28 12:07] LABS: INR 1.07
[2017-02-28 12:20] LABS: FERRITIN 70 NG/ML (8-252); GAMMA GLUTAMYLTRANSPEPTIDASE 681 U/L (5-55); IMMUNOGLOBULIN G 1470 MG/DL (681-1648)
[2017-03-02 00:20] LABS: ALPHA 1 ANTITRYPSIN 161 mg/dL (90-200)
== END ==
LOC: M LAB 10:53
PROVIDERS: ATTEND Internal Medicine Gastroenterology
DX: K74.69 Other cirrhosis of liver (principal)

== ENCOUNTER → 2017-04-04 | Outpatient (CLI) | payer MEDICARE, MEDICAID | LOC: M PAIN 13:45 | PROVIDERS: ATTEND Nurse Practitioner Family | DX: G89.29 Other chronic pain (principal); M79.1 Myalgia; M54.6 Pain in thoracic spine; E11.22 Type 2 diabetes mellitus with diabetic chronic kidney disease; I12.9 Hypertensive chronic kidney disease with stage 1 through stage 4 chronic kidney disease, or unspecified chronic kidney disease; N18.3 Chronic kidney disease, stage 3 (moderate); F32.9 Major depressive disorder, single episode, unspecified; E78.5 Hyperlipidemia, unspecified; N25.81 Secondary hyperparathyroidism of renal origin; G47.33 Obstructive sleep apnea (adult) (pediatric); K74.60 Unspecified cirrhosis of liver; F17.210 Nicotine dependence, cigarettes, uncomplicated; K75.4 Autoimmune hepatitis; J43.9 Emphysema, unspecified; Z79.4 Long term (current) use of insulin; Z79.82 Long term (current) use of aspirin; Z79.899 Other long term (current) drug therapy ==

== ENCOUNTER → 2017-04-04 | Outpatient (CLI) | payer MEDICARE, MEDICAID ==
--- NOTE | 2017-04-04 15:27 | REP ---
Clinical: Cirrhosis . Comparison: 01/17/2017 . Technique: PA and lateral. Findings: The mediastinum and cardiac silhouette are normal. The lung waller are clear and without acute consolidation, effusion, or pneumothorax. The skeletal structures are intact and normal. Impression: 1. No acute cardiopulmonary process. Signed by Pierre Bower MD 04/04/2017 03:18 P
--- NOTE | 2017-04-04 15:28 | REP ---
Clinical: Bilateral hand pain. History of cirrhosis. Technique: AP and lateral views of the right and left hand. Findings: Age-related degenerative changes at the metacarpophalangeal and interphalangeal joints is appreciated. The osseous structures are intact and relatively normal. No acute fracture or dislocation. Surrounding soft tissues are grossly unremarkable. Impression: Symmetric age-related changes. Signed by Pierre Bower MD 04/04/2017 03:19 P
--- NOTE | 2017-04-04 15:30 | REP ---
Clinical: Bilateral pain. History of cirrhosis. Technique: AP and lateral views of the right and left foot. Findings: Age-related degenerative changes are appreciated primarily involving the midfoot and tarsometatarsal joints. Moderate right and small left calcaneal heel spurs are identified. No acute fracture or dislocation. Surrounding soft tissues are grossly unremarkable. Impression: Age-related degenerative changes. Signed by Pierre Bower MD 04/04/2017 03:20 P
[2017-04-08 00:06] LABS: ANTI SCLERODERMA ANTIBODIES 6.7 AI (0.0-0.9); MYELOPEROXIDASE ANTIBODY <9.0 U/mL (0.0-9.0); PR3 ANTIPROTEINASE ANTIBODIES <3.5 U/mL (0.0-3.5)
== END ==
LOC: M LAB 14:25
PROVIDERS: ATTEND Internal Medicine
DX: K74.69 Other cirrhosis of liver (principal); M19.041 Primary osteoarthritis, right hand; M19.042 Primary osteoarthritis, left hand; M19.071 Primary osteoarthritis, right ankle and foot; M19.072 Primary osteoarthritis, left ankle and foot
CPT/HCPCS: 36415; 71020; 73120; 73620; 81001; 82164; 83520; 84166; 85730; 86146; 86147; 86200; 86235; 86255; 86256; G0463

== ENCOUNTER → 2017-04-29 | Outpatient (REF) | payer MEDICARE, MEDICAID ==
[2017-04-29 13:55] LABS: ALBUMIN 3.5 GM/DL (3.2-5.2); ALBUMIN/GLOBULIN RATIO 0.78 (1.00-1.93); BILIRUBIN,DIRECT 0.3 MG/DL (0.0-0.2); BILIRUBIN,TOTAL 0.7 MG/DL (0.2-1.0)
== END ==
LOC: M LAB REF 13:30
PROVIDERS: ATTEND Internal Medicine Gastroenterology
DX: R94.5 Abnormal results of liver function studies (principal); E11.65 Type 2 diabetes mellitus with hyperglycemia

== ENCOUNTER → 2017-04-29 | Outpatient (REF) | payer MEDICARE, MEDICAID | LOC: M SFHCPLAZ 13:28 | PROVIDERS: ATTEND Obstetrics & Gynecology | DX: E11.65 Type 2 diabetes mellitus with hyperglycemia (principal) ==

== ENCOUNTER → 2017-05-02 | Outpatient (CLI) | payer MEDICARE, MEDICAID | LOC: M LAB 13:37 | PROVIDERS: ATTEND Internal Medicine | DX: R76.8 Other specified abnormal immunological findings in serum (principal) ==

== ENCOUNTER → 2017-05-02 | Outpatient (CLI) | payer MEDICARE, MEDICAID ==
[2017-05-02 14:06] LABS: BASO % 0.7 % (0.0-1.0); EOS # 0.1 10^3/uL (0.0-0.50); IMMATURE GRANULOCYTE % 0.3 % (0-0); LYMPH # 1.6 10^3/uL (1.5-4.5); LYMPH % 25.7 % (24.0-44.0); MEAN CORPUSCULAR HEMOGLOBIN 32.3 pg (27.0-33.0); MEAN CORPUSCULAR HGB CONC 33.7 g/dl (32.0-36.5); MEAN CORPUSCULAR VOLUME 95.9 fl (80.0-96.0); MONO # 0.6 10^3/uL (0.0-0.8); MONO % 9.8 % (0.0-5.0); NEUTROPHILS # 3.8 10^3/uL (1.8-7.7); NEUTROPHILS % 62.5 % (36.0-66.0); PLATELET COUNT, AUTOMATED 150 10^3/uL (150-450); RED CELL DISTRIBUTION WIDTH 12.5 % (11.5-14.5); WHITE BLOOD COUNT 6.1 10^3/uL (4.0-10.0)
[2017-05-02 14:19] LABS: INR 1.01
[2017-05-02 14:31] LABS: ALBUMIN 3.6 GM/DL (3.2-5.2); ALBUMIN/GLOBULIN RATIO 0.78 (1.00-1.93); CALCIUM LEVEL 9.4 MG/DL (8.5-10.1); CREATININE FOR GFR 1.46 MG/DL (0.55-1.02); POTASSIUM SERUM 3.6 MEQ/L (3.5-5.1); TOTAL PROTEIN 8.2 GM/DL (6.4-8.2)
== END ==
LOC: M LAB 13:32
PROVIDERS: ATTEND Internal Medicine Gastroenterology
DX: R94.5 Abnormal results of liver function studies (principal); R76.8 Other specified abnormal immunological findings in serum; E11.65 Type 2 diabetes mellitus with hyperglycemia

== ENCOUNTER → 2017-05-03 | Outpatient (CLI) | payer MEDICARE, MEDICAID ==
[~2017-05-03] MED LIST changes: +LIDOCAINE 1% MDV 20ML VIAL As Ordered ONE
--- NOTE | 2017-05-03 18:02 | REP ---
ULTRASOUND GUIDED LIVER BIOPSY: The procedure was performed under the direct supervision of Dr. Henderson. The risks and benefits of the procedure were explained to the patient and informed consent was obtained. The left lobe of the liver was localized using ultrasound guidance. The skin was prepped and draped in a sterile fashion. 1% Xylocaine was used as a local anesthetic. Using ultrasound guidance a 19/20-gauge coaxial needle biopsy system was inserted and advanced into the liver. 4 core biopsy samples were obtained and sent to the lab. The patient tolerated the procedure well and there were no immediate complications. After the appropriate amount of monitored convalescence the patient was discharged from the department. Reviewed by SAMUEL Blackmon 05/04/2017 08:36 AEdited and Signed by Cy Henderson MD 05/04/2017 08:52 A
== END ==
LOC: M RADPRO 08:00
PROVIDERS: ATTEND Internal Medicine Gastroenterology
DX: K74.60 Unspecified cirrhosis of liver (principal)

== ENCOUNTER → 2017-05-10 | Day surgery (SDC) | payer MEDICARE, MEDICAID ==
[~2017-05-10] VITALS: Ht 167.6 cm; Wt 95.7 kg
[~2017-05-10] MED LIST changes: -LIDOCAINE 1% MDV 20ML VIAL As Ordered ONE; +LIDOCAINE 2% INJ 100 MG/5 ML SDV (FOR ANES.) As Ordered ONE; +NS 1,000 ML IV ONE; +PROPOFOL 500 MG/50 ML VIAL As Ordered ONE
--- NOTE | 2017-05-10 11:58 | ROOR ---
Patient Name: Jill Avery Procedure Date: 05/10/2017 11:34 AM Date of : 1960 Age: 56 Room: [facility] Gender: Female Note Status: Finalized Procedure: Upper GI endoscopy Indications: Cirrhosis rule out esophageal varices Providers: Eagle Boyle MD Referring MD: Kylee Plunkett DO Requestdebbi Provider: Medicines: Monitored Anesthesia Care Complications: No immediate complications. Procedure: Pre-Anesthesia Assessment: - Prior to the procedure, a History and Physical was performed, and patient medications and allergies were reviewed. The patient is competent. The risks and benefits of the procedure and the sedation options and risks were discussed with the patient. All questions were answered and informed consent was obtained. Patient identification and proposed procedure were verified by the physician, the nurse and the anesthesiologist in the procedure room. Mental Status Examination: alert and oriented. Airway Examination: normal oropharyngeal airway and neck mobility. Respiratory Examination: clear to auscultation. CV Examination: normal. Prophylactic Antibiotics: The patient does not require prophylactic antibiotics. Prior Anticoagulants: The patient has taken no previous anticoagulant or antiplatelet agents. ASA Grade Assessment: III - A patient with severe systemic disease. After reviewing the risks and benefits, the patient was deemed in satisfactory condition to undergo the procedure. The anesthesia plan was to use monitored anesthesia care (MAC). Immediately prior to administration of medications, the patient was re-assessed for adequacy to receive sedatives. The heart rate, respiratory rate, oxygen saturations, blood pressure, adequacy of pulmonary ventilation, and response to care were monitored throughout the procedure. The physical status of the patient was re-assessed after the procedure. The Endoscope was introduced through the mouth, and advanced to the second part of duodenum. The upper GI endoscopy was accomplished without difficulty. The patient tolerated the procedure well. Findings: The examined esophagus was normal. There is no endoscopic evidence of varices in the entire esophagus. Diffuse granular mucosa was found in the entire examined stomach. Biopsies were taken with a cold forceps for Helicobacter pylori testing. Verification of patient identification for the specimen was done by the physician and nurse using the patient's name, date and medical record number. Estimated blood loss was minimal. Patchy moderately congested mucosa without active bleeding and with no stigmata of bleeding was found in the duodenal bulb. The second portion of the duodenum was normal. Impression: - Normal esophagus. - Granular gastric mucosa. Biopsied. - Congested duodenal mucosa. - Normal second portion of the duodenum. Recommendation: - Patient has a contact number available for emergencies. The signs and symptoms of potential delayed complications were discussed with the patient. Return to normal activities tomorrow. Written discharge instructions were provided to the patient. - Low sodium diet. - Continue present medications. - No aspirin, ibuprofen, naproxen, or other non-steroidal anti-inflammatory drugs. - Await pathology results. - Repeat upper endoscopy for surveillance of esophageal varices based on clinical course.. - Return to GI clinic 1 - 2 weeks. Please call GI clinic @ [phone] for apppointment date and time. - Return to primary care physician. Eagle Boyle MD Eagle Boyle MD 05/10/2017 11:57:54 AM This report has been signed electronically. Number of Addenda: 0 Note Initiated On: 05/10/2017 11:34 AM Estimated Blood Loss: Estimated blood loss was minimal.
[2017-05-10 12:15] VITALS: BP 128/77
== END | disposition home or self-care (01) ==
LOC: M OPP 09:41
PROVIDERS: ATTEND Internal Medicine Gastroenterology
DX: K74.60 Unspecified cirrhosis of liver (principal); K31.89 Other diseases of stomach and duodenum; I12.9 Hypertensive chronic kidney disease with stage 1 through stage 4 chronic kidney disease, or unspecified chronic kidney disease; E78.5 Hyperlipidemia, unspecified; E11.9 Type 2 diabetes mellitus without complications; R60.0 Localized edema; M54.9 Dorsalgia, unspecified; F32.9 Major depressive disorder, single episode, unspecified; N18.3 Chronic kidney disease, stage 3 (moderate); G62.9 Polyneuropathy, unspecified; J44.9 Chronic obstructive pulmonary disease, unspecified; G47.30 Sleep apnea, unspecified; F17.210 Nicotine dependence, cigarettes, uncomplicated; Z79.82 Long term (current) use of aspirin; Z79.899 Other long term (current) drug therapy; Z98.1 Arthrodesis status; Z80.8 Family history of malignant neoplasm of other organs or systems

== ENCOUNTER → 2017-06-01 | Outpatient (CLI) | payer MEDICARE, MEDICAID | LOC: M CARPUL 09:27 | DX: I31.3 Pericardial effusion (noninflammatory) (principal); I35.0 Nonrheumatic aortic (valve) stenosis; I35.8 Other nonrheumatic aortic valve disorders; R76.8 Other specified abnormal immunological findings in serum; R07.9 Chest pain, unspecified | CPT/HCPCS: 93306 ==

== ENCOUNTER → 2017-06-03 | Outpatient (CLI) | payer MEDICARE, MEDICAID | LOC: M PAIN 14:00 | DX: G89.29 Other chronic pain (principal); M54.6 Pain in thoracic spine; M79.1 Myalgia; E11.319 Type 2 diabetes mellitus with unspecified diabetic retinopathy without macular edema; E11.22 Type 2 diabetes mellitus with diabetic chronic kidney disease; I12.9 Hypertensive chronic kidney disease with stage 1 through stage 4 chronic kidney disease, or unspecified chronic kidney disease; N18.3 Chronic kidney disease, stage 3 (moderate); F32.9 Major depressive disorder, single episode, unspecified; F17.210 Nicotine dependence, cigarettes, uncomplicated; E78.5 Hyperlipidemia, unspecified; G47.33 Obstructive sleep apnea (adult) (pediatric); K74.60 Unspecified cirrhosis of liver; Z79.4 Long term (current) use of insulin; Z79.82 Long term (current) use of aspirin; Z79.899 Other long term (current) drug therapy; Z86.59 Personal history of other mental and behavioral disorders | CPT/HCPCS: G0463 ==

== ENCOUNTER → 2017-06-06 | Outpatient (REF) | payer MEDICARE, MEDICAID | LOC: M LAB REF 07:47 | DX: E11.9 Type 2 diabetes mellitus without complications (principal) ==

== ENCOUNTER → 2017-06-24 | Outpatient (CLI) | payer MEDICARE, MEDICAID ==
[2017-06-24 11:06] LABS: ALBUMIN 3.5 GM/DL (3.2-5.2); ALBUMIN/GLOBULIN RATIO 0.73 (1.00-1.93); ALKALINE PHOSPHATASE 230 U/L (45-117); ALT/SGPT 40 U/L (12-78); AST/SGOT 41 U/L (7-37); BILIRUBIN,DIRECT 0.3 MG/DL (0.0-0.2); BILIRUBIN,TOTAL 0.9 MG/DL (0.2-1.0); BLOOD UREA NITROGEN 15 MG/DL (7-18); GAMMA GLUTAMYLTRANSPEPTIDASE 901 U/L (5-55); GLOMERULAR FILTRATION RATE 50.4 (>51); TOTAL PROTEIN 8.3 GM/DL (6.4-8.2)
[2017-06-25 08:07] LABS: ALPHA 1 ANTITRYPSIN 151 mg/dL (90-200)
== END ==
LOC: M LAB 09:24
DX: R94.5 Abnormal results of liver function studies (principal); R93.3 Abnormal findings on diagnostic imaging of other parts of digestive tract; Z79.899 Other long term (current) drug therapy; R76.8 Other specified abnormal immunological findings in serum
CPT/HCPCS: 82565

== ENCOUNTER → 2017-06-24 | Outpatient (CLI) | payer MEDICARE, MEDICAID ==
[2017-06-24 11:12] LABS: IMMUNOGLOBULIN G 1610 MG/DL (681-1648); IMMUNOGLOBULIN M 378 MG/DL (40-230)
== END ==
LOC: M LAB 09:33
DX: R76.8 Other specified abnormal immunological findings in serum (principal)
CPT/HCPCS: 82784

== ENCOUNTER → 2017-06-28 | Outpatient (CLI) | payer MEDICARE, MEDICAID ==
[~2017-06-28] MED LIST changes: -ACET-654 PO; -ACET65TA PO; -ALBU17IN INH; -AMILODIPINE PO; -AMLO2.5T PO; -AMLO5TAB2 PO; -ANTIBIOTIC PO; -ASPI1TAB PO; -BABY81CH OR; -BACTROBAN TOP; -CALCIUM CITRATE PO; -CALCTAB68 PO; -CELE40TA PO; -CIPR25SS PO; -CLIN300C PO; -COLA100C5 PO; -COLA50CA3 PO; -COZA50TA18 OR; -DETR2CAP PO; -DIOV320T OR; -DIOV320T PO; -DOCU10CA PO; -FLEEENE4 PR; -GABA800T PO; -GABAPOW41 PO; -GLIP5TAB8 PO; -HYDR25TA6 OR; -INCR1INH INH; -INSULADS SC; -INSULANT SC; -INSULANT SQ; -LACT10SO29 PO; -LACT20EL PO; -LASI40TA PO; -LIDO5DIS41 TD; -LIDOCAINE 2% INJ 100 MG/5 ML SDV (FOR ANES.) As Ordered ONE; -LISI20TA5 OR; -LOPI600T OR; -LOSA100T36 PO; -MAG OX PO; -METF500T4 OR; -MONISTAT PV; -MULTIVIT PO; -NATU400T PO; -NICO14DI3 TD; -NICO21DI4 TD; -NORCOTAB PO; -NORV5TAB OR; -NOVOINJ3 SC; -NS 1,000 ML IV ONE; -OXYB5TAB10 PO; -PERC5TAB12 PO; -PERC5TAB8 PO; +PROHANCE 279.3MG/ML 15ML VIAL (A9576) As Ordered; -PROPOFOL 500 MG/50 ML VIAL As Ordered ONE; -ROBA500T PO; -ROBA750T4 PO; -SERT-138 PO; -SITA50TAB PO; -ST J PO; -TOUJ1.2I SC; -TRAM50TA2 PO; -TRAZ1TAB14 PO; -TRENTINOIN TOP; -TRIA1CR TOP; -VARE1TA PO; -VIT D PO; -VOLT1GEL15 TOP; -ZOCO40TA OR; -ZOLO50TA PO; -[UNRECOGNIZED DRUG - OTHER]; -[UNRECOGNIZED DRUG - OTHER] PO; -celexa PO; -drisdol PO; -lantus SUBQ; -trazadone PO
== END ==
LOC: M RAD 08:01
DX: K74.60 Unspecified cirrhosis of liver (principal)
CPT/HCPCS: A9576

== ENCOUNTER → 2017-07-04 | Outpatient (CLI) | payer MEDICARE, MEDICAID ==
[~2017-07-04] MED LIST changes: -PROHANCE 279.3MG/ML 15ML VIAL (A9576) As Ordered; +diazePAM 5 MG TAB As Ordered; +oxyCODONE 5MG TAB As Ordered
== END ==
LOC: M PAIN 11:45
DX: Z53.29 Procedure and treatment not carried out because of patient's decision for other reasons (principal)

== ENCOUNTER → 2017-07-08 | Outpatient (CLI) | payer MEDICARE, MEDICAID | LOC: M RAD 14:33 | DX: J84.9 Interstitial pulmonary disease, unspecified (principal) | CPT/HCPCS: 71250 ==

== ENCOUNTER → 2017-07-11 | Outpatient (REF) | payer MEDICARE, MEDICAID ==
[2017-07-11 16:05] LABS: ESTIMATED AVERAGE GLUCOSE 289 MG/DL (60-110); HEMOGLOBIN A1c 11.7 %
== END ==
LOC: M SFHCPLAZ 13:32
DX: E11.65 Type 2 diabetes mellitus with hyperglycemia (principal)
CPT/HCPCS: 83036

== ENCOUNTER → 2017-09-05 | Outpatient (CLI) | payer MEDICARE, MEDICAID ==
[2017-09-05 12:53] LABS: ALBUMIN 3.3 GM/DL (3.2-5.2); ALBUMIN/GLOBULIN RATIO 0.73 (1.00-1.93); ALKALINE PHOSPHATASE 194 U/L (45-117); ALT/SGPT 31 U/L (12-78); ANION GAP 5 MEQ/L (8-16); AST/SGOT 32 U/L (7-37); BILIRUBIN,DIRECT 0.2 MG/DL (0.0-0.2); BILIRUBIN,TOTAL 0.6 MG/DL (0.2-1.0); BLOOD UREA NITROGEN 12 MG/DL (7-18); CALCIUM LEVEL 9.2 MG/DL (8.5-10.1); CARBON DIOXIDE LEVEL 29 MEQ/L (21-32); CHLORIDE LEVEL 107 MEQ/L (98-107); CREATININE FOR GFR 1.19 MG/DL (0.55-1.30); GAMMA GLUTAMYLTRANSPEPTIDASE 181 U/L (5-55); GLOMERULAR FILTRATION RATE > 60.0 (>51); GLUCOSE, FASTING 293 MG/DL (70-100); POTASSIUM SERUM 3.9 MEQ/L (3.5-5.1); SODIUM LEVEL 141 MEQ/L (136-145); TOTAL PROTEIN 7.8 GM/DL (6.4-8.2)
== END ==
LOC: M LAB 11:09
DX: K74.60 Unspecified cirrhosis of liver (principal)
CPT/HCPCS: 82977

== ENCOUNTER → 2017-09-07 | Outpatient (REF) | payer MEDICARE, MEDICAID ==
[2017-09-07 17:43] LABS: AMMONIA 103 uMOL/L (<32)
== END ==
LOC: M SFHCPLAZ 16:53
DX: E72.20 Disorder of urea cycle metabolism, unspecified (principal)
CPT/HCPCS: 82140

== ENCOUNTER → 2017-09-15 | Outpatient (CLI) | payer MEDICARE, MEDICAID | LOC: M PAIN 10:15 | DX: G89.29 Other chronic pain (principal); M79.1 Myalgia; E11.22 Type 2 diabetes mellitus with diabetic chronic kidney disease; I12.9 Hypertensive chronic kidney disease with stage 1 through stage 4 chronic kidney disease, or unspecified chronic kidney disease; N18.3 Chronic kidney disease, stage 3 (moderate); F32.9 Major depressive disorder, single episode, unspecified; E78.5 Hyperlipidemia, unspecified; N25.81 Secondary hyperparathyroidism of renal origin; G47.33 Obstructive sleep apnea (adult) (pediatric); J43.9 Emphysema, unspecified; K74.60 Unspecified cirrhosis of liver; K75.4 Autoimmune hepatitis; F17.210 Nicotine dependence, cigarettes, uncomplicated; Z79.82 Long term (current) use of aspirin; Z79.899 Other long term (current) drug therapy; Z79.4 Long term (current) use of insulin | CPT/HCPCS: G0463 ==

== ENCOUNTER → 2017-10-03 | Outpatient (CLI) | payer MEDICARE, MEDICAID ==
[~2017-10-03] MED LIST changes: +BUPIVACAINE HCL 0.25% 10 ML VIAL As Ordered; +BUPIVACAINE HCL 0.25% 30 ML VIAL As Ordered; +TRIAMCINOLONE ACETONIDE SUSP 40 MG/ML VIAL (J3301) As Ordered
== END ==
LOC: M PAIN 14:30
DX: M79.1 Myalgia (principal); E11.9 Type 2 diabetes mellitus without complications; I12.9 Hypertensive chronic kidney disease with stage 1 through stage 4 chronic kidney disease, or unspecified chronic kidney disease; N18.3 Chronic kidney disease, stage 3 (moderate); F32.9 Major depressive disorder, single episode, unspecified; F17.210 Nicotine dependence, cigarettes, uncomplicated; E78.5 Hyperlipidemia, unspecified; N28.81 Hypertrophy of kidney; G47.33 Obstructive sleep apnea (adult) (pediatric); J43.9 Emphysema, unspecified; K74.69 Other cirrhosis of liver; Z79.4 Long term (current) use of insulin; Z79.82 Long term (current) use of aspirin; Z79.899 Other long term (current) drug therapy; Z90.49 Acquired absence of other specified parts of digestive tract; Z86.59 Personal history of other mental and behavioral disorders
CPT/HCPCS: J3301

== ENCOUNTER → 2017-10-10 | Outpatient (CLI) | payer MEDICARE, MEDICAID | LOC: M RAD 12:39 | DX: Z12.2 Encounter for screening for malignant neoplasm of respiratory organs (principal); F17.218 Nicotine dependence, cigarettes, with other nicotine-induced disorders | CPT/HCPCS: G0297 ==

== ENCOUNTER 2017-10-16 13:37 | Emergency (ER) | payer MEDICARE, MEDICAID ==
[2017-10-16] MEDS: ACETAMINOPH W/CODEINE #3 TAB UD PO ×2 (16:41→17:37)
== END 2017-10-16 17:38 | disposition home or self-care (01) ==
LOC: M ED 13:37
DX: S70.02XA Contusion of left hip, initial encounter (principal); S76.811D Strain of other specified muscles, fascia and tendons at thigh level, right thigh, subsequent encounter; W10.9XXA Fall (on) (from) unspecified stairs and steps, initial encounter; Y92.009 Unspecified place in unspecified non-institutional (private) residence as the place of occurrence of the external cause; M51.26 Other intervertebral disc displacement, lumbar region; E11.40 Type 2 diabetes mellitus with diabetic neuropathy, unspecified; J44.9 Chronic obstructive pulmonary disease, unspecified; I10 Essential (primary) hypertension; K21.9 Gastro-esophageal reflux disease without esophagitis; F33.9 Major depressive disorder, recurrent, unspecified; F17.200 Nicotine dependence, unspecified, uncomplicated; Z98.890 Other specified postprocedural states; Z79.4 Long term (current) use of insulin; Z79.82 Long term (current) use of aspirin; Z79.899 Other long term (current) drug therapy
CPT/HCPCS: 73502

== ENCOUNTER 2017-10-21 15:01 | Emergency (ER) | payer MEDICARE, MEDICAID ==
[2017-10-21] MEDS: ALBUTEROL SULFATE 2.5 MG/0.5 ML INH NEB SOLN INH (16:02)
[2017-10-21] MEDS: IPRATROPIUM 0.5MG/ALBUTEROL 2.5MG INH SOL UD 3ML (DUONEB)(J7620) NEB (16:02)
[2017-10-21 16:49] LABS: BASO % 0.4 % (0.0-1.0); EOS % 0.6 % (0.0-3.0); HEMATOCRIT 38.5 % (36.0-47.0); HEMOGLOBIN 12.8 g/dl (12.0-15.5); IMMATURE GRANULOCYTE % 0.1 % (0-3.0); LYMPH # 2.1 10^3/uL (1.5-4.5); LYMPH % 29.8 % (24.0-44.0); MEAN CORPUSCULAR HEMOGLOBIN 33.5 pg (27.0-33.0); MEAN CORPUSCULAR HGB CONC 33.2 g/dl (32.0-36.5); MEAN CORPUSCULAR VOLUME 100.8 fl (80.0-96.0); MONO # 0.8 10^3/uL (0.0-0.8); NEUTROPHILS % 57.1 % (36.0-66.0); PLATELET COUNT, AUTOMATED 117 10^3/uL (150-450); RED BLOOD COUNT 3.82 10^6/uL (4.00-5.40); RED CELL DISTRIBUTION WIDTH 13.8 % (11.5-14.5); WHITE BLOOD COUNT 6.9 10^3/uL (4.0-10.0)
[2017-10-21 16:59] LABS: INR 1.02; PROTHROMBIN TIME 13.5 SECONDS (12.4-14.5)
[2017-10-21 17:00] LABS: PARTIAL THROMBOPLASTIN TIME 31.3 SECONDS (26.8-37.9)
[2017-10-21 17:11] LABS: LACTIC ACID SEPSIS PROTOCOL 2.3 MMOL/L (0.4-2.0)
[2017-10-21 17:11] LABS: ALBUMIN/GLOBULIN RATIO 0.68 (1.00-1.93); ALKALINE PHOSPHATASE 181 U/L (45-117); ALT/SGPT 41 U/L (12-78); AMYLASE 44 U/L (25-115); ANION GAP 7 MEQ/L (8-16); AST/SGOT 34 U/L (7-37); BILIRUBIN,DIRECT 0.3 MG/DL (0.0-0.2); BILIRUBIN,TOTAL 0.8 MG/DL (0.2-1.0); BLOOD UREA NITROGEN 18 MG/DL (7-18); CALCIUM LEVEL 8.6 MG/DL (8.5-10.1); CARBON DIOXIDE LEVEL 23 MEQ/L (21-32); CHLORIDE LEVEL 107 MEQ/L (98-107); CPK CREATINE PHOSPHOKINASE 200 U/L (26-192); CREATININE FOR GFR 1.62 MG/DL (0.55-1.30); FREE T4 1.06 NG/DL (0.76-1.46); GLOMERULAR FILTRATION RATE 42.4 (>51); GLUCOSE, FASTING 272 MG/DL (70-100); LIPASE 189 U/L (73-393); POTASSIUM SERUM 3.8 MEQ/L (3.5-5.1); SODIUM LEVEL 137 MEQ/L (136-145); TOTAL PROTEIN 7.4 GM/DL (6.4-8.2); TROPONIN I < 0.02 NG/ML (< 0.10)
[2017-10-21 17:17] LABS: NT-PRO BNP 49 PG/ML (<125)
== END 2017-10-21 18:48 | disposition home or self-care (01) ==
LOC: M ED 15:01
DX: K74.60 Unspecified cirrhosis of liver (principal); R18.8 Other ascites; N18.9 Chronic kidney disease, unspecified; R94.31 Abnormal electrocardiogram [ECG] [EKG]; E11.9 Type 2 diabetes mellitus without complications; I12.9 Hypertensive chronic kidney disease with stage 1 through stage 4 chronic kidney disease, or unspecified chronic kidney disease; J44.9 Chronic obstructive pulmonary disease, unspecified; G47.30 Sleep apnea, unspecified; F17.200 Nicotine dependence, unspecified, uncomplicated; Z79.4 Long term (current) use of insulin; Z79.82 Long term (current) use of aspirin; Z79.51 Long term (current) use of inhaled steroids; Z79.899 Other long term (current) drug therapy
CPT/HCPCS: 71045

== ENCOUNTER → 2017-10-22 | Outpatient (CLI) | payer MEDICARE, MEDICAID ==
[2017-10-22 12:23] LABS: ALBUMIN 3.1 GM/DL (3.2-5.2); ALBUMIN/GLOBULIN RATIO 0.78 (1.00-1.93); ALKALINE PHOSPHATASE 170 U/L (45-117); ALT/SGPT 41 U/L (12-78); AST/SGOT 34 U/L (7-37); BILIRUBIN,DIRECT 0.5 MG/DL (0.0-0.2); BILIRUBIN,TOTAL 1.1 MG/DL (0.2-1.0); BLOOD UREA NITROGEN 18 MG/DL (7-18); CREATININE FOR GFR 1.37 MG/DL (0.55-1.30); GAMMA GLUTAMYLTRANSPEPTIDASE 100 U/L (5-55); GLOMERULAR FILTRATION RATE 51.4 (>51); TOTAL PROTEIN 7.1 GM/DL (6.4-8.2)
== END ==
LOC: M LAB 11:30
DX: K74.60 Unspecified cirrhosis of liver (principal)
CPT/HCPCS: 82565

== ENCOUNTER → 2017-10-26 | Outpatient (REF) | payer MEDICARE, MEDICAID ==
[2017-10-26 16:18] LABS: ANION GAP 8 MEQ/L (8-16); BLOOD UREA NITROGEN 22 MG/DL (7-18); CALCIUM LEVEL 9.3 MG/DL (8.5-10.1); CARBON DIOXIDE LEVEL 28 MEQ/L (21-32); CHLORIDE LEVEL 105 MEQ/L (98-107); CREATININE FOR GFR 1.49 MG/DL (0.55-1.30); GLOMERULAR FILTRATION RATE 46.7 (>51); GLUCOSE, FASTING 104 MG/DL (70-100); POTASSIUM SERUM 4.2 MEQ/L (3.5-5.1); SODIUM LEVEL 141 MEQ/L (136-145)
[2017-10-26 16:24] LABS: VITAMIN B12 LEVEL 744 PG/ML
[2017-10-26 16:25] LABS: FOLATE 10.4 NG/ML
== END ==
LOC: M SFHCPLAZ 11:12
DX: D53.9 Nutritional anemia, unspecified (principal); N18.3 Chronic kidney disease, stage 3 (moderate)
CPT/HCPCS: 82746

== ENCOUNTER → 2017-11-10 | Outpatient (CLI) | payer MEDICARE, MEDICAID | LOC: M WHC 14:15 | DX: Z12.31 Encounter for screening mammogram for malignant neoplasm of breast (principal); Z98.890 Other specified postprocedural states | CPT/HCPCS: 77067 ==

== ENCOUNTER → 2017-11-15 | Outpatient (CLI) | payer MEDICARE, MEDICAID ==
[2017-11-15 10:02] LABS: ALBUMIN 3.2 GM/DL (3.2-5.2); ALBUMIN/GLOBULIN RATIO 0.74 (1.00-1.93); ALKALINE PHOSPHATASE 180 U/L (45-117); ALT/SGPT 42 U/L (12-78); AST/SGOT 37 U/L (7-37); BILIRUBIN,DIRECT 0.4 MG/DL (0.0-0.2); BILIRUBIN,TOTAL 0.8 MG/DL (0.2-1.0); GAMMA GLUTAMYLTRANSPEPTIDASE 92 U/L (5-55); TOTAL PROTEIN 7.5 GM/DL (6.4-8.2)
[2017-11-15 10:06] LABS: ALPHA FETOPROTEIN TUMOR QUANT 1.5 NG/ML (<8.1)
[2017-11-17 09:06] LABS: IgG SUBCLASS 4(ONLY) 85 mg/dL (2-96)
== END ==
LOC: M RAD 09:14
DX: K74.69 Other cirrhosis of liver (principal)
CPT/HCPCS: 76700

== ENCOUNTER → 2017-11-28 | Outpatient (CLI) | payer MEDICARE, MEDICAID | LOC: M PAIN 14:15 | DX: M79.1 Myalgia (principal); E11.22 Type 2 diabetes mellitus with diabetic chronic kidney disease; I12.9 Hypertensive chronic kidney disease with stage 1 through stage 4 chronic kidney disease, or unspecified chronic kidney disease; N18.3 Chronic kidney disease, stage 3 (moderate); F32.9 Major depressive disorder, single episode, unspecified; E78.5 Hyperlipidemia, unspecified; G47.33 Obstructive sleep apnea (adult) (pediatric); K74.69 Other cirrhosis of liver; F17.210 Nicotine dependence, cigarettes, uncomplicated; Z79.82 Long term (current) use of aspirin; Z79.4 Long term (current) use of insulin; Z79.899 Other long term (current) drug therapy; Z86.59 Personal history of other mental and behavioral disorders | CPT/HCPCS: G0463 ==

== ENCOUNTER → 2017-11-30 | Outpatient (REF) | payer MEDICARE, MEDICAID | LOC: M SFHCPLAZ 12:53 | DX: Z13.220 Encounter for screening for lipoid disorders (principal); Z53.8 Procedure and treatment not carried out for other reasons ==

== ENCOUNTER → 2017-11-30 | Outpatient (REF) | payer MEDICARE, MEDICAID ==
[2017-11-30 12:35] LABS: CK-MB VALUE MASS 3.9 NG/ML (<3.6); CPK CREATINE PHOSPHOKINASE 132 U/L (26-192); MB/CK RELATIVE INDEX 2.95 (< OR =4); TROPONIN I < 0.02 NG/ML (< 0.10)
[2017-11-30 14:57] LABS: CHOLESTEROL LEVEL 211 MG/DL (<200); HDL CHOLESTEROL 79 MG/DL (>40); NON-HDL-C 132 MG/DL; TRIGLYCERIDES LEVEL 125 MG/DL (<150)
== END ==
LOC: M LABDRAWP 11:21
DX: Z13.220 Encounter for screening for lipoid disorders (principal)
CPT/HCPCS: 82550

== ENCOUNTER → 2017-12-16 | Outpatient (CLI) | payer MEDICARE, MEDICAID | LOC: M PAIN 10:30 | DX: G89.29 Other chronic pain (principal); M79.1 Myalgia; M54.6 Pain in thoracic spine; E11.22 Type 2 diabetes mellitus with diabetic chronic kidney disease; I12.9 Hypertensive chronic kidney disease with stage 1 through stage 4 chronic kidney disease, or unspecified chronic kidney disease; N18.3 Chronic kidney disease, stage 3 (moderate); F32.9 Major depressive disorder, single episode, unspecified; E78.5 Hyperlipidemia, unspecified; G47.33 Obstructive sleep apnea (adult) (pediatric); F17.210 Nicotine dependence, cigarettes, uncomplicated; Z79.82 Long term (current) use of aspirin; Z79.4 Long term (current) use of insulin; Z79.899 Other long term (current) drug therapy; Z90.49 Acquired absence of other specified parts of digestive tract; Z86.59 Personal history of other mental and behavioral disorders | CPT/HCPCS: J3301 ==

== ENCOUNTER 2017-12-23 13:44 | Emergency (ER) | payer MEDICARE, MEDICAID ==
[2017-12-23 15:06] LABS: BASO % 0.3 % (0.0-1.0); EOS % 0.4 % (0.0-3.0); HEMATOCRIT 46.8 % (36.0-47.0); HEMOGLOBIN 16.2 g/dl (12.0-15.5); IMMATURE GRANULOCYTE % 0.4 % (0-3.0); LYMPH # 1.8 10^3/uL (1.5-4.5); MEAN CORPUSCULAR HEMOGLOBIN 33.8 pg (27.0-33.0); MEAN CORPUSCULAR HGB CONC 34.6 g/dl (32.0-36.5); MEAN CORPUSCULAR VOLUME 97.5 fl (80.0-96.0); MONO # 1.2 10^3/uL (0.0-0.8); MONO % 12.1 % (0.0-5.0); NEUTROPHILS # 6.5 10^3/uL (1.8-7.7); NEUTROPHILS % 67.8 % (36.0-66.0); PLATELET COUNT, AUTOMATED 158 10^3/uL (150-450); RED CELL DISTRIBUTION WIDTH 12.2 % (11.5-14.5); WHITE BLOOD COUNT 9.6 10^3/uL (4.0-10.0)
[2017-12-23 15:14] LABS: ANION GAP 10 MEQ/L (8-16); BLOOD UREA NITROGEN 44 MG/DL (7-18); CALCIUM LEVEL 9.7 MG/DL (8.5-10.1); CARBON DIOXIDE LEVEL 26 MEQ/L (21-32); CHLORIDE LEVEL 101 MEQ/L (98-107); CREATININE FOR GFR 1.89 MG/DL (0.55-1.30); GLOMERULAR FILTRATION RATE 35.5 (>51); GLUCOSE, FASTING 287 MG/DL (70-100); POTASSIUM SERUM 4.3 MEQ/L (3.5-5.1); SODIUM LEVEL 137 MEQ/L (136-145)
[2017-12-23] MEDS: NS 1,000 ML IV (16:08)
[2017-12-23 16:28] LABS: ALBUMIN 3.7 GM/DL (3.2-5.2); ETHYL ALCOHOL (ETHANOL) < 0.003 % (0.000-0.010); SALICYLATE LEVEL 4.4 MG/DL (5.0-30.0); TROPONIN I < 0.02 NG/ML (< 0.10)
[2017-12-23 16:34] LABS: ALBUMIN/GLOBULIN RATIO 0.79 (1.00-1.93); ALKALINE PHOSPHATASE 167 U/L (45-117); ALT/SGPT 35 U/L (12-78); AST/SGOT 33 U/L (7-37); BILIRUBIN,DIRECT 0.4 MG/DL (0.0-0.2); BILIRUBIN,TOTAL 0.9 MG/DL (0.2-1.0); CK-MB VALUE MASS 3.1 NG/ML (<3.6); CPK CREATINE PHOSPHOKINASE 146 U/L (26-192); MB/CK RELATIVE INDEX 2.12 (< OR =4); TOTAL PROTEIN 8.4 GM/DL (6.4-8.2)
[2017-12-23 16:43] LABS: ACETAMINOPHEN LEVEL < 2.0 UG/ML (10.0-30.0)
[2017-12-23 17:00] LABS: KETONE, URINE AUTO RFX NEGATIVE (NEGATIVE); LEUKOCYTE ESTERASE UR AUTO RFX NEGATIVE (NEGATIVE); NITRITE, URINE AUTO RFX NEGATIVE (NEGATIVE); RBC, URINE AUTO RFX 1 /HPF (0-3); SPECIFIC GRAVITY UR AUTO RFX 1.009 (1.002-1.035); SQUAM EPITHELIAL CELL UR AURFX 1 /HPF (0-6); WBC, URINE AUTO RFX 1 /HPF (0-3)
[2017-12-23 17:01] LABS: MYOGLOBIN 194 NG/ML (13-71)
[2017-12-23 17:11] LABS: AMMONIA 91 uMOL/L (<32)
[2017-12-23 17:11] LABS: AMPHETAMINES LEVEL URINE NEGATIVE (NEGATIVE); BARBITURATES URINE NEGATIVE (NEGATIVE); BENZODIAZEPINES URINE NEGATIVE (NEGATIVE); CANNABINOIDS URINE NEGATIVE (NEGATIVE); COCAINE METABOLITE URINE NEGATIVE (NEGATIVE); METHADONE URINE NEGATIVE (NEGATIVE); OPIATES URINE NEGATIVE (NEGATIVE); PHENCYCLIDINE URINE NEGATIVE (NEGATIVE)
== END 2017-12-23 18:32 | disposition home or self-care (01) ==
LOC: M ED 13:44
DX: R53.83 Other fatigue (principal); R53.81 Other malaise; E72.20 Disorder of urea cycle metabolism, unspecified; Z91.81 History of falling; R42 Dizziness and giddiness; I11.9 Hypertensive heart disease without heart failure; E11.9 Type 2 diabetes mellitus without complications; J44.9 Chronic obstructive pulmonary disease, unspecified; Z79.899 Other long term (current) drug therapy; Z79.82 Long term (current) use of aspirin; Z79.4 Long term (current) use of insulin; Z79.51 Long term (current) use of inhaled steroids
CPT/HCPCS: 71045

== ENCOUNTER 2018-01-14 11:32 | Emergency (ER) | payer MEDICARE, MEDICAID ==
[2018-01-14 13:08] LABS: BASO % 0.7 % (0.0-1.0); EOS # 0.1 10^3/uL (0.0-0.50); EOS % 0.9 % (0.0-3.0); HEMATOCRIT 41.6 % (36.0-47.0); HEMOGLOBIN 13.7 g/dl (12.0-15.5); IMMATURE GRANULOCYTE % 0.4 % (0-3.0); LYMPH # 1.2 10^3/uL (1.5-4.5); LYMPH % 22.2 % (24.0-44.0); MEAN CORPUSCULAR HEMOGLOBIN 33.8 pg (27.0-33.0); MEAN CORPUSCULAR HGB CONC 32.9 g/dl (32.0-36.5); MEAN CORPUSCULAR VOLUME 102.7 fl (80.0-96.0); MONO # 0.6 10^3/uL (0.0-0.8); MONO % 11.1 % (0.0-5.0); NEUTROPHILS # 3.6 10^3/uL (1.8-7.7); NEUTROPHILS % 64.7 % (36.0-66.0); PLATELET COUNT, AUTOMATED 114 10^3/uL (150-450); RED BLOOD COUNT 4.05 10^6/uL (4.00-5.40); RED CELL DISTRIBUTION WIDTH 12.6 % (11.5-14.5); WHITE BLOOD COUNT 5.6 10^3/uL (4.0-10.0)
[2018-01-14 13:27] LABS: AMMONIA 17 uMOL/L (<32)
[2018-01-14 13:30] LABS: ALBUMIN/GLOBULIN RATIO 0.75 (1.00-1.93); ALKALINE PHOSPHATASE 151 U/L (45-117); ALT/SGPT 40 U/L (12-78); ANION GAP 7 MEQ/L (8-16); AST/SGOT 45 U/L (7-37); BILIRUBIN,DIRECT 0.4 MG/DL (0.0-0.2); BILIRUBIN,TOTAL 0.8 MG/DL (0.2-1.0); BLOOD UREA NITROGEN 25 MG/DL (7-18); CALCIUM LEVEL 8.9 MG/DL (8.5-10.1); CARBON DIOXIDE LEVEL 26 MEQ/L (21-32); CHLORIDE LEVEL 110 MEQ/L (98-107); CREATININE FOR GFR 1.28 MG/DL (0.55-1.30); GLOMERULAR FILTRATION RATE 55.6 (>51); GLUCOSE, FASTING 171 MG/DL (70-100); POTASSIUM SERUM 3.6 MEQ/L (3.5-5.1); SODIUM LEVEL 143 MEQ/L (136-145)
[2018-01-14] MEDS: NS 500 ML IV (13:31)
== END 2018-01-14 17:52 | disposition home or self-care (01) ==
LOC: M ED 11:32
DX: R19.7 Diarrhea, unspecified (principal); I12.9 Hypertensive chronic kidney disease with stage 1 through stage 4 chronic kidney disease, or unspecified chronic kidney disease; E78.5 Hyperlipidemia, unspecified; N18.3 Chronic kidney disease, stage 3 (moderate); E11.22 Type 2 diabetes mellitus with diabetic chronic kidney disease; G47.33 Obstructive sleep apnea (adult) (pediatric); J44.9 Chronic obstructive pulmonary disease, unspecified; F32.9 Major depressive disorder, single episode, unspecified; K74.60 Unspecified cirrhosis of liver; Z87.891 Personal history of nicotine dependence; Z79.899 Other long term (current) drug therapy; Z79.82 Long term (current) use of aspirin; Z79.4 Long term (current) use of insulin
CPT/HCPCS: 82140

== ENCOUNTER → 2018-01-18 | Outpatient (CLI) | payer MEDICARE, MEDICAID | LOC: M PAIN 10:00 | DX: M79.1 Myalgia (principal); M54.6 Pain in thoracic spine; G89.29 Other chronic pain; E11.22 Type 2 diabetes mellitus with diabetic chronic kidney disease; I12.9 Hypertensive chronic kidney disease with stage 1 through stage 4 chronic kidney disease, or unspecified chronic kidney disease; N18.3 Chronic kidney disease, stage 3 (moderate); E78.5 Hyperlipidemia, unspecified; J43.9 Emphysema, unspecified; G47.33 Obstructive sleep apnea (adult) (pediatric); K74.60 Unspecified cirrhosis of liver; F17.200 Nicotine dependence, unspecified, uncomplicated; Z79.82 Long term (current) use of aspirin; Z79.4 Long term (current) use of insulin; Z79.899 Other long term (current) drug therapy; Z86.59 Personal history of other mental and behavioral disorders | CPT/HCPCS: 85610 ==

== ENCOUNTER → 2018-01-20 | Outpatient (REF) | payer MEDICARE, MEDICAID ==
[2018-01-20 13:24] LABS: ALBUMIN 3.2 GM/DL (3.2-5.2); ALKALINE PHOSPHATASE 164 U/L (45-117); ALT/SGPT 69 U/L (12-78); ANION GAP 9 MEQ/L (8-16); AST/SGOT 63 U/L (7-37); BILIRUBIN,TOTAL 0.9 MG/DL (0.2-1.0); BLOOD UREA NITROGEN 14 MG/DL (7-18); CALCIUM LEVEL 9.4 MG/DL (8.5-10.1); CARBON DIOXIDE LEVEL 25 MEQ/L (21-32); CHLORIDE LEVEL 108 MEQ/L (98-107); CREATININE FOR GFR 1.33 MG/DL (0.55-1.30); GLOMERULAR FILTRATION RATE 53.2 (>51); GLUCOSE, FASTING 93 MG/DL (70-100); POTASSIUM SERUM 3.6 MEQ/L (3.5-5.1); SODIUM LEVEL 142 MEQ/L (136-145); TOTAL PROTEIN 7.2 GM/DL (6.4-8.2)
== END ==
LOC: M LAB 12:50
DX: K74.60 Unspecified cirrhosis of liver (principal)
CPT/HCPCS: 80053

== ENCOUNTER → 2018-02-14 | Outpatient (CLI) | payer MEDICARE, MEDICAID | LOC: M PAIN 14:30 | DX: M79.1 Myalgia (principal); E11.22 Type 2 diabetes mellitus with diabetic chronic kidney disease; I12.9 Hypertensive chronic kidney disease with stage 1 through stage 4 chronic kidney disease, or unspecified chronic kidney disease; N18.3 Chronic kidney disease, stage 3 (moderate); F32.9 Major depressive disorder, single episode, unspecified; F17.210 Nicotine dependence, cigarettes, uncomplicated; E78.5 Hyperlipidemia, unspecified; N25.81 Secondary hyperparathyroidism of renal origin; G47.33 Obstructive sleep apnea (adult) (pediatric); K74.60 Unspecified cirrhosis of liver; Z79.82 Long term (current) use of aspirin; Z79.899 Other long term (current) drug therapy; Z79.4 Long term (current) use of insulin | CPT/HCPCS: J3301 ==

== ENCOUNTER → 2018-02-28 | Outpatient (REF) | payer MEDICARE, MEDICAID ==
[2018-02-28 15:23] LABS: AMMONIA 78 uMOL/L (<32)
[2018-02-28 16:57] LABS: ESTIMATED AVERAGE GLUCOSE 206 MG/DL (60-110); HEMOGLOBIN A1c 8.8 %
== END ==
LOC: M SFHCPLAZ 13:57
DX: E11.65 Type 2 diabetes mellitus with hyperglycemia (principal); E72.20 Disorder of urea cycle metabolism, unspecified
CPT/HCPCS: 82140

== ENCOUNTER 2018-03-07 14:28 | Emergency (ER) | payer MEDICARE, MEDICAID ==
[2018-03-07] MEDS: NS 500 ML IV ×2 (14:45)
[2018-03-07 15:49] LABS: BASO # 0.1 10^3/uL (0.0-0.2); BASO % 0.8 % (0.0-1.0); EOS # 0.1 10^3/uL (0.0-0.50); EOS % 0.8 % (0.0-3.0); HEMATOCRIT 47.6 % (36.0-47.0); HEMOGLOBIN 15.8 g/dl (12.0-15.5); IMMATURE GRANULOCYTE % 0.3 % (0-3.0); LYMPH # 1.5 10^3/uL (1.5-4.5); LYMPH % 23.6 % (24.0-44.0); MEAN CORPUSCULAR HEMOGLOBIN 33.8 pg (27.0-33.0); MEAN CORPUSCULAR HGB CONC 33.2 g/dl (32.0-36.5); MEAN CORPUSCULAR VOLUME 101.7 fl (80.0-96.0); MONO # 0.9 10^3/uL (0.0-0.8); NEUTROPHILS # 3.8 10^3/uL (1.8-7.7); NEUTROPHILS % 60.5 % (36.0-66.0); PLATELET COUNT, AUTOMATED 119 10^3/uL (150-450); RED BLOOD COUNT 4.68 10^6/uL (4.00-5.40); RED CELL DISTRIBUTION WIDTH 12.7 % (11.5-14.5); WHITE BLOOD COUNT 6.3 10^3/uL (4.0-10.0)
[2018-03-07 15:59] LABS: INR 1.03; PROTHROMBIN TIME 13.6 SECONDS (12.1-14.4)
[2018-03-07 16:30] LABS: ALBUMIN 3.2 GM/DL (3.2-5.2); ALBUMIN/GLOBULIN RATIO 0.74 (1.00-1.93); ALKALINE PHOSPHATASE 181 U/L (45-117); ALT/SGPT 36 U/L (12-78); ANION GAP 9 MEQ/L (8-16); AST/SGOT 29 U/L (7-37); BILIRUBIN,DIRECT 0.5 MG/DL (0.0-0.2); BILIRUBIN,TOTAL 1.1 MG/DL (0.2-1.0); BLOOD UREA NITROGEN 27 MG/DL (7-18); CALCIUM LEVEL 8.8 MG/DL (8.5-10.1); CARBON DIOXIDE LEVEL 33 MEQ/L (21-32); CHLORIDE LEVEL 98 MEQ/L (98-107); CPK CREATINE PHOSPHOKINASE 108 U/L (26-192); CREATININE FOR GFR 1.88 MG/DL (0.55-1.30); GLOMERULAR FILTRATION RATE 35.7 (>51); GLUCOSE, FASTING 252 MG/DL (70-100); MB/CK RELATIVE INDEX 1.67 (< OR =4); NT-PRO BNP 67 PG/ML (<125); POTASSIUM SERUM 3.8 MEQ/L (3.5-5.1); SODIUM LEVEL 140 MEQ/L (136-145); TOTAL PROTEIN 7.5 GM/DL (6.4-8.2); TROPONIN I < 0.02 NG/ML (< 0.10)
[2018-03-07 21:06] LABS: CPK CREATINE PHOSPHOKINASE 110 U/L (26-192); MB/CK RELATIVE INDEX 1.73 (< OR =4); TROPONIN I < 0.02 NG/ML (< 0.10)
== END 2018-03-07 21:50 | disposition home or self-care (01) ==
LOC: M ED 14:28
DX: R00.2 Palpitations (principal); I12.9 Hypertensive chronic kidney disease with stage 1 through stage 4 chronic kidney disease, or unspecified chronic kidney disease; N18.9 Chronic kidney disease, unspecified; E11.9 Type 2 diabetes mellitus without complications; J44.9 Chronic obstructive pulmonary disease, unspecified; G47.33 Obstructive sleep apnea (adult) (pediatric); E21.3 Hyperparathyroidism, unspecified; F32.9 Major depressive disorder, single episode, unspecified; K75.4 Autoimmune hepatitis; R74.8 Abnormal levels of other serum enzymes; F17.200 Nicotine dependence, unspecified, uncomplicated; Z79.899 Other long term (current) drug therapy; Z79.82 Long term (current) use of aspirin; Z79.4 Long term (current) use of insulin
CPT/HCPCS: 71045

== ENCOUNTER → 2018-03-07 | Outpatient (CLI) | payer MEDICARE, MEDICAID | LOC: M PAIN 13:15 | DX: M79.18 Myalgia, other site (principal); E11.22 Type 2 diabetes mellitus with diabetic chronic kidney disease; I12.9 Hypertensive chronic kidney disease with stage 1 through stage 4 chronic kidney disease, or unspecified chronic kidney disease; N18.3 Chronic kidney disease, stage 3 (moderate); F32.9 Major depressive disorder, single episode, unspecified; E78.5 Hyperlipidemia, unspecified; G47.33 Obstructive sleep apnea (adult) (pediatric); F17.210 Nicotine dependence, cigarettes, uncomplicated; Z79.82 Long term (current) use of aspirin; Z79.4 Long term (current) use of insulin; Z79.899 Other long term (current) drug therapy; Z86.39 Personal history of other endocrine, nutritional and metabolic disease; Z86.59 Personal history of other mental and behavioral disorders; Z86.19 Personal history of other infectious and parasitic diseases | CPT/HCPCS: G0463 ==

== ENCOUNTER → 2018-04-18 | Outpatient (CLI) | payer MEDICARE, MEDICAID | LOC: M PAIN 13:15 | DX: M54.6 Pain in thoracic spine (principal); G89.29 Other chronic pain; E11.22 Type 2 diabetes mellitus with diabetic chronic kidney disease; I12.9 Hypertensive chronic kidney disease with stage 1 through stage 4 chronic kidney disease, or unspecified chronic kidney disease; N18.3 Chronic kidney disease, stage 3 (moderate); J43.9 Emphysema, unspecified; F32.9 Major depressive disorder, single episode, unspecified; E78.5 Hyperlipidemia, unspecified; G47.33 Obstructive sleep apnea (adult) (pediatric); K74.69 Other cirrhosis of liver; F17.210 Nicotine dependence, cigarettes, uncomplicated; Z79.4 Long term (current) use of insulin; Z79.82 Long term (current) use of aspirin; Z79.899 Other long term (current) drug therapy; Z86.59 Personal history of other mental and behavioral disorders; Z86.19 Personal history of other infectious and parasitic diseases | CPT/HCPCS: G0463 ==

== ENCOUNTER → 2018-05-11 | Outpatient (CLI) | payer MEDICARE, MEDICAID ==
[~2018-05-11] MED LIST changes: +ACET-654 PO; +ACET30TAB PO; +ACET65TA PO; +ALBU17IN INH; +AMILODIPINE PO; +AMLO2.5T3 PO; +AMLO5TAB6 PO; +ANTIBIOTIC PO; +ASPI1TAB PO; +BABY81CH OR; +BACTROBAN TOP; +BREO1INH3 INH; -BUPIVACAINE HCL 0.25% 10 ML VIAL As Ordered; +BUPIVACAINE HCL 0.25% 10 ML VIAL As Ordered ONE; -BUPIVACAINE HCL 0.25% 30 ML VIAL As Ordered; +BUPIVACAINE HCL 0.25% 30 ML VIAL As Ordered ONE; +CALCIUM CITRATE PO; +CALCTAB68 PO; +CELE40TA PO; +CIPR25SS PO; +CLIN300C PO; +COLA100C5 PO; +COLA50CA3 PO; +CONS10SO3 PO; +COZA50TA18 OR; +DETR2CAP PO; +DIOV320T OR; +DIOV320T PO; +DOCU10CA PO; +ESCI20TA PO; +FLEEENE4 PR; +FLUC150T; +GABA-843 PO; +GABA800T4 PO; +GABAPOW41 PO; +GLIP5TAB8 PO; +HUMA100I5 SC; +HYDR25TA6 OR; +IMOD2CAP PO; +INCR1INH INH; +INSULADS SC; +INSULANT SC; +INSULANT SQ; +IPRA6SP; +LACT10SO29 PO; +LACT20EL PO; +LASI40TA9 PO; +LIDO5DIS41 TD; +LISI20TA5 OR; +LOPI600T OR; +LOSA100T50 PO; +LOSA25TA14 PO; +MAG OX PO; +METF500T4 OR; +METH75TA; +MONISTAT PV; +MULTIVIT PO; +NATU400T PO; +NICO14DI3 TD; +NICO21DI34 TD; +NICO21DI4 TD; +NORCOTAB PO; +NORV5TAB OR; +NOVOINJ3 SC; +OXYB5TAB10 PO; +PERC5TAB12 PO; +PERC5TAB8 PO; +ROBA500T PO; +ROBA750T4 PO; +SERT-138 PO; +SITA50TAB PO; +SPIR-10 PO; +SPIR12.9 INH; +ST J PO; +TOUJ1.2I SC; +TRAM50TA2 PO; +TRAZ1TAB14 PO; +TRENTINOIN TOP; +TRIA1CR TOP; -TRIAMCINOLONE ACETONIDE SUSP 40 MG/ML VIAL (J3301) As Ordered; +TRIAMCINOLONE ACETONIDE SUSP 40 MG/ML VIAL (J3301) As Ordered ONE; +URSO1TAB6 PO; +VARE1TA PO; +VIT D PO; +VOLT1GEL15 TOP; +XIFA550T PO; +ZOCO40TA OR; +ZOLO50TA PO; +[UNRECOGNIZED DRUG - OTHER]; +[UNRECOGNIZED DRUG - OTHER] PO; +celexa PO; -diazePAM 5 MG TAB As Ordered; +diazePAM 5 MG TAB As Ordered ONE; +drisdol PO; +lantus SUBQ; -oxyCODONE 5MG TAB As Ordered; +oxyCODONE 5MG TAB As Ordered ONE; +trazadone PO
--- NOTE | 2018-05-28 23:53 | ECWPNPC ---
PATIENT NAME: PABLO HANSEN : 1960 GENDER: FEMALE VISIT DATE: 05/11/2018 DISCHARGE DATE: 05/11/18 1136 VISIT LOCKED DATE TIME: PHYSICIAN: ENRICO VARGAS MD RESOURCE: ENRICO VARGAS MD REASON FOR APPOINTMENT 1. TPI HISTORY OF PRESENT ILLNESS HISTORY OF PRESENT ILLNESS: PAIN THE PATIENT DESCRIBES THE PAIN... FALL RISK SCREENING: SCREENING :NO FALLS IN THE PAST YEAR CURRENT MEDICATIONS TAKING FREESTYLE SYSTEM DX CODE E11.9 METER DIRECTED DAILY TAKING VENTOLIN HFA 108 (90 BASE) MCG/ACT AEROSOL SOLUTION 2 PUFFS NEEDED INHALATION EVERY 4 HRS, NOTES: 05/10 1000 TAKING ATROVENT 0.06 % SOLUTION 2 DROPS IN EACH NOSTRIL NEEDED NASALLY THREE TIMES A DAY, NOTES: 05/10 1000 TAKING FREESTYLE TEST STRIPS DX CODE E11.9 STRIP DIRECTED FOUR TIMES A DAY TAKING LACTULOSE 10 GM/15ML SYRUP 35 ML ORALLY BID, NOTES: NONE RECENT TAKING TRAZODONE 150 150MG TABLET 1 TAB(S) ORALLY DAILY, NOTES: 05/09 TAKING VITAMIN E 400 UNIT CAPSULE 1 CAPSULE ORALLY ONCE A DAY, NOTES: 05/10 1400 TAKING ASPIRIN 81 MG TABLET DELAYED RELEASE 1 TABLET ORALLY ONCE A DAY, NOTES: 05/10 12 MIDNIGHT TAKING TOUJEO SOLOSTAR 300 UNIT/ML SOLUTION PEN-INJECTOR 60 U SUBCUTANEOUS EVERY MORNING, NOTES: 05/09 1000 TAKING BLOOD GLUCOSE TEST - STRIP 1 STRIP IN VITRO 4 TIMES DAILY DX:E11.65 TAKING LANCETS LANCETS MISCELLANEOUS 1 STRIP _ DX:E11.65 BEFORE MEALS AND AT BEDTIME TAKING SPIRIVA RESPIMAT 2.5 MCG/ACT AEROSOL SOLUTION 2 PUFFS INHALATION ONCE A DAY, NOTES: 05/10 1000 TAKING IPRATROPIUM BROMIDE 0.03 % SOLUTION 2 SPRAYS IN EACH NOSTRIL ORALLY TWICE A DAY, NOTES: 05/10 1000 TAKING NICODERM CQ 14 MG/24HR PATCH 24 HOUR 1 PATCH TO SKIN TRANSDERMAL ONCE A DAY, NOTES: NONE RECENT TAKING VOLTAREN 1 % GEL DIRECTED TRANSDERMAL APPLY TO RIGHT THORACIC TID, NOTES: 05/08 TAKING HUMALOG KWIKPEN 100 UNIT/ML SOLUTION PEN-INJECTOR DIRECTED SUBCUTANEOUS DAILY, MDD: 30 UNITS, NOTES: 05/09 TAKING GLUCOSE 4 GM TABLET CHEWABLE DIRECTED ORALLY 4 TABS NEEDED, NOTES: NONE RECENT TAKING SPIRONOLACTONE 25 MG TABLET 1 TABLET ORALLY ONCE DAILY, NOTES: 05/10 1000 TAKING TORSEMIDE 20 MG TABLET 1 TAB ORALLY DAILY, NOTES: 05/09 TAKING GABAPENTIN 300 MG CAPSULE 1 ORALLY TID, NOTES: 05/10 12 MIDNIGHT TAKING TRAZODONE HCL 150 MG TABLET TAKE ONE TABLET BY MOUTH ONCE DAILY , NOTES: 05/09 TAKING ESCITALOPRAM OXALATE 20 MG TABLET 1 TABLET ORALLY ONCE A DAY, NOTES: 05/10 1000 TAKING CETIRIZINE HCL 10 MG TABLET 1 TABLET ORALLY ONCE A DAY, NOTES: 05/10 1400 TAKING ROBAXIN-750 750 MG TABLET 1/2 TAB ORALLY Q6H PRN, NOTES: 05/10 12 MIDNIGHT TAKING URSODIOL 300 MG CAPSULE 1 CAP ORALLY THREE TIMES A DAY, NOTES: 05/10 12 MIDNIGHT TAKING PEN NEEDLES 3/16" 31G X 5 MM PEN NEEDLE USE WITH LANTUS PEN SUBCUTANEOUSLY THREE TIMES A DAY DX; 250.00 TAKING RIFAXIMIN 550 MG TABLET 1 TABLET ORALLY TWICE A DAY, NOTES: 05/10 12 MIDNIGHT DISCONTINUED XIFAXAN 550 MG TABLET TAKE ONE TABLET BY MOUTH TWICE DAILY , NOTES: DUPLICATE MEDICATION LIST REVIEWED AND RECONCILED WITH THE PATIENT PAST MEDICAL HISTORY DMII HTN CKD STAGE III - FOLLOWED BY MAJOR DEPRESSIVE DISORDER TOBACCO ABUSE HX PANCREATITIS HYPERLIPIDEMIA ASCVD RISK 14.0% 07/2016 (10 YEAR RISK) 2NDARY HYPERPARATHYROIDISM EYE EXAM 01/2014 [facility] - DIABETES W/O RETINOPATHY POSSIBLE GLAUCOMA. 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 SURGICAL HISTORY HYSTERECTOMY 2007 CHOLECYSTECTOMY LEFT BREAST CYST REMOVAL T 7-9 LAMINECTOMY 12/2014 COLONOSCOPY 12/12/14 FAMILY HISTORY FATHER: ALIVE, DIABETES, HTN MOTHER: ALIVE, DIABETES, HTN SIBLINGS: ALIVE 2 BROTHER(S) , 1 SISTER(S) - HEALTHY. SOCIAL HISTORY GENERAL: TOBACCO USE ARE YOU A:CURRENT SMOKER ARE YOU INTERESTED IN QUITTING?THINKING ABOUT QUITTING STATES SHE HAS PATCHES THAT IS USES AT TIMES PREVIOUS QUIT ATTEMPTS?YES, WITHIN THE LAST 6 MONTHS. COUNSELED THE PATIENT ON SMOKING CESSATION, EDUCATION [id number]/20/2018 HOW MANY CIGARETTES A DAY DO YOU SMOKE?5 OR LESS HOW SOON AFTER YOU WAKE UP DO YOU SMOKE YOUR FIRST CIGARETTE?6-30 MIN HOW OFTEN DO YOU SMOKE CIGARETTES?EVERY DAY PATIENT COUNSELED ON THE DANGERS OF TOBACCO USE AND URGED TO QUIT:05/11/2018 PT COUNCELED ON THE IMPORTANCE OF QUITTING. SHE IS INTERESTED IN QUITTING AND ALREADY HAS INFORMATION ON IT. ADDITIONAL FINDINGS: TOBACCO USER PT IS CURRENTLY USING PATCH ON AND OFF TRYING TO CUT DOWN ON SMOKING LUNG CANCER SCREENING SMOKING STATUS:CURRENT SMOKER BMI CARE GOAL FOLLOW-UP ABOVE NORMAL BMI FOLLOW-UPDIETARY NEEDS EDUCATION ALCOHOL SCREENING DID YOU HAVE A DRINK CONTAINING ALCOHOL IN THE PAST YEAR?NO POINTS0 INTERPRETATIONNEGATIVE RECREATIONAL DRUG USE DRUG USE?NO CAFFEINE CAFFEINE USE?YES SEXUAL HX HAD SEX IN THE LAST 12 MONTHS (VAGINAL, ORAL, OR ANAL)?NO HIV / HEP-C SCREENING HIV TEST OFFERED TO PATIENT:YES DATE OFFERED:06/10/2011 TEST ACCEPTED:NO REASON:PATIENT DECLINED CONFUCIANISM [id number] JUDAISM LANGUAGE TAJIK. EDUCATION LEVEL OF EDUCATION:HIGH SCHOOL LEARNING BARRIERS / SPECIAL NEEDS CHANGE FROM LAST VISIT?NO BARRIERS TO LEARNING?NO HEARING IMPAIRED?NO VISION IMPAIRED?YES COGNITIVELY IMPAIRED?NO :CORRECTIVE LENSES READINESS TO LEARN?YES LEARNING PREFERENCES?NO LEARNING CAPABILITIES PRESENT?YES EMOTIONAL BARRIERS?NO SPECIAL DEVICES?NO FAMILY PRACTITIONER NEEDED?NO OCCUPATION: UNEMPLOYED. DIET: REGULAR. EXERCISE: NO REGULAR EXERCISE. MARITAL STATUS: .. OTHERS AT HOME: NONE. NEW PATIENT PAIN DIARY FROM 0-10, WHAT LEVEL IS YOUR PAIN TODAY?5 PAIN CLINIC PFS, CLERGY, PUBLIC HEALTH REFERRALS PFS REFERRAL NEEDED?NO CLERGY REFERRAL NEEDED?NO PUBLIC HEALTH REFERRAL NEEDED?NO WAS THE PROVIDER NOTIFIED OF ANY PERTINENT INFO?YES HAS THE PATIENT BEEN EDUCATED REGARDING HIS/HER PLAN OF CARE?YES HAS THE PATIENT BEEN EDUCATED REGARDING PAIN, THE RISK FOR PAIN, THE IMPORTANCE OF EFFECTIVE PAIN MANAGEMENT, AND THE PAIN ASSESSMENT PROCESS?YES ADVANCE DIRECTIVE ADVANCE DIRECTIVE DISCUSSED WITH PATIENT:YES PT. HAS DNR AND HCP UNEMPLOYED, NOT , NO CHILDREN. MOVED TO [place] FROM [place] AT BEGINNING OF 2010. CURRENTLY SMOKES 1/2PPD PRIOR TO HOSPITALIZATION 1 PPD FOR 35 YEARS, NO ETOH OR ILLICITS, 3 CAFFEINATED BEVERAGES A DAY, NO REGULAR EXERCISE5/14/18 1500 INFORMATION REVIEWED WITH PT. SUSHANT WITH PT 03/07/18 2548 BV. HOSPITALIZATION/MAJOR DIAGNOSTIC PROCEDURE [facility] ACUTE PANCREATITIS SECONDARY TO HYPERTRIGLYCERDEMIA AND UNCONTROLED DMII 02/11- [facility] MRSA CELLULITIS 02/17/2011 [place] COLI INFECTION [facility] ACUTE PANCREATITIS 03/16- BACK SURGERY 01/06/15-01/10/15 FAINTING SPELLS (HYPERAMMONEMIA) 08/02/16-08/04/16 REVIEW OF SYSTEMS REVIEWED BY: PROVIDER: . CONSTITUTIONAL: ANY CHANGE IN YOUR MEDICAL CONDITION? NO . CHILLS NO . FEVER NO . INFECTION: DO YOU HAVE NEW INFECTIONS? NO . DO YOU HAVE HISTORY OF MRSA? NO . MUSCULOSKELETAL: ANY NEW PATTERNS OF PAIN OR NUMBNESS? NO . GASTROENTEROLOGY: ANY NEW CHANGE IN BOWEL CONTROL? NO . GENITOURINARY: ANY NEW CHANGE IN BLADDER CONTROL? NO . IS THERE A CHANCE YOU COULD BE ? NO . HEMATOLOGY/LYMPH: DO YOU TAKE ANY BLOOD THINNERS? (FOR EXAMPLE- COUMADIN, PLAVIX, AGGRENOX, PLATEL, PRADAXA, OR XARELTO) NO . WHEN WAS YOUR LAST DOSE? DATE: TIME: . NEUROLOGY: HAVE YOU FALLEN IN THE PAST 6 MONTHS? NO . ANY NEW EXTREMITY NUMBNESS OR WEAKNESS? NO . CARDIOLOGY: DO YOU HAVE A PACEMAKER OR DEFIBRILLATOR? NO . RESPIRATORY: HAVE YOU BEEN SICK IN THE PAST WEEK? NO . FEVER NO . FLU LIKE SYMPTOMS? NO . COUGH NO . INTEGUMENTARY: DO YOU HAVE ANY RASHES OR OPEN SORES? NO . ALLERGIC/IMMUNO: ARE YOU ALLERGIC TO SHELLFISH OR IV DYE? NO . ANY NEW ALLERGIES? NO . PSYCHIATRIC: DO YOU HAVE THOUGHTS OF HURTING YOURSELF OR SOMEONE ELSE? NO . ARE YOU ABUSED, NEGLECTED, OR IN AN UNSAFE ENVIRONMENT? NO . ENDOCRINOLOGY: ARE YOU DIABETIC? YES, FSBS @ 1026 WAS 160 . OTHER: DO YOU NEED ANY PRESCRIPTIONS? NO . IF YES, PLEASE LIST: ____ . ANY NEW PROBLEMS WITH YOUR MEDICATIONS? NO . WHEN DID YOU LAST EAT? ____05/10/18 . WHEN DID YOU LAST DRINK? ____05/10/18 . WHAT DID YOU LAST DRINK? ____WATER . NAME OF PERSON DRIVING YOU HOME? ____[facility] [employer] . DO YOU HAVE ANY OTHER QUESTIONS OR CONCERNS NO . VITAL SIGNS WT 207.4 LBS, HT 65 IN, BMI 34.51 INDEX, BP 143/99 MM HG, HR 78 /MIN, RR 16 /MIN, TEMP 97.3 F, OXYGEN SAT % 97%, SAFE IN ENV? (Y/N) Y, NA INITIALS [place] 09:36, REVIEWED BY: VD. ASSESSMENTS MYALGIA, OTHER SITE - M79.18 (PRIMARY) PROCEDURES PN TRIGGER POINT INJECTION WITH STEROIDS PRE PROCEDURE DIAGNOSIS 1. MYALGIA 2. PAIN AT RIGHT THORACIC AREA POST PROCEDURE DIAGNOSIS 1. MYALGIA 2. PAIN AT RIGHT THORACIC AREA PROCEDURE TRIGGER POINT INJECTION AT RIGHT THORACIC AREA SURGEON DR. ENRICO VARGAS UNDERGROUND SUPERVISOR NONE ANESTHESIA LOCAL PRE PROCEDURE NOTE THE PATIENT HAS A HISTORY OF CHRONIC PAIN AT THE RIGHT THORACIC AREA. I EVALUATE THE PATIENT AND REVIEWED THE CHART. THERE IS EVIDENCE OF BANDS OF TISSUE WITH RESTRICTION OF MOVEMENT AND PRESENCE OF TRIGGER POINT AT THE AFFECTED AREA. I WENT OVER THE RISKS, ALTERNATIVES, AND BENEFITS ASSOCIATED WITH THIS PROCEDURE. THE PATIENT WOULD LIKE TO PROCEED AND GIVE CONSENT TO PERFORMED THE PROCEDURE. THE PATIENT DENIES UNEXPLAINABLE WEIGHT LOSS, FEVER, CHILLS, OR NEW CHANGES IN URINARY OR BOWEL CONTROL DESCRIPTION OF PROCEDURE THE PATIENT WAS BROUGHT TO THE PROCEDURE ROOM AND PLACED IN THE SITTING POSITION. THE AREA WAS CLEANED WITH ALCOHOL. THE PROCEDURE WAS DONE USING ASEPTIC STERILE TECHNIQUE. I CHECKED LATERALITY AND THE LEVEL WHERE THE PROCEDURE WAS GOING TO BE PERFORMED WITH THE PATIENT AND THE SUPPORTING STAFF AT THE MOMENT OF THE TIME OUT IN THE PROCEDURE ROOM. USING A 25-GAUGE NEEDLE, TRIGGER POINTS WERE INJECTED AT THE RIGHT THORACIC AREA WITH A TOTAL OF 40 ML OF BUPIVACAINE 0.25% AND KENALOG 40 MG. THERE WAS NO EVIDENCE OF BLOOD, PARESTHESIA OR CEREBROSPINAL FLUID DURING THE PROCEDURE. THE PATIENT WAS SENT TO THE RECOVERY ROOM. THE PATIENT WAS MOVING THE EXTREMITIES AND DOING WELL. THERE WAS NO COMPLICATION DURING THE PROCEDURE POST PROCEDURE NOTE THE PATIENT WILL BE SEEN IN A FOLLOW UP IN THE NEXT FEW WEEKS. INSTRUCTIONS WERE GIVEN, QUESTIONS WERE ANSWERED, AND THE PATIENT EXPRESSED UNDERSTANDING AND AGREES WITH THE PLAN. I, GEORGETTE NELSON, DOCUMENTED THE ABOVE INFORMATION ACTING A SCRIBE FOR DR. VARGAS. I HAVE REVIEWED THE ABOVE DOCUMENT, WRITTEN BY GEORGETTE HOBSON AND I VERIFY THAT IT IS ACCURATE. PROCEDURE CODES 29974 INJ TRIGGER POINT 05/24 [facility] FOLLOW UP 3 WEEKS ELECTRONICALLY SIGNED BY ENRICO VARGAS MD, MD ON 05/28/2018 AT 02:27 PM EST DISCLAIMER : THIS IS A VISIT SUMMARY EXTRACTED FROM THE [employer] CHART. IT IS NOT A COPY OF THE [employer] PROGRESS NOTE. ISABELLA
== END ==
LOC: M PAIN 09:45
PROVIDERS: ATTEND Anesthesiology
DX: M79.18 Myalgia, other site (principal); M54.6 Pain in thoracic spine; E11.22 Type 2 diabetes mellitus with diabetic chronic kidney disease; I12.9 Hypertensive chronic kidney disease with stage 1 through stage 4 chronic kidney disease, or unspecified chronic kidney disease; N18.3 Chronic kidney disease, stage 3 (moderate); F32.9 Major depressive disorder, single episode, unspecified; E78.5 Hyperlipidemia, unspecified; J43.9 Emphysema, unspecified; G47.33 Obstructive sleep apnea (adult) (pediatric); E72.20 Disorder of urea cycle metabolism, unspecified; F17.210 Nicotine dependence, cigarettes, uncomplicated; E66.01 Morbid (severe) obesity due to excess calories; Z68.34 Body mass index [BMI] 34.0-34.9, adult; Z79.82 Long term (current) use of aspirin; Z79.4 Long term (current) use of insulin; Z79.899 Other long term (current) drug therapy; Z90.49 Acquired absence of other specified parts of digestive tract; Z86.59 Personal history of other mental and behavioral disorders
CPT/HCPCS: 20552; J3301

== ENCOUNTER 2018-05-29 15:52 | Emergency (ER) | payer MEDICARE, MEDICAID ==
[~2018-05-29] VITALS: Ht 165.1 cm; Wt 92.7 kg
[~2018-05-29 15:52] MED LIST changes: -BUPIVACAINE HCL 0.25% 10 ML VIAL As Ordered ONE; -BUPIVACAINE HCL 0.25% 30 ML VIAL As Ordered ONE; -TRIAMCINOLONE ACETONIDE SUSP 40 MG/ML VIAL (J3301) As Ordered ONE; -diazePAM 5 MG TAB As Ordered ONE; -oxyCODONE 5MG TAB As Ordered ONE
[2018-05-29] MEDS ORDERED: NS 500 ML IV ONE (16:15)
--- NOTE | 2018-05-29 16:33 | REP ---
CT Head without contrast HISTORY: Head injury COMPARISON: 12/23/2017 Areas of decreased attenuation are present in the periventricular and subcortical white matter. This represents small-vessel ischemic disease. There is no intraparenchymal hemorrhage, acute infarct, mass or midline shift. The ventricular system is normal in appearance. There is no extra cerebral collection. There is no fracture. The visualized sinuses are clear. IMPRESSION: Small vessel ischemic disease. Electronically Signed by Cal Tai MD 05/29/2018 04:25 P
[2018-05-29 16:58] LABS: BASO % 0.7 % (0.0-1.0); EOS % 0.5 % (0.0-3.0); HEMATOCRIT 42.1 % (36.0-47.0); HEMOGLOBIN 14.3 g/dl (12.0-15.5); LYMPH # 1.5 10^3/uL (1.5-4.5); LYMPH % 26.7 % (24.0-44.0); MEAN CORPUSCULAR HEMOGLOBIN 32.9 pg (27.0-33.0); MONO # 0.7 10^3/uL (0.0-0.8); MONO % 11.8 % (0.0-5.0); NEUTROPHILS # 3.5 10^3/uL (1.8-7.7); NEUTROPHILS % 60.1 % (36.0-66.0); PLATELET COUNT, AUTOMATED 145 10^3/uL (150-450); RED BLOOD COUNT 4.34 10^6/uL (4.00-5.40); WHITE BLOOD COUNT 5.8 10^3/uL (4.0-10.0)
--- NOTE | 2018-05-29 17:05 | REP ---
Chest one-view HISTORY: Altered mental status Comparison: 03/07/2018 There is elevation of the right hemidiaphragm. A calcified granuloma is present in the right lower lobe. The left lung is clear. The heart is normal in size. The pulmonary vasculature is normal in appearance. Impression: No acute disease. Electronically Signed by Cal Tai MD 05/29/2018 04:56 P
[2018-05-29 17:09] LABS: AMPHETAMINES LEVEL URINE NEGATIVE (NEGATIVE); BARBITURATES URINE NEGATIVE (NEGATIVE); BENZODIAZEPINES URINE NEGATIVE (NEGATIVE); CANNABINOIDS URINE NEGATIVE (NEGATIVE); COCAINE METABOLITE URINE NEGATIVE (NEGATIVE); METHADONE URINE NEGATIVE (NEGATIVE); OPIATES URINE NEGATIVE (NEGATIVE); PHENCYCLIDINE URINE NEGATIVE (NEGATIVE)
[2018-05-29 17:10] LABS: INR 1.2; PROTHROMBIN TIME 15.4 SECONDS (12.1-14.4)
[2018-05-29 17:11] LABS: PARTIAL THROMBOPLASTIN TIME 32.9 SECONDS (25.4-37.6)
[2018-05-29 17:21] LABS: OSMOLALITY SERUM 302 MOSM/KG (275-295)
[2018-05-29 17:45] LABS: ALBUMIN 3.3 GM/DL (3.2-5.2); ALT/SGPT 28 U/L (12-78); BILIRUBIN,DIRECT 0.3 MG/DL (0.0-0.2); BILIRUBIN,TOTAL 1.1 MG/DL (0.2-1.0); BLOOD UREA NITROGEN 12 MG/DL (7-18); CALCIUM LEVEL 8.4 MG/DL (8.5-10.1); CARBON DIOXIDE LEVEL 27 MEQ/L (21-32); CHLORIDE LEVEL 107 MEQ/L (98-107); CPK CREATINE PHOSPHOKINASE 170 U/L (26-192); ETHYL ALCOHOL (ETHANOL) < 0.003 % (0.000-0.010); GLOMERULAR FILTRATION RATE > 60.0 (>51); GLUCOSE, FASTING 124 MG/DL (70-100); MB/CK RELATIVE INDEX 1.65 (< OR =4); SODIUM LEVEL 141 MEQ/L (136-145); TOTAL PROTEIN 7.5 GM/DL (6.4-8.2); TROPONIN I < 0.02 NG/ML (< 0.10)
[2018-05-29] MEDS ORDERED: NS 1,000 ML IV ONE (18:00)
[2018-05-29] MEDS ORDERED: ISOVUE-370 76% 100ML VIAL (Q9967) As Ordered ONE (18:09)
--- NOTE | 2018-05-29 18:45 | REP ---
CT abdomen and pelvis with IV but without oral contrast: History: Abdominal pain. The patient gives a history of pancreatitis, cirrhosis, and a prior hysterectomy. Comparison study: October 21, 2017. CT contrast dose: 100 mL of intravenous Isovue [address] findings: Preliminary digital side show entertainer radiograph shows clips in right upper quadrant. The lung bases are clear on axial CT images. There is a minimal amount of perihepatic and perisplenic upper abdominal ascites. Very mild lower abdominal ascites is seen. The liver edge has a micronodular contour with the left lobe somewhat prominent consistent with a history of cirrhosis. The spleen is enlarged measuring up to 13.4 cm in greatest diameter. No focal hepatic or splenic lesion is seen. There are clips in the gallbladder fossa. No pancreatic cyst or mass is seen. Peripancreatic soft tissues are unremarkable. No adrenal lesion is seen. The kidneys enhance symmetrically. No hydronephrosis is seen. Small and large intestinal bowel loops are unremarkable in the abdomen and pelvis. Urinary bladder is intact. The uterus is surgically absent. No abdominal wall defect is seen. No bony lesion is appreciated. Multilevel lower thoracic laminectomy has been performed. No bony destructive lesion. Impression: Findings consistent with cirrhosis with minimal ascites. Post cholecystectomy and hysterectomy. No acute abdominal or pelvic abnormality seen. Electronically Signed by Maged Kay MD 05/29/2018 07:50 P
[2018-05-29 19:15] VITALS: BP 164/86
[2018-05-29] MEDS ORDERED: CONS10SO3 PO (19:21)
--- NOTE | 2018-05-30 18:23 | ECGEPIP ---
Stationary ECG Study [facility] - ED Test Date: 2018-05-29 Pat Name: PABLO HANSEN Department: Room: - Gender: F Analytical Manager: jcarla : 1960 Requested By: TANIYA Dale Order Number: [id number] Reading MD: Jose Alfredo Armendariz Measurements Intervals Gibson Rate: 68 P: 9 CT: 133 QRS: -25 QRSD: 106 T: 31 QT: 433 QTc: 463 Interpretive Statements SINUS RHYTHM LEFT ATRIAL ENLARGEMENT MINIMAL VOLTAGE CRITERIA FOR LVH, CONSIDER NORMAL VARIANT NSTTW ABNORMALITIES SIMILAR TO 03/07/18 Electronically Signed On 05-30-2018 18:22:59 EST by Jose Alfredo Armendariz
== END 2018-05-29 19:40 | disposition home or self-care (01) ==
LOC: M ED 15:52
DX: E72.20 Disorder of urea cycle metabolism, unspecified (principal); K75.4 Autoimmune hepatitis; E11.22 Type 2 diabetes mellitus with diabetic chronic kidney disease; I12.9 Hypertensive chronic kidney disease with stage 1 through stage 4 chronic kidney disease, or unspecified chronic kidney disease; N18.3 Chronic kidney disease, stage 3 (moderate); J44.9 Chronic obstructive pulmonary disease, unspecified; Z91.14 Patient's other noncompliance with medication regimen; G47.33 Obstructive sleep apnea (adult) (pediatric)
CPT/HCPCS: 70450; 71045; 74177; 80048; 80076; 80307; 81001; 82140; 82550; 82553; 83605; 83930; 84443; 84484; 85025; 85610; 85730; 87040; 93005; 93041; 94760; 96360; 96361; 99285; G0480; Q9967

== ENCOUNTER → 2018-06-22 | Outpatient (CLI) | payer MEDICARE, MEDICAID ==
--- NOTE | 2018-06-22 10:04 | REP ---
Clinical: History of cirrhosis. Technique: Henderson scale ultrasound using curved array transducer. Findings: The liver demonstrates coarsened echotexture consistent with cirrhosis. No focal hepatic lesions are identified. The spleen is enlarged measuring 12.6 x 5.4 x 12.5 cm with multiple calcified granulomata identified. The pancreas is incompletely evaluated due to interposed bowel gas but visualized portions appear normal. The patient is noted to be status post cholecystectomy with mild compensatory biliary ductal dilatation; common bile duct measures 8.2 mm diameter. The bilateral kidneys demonstrate small calcifications which may represent vascular calcifications versus nonobstructing calculi. There is no evidence for hydronephrosis. Right kidney measures 10.3 x 4.4 x 4.8 cm and includes 8 mm upper pole cyst, 1.6 cm mid pole cyst, and 1.6 cm lower pole cyst. Left kidney measures 11.6 x 5.3 x 4.6 cm with 1.2 cm mid pole cyst. Abdominal aorta measures 2.5 cm maximal diameter. Small amount of upper abdominal perihepatic and perisplenic fluid noted. Impression: 1. Findings consistent with cirrhosis and splenomegaly suggesting portal venous hypertension. 2. Changes related to granulomas disease. 3. Few scattered bilateral renal cysts may warrant annual follow-up as they cannot be considered a simple/benign by current sonographic evaluation. 4. Bilateral nonobstructing intrarenal calculi up to 4 mm versus renovascular calcifications. Electronically Signed by Pierre Bower MD 06/22/2018 09:56 A
[2018-06-22 10:37] LABS: BASO % 0.9 % (0.0-1.0); EOS # 0.1 10^3/uL (0.0-0.50); EOS % 1.2 % (0.0-3.0); HEMATOCRIT 42.3 % (36.0-47.0); HEMOGLOBIN 13.9 g/dl (12.0-15.5); LYMPH # 1.1 10^3/uL (1.5-4.5); LYMPH % 26.1 % (24.0-44.0); MEAN CORPUSCULAR HEMOGLOBIN 33.3 pg (27.0-33.0); MEAN CORPUSCULAR HGB CONC 32.9 g/dl (32.0-36.5); MEAN CORPUSCULAR VOLUME 101.4 fl (80.0-96.0); MONO # 0.5 10^3/uL (0.0-0.8); MONO % 11.8 % (0.0-5.0); NEUTROPHILS # 2.5 10^3/uL (1.8-7.7); NEUTROPHILS % 59.5 % (36.0-66.0); PLATELET COUNT, AUTOMATED 136 10^3/uL (150-450); RED BLOOD COUNT 4.17 10^6/uL (4.00-5.40); WHITE BLOOD COUNT 4.2 10^3/uL (4.0-10.0)
[2018-06-22 11:01] LABS: ALBUMIN 3.1 GM/DL (3.2-5.2); BILIRUBIN,DIRECT 0.3 MG/DL (0.0-0.2); BILIRUBIN,TOTAL 0.7 MG/DL (0.2-1.0); CREATININE FOR GFR 1.2 MG/DL (0.55-1.30); GLOMERULAR FILTRATION RATE 59.9 (>51); TOTAL PROTEIN 7.1 GM/DL (6.4-8.2)
== END ==
LOC: M RAD 08:47
PROVIDERS: ATTEND Internal Medicine Gastroenterology
DX: K74.60 Unspecified cirrhosis of liver (principal)

== ENCOUNTER → 2018-07-11 | Outpatient (REF) | payer MEDICARE, MEDICAID ==
[2018-07-11 16:33] LABS: HEMOGLOBIN A1c 8.8 %
== END ==
LOC: M SFHCPLAZ 14:23
PROVIDERS: ATTEND Family Medicine
DX: E72.20 Disorder of urea cycle metabolism, unspecified (principal); E11.65 Type 2 diabetes mellitus with hyperglycemia; E55.9 Vitamin D deficiency, unspecified

== ENCOUNTER → 2018-07-17 | Outpatient (CLI) | payer MEDICARE, MEDICAID ==
--- NOTE | 2018-07-31 00:16 | ECWPNPC ---
PATIENT NAME: PABLO HANSEN : 1960 GENDER: FEMALE VISIT DATE: 07/17/2018 DISCHARGE DATE: 07/17/18 1310 VISIT LOCKED DATE TIME: PHYSICIAN: RISSA MOORE RESOURCE: RISSA MOORE REASON FOR APPOINTMENT 1. POST TPI HISTORY OF PRESENT ILLNESS HISTORY OF PRESENT ILLNESS: HERE FOR POST PROC. F/U.HAD TPI RIGHT THORACIC REGION ON 05-11-18.REPORTING NO IMPROVEMENT IN PAIN POST PROCEDURE.DESCRIBES RIGHT THORACIC PAIN INTERMITTENT,TENDER AND SORE.RATING PAIN VAS 3/10. PAIN THE PATIENT DESCRIBES THE PAIN... THE PATIENT DESCRIBES THE PAIN... FALL RISK SCREENING: SCREENING : NO FALLS IN THE PAST YEAR. CURRENT MEDICATIONS TAKING FREESTYLE SYSTEM DX CODE E11.9 METER DIRECTED DAILY TAKING VENTOLIN HFA 108 (90 BASE) MCG/ACT AEROSOL SOLUTION 2 PUFFS NEEDED INHALATION EVERY 4 HRS TAKING ATROVENT 0.06 % SOLUTION 2 DROPS IN EACH NOSTRIL NEEDED NASALLY THREE TIMES A DAY TAKING FREESTYLE TEST STRIPS DX CODE E11.9 STRIP DIRECTED FOUR TIMES A DAY TAKING TRAZODONE 150 150MG TABLET 1 TAB(S) ORALLY DAILY TAKING VITAMIN E 400 UNIT CAPSULE 1 CAPSULE ORALLY ONCE A DAY TAKING ASPIRIN 81 MG TABLET DELAYED RELEASE 1 TABLET ORALLY ONCE A DAY TAKING LANCETS LANCETS MISCELLANEOUS 1 STRIP _ DX:E11.65 BEFORE MEALS AND AT BEDTIME TAKING SPIRIVA RESPIMAT 2.5 MCG/ACT AEROSOL SOLUTION 2 PUFFS INHALATION ONCE A DAY TAKING IPRATROPIUM BROMIDE 0.03 % SOLUTION 2 SPRAYS IN EACH NOSTRIL ORALLY TWICE A DAY TAKING VOLTAREN 1 % GEL DIRECTED TRANSDERMAL APPLY TO RIGHT THORACIC TID TAKING HUMALOG KWIKPEN 100 UNIT/ML SOLUTION PEN-INJECTOR DIRECTED SUBCUTANEOUS SLIDING SCALE 2-3X/DAILY TAKING GLUCOSE 4 GM TABLET CHEWABLE DIRECTED ORALLY 4 TABS NEEDED TAKING SPIRONOLACTONE 25 MG TABLET 1 TABLET ORALLY ONCE DAILY TAKING TORSEMIDE 20 MG TABLET 1 TAB ORALLY DAILY TAKING TRAZODONE HCL 150 MG TABLET TAKE ONE TABLET BY MOUTH ONCE DAILY , NOTES: 05/09 TAKING ESCITALOPRAM OXALATE 20 MG TABLET 1 TABLET ORALLY ONCE A DAY TAKING CETIRIZINE HCL 10 MG TABLET 1 TABLET ORALLY ONCE A DAY TAKING ROBAXIN-750 750 MG TABLET 1/2 TAB ORALLY Q6H PRN TAKING LACTULOSE 10 GM/15ML SYRUP 35 ML ORALLY BID TAKING RIFAXIMIN 550 MG TABLET 1 TABLET ORALLY TWICE A DAY TAKING URSODIOL 300 MG CAPSULE 1 CAP ORALLY THREE TIMES A DAY TAKING CLINDAMYCIN PHOSPHATE 1 % GEL 1 APPLICATION TO AFFECTED AREA EXTERNALLY TWO TIMES A DAY TO LOWER FACE AND NECK MIXED 1:1 WITH OTC HYDROCORTISONE 1% AFTER WASHING TAKING PEN NEEDLES 08/05" 31G X 5 MM PEN NEEDLE USE WITH LANTUS PEN SUBCUTANEOUSLY THREE TIMES A DAY DX; 250.00 TAKING TOUJEO SOLOSTAR 300 UNIT/ML SOLUTION PEN-INJECTOR 70 U SUBCUTANEOUS EVERY MORNING TAKING BENZOYL PEROXIDE 5 % GEL 1 APPLICATION TO AFFECTED AREA EXTERNALLY ONCE A DAY TAKING DICLOFENAC SODIUM 1 % GEL DIRECTED TRANSDERMAL, APPLY TO LOW BACK BILATERALLY FOUR TIMES DAILY NEEDED TAKING GABAPENTIN 300 MG CAPSULE 1 ORALLY TID TAKING BLOOD GLUCOSE TEST - STRIP 1 STRIP IN VITRO 4 TIMES DAILY DX:E11.65 TAKING BRIEFS OVERNIGHT LARGE - MISCELLANEOUS WEAR 1 UNDERPAD NEEDED VIVIENNE __# [id number]; DX: R15.2, K52.1: WAIST 47 INCHES, HIPS 45 INCHES EVERY 4 HOURS NEEDED, 6 PER DAY TAKING NICODERM CQ 14 MG/24HR PATCH 24 HOUR 1 PATCH TO SKIN TRANSDERMAL ONCE A DAY, NOTES: NONE RECENT MEDICATION LIST REVIEWED AND RECONCILED WITH THE PATIENT PAST MEDICAL HISTORY DMII , EYE EXAM AND FOOT EXAM BOTH DUE IN AUGUST HTN, GOAL <140/<90 CKD STAGE III - FOLLOWED BY MAJOR DEPRESSIVE DISORDER TOBACCO ABUSE HX PANCREATITIS HYPERLIPIDEMIA ASCVD RISK 14.0% 07/2016 (10 YEAR RISK) 2NDARY HYPERPARATHYROIDISM DIABETES W/O RETINOPATHY POSSIBLE GLAUCOMA; [facility] HX CHOLEDOCHOLYTHIASIS (S/P CHOLECYSTECTOMY) HISTORY OF CRACK COCAINE USE FOR 4 YEARS LAST USE WAS 2009 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 ADEN ELEVATED AMMONIA LEVEL ALLERGIES N.K.D.A. SURGICAL HISTORY HYSTERECTOMY 2007 CHOLECYSTECTOMY LEFT BREAST CYST REMOVAL T 7-9 LAMINECTOMY 12/2014 COLONOSCOPY 12/12/14 FAMILY HISTORY FATHER: ALIVE, DIABETES, HTN MOTHER: ALIVE, DIABETES, HTN SIBLINGS: ALIVE 2 BROTHER(S) , 1 SISTER(S) - HEALTHY. DENIES FAMILY HX OF MELANOMA OR PANCREATIC CANCER. SOCIAL HISTORY GENERAL: TOBACCO USE ARE YOU A:CURRENT SMOKER ARE YOU INTERESTED IN QUITTING?THINKING ABOUT QUITTING STATES SHE HAS PATCHES THAT IS USES AT TIMES PREVIOUS QUIT ATTEMPTS?YES, WITHIN THE LAST 6 MONTHS. COUNSELED THE PATIENT ON SMOKING CESSATION, EDUCATION [id number]/25/2019 HOW MANY CIGARETTES A DAY DO YOU SMOKE?5 OR LESS HOW SOON AFTER YOU WAKE UP DO YOU SMOKE YOUR FIRST CIGARETTE?6-30 MIN HOW OFTEN DO YOU SMOKE CIGARETTES?EVERY DAY PATIENT COUNSELED ON THE DANGERS OF TOBACCO USE AND URGED TO QUIT:07/17/2018 PT COUNCELED ON THE IMPORTANCE OF QUITTING. SHE IS INTERESTED IN QUITTING AND ALREADY HAS INFORMATION ON IT. ADDITIONAL FINDINGS: TOBACCO USER PT IS CURRENTLY USING PATCH ON AND OFF TRYING TO CUT DOWN ON SMOKING LUNG CANCER SCREENING SMOKING STATUS:CURRENT SMOKER BMI CARE GOAL FOLLOW-UP ABOVE NORMAL BMI FOLLOW-UPDIETARY NEEDS EDUCATION ALCOHOL SCREENING DID YOU HAVE A DRINK CONTAINING ALCOHOL IN THE PAST YEAR?NO POINTS0 INTERPRETATIONNEGATIVE RECREATIONAL DRUG USE DRUG USE?NO CAFFEINE CAFFEINE USE?YES SEXUAL HX HAD SEX IN THE LAST 12 MONTHS (VAGINAL, ORAL, OR ANAL)?NO HIV / HEP-C SCREENING HIV TEST OFFERED TO PATIENT:YES DATE OFFERED:06/10/2011 TEST ACCEPTED:NO REASON:PATIENT DECLINED H[employer]U [id number] [employer] LANGUAGE FAROESE. EDUCATION LEVEL OF EDUCATION:HIGH SCHOOL LEARNING BARRIERS / SPECIAL NEEDS CHANGE FROM LAST VISIT?NO BARRIERS TO LEARNING?NO HEARING IMPAIRED?NO VISION IMPAIRED?YES COGNITIVELY IMPAIRED?NO :CORRECTIVE LENSES READINESS TO LEARN?YES LEARNING PREFERENCES?NO LEARNING CAPABILITIES PRESENT?YES EMOTIONAL BARRIERS?NO SPECIAL DEVICES?NO PAINTER RAILROAD CAR NEEDED?NO DOMESTIC VIOLENCE DO YOU FEEL SAFE IN YOUR ENVIRONMENT?YES OCCUPATION: UNEMPLOYED. DIET: REGULAR. EXERCISE: NO REGULAR EXERCISE. MARITAL STATUS: .. OTHERS AT HOME: NONE. PAIN CLINIC PFS, CLERGY, PUBLIC HEALTH REFERRALS PFS REFERRAL NEEDED?NO CLERGY REFERRAL NEEDED?NO PUBLIC HEALTH REFERRAL NEEDED?NO WAS THE PROVIDER NOTIFIED OF ANY PERTINENT INFO?YES HAS THE PATIENT BEEN EDUCATED REGARDING HIS/HER PLAN OF CARE?YES HAS THE PATIENT BEEN EDUCATED REGARDING PAIN, THE RISK FOR PAIN, THE IMPORTANCE OF EFFECTIVE PAIN MANAGEMENT, AND THE PAIN ASSESSMENT PROCESS?YES ADVANCE DIRECTIVE ADVANCE DIRECTIVE DISCUSSED WITH PATIENT:YES PT. HAS DNR AND HCP-APRIL MOCK [phone] ASKED TO BRING COPY IN AD UNEMPLOYED, NOT , NO CHILDREN. MOVED TO [place] FROM [place] AT BEGINNING OF 2010. CURRENTLY SMOKES 1/2PPD PRIOR TO HOSPITALIZATION 1 PPD FOR 35 YEARS, NO ETOH OR ILLICITS, 3 CAFFEINATED BEVERAGES A DAY, NO REGULAR EXERCISE10/03/17 1500 INFORMATION REVIEWED WITH PT. ADREVIEWED WITH PT 03/07/18 1338 BV07/17/18 REVIEWED WITH PT. AD. HOSPITALIZATION/MAJOR DIAGNOSTIC PROCEDURE [facility] ACUTE PANCREATITIS SECONDARY TO HYPERTRIGLYCERDEMIA AND UNCONTROLED DMII 02/11- [facility] MRSA CELLULITIS 02/17/2011 [place] E COLI INFECTION [facility] ACUTE PANCREATITIS 03/16- BACK SURGERY 01/06/15-01/10/15 FAINTING SPELLS (HYPERAMMONEMIA) 08/02/16-08/04/16 ELEVATED AMMONIA LEVELS REVIEW OF SYSTEMS REVIEWED BY: PROVIDER: RISSA FRANCE . CONSTITUTIONAL: ANY CHANGE IN YOUR MEDICAL CONDITION? NO . CHILLS NO . FEVER NO . INFECTION: DO YOU HAVE NEW INFECTIONS? NO . DO YOU HAVE HISTORY OF MRSA? NO . MUSCULOSKELETAL: ANY NEW PATTERNS OF PAIN OR NUMBNESS? NO . GASTROENTEROLOGY: ANY NEW CHANGE IN BOWEL CONTROL? NO . GENITOURINARY: ANY NEW CHANGE IN BLADDER CONTROL? NO . IS THERE A CHANCE YOU COULD BE ? NO . HEMATOLOGY/LYMPH: DO YOU TAKE ANY BLOOD THINNERS? (FOR EXAMPLE- COUMADIN, PLAVIX, AGGRENOX, PLATEL, PRADAXA, OR XARELTO) NO . WHEN WAS YOUR LAST DOSE? DATE: TIME: . NEUROLOGY: HAVE YOU FALLEN IN THE PAST 12 MONTHS? NO . ANY NEW EXTREMITY NUMBNESS OR WEAKNESS? NO . CARDIOLOGY: DO YOU HAVE A PACEMAKER OR DEFIBRILLATOR? NO . RESPIRATORY: HAVE YOU BEEN SICK IN THE PAST WEEK? NO . FEVER NO . FLU LIKE SYMPTOMS? NO . COUGH NO . INTEGUMENTARY: DO YOU HAVE ANY RASHES OR OPEN SORES? NO . ALLERGIC/IMMUNO: ARE YOU ALLERGIC TO IV DYE? NO . ANY NEW ALLERGIES? NO . PSYCHIATRIC: DO YOU HAVE THOUGHTS OF HURTING YOURSELF OR SOMEONE ELSE? NO . ARE YOU ABUSED, NEGLECTED, OR IN AN UNSAFE ENVIRONMENT? NO . ENDOCRINOLOGY: ARE YOU DIABETIC? YES FSBS THIS A.M. 224 . OTHER: DO YOU NEED ANY PRESCRIPTIONS? NO . IF YES, PLEASE LIST: ____ . ANY NEW PROBLEMS WITH YOUR MEDICATIONS? NO . WHEN DID YOU LAST EAT? ____ . WHEN DID YOU LAST DRINK? ____ . WHAT DID YOU LAST DRINK? ____ . NAME OF PERSON DRIVING YOU HOME? ____ . DO YOU HAVE ANY OTHER QUESTIONS OR CONCERNS NO . VITAL SIGNS WT 206.6 LBS, HT 65 IN, BMI 34.38 INDEX, BP 131/77 MM HG, HR 90 /MIN, RR 16 /MIN, TEMP 97.5 F, OXYGEN SAT % 91%, SAFE IN ENV? (Y/N) Y, NA INITIALS SC 12:38, REVIEWED BY: AD. EXAMINATION GENERAL EXAMINATION: LUNGS:LUNG SOUNDS ARE CLEAR . HEART:HEART RATE REGULAR . MUSCULOSKELETAL:*, TRIGGER POINTS:, ELICITED WITH PALPATION OVER MID THORACIC MUSCLES RIGHT.PAIN IS AGGREVATED WITH USE OF RIGHT ARM. . DIAGNOSTIC:MRI THORACIC [id number]-REVIEWED . ASSESSMENTS PAIN IN THORACIC SPINE - M54.6 TREATMENT PAIN IN THORACIC SPINE NOTES: TPI RIGHT THORACIC. PREVENTIVE MEDICINE PAIN CLINIC TEACHING: PROCEDURE TEACHING REVIEWED TRIGGER POINT INJECTION PROCEDURE INFORMATION WITH PATIENT. ALSO REVIEWED PRE-PROCEDURE INSTRUCTIONS. PATIENT VERBALIZED AN UNDERSTANDING. EMMA SANDY 07/17/2018 1:14:36 PM > . PROCEDURE CODES FA211 ESTABILISHED PATIENT [facility] FACILITY CHARGE DISPOSITION & COMMUNICATION ELECTRONICALLY SIGNED BY EDILMA LAM ON 07/30/2018 AT 02:44 PM EDT DISCLAIMER : THIS IS A VISIT SUMMARY EXTRACTED FROM THE [employer] CHART. IT IS NOT A COPY OF THE [employer] PROGRESS NOTE. ISABELLA
== END ==
LOC: M PAIN 11:45
PROVIDERS: ATTEND Nurse Practitioner Family
DX: M54.6 Pain in thoracic spine (principal); E11.22 Type 2 diabetes mellitus with diabetic chronic kidney disease; I12.9 Hypertensive chronic kidney disease with stage 1 through stage 4 chronic kidney disease, or unspecified chronic kidney disease; N18.3 Chronic kidney disease, stage 3 (moderate); F32.9 Major depressive disorder, single episode, unspecified; E78.5 Hyperlipidemia, unspecified; J43.9 Emphysema, unspecified; G47.33 Obstructive sleep apnea (adult) (pediatric); F17.210 Nicotine dependence, cigarettes, uncomplicated; Z79.82 Long term (current) use of aspirin; Z79.4 Long term (current) use of insulin; Z79.899 Other long term (current) drug therapy; Z86.59 Personal history of other mental and behavioral disorders

== ENCOUNTER → 2018-08-08 | Outpatient (CLI) | payer MEDICARE, MEDICAID ==
[~2018-08-08] MED LIST changes: +BUPIVACAINE HCL 0.25% 10 ML VIAL As Ordered ONE; +BUPIVACAINE HCL 0.25% 30 ML VIAL As Ordered ONE; +TRIAMCINOLONE ACETONIDE SUSP 40 MG/ML VIAL (J3301) As Ordered ONE; +diazePAM 5 MG TAB As Ordered ONE; +oxyCODONE 5MG TAB As Ordered ONE
--- NOTE | 2018-08-18 01:27 | ECWPNPC ---
PATIENT NAME: PABLO HANSEN : 1960 GENDER: FEMALE VISIT DATE: 08/08/2018 DISCHARGE DATE: 08/08/18 1023 VISIT LOCKED DATE TIME: PHYSICIAN: ENRICO VARGAS MD RESOURCE: ENRICO VARGAS MD REASON FOR APPOINTMENT 1. TPI THORACIC HISTORY OF PRESENT ILLNESS HISTORY OF PRESENT ILLNESS: PAIN THE PATIENT DESCRIBES THE PAIN... FALL RISK SCREENING: SCREENING : NO FALLS IN THE PAST YEAR. CURRENT MEDICATIONS TAKING TRAZODONE 150 150MG TABLET 1 TAB(S) ORALLY DAILY, NOTES: 08-08-182099 TAKING ATROVENT 0.06 % SOLUTION 2 DROPS IN EACH NOSTRIL NEEDED NASALLY THREE TIMES A DAY TAKING FREESTYLE TEST STRIPS DX CODE E11.9 STRIP DIRECTED FOUR TIMES A DAY TAKING VITAMIN E 400 UNIT CAPSULE 1 CAPSULE ORALLY ONCE A DAY, NOTES: 08-08-18899 TAKING ASPIRIN 81 MG TABLET DELAYED RELEASE 1 TABLET ORALLY ONCE A DAY, NOTES: 08-07-18899 TAKING LANCETS LANCETS MISCELLANEOUS 1 STRIP _ DX:E11.65 BEFORE MEALS AND AT BEDTIME TAKING SPIRIVA RESPIMAT 2.5 MCG/ACT AEROSOL SOLUTION 2 PUFFS INHALATION ONCE A DAY, NOTES: 08-07-18899 TAKING IPRATROPIUM BROMIDE 0.03 % SOLUTION 2 SPRAYS IN EACH NOSTRIL ORALLY TWICE A DAY, NOTES: 08-07-18899 TAKING VOLTAREN 1 % GEL DIRECTED TRANSDERMAL APPLY TO RIGHT THORACIC TID, NOTES: NOT LATELY TAKING HUMALOG KWIKPEN 100 UNIT/ML SOLUTION PEN-INJECTOR DIRECTED SUBCUTANEOUS SLIDING SCALE 2-3X/DAILY, NOTES: 08-07-182099 TAKING GLUCOSE 4 GM TABLET CHEWABLE DIRECTED ORALLY 4 TABS NEEDED, NOTES: NOT LATELY TAKING SPIRONOLACTONE 25 MG TABLET 1 TABLET ORALLY ONCE DAILY, NOTES: 899 TAKING TORSEMIDE 20 MG TABLET 1 TAB ORALLY DAILY, NOTES: 08-07-18899 TAKING ESCITALOPRAM OXALATE 20 MG TABLET 1 TABLET ORALLY ONCE A DAY, NOTES: 08-07-18899 TAKING CETIRIZINE HCL 10 MG TABLET 1 TABLET ORALLY ONCE A DAY, NOTES: 08-07-18899 TAKING ROBAXIN-750 750 MG TABLET 1/2 TAB ORALLY Q6H PRN, NOTES: 08-07-18899 TAKING LACTULOSE 10 GM/15ML SYRUP 35 ML ORALLY BID, NOTES: 08-07-182099 TAKING RIFAXIMIN 550 MG TABLET 1 TABLET ORALLY TWICE A DAY, NOTES: 08-08-182099 TAKING URSODIOL 300 MG CAPSULE 1 CAP ORALLY THREE TIMES A DAY TAKING CLINDAMYCIN PHOSPHATE 1 % GEL 1 APPLICATION TO AFFECTED AREA EXTERNALLY TWO TIMES A DAY TO LOWER FACE AND NECK MIXED 1:1 WITH OTC HYDROCORTISONE 1% AFTER WASHING, NOTES: 08-08-18899 TAKING TOUJEO SOLOSTAR 300 UNIT/ML SOLUTION PEN-INJECTOR 60 UNITS SUBCUTANEOUS EVERY MORNING, NOTES: 08-07-18899 TAKING BENZOYL PEROXIDE 5 % GEL 1 APPLICATION TO AFFECTED AREA EXTERNALLY ONCE A DAY, NOTES: 08-07-182099 TAKING DICLOFENAC SODIUM 1 % GEL DIRECTED TRANSDERMAL, APPLY TO LOW BACK BILATERALLY FOUR TIMES DAILY NEEDED, NOTES: 08-07-18899 TAKING GABAPENTIN 300 MG CAPSULE 1 ORALLY TID, NOTES: 08-07-182099 TAKING BLOOD GLUCOSE TEST - STRIP 1 STRIP IN VITRO 4 TIMES DAILY DX:E11.65 TAKING BRIEFS OVERNIGHT LARGE - MISCELLANEOUS WEAR 1 UNDERPAD NEEDED VIVIENNE __# [id number]; DX: R15.2, K52.1: WAIST 47 INCHES, HIPS 45 INCHES EVERY 4 HOURS NEEDED, 6 PER DAY TAKING NICODERM CQ 14 MG/24HR PATCH 24 HOUR 1 PATCH TO SKIN TRANSDERMAL ONCE A DAY, NOTES: NONE RECENT TAKING PEN NEEDLES 08/05" 31G X 5 MM PEN NEEDLE USE WITH LANTUS PEN SUBCUTANEOUSLY THREE TIMES A DAY DX; 250 NOT-TAKING TRAZODONE HCL 150 MG TABLET TAKE ONE TABLET BY MOUTH ONCE DAILY UNKNOWN [employer] C[employer] CompanySTYLE SYSTEM DX CODE E11.9 METER DIRECTED DAILY UNKNOWN VENTOLIN HFA 108 (90 BASE) MCG/ACT AEROSOL SOLUTION 2 PUFFS NEEDED INHALATION EVERY 4 HRS MEDICATION LIST REVIEWED AND RECONCILED WITH THE PATIENT PAST MEDICAL HISTORY DMII , EYE EXAM AND FOOT EXAM BOTH DUE IN AUGUST HTN, GOAL < 140/< 90 CKD STAGE III - FOLLOWED BY MAJOR DEPRESSIVE DISORDER TOBACCO ABUSE HX PANCREATITIS HYPERLIPIDEMIA ASCVD RISK 14.0% 07/2016 (10 YEAR RISK) 2NDARY HYPERPARATHYROIDISM DIABETES W/O RETINOPATHY POSSIBLE [facility]; [facility] HX CHOLEDOCHOLYTHIASIS (S/P CHOLECYSTECTOMY) HISTORY OF CRACK COCAINE USE FOR 4 YEARS LAST USE WAS 2009 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 ADEN ELEVATED AMMONIA LEVEL ALLERGIES N.K.D.A. SURGICAL HISTORY HYSTERECTOMY 2007 CHOLECYSTECTOMY LEFT BREAST CYST REMOVAL T 7-9 LAMINECTOMY 12/2014 COLONOSCOPY 12/12/14 FAMILY HISTORY FATHER: ALIVE, DIABETES, HTN MOTHER: ALIVE, DIABETES, HTN SIBLINGS: ALIVE 2 BROTHER(S) , 1 SISTER(S) - HEALTHY. DENIES FAMILY HX OF MELANOMA OR PANCREATIC CANCER. SOCIAL HISTORY GENERAL: TOBACCO USE ARE YOU A:CURRENT SMOKER HOW OFTEN DO YOU SMOKE CIGARETTES?EVERY DAY HOW SOON AFTER YOU WAKE UP DO YOU SMOKE YOUR FIRST CIGARETTE?6-30 MIN HOW MANY CIGARETTES A DAY DO YOU SMOKE?5 OR LESS ARE YOU INTERESTED IN QUITTING?THINKING ABOUT QUITTING STATES SHE HAS PATCHES THAT IS USES AT TIMES ADDITIONAL FINDINGS: TOBACCO USER PT IS CURRENTLY USING PATCH ON AND OFF TRYING TO CUT DOWN ON SMOKING PATIENT COUNSELED ON THE DANGERS OF TOBACCO USE AND URGED TO QUIT:07/17/2018 PT COUNCELED ON THE IMPORTANCE OF QUITTING. SHE IS INTERESTED IN QUITTING AND ALREADY HAS INFORMATION ON IT. COUNSELED THE PATIENT ON SMOKING CESSATION, EDUCATION [id number]/25/2019 PREVIOUS QUIT ATTEMPTS?YES, WITHIN THE LAST 6 MONTHS. LUNG CANCER SCREENING SMOKING STATUS:CURRENT SMOKER BMI CARE GOAL FOLLOW-UP ABOVE NORMAL BMI FOLLOW-UPDIETARY NEEDS EDUCATION ALCOHOL SCREENING DID YOU HAVE A DRINK CONTAINING ALCOHOL IN THE PAST YEAR?NO POINTS0 INTERPRETATIONNEGATIVE RECREATIONAL DRUG USE DRUG USE?NO CAFFEINE CAFFEINE USE?YES SEXUAL HX HAD SEX IN THE LAST 12 MONTHS (VAGINAL, ORAL, OR ANAL)?NO HIV / HEP-C SCREENING HIV TEST OFFERED TO PATIENT:YES DATE OFFERED:06/10/2011 TEST ACCEPTED:NO REASON:PATIENT DECLINED CHRISTIANITY [id number] CHRISTIANITY LANGUAGE PORTUGUESE. EDUCATION LEVEL OF EDUCATION:HIGH SCHOOL LEARNING BARRIERS / SPECIAL NEEDS CHANGE FROM LAST VISIT?NO BARRIERS TO LEARNING?NO HEARING IMPAIRED?NO VISION IMPAIRED?YES COGNITIVELY IMPAIRED?NO :CORRECTIVE LENSES READINESS TO LEARN?YES LEARNING PREFERENCES?NO LEARNING CAPABILITIES PRESENT?YES EMOTIONAL BARRIERS?NO SPECIAL DEVICES?NO CERTIFIED BREASTFEEDING EDUCATOR NEEDED?NO DOMESTIC VIOLENCE DO YOU FEEL SAFE IN YOUR ENVIRONMENT?YES OCCUPATION: UNEMPLOYED. DIET: REGULAR. EXERCISE: NO REGULAR EXERCISE. MARITAL STATUS: .. OTHERS AT HOME: NONE. PAIN CLINIC PFS, CLERGY, PUBLIC HEALTH REFERRALS PFS REFERRAL NEEDED?NO CLERGY REFERRAL NEEDED?NO PUBLIC HEALTH REFERRAL NEEDED?NO WAS THE PROVIDER NOTIFIED OF ANY PERTINENT INFO?YES HAS THE PATIENT BEEN EDUCATED REGARDING HIS/HER PLAN OF CARE?YES HAS THE PATIENT BEEN EDUCATED REGARDING PAIN, THE RISK FOR PAIN, THE IMPORTANCE OF EFFECTIVE PAIN MANAGEMENT, AND THE PAIN ASSESSMENT PROCESS?YES ADVANCE DIRECTIVE ADVANCE DIRECTIVE DISCUSSED WITH PATIENT:YES PT. HAS DNR AND HCP-APRIL MOCK [phone] ASKED TO BRING COPY IN AD UNEMPLOYED, NOT , NO CHILDREN. MOVED TO [place] FROM [place] AT BEGINNING OF 2010. CURRENTLY SMOKES 1/2PPD PRIOR TO HOSPITALIZATION 1 PPD FOR 35 YEARS, NO ETOH OR ILLICITS, 3 CAFFEINATED BEVERAGES A DAY, NO REGULAR EXERCISE10/03/17 1500 INFORMATION REVIEWED WITH PT. ADREVIEWED WITH PT 03/07/18 1338 BV07/17/18 REVIEWED WITH PT. AD. HOSPITALIZATION/MAJOR DIAGNOSTIC PROCEDURE [facility] ACUTE PANCREATITIS SECONDARY TO HYPERTRIGLYCERDEMIA AND UNCONTROLED DMII 02/11- [facility] MRSA CELLULITIS 02/17/2011 [place] E COLI INFECTION [facility] ACUTE PANCREATITIS 03/16- BACK SURGERY 01/06/15-01/10/15 FAINTING SPELLS (HYPERAMMONEMIA) 08/02/16-08/04/16 ELEVATED AMMONIA LEVELS REVIEW OF SYSTEMS REVIEWED BY: PROVIDER: . CONSTITUTIONAL: ANY CHANGE IN YOUR MEDICAL CONDITION? NO . CHILLS NO . FEVER NO . INFECTION: DO YOU HAVE NEW INFECTIONS? NO . DO YOU HAVE HISTORY OF MRSA? NO . MUSCULOSKELETAL: ANY NEW PATTERNS OF PAIN OR NUMBNESS? NO . GASTROENTEROLOGY: ANY NEW CHANGE IN BOWEL CONTROL? NO . GENITOURINARY: ANY NEW CHANGE IN BLADDER CONTROL? NO . IS THERE A CHANCE YOU COULD BE ? NO . HEMATOLOGY/LYMPH: DO YOU TAKE ANY BLOOD THINNERS? (FOR EXAMPLE- COUMADIN, PLAVIX, AGGRENOX, PLATEL, PRADAXA, OR XARELTO) NO . WHEN WAS YOUR LAST DOSE? DATE: TIME: . NEUROLOGY: HAVE YOU FALLEN IN THE PAST 12 MONTHS? NO . ANY NEW EXTREMITY NUMBNESS OR WEAKNESS? NO . CARDIOLOGY: DO YOU HAVE A PACEMAKER OR DEFIBRILLATOR? NO . RESPIRATORY: HAVE YOU BEEN SICK IN THE PAST WEEK? NO . FEVER NO . FLU LIKE SYMPTOMS? NO . COUGH NO . INTEGUMENTARY: DO YOU HAVE ANY RASHES OR OPEN SORES? NO . ALLERGIC/IMMUNO: ARE YOU ALLERGIC TO IV DYE? NO . ANY NEW ALLERGIES? NO . PSYCHIATRIC: DO YOU HAVE THOUGHTS OF HURTING YOURSELF OR SOMEONE ELSE? NO . ARE YOU ABUSED, NEGLECTED, OR IN AN UNSAFE ENVIRONMENT? NO . ENDOCRINOLOGY: ARE YOU DIABETIC? NO . OTHER: DO YOU NEED ANY PRESCRIPTIONS? NO . IF YES, PLEASE LIST: ____ . ANY NEW PROBLEMS WITH YOUR MEDICATIONS? NO . WHEN DID YOU LAST EAT? ____A BOOST YESTYERDAY . WHEN DID YOU LAST DRINK? ____ . WHAT DID YOU LAST DRINK? ____A BOOST YESTERDAY . NAME OF PERSON DRIVING YOU HOME? ____[employer] . DO YOU HAVE ANY OTHER QUESTIONS OR CONCERNS NO . VITAL SIGNS WT 205.2 LBS, HT 65 IN, BMI 34.14 INDEX, BP 140/74 MM HG, HR 92 /MIN, RR 18 /MIN, TEMP 97.6 F, OXYGEN SAT % 95%, NA INITIALS 09:11. ASSESSMENTS MYALGIA, OTHER SITE - M79.18 (PRIMARY) PROCEDURES PN TRIGGER POINT INJECTION WITH STEROIDS PRE PROCEDURE DIAGNOSIS 1. MYALGIA 2. PAIN AT RIGHT THORACIC AREA POST PROCEDURE DIAGNOSIS 1. MYALGIA 2. PAIN AT RIGHT THORACIC AREA PROCEDURE TRIGGER POINT INJECTION AT RIGHT THORACIC AREA SURGEON DR. ENRICO VARGAS CATH LAB TECH NONE ANESTHESIA LOCAL PRE PROCEDURE NOTE THE PATIENT HAS A HISTORY OF CHRONIC PAIN AT THE RIGHT THORACIC AREA. I EVALUATE THE PATIENT AND REVIEWED THE CHART. THERE IS EVIDENCE OF BANDS OF TISSUE WITH RESTRICTION OF MOVEMENT AND PRESENCE OF TRIGGER POINT AT THE AFFECTED AREA. I WENT OVER THE RISKS, ALTERNATIVES, AND BENEFITS ASSOCIATED WITH THIS PROCEDURE. THE PATIENT WOULD LIKE TO PROCEED AND GIVE CONSENT TO PERFORMED THE PROCEDURE. THE PATIENT DENIES UNEXPLAINABLE WEIGHT LOSS, FEVER, CHILLS, OR NEW CHANGES IN URINARY OR BOWEL CONTROL DESCRIPTION OF PROCEDURE THE PATIENT WAS BROUGHT TO THE PROCEDURE ROOM AND PLACED IN THE SITTING POSITION. THE AREA WAS CLEANED WITH ALCOHOL. THE PROCEDURE WAS DONE USING ASEPTIC STERILE TECHNIQUE. I CHECKED LATERALITY AND THE LEVEL WHERE THE PROCEDURE WAS GOING TO BE PERFORMED WITH THE PATIENT AND THE SUPPORTING STAFF AT THE MOMENT OF THE TIME OUT IN THE PROCEDURE ROOM. USING A 25-GAUGE NEEDLE, TRIGGER POINTS WERE INJECTED AT THE RIGHT THORACIC AREA WITH A TOTAL OF 40 ML OF BUPIVACAINE 0.25% AND KENALOG 40 MG. THERE WAS NO EVIDENCE OF BLOOD, PARESTHESIA OR CEREBROSPINAL FLUID DURING THE PROCEDURE. THE PATIENT WAS SENT TO THE RECOVERY ROOM. THE PATIENT WAS MOVING THE EXTREMITIES AND DOING WELL. THERE WAS NO COMPLICATION DURING THE PROCEDURE POST PROCEDURE NOTE THE PATIENT WILL BE SEEN IN A FOLLOW UP IN THE NEXT FEW WEEKS. INSTRUCTIONS WERE GIVEN, QUESTIONS WERE ANSWERED, AND THE PATIENT EXPRESSED UNDERSTANDING AND AGREES WITH THE PLAN. I, GEORGETTE NELSON, DOCUMENTED THE ABOVE INFORMATION ACTING A SCRIBE FOR DR. VARGAS. I HAVE REVIEWED THE ABOVE DOCUMENT, WRITTEN BY GEORGETTE CHUNGIBPoly AND I VERIFY THAT IT IS ACCURATE. PROCEDURE CODES 46233 INJ TRIGGER POINT 05/24 [facility] DISPOSITION & COMMUNICATION FOLLOW UP 3 WEEKS ELECTRONICALLY SIGNED BY ENRICO VARGAS MD, MD ON 08/17/2018 AT 09:26 AM EDT DISCLAIMER : THIS IS A VISIT SUMMARY EXTRACTED FROM THE [employer] CHART. IT IS NOT A COPY OF THE [employer] PROGRESS NOTE. ISABELLA
== END ==
LOC: M PAIN 08:30
PROVIDERS: ATTEND Anesthesiology
DX: M79.18 Myalgia, other site (principal); M54.6 Pain in thoracic spine; E11.22 Type 2 diabetes mellitus with diabetic chronic kidney disease; I12.9 Hypertensive chronic kidney disease with stage 1 through stage 4 chronic kidney disease, or unspecified chronic kidney disease; N18.3 Chronic kidney disease, stage 3 (moderate); F32.9 Major depressive disorder, single episode, unspecified; E78.5 Hyperlipidemia, unspecified; G47.33 Obstructive sleep apnea (adult) (pediatric); K74.69 Other cirrhosis of liver; F17.210 Nicotine dependence, cigarettes, uncomplicated; Z79.82 Long term (current) use of aspirin; Z79.4 Long term (current) use of insulin; Z79.899 Other long term (current) drug therapy; Z86.59 Personal history of other mental and behavioral disorders; Z86.19 Personal history of other infectious and parasitic diseases
CPT/HCPCS: 20552; J3301

== ENCOUNTER → 2018-09-06 | Outpatient (CLI) | payer MEDICARE, MEDICAID ==
[~2018-09-06] MED LIST changes: +ACET-716 PO; -ACET30TAB PO; -ASPI1TAB PO; +ASPI81TA26 PO; -BUPIVACAINE HCL 0.25% 10 ML VIAL As Ordered ONE; -BUPIVACAINE HCL 0.25% 30 ML VIAL As Ordered ONE; +HYDR-3715 PO; +LACT10SO7 PO; -LACT20EL PO; -NORCOTAB PO; +TRIA0.1C60 TOP; -TRIA1CR TOP; -TRIAMCINOLONE ACETONIDE SUSP 40 MG/ML VIAL (J3301) As Ordered ONE; -URSO1TAB6 PO; +URSO500T7 PO; -diazePAM 5 MG TAB As Ordered ONE; -oxyCODONE 5MG TAB As Ordered ONE
--- NOTE | 2018-09-22 01:52 | ECWPNPC ---
PATIENT NAME: PABLO HANSEN : 1960 GENDER: FEMALE VISIT DATE: 09/06/2018 DISCHARGE DATE: 09/06/18 1331 VISIT LOCKED DATE TIME: PHYSICIAN: RISSA MOORE RESOURCE: RISSA MOORE REASON FOR APPOINTMENT 1. POST PROC TPI HISTORY OF PRESENT ILLNESS HISTORY OF PRESENT ILLNESS: HERE FOR POST PROCEDURE F/U.HAD TPI RIGHT THORACIC REGION ON 08/08/18.REPORTING >80 PERCENT REDUCTION IN PAIN THAT CONTINUES TODAY.RATING PAIN VAS 1/10. PAIN THE PATIENT DESCRIBES THE PAIN... FALL RISK SCREENING: SCREENING :NO FALLS REPORTED IN THE LAST YEAR CURRENT MEDICATIONS TAKING TRAZODONE 150 150MG TABLET 1 TAB(S) ORALLY DAILY TAKING ATROVENT 0.06 % SOLUTION 2 DROPS IN EACH NOSTRIL NEEDED NASALLY THREE TIMES A DAY TAKING FREESTYLE TEST STRIPS DX CODE E11.9 STRIP DIRECTED FOUR TIMES A DAY TAKING VITAMIN E 400 UNIT CAPSULE 1 CAPSULE ORALLY ONCE A DAY TAKING ASPIRIN 81 MG TABLET DELAYED RELEASE 1 TABLET ORALLY ONCE A DAY TAKING LANCETS LANCETS MISCELLANEOUS 1 STRIP _ DX:E11.65 BEFORE MEALS AND AT BEDTIME TAKING SPIRIVA RESPIMAT 2.5 MCG/ACT AEROSOL SOLUTION 2 PUFFS INHALATION ONCE A DAY TAKING IPRATROPIUM BROMIDE 0.03 % SOLUTION 2 SPRAYS IN EACH NOSTRIL ORALLY TWICE A DAY TAKING VOLTAREN 1 % GEL DIRECTED TRANSDERMAL APPLY TO RIGHT THORACIC TID TAKING HUMALOG KWIKPEN 100 UNIT/ML SOLUTION PEN-INJECTOR DIRECTED SUBCUTANEOUS SLIDING SCALE 2-3X/DAILY TAKING GLUCOSE 4 GM TABLET CHEWABLE DIRECTED ORALLY 4 TABS NEEDED TAKING SPIRONOLACTONE 25 MG TABLET 1 TABLET ORALLY ONCE DAILY TAKING TORSEMIDE 20 MG TABLET 1 TAB ORALLY DAILY TAKING ESCITALOPRAM OXALATE 20 MG TABLET 1 TABLET ORALLY ONCE A DAY TAKING CETIRIZINE HCL 10 MG TABLET 1 TABLET ORALLY ONCE A DAY TAKING ROBAXIN-750 750 MG TABLET 1/2 TAB ORALLY Q6H PRN TAKING LACTULOSE 10 GM/15ML SYRUP 35 ML ORALLY BID TAKING RIFAXIMIN 550 MG TABLET 1 TABLET ORALLY TWICE A DAY TAKING URSODIOL 300 MG CAPSULE 1 CAP ORALLY THREE TIMES A DAY TAKING BENZOYL PEROXIDE 5 % GEL 1 APPLICATION TO AFFECTED AREA EXTERNALLY ONCE A DAY TAKING DICLOFENAC SODIUM 1 % GEL DIRECTED TRANSDERMAL, APPLY TO LOW BACK BILATERALLY FOUR TIMES DAILY NEEDED TAKING GABAPENTIN 300 MG CAPSULE 1 ORALLY TID TAKING BLOOD GLUCOSE TEST - STRIP 1 STRIP IN VITRO 4 TIMES DAILY DX:E11.65 TAKING NICODERM CQ 14 MG/24HR PATCH 24 HOUR 1 PATCH TO SKIN TRANSDERMAL ONCE A DAY, NOTES: NONE RECENT TAKING PEN NEEDLES 3" 31G X 5 MM PEN NEEDLE USE WITH LANTUS PEN SUBCUTANEOUSLY THREE TIMES A DAY DX; 250 TAKING TOUJEO SOLOSTAR 300 UNIT/ML SOLUTION PEN-INJECTOR 60 U SUBCUTANEOUS EVERY MORNING TAKING CLINDAMYCIN PHOSPHATE 1 % GEL 1 APPLICATION TO AFFECTED AREA EXTERNALLY TWO TIMES A DAY TO LOWER FACE AND NECK MIXED 1:1 WITH OTC HYDROCORTISONE 1% AFTER WASHING TAKING BRIEFS OVERNIGHT LARGE - MISCELLANEOUS WEAR 1 UNDERPAD NEEDED VIVIENNE ___# [id number]; DX: R15.2, K52.1: WAIST 47 INCHES, HIPS 45 INCHES EVERY 4 HOURS NEEDED, 6 PER DAY NOT-TAKING VENTOLIN HFA 108 (90 BASE) MCG/ACT AEROSOL SOLUTION 2 PUFFS NEEDED INHALATION EVERY 4 HRS MEDICATION LIST REVIEWED AND RECONCILED WITH THE PATIENT PAST MEDICAL HISTORY DMII , EYE EXAM AND FOOT EXAM BOTH DUE IN AUGUST HTN, GOAL < 140/< 90 CKD STAGE III - FOLLOWED BY MAJOR DEPRESSIVE DISORDER TOBACCO ABUSE HX PANCREATITIS HYPERLIPIDEMIA ASCVD RISK 14.0% 07/2016 (10 YEAR RISK) 2NDARY HYPERPARATHYROIDISM DIABETES W/O RETINOPATHY POSSIBLE GLAUCOMA; [facility] HX CHOLEDOCHOLYTHIASIS (S/P CHOLECYSTECTOMY) HISTORY OF CRACK COCAINE USE FOR 4 YEARS LAST USE WAS 2009 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 ADEN ELEVATED AMMONIA LEVEL ALLERGIES N.K.D.A. SURGICAL HISTORY HYSTERECTOMY 2007 CHOLECYSTECTOMY LEFT BREAST CYST REMOVAL T 7-9 LAMINECTOMY 12/2014 COLONOSCOPY 12/12/14 FAMILY HISTORY FATHER: ALIVE, DIABETES, HTN MOTHER: ALIVE, DIABETES, HTN SIBLINGS: ALIVE 2 BROTHER(S) , 1 SISTER(S) - HEALTHY. DENIES FAMILY HX OF MELANOMA OR PANCREATIC CANCER. SOCIAL HISTORY GENERAL: TOBACCO USE ARE YOU A:CURRENT SMOKER ARE YOU INTERESTED IN QUITTING?THINKING ABOUT QUITTING STATES SHE HAS PATCHES THAT IS USES AT TIMES PREVIOUS QUIT ATTEMPTS?YES, WITHIN THE LAST 6 MONTHS. COUNSELED THE PATIENT ON SMOKING CESSATION, EDUCATION [id number]/17/2019 HOW MANY CIGARETTES A DAY DO YOU SMOKE?5 OR LESS HOW SOON AFTER YOU WAKE UP DO YOU SMOKE YOUR FIRST CIGARETTE?6-30 MIN HOW OFTEN DO YOU SMOKE CIGARETTES?EVERY DAY PATIENT COUNSELED ON THE DANGERS OF TOBACCO USE AND URGED TO QUIT:08/15/2018 PT COUNCELED ON THE IMPORTANCE OF QUITTING. SHE IS INTERESTED IN QUITTING AND ALREADY HAS INFORMATION ON IT. ADDITIONAL FINDINGS: TOBACCO USER PT IS CURRENTLY USING PATCH ON AND OFF TRYING TO CUT DOWN ON SMOKING LUNG CANCER SCREENING SMOKING STATUS:CURRENT SMOKER BMI CARE GOAL FOLLOW-UP ABOVE NORMAL BMI FOLLOW-UPDIETARY NEEDS EDUCATION ALCOHOL SCREENING DID YOU HAVE A DRINK CONTAINING ALCOHOL IN THE PAST YEAR?NO POINTS0 INTERPRETATIONNEGATIVE RECREATIONAL DRUG USE DRUG USE?NO CAFFEINE CAFFEINE USE?YES SEXUAL HX HAD SEX IN THE LAST 12 MONTHS (VAGINAL, ORAL, OR ANAL)?NO HIV / HEP-C SCREENING HIV TEST OFFERED TO PATIENT:YES DATE OFFERED:06/10/2011 TEST ACCEPTED:NO REASON:PATIENT DECLINED SIKHISM [id number] 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 EDUCATION LEVEL OF EDUCATION:HIGH SCHOOL LEARNING BARRIERS / SPECIAL NEEDS CHANGE FROM LAST VISIT?NO BARRIERS TO LEARNING?NO HEARING IMPAIRED?NO VISION IMPAIRED?YES COGNITIVELY IMPAIRED?NO :CORRECTIVE LENSES READINESS TO LEARN?YES LEARNING PREFERENCES?NO LEARNING CAPABILITIES PRESENT?YES EMOTIONAL BARRIERS?NO SPECIAL DEVICES?NO DESCRIPTIVE CATALOG LIBRARIAN NEEDED?NO DOMESTIC VIOLENCE DO YOU FEEL SAFE IN YOUR ENVIRONMENT?YES OCCUPATION: UNEMPLOYED. DIET: REGULAR. EXERCISE: NO REGULAR EXERCISE. MARITAL STATUS: .. OTHERS AT HOME: NONE. PAIN CLINIC PFS, CLERGY, PUBLIC HEALTH REFERRALS PFS REFERRAL NEEDED?NO CLERGY REFERRAL NEEDED?NO PUBLIC HEALTH REFERRAL NEEDED?NO WAS THE PROVIDER NOTIFIED OF ANY PERTINENT INFO?YES HAS THE PATIENT BEEN EDUCATED REGARDING HIS/HER PLAN OF CARE?YES HAS THE PATIENT BEEN EDUCATED REGARDING PAIN, THE RISK FOR PAIN, THE IMPORTANCE OF EFFECTIVE PAIN MANAGEMENT, AND THE PAIN ASSESSMENT PROCESS?YES ADVANCE DIRECTIVE ADVANCE DIRECTIVE DISCUSSED WITH PATIENT:YES PT. HAS DNR AND HCP-MOTHERAPRIL [phone] ASKED TO BRING COPY IN UNEMPLOYED, NOT , NO CHILDREN. MOVED TO [place] FROM [place] AT BEGINNING OF 2010. CURRENTLY SMOKES 1/2PPD PRIOR TO HOSPITALIZATION 1 PPD FOR 35 YEARS, NO ETOH OR ILLICITS, 3 CAFFEINATED BEVERAGES A DAY, NO REGULAR EXERCISE10/03/17 1500 INFORMATION REVIEWED WITH PT. ADREVIEWED WITH PT 03/07/18 1338 BV07/17/18 REVIEWED WITH PT. AD. HOSPITALIZATION/MAJOR DIAGNOSTIC PROCEDURE [facility] ACUTE PANCREATITIS SECONDARY TO HYPERTRIGLYCERDEMIA AND UNCONTROLED DMII 02/11- [facility] MRSA CELLULITIS 02/17/2011 [place] E COLI INFECTION [facility] ACUTE PANCREATITIS 03/16- BACK SURGERY 01/06/15-01/10/15 FAINTING SPELLS (HYPERAMMONEMIA) 08/02/16-08/04/16 ELEVATED AMMONIA LEVELS REVIEW OF SYSTEMS REVIEWED BY: PROVIDER: RISSA FRANCE . CONSTITUTIONAL: ANY CHANGE IN YOUR MEDICAL CONDITION? NO . CHILLS NO . FEVER NO . INFECTION: DO YOU HAVE NEW INFECTIONS? NO . DO YOU HAVE HISTORY OF MRSA? NO . MUSCULOSKELETAL: ANY NEW PATTERNS OF PAIN OR NUMBNESS? NO . GASTROENTEROLOGY: ANY NEW CHANGE IN BOWEL CONTROL? NO . GENITOURINARY: ANY NEW CHANGE IN BLADDER CONTROL? NO . IS THERE A CHANCE YOU COULD BE ? NO . HEMATOLOGY/LYMPH: DO YOU TAKE ANY BLOOD THINNERS? (FOR EXAMPLE- COUMADIN, PLAVIX, AGGRENOX, PLATEL, PRADAXA, OR XARELTO) NO . WHEN WAS YOUR LAST DOSE? DATE: TIME: . NEUROLOGY: HAVE YOU FALLEN IN THE PAST 12 MONTHS? YES, FELL 2 DAYS AGO GETTING ON THE BUS FROM LOSS OF BALANCE, PT DENIES INJURIES . ANY NEW EXTREMITY NUMBNESS OR WEAKNESS? NO . CARDIOLOGY: DO YOU HAVE A PACEMAKER OR DEFIBRILLATOR? NO . RESPIRATORY: HAVE YOU BEEN SICK IN THE PAST WEEK? NO . FEVER NO . FLU LIKE SYMPTOMS? NO . COUGH NO . INTEGUMENTARY: DO YOU HAVE ANY RASHES OR OPEN SORES? NO . ALLERGIC/IMMUNO: ARE YOU ALLERGIC TO IV DYE? NO . ANY NEW ALLERGIES? NO . PSYCHIATRIC: DO YOU HAVE THOUGHTS OF HURTING YOURSELF OR SOMEONE ELSE? NO . ARE YOU ABUSED, NEGLECTED, OR IN AN UNSAFE ENVIRONMENT? NO . ENDOCRINOLOGY: ARE YOU DIABETIC? YES . OTHER: DO YOU NEED ANY PRESCRIPTIONS? NO . IF YES, PLEASE LIST: ____ . ANY NEW PROBLEMS WITH YOUR MEDICATIONS? NO . WHEN DID YOU LAST EAT? ____ . WHEN DID YOU LAST DRINK? ____ . WHAT DID YOU LAST DRINK? ____ . NAME OF PERSON DRIVING YOU HOME? ____ . DO YOU HAVE ANY OTHER QUESTIONS OR CONCERNS NO . VITAL SIGNS WT 209.2 LBS, HT 65 IN, BMI 34.81 INDEX, BP 120/72 MM HG, HR 95 /MIN, RR 18 /MIN, TEMP 97.7 F, OXYGEN SAT % 93%, NA INITIALS AW 1307, REVIEWED BY: NARENDRA. EXAMINATION GENERAL EXAMINATION: GENERAL APPEARANCE:AWAKE,ALERT ,PLEAASANT . PSYCHAFFECT NORMAL . LUNGS:LUNG ESPINAL ARE CLEAR TO AUSCULTATION BILATERALLY. GOOD MOVEMENT OF AIR . HEART:S1, S2 IN A REGULAR RATE AND RHYTHM. NO SIGNIFICANT MURMURS, RUBS OR GALLOPS NOTED . ASSESSMENTS PAIN IN THORACIC SPINE - M54.6 (PRIMARY) TREATMENT PAIN IN THORACIC SPINE CONTINUE ROBAXIN-750 TABLET, 750 MG, 1/2 TAB, ORALLY, Q6H PRN CONTINUE GABAPENTIN CAPSULE, 300 MG, 1, ORALLY, TID PROCEDURE CODES FA211 ESTABILISHED PATIENT [facility] CHARGE DISPOSITION & COMMUNICATION FOLLOW UP 2 MONTHS ELECTRONICALLY SIGNED BY EDILMA LAM ON 09/21/2018 AT 04:22 PM EDT DISCLAIMER : THIS IS A VISIT SUMMARY EXTRACTED FROM THE [employer] CHART. IT IS NOT A COPY OF THE [employer] PROGRESS NOTE. MTDD
== END ==
LOC: M PAIN 13:00
PROVIDERS: ATTEND Nurse Practitioner Family
DX: M54.6 Pain in thoracic spine (principal); E11.9 Type 2 diabetes mellitus without complications; I12.9 Hypertensive chronic kidney disease with stage 1 through stage 4 chronic kidney disease, or unspecified chronic kidney disease; N18.3 Chronic kidney disease, stage 3 (moderate); Z86.59 Personal history of other mental and behavioral disorders; E78.5 Hyperlipidemia, unspecified; G47.33 Obstructive sleep apnea (adult) (pediatric); F17.210 Nicotine dependence, cigarettes, uncomplicated; Z86.14 Personal history of Methicillin resistant Staphylococcus aureus infection; Z79.82 Long term (current) use of aspirin; Z79.4 Long term (current) use of insulin; Z79.899 Other long term (current) drug therapy

== ENCOUNTER → 2018-09-14 | Outpatient (CLI) | payer MEDICARE, MEDICAID ==
--- NOTE | 2018-09-14 10:13 | REP ---
Bilateral lower extremity Duplex Doppler venous ultrasound: Real time compression and duplex Doppler interrogation of the bilateral lower extremity deep venous system is performed. Bilaterally, the common femoral, superficial femoral and popliteal veins are fully compressible with transducer pressure and demonstrate normal spontaneous and phasic flow, without evidence of deep venous thrombosis. Impression: No evidence of deep venous thrombosis of the bilateral lower extremity femoral popliteal venous system. Electronically Signed by Cy Henderson MD 09/14/2018 10:05 A
--- NOTE | 2018-09-14 10:25 | REP ---
ULTRASOUND ABDOMEN: Real-time sonographic of the abdomen performed. Gallbladder has been surgically removed. There is no intrahepatic or extrahepatic biliary dilatation, common bile duct measuring 5 mm. The liver demonstrates heterogeneous echotexture with somewhat irregular borders compatible with cirrhosis. No liver mass is seen. The pancreas is grossly unremarkable, tail is not well seen due to overlying bowel gas. Spleen is mildly enlarged measuring 11.5 x 4.4 x 11.1 cm, splenic index 561. No intrinsic abnormalities are seen. Kidneys are normal in size and echotexture, right kidney measuring 9.7 x 4.2 x 4.6 cm and left kidney 10.6 x 5.2 x 5.3 cm. There is no renal mass or hydronephrosis. Abdominal aorta is normal in caliber with no aneurysm, proximally measuring 1.9 cm and distally 1.7 cm in an AP dimension. There is no significant ascites. IMPRESSION: Status post cholecystectomy. Findings compatible with cirrhosis of the liver with no sonographic evidence of liver mass. Mild splenomegaly. No ascites. Electronically Signed by Cy Henderson MD 09/14/2018 11:12 A
== END ==
LOC: M RAD 09:04
PROVIDERS: ATTEND Internal Medicine Gastroenterology
DX: R22.42 Localized swelling, mass and lump, left lower limb (principal); K74.60 Unspecified cirrhosis of liver; R16.1 Splenomegaly, not elsewhere classified; Z90.49 Acquired absence of other specified parts of digestive tract; Z86.79 Personal history of other diseases of the circulatory system; R93.2 Abnormal findings on diagnostic imaging of liver and biliary tract

== ENCOUNTER → 2018-09-25 | Outpatient (REF) | payer MEDICARE, MEDICAID ==
[2018-09-25 16:29] LABS: HEMOGLOBIN A1c 11.6 %
[2018-09-25 16:30] LABS: CHOLESTEROL RISK RATIO 2.843 (<5)
== END ==
LOC: M SFHCPLAZ 14:32
PROVIDERS: ATTEND Family Medicine
DX: E11.65 Type 2 diabetes mellitus with hyperglycemia (principal); E78.2 Mixed hyperlipidemia

== ENCOUNTER 2018-10-04 11:58 | Emergency (ER) | payer MEDICARE, MEDICAID ==
[~2018-10-04] VITALS: Ht 167.6 cm; Wt 96.0 kg
[2018-10-04 12:58] LABS: BASO % 0.7 % (0.0-1.0); EOS % 0.5 % (0.0-3.0); HEMATOCRIT 44.3 % (36.0-47.0); HEMOGLOBIN 14.5 g/dl (12.0-15.5); LYMPH # 1.3 10^3/uL (1.5-4.5); LYMPH % 22.9 % (24.0-44.0); MEAN CORPUSCULAR HEMOGLOBIN 33.3 pg (27.0-33.0); MEAN CORPUSCULAR HGB CONC 32.7 g/dl (32.0-36.5); MEAN CORPUSCULAR VOLUME 101.6 fl (80.0-96.0); MONO # 0.7 10^3/uL (0.0-0.8); MONO % 12.7 % (0.0-5.0); NEUTROPHILS # 3.6 10^3/uL (1.8-7.7); PLATELET COUNT, AUTOMATED 112 10^3/uL (150-450); RED BLOOD COUNT 4.36 10^6/uL (4.00-5.40); WHITE BLOOD COUNT 5.7 10^3/uL (4.0-10.0)
[2018-10-04 13:10] LABS: BLOOD UREA NITROGEN 23 MG/DL (7-18); CALCIUM LEVEL 9.5 MG/DL (8.5-10.1); CARBON DIOXIDE LEVEL 30 MEQ/L (21-32); CHLORIDE LEVEL 105 MEQ/L (98-107); CPK CREATINE PHOSPHOKINASE 183 U/L (26-192); CREATININE FOR GFR 1.56 MG/DL (0.55-1.30); GLOMERULAR FILTRATION RATE 44.1 (>51); GLUCOSE, FASTING 169 MG/DL (70-100); MB/CK RELATIVE INDEX 2.19 (< OR =4); POTASSIUM SERUM 4.4 MEQ/L (3.5-5.1); SODIUM LEVEL 139 MEQ/L (136-145); TROPONIN I < 0.02 NG/ML (< 0.10)
--- NOTE | 2018-10-04 13:44 | ECGEPIP ---
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
[2018-10-04 13:46] LABS: ALBUMIN 3.4 GM/DL (3.2-5.2); ALT/SGPT 45 U/L (12-78); BILIRUBIN,DIRECT 0.4 MG/DL (0.0-0.2); BILIRUBIN,TOTAL 0.9 MG/DL (0.2-1.0); NT-PRO BNP 38 PG/ML (<125); TOTAL PROTEIN 7.8 GM/DL (6.4-8.2)
--- NOTE | 2018-10-04 14:27 | REP ---
Portable chest x-ray: Single view. History: Altered mental status. Comparison chest x-ray: May 29, 2018. Findings: EKG monitoring electrodes overlie the chest. There is a granulomatous calcification in the right base. Slight fissural thickening is seen. No infiltrate or sarita pleural effusion is seen. Heart is not enlarged. Pulmonary vasculature is not increased. Impression: No acute disease. Electronically Signed by Maged Kay MD 10/04/2018 04:31 P
[2018-10-04] MEDS ORDERED: NS 1,000 ML IV ONE (14:30)
[2018-10-04 15:27] LABS: AMPHETAMINES LEVEL URINE NEGATIVE (NEGATIVE); BARBITURATES URINE NEGATIVE (NEGATIVE); BENZODIAZEPINES URINE NEGATIVE (NEGATIVE); CANNABINOIDS URINE NEGATIVE (NEGATIVE); COCAINE METABOLITE URINE NEGATIVE (NEGATIVE); METHADONE URINE NEGATIVE (NEGATIVE); OPIATES URINE NEGATIVE (NEGATIVE); PHENCYCLIDINE URINE NEGATIVE (NEGATIVE)
[2018-10-04 16:10] VITALS: BP 135/93
== END 2018-10-04 16:12 | disposition home or self-care (01) ==
LOC: M ED 11:58 → EDBD 11:58 → M ED 16:12
DX: E86.0 Dehydration (principal); I95.1 Orthostatic hypotension; E11.9 Type 2 diabetes mellitus without complications; I10 Essential (primary) hypertension; G47.30 Sleep apnea, unspecified; N18.3 Chronic kidney disease, stage 3 (moderate); H40.9 Unspecified glaucoma; K74.60 Unspecified cirrhosis of liver; E78.5 Hyperlipidemia, unspecified; K75.4 Autoimmune hepatitis; Z72.0 Tobacco use; Z79.82 Long term (current) use of aspirin; Z79.4 Long term (current) use of insulin; Z79.899 Other long term (current) drug therapy

== ENCOUNTER → 2018-10-24 | Outpatient (CLI) | payer MEDICARE, MEDICAID ==
--- NOTE | 2018-11-09 01:31 | ECWPNPC ---
PATIENT NAME: PABLO HANSEN : 1960 GENDER: FEMALE VISIT DATE: 10/24/2018 DISCHARGE DATE: 10/24/18 1523 VISIT LOCKED DATE TIME: PHYSICIAN: RISSA MOORE RESOURCE: RISSA MOORE REASON FOR APPOINTMENT 1. BACK HISTORY OF PRESENT ILLNESS HISTORY OF PRESENT ILLNESS: HERE F/U OF CHRONIC RIGHT THORACIC PAIN.RATING PAIN VAS 5/1O.PAIN HAS ESCALATED OVER THE PAST 2 WEEKS.FINDS MEDICATION FOR CHRONIC PAIN MINIMALLY EFFECTIVE LASTELY AND IS DESCRIBING DISRUPTION IN SLEEP DUE TO UNCONTROLLED CHRONIC PAIN.CURRENTLY USING ROBAXIN 750MG TID AND GABAPENTIN TID.DESCRIBES PAIN CONTINUOUS ACHING AND TENDER.DISCUSSED TREATMENT OPTIONS. PAIN THE PATIENT DESCRIBES THE PAIN... THE PATIENT DESCRIBES THE PAIN... THE PATIENT DESCRIBES THE PAIN... THE PATIENT DESCRIBES THE PAIN... FALL RISK SCREENING: SCREENING :NO FALLS REPORTED IN THE LAST YEAR CURRENT MEDICATIONS TAKING TRAZODONE 150 150MG TABLET 1 TAB(S) ORALLY DAILY TAKING ATROVENT 0.06 % SOLUTION 2 DROPS IN EACH NOSTRIL NEEDED NASALLY THREE TIMES A DAY TAKING FREESTYLE TEST STRIPS DX CODE E11.9 STRIP DIRECTED FOUR TIMES A DAY TAKING VITAMIN E 400 UNIT CAPSULE 1 CAPSULE ORALLY ONCE A DAY TAKING ASPIRIN 81 MG TABLET DELAYED RELEASE 1 TABLET ORALLY ONCE A DAY TAKING LANCETS LANCETS MISCELLANEOUS 1 STRIP _ DX:E11.65 BEFORE MEALS AND AT BEDTIME TAKING SPIRIVA RESPIMAT 2.5 MCG/ACT AEROSOL SOLUTION 2 PUFFS INHALATION ONCE A DAY TAKING IPRATROPIUM BROMIDE 0.03 % SOLUTION 2 SPRAYS IN EACH NOSTRIL ORALLY TWICE A DAY TAKING VOLTAREN 1 % GEL DIRECTED TRANSDERMAL APPLY TO RIGHT THORACIC TID TAKING GLUCOSE 4 GM TABLET CHEWABLE DIRECTED ORALLY 4 TABS NEEDED TAKING SPIRONOLACTONE 25 MG TABLET 1 TABLET ORALLY ONCE DAILY TAKING TORSEMIDE 20 MG TABLET 1 TAB ORALLY DAILY TAKING ESCITALOPRAM OXALATE 20 MG TABLET 1 TABLET ORALLY ONCE A DAY TAKING CETIRIZINE HCL 10 MG TABLET 1 TABLET ORALLY ONCE A DAY TAKING LACTULOSE 10 GM/15ML SYRUP 35 ML ORALLY BID TAKING RIFAXIMIN 550 MG TABLET 1 TABLET ORALLY TWICE A DAY TAKING BENZOYL PEROXIDE 5 % GEL 1 APPLICATION TO AFFECTED AREA EXTERNALLY ONCE A DAY TAKING DICLOFENAC SODIUM 1 % GEL DIRECTED TRANSDERMAL, APPLY TO LOW BACK BILATERALLY FOUR TIMES DAILY NEEDED TAKING BLOOD GLUCOSE TEST - STRIP 1 STRIP IN VITRO 4 TIMES DAILY DX:E11.65 TAKING NICODERM CQ 14 MG/24HR PATCH 24 HOUR 1 PATCH TO SKIN TRANSDERMAL ONCE A DAY, NOTES: NONE RECENT TAKING PEN NEEDLES 3" 31G X 5 MM PEN NEEDLE USE WITH LANTUS PEN SUBCUTANEOUSLY THREE TIMES A DAY DX; 250 TAKING CLINDAMYCIN PHOSPHATE 1 % GEL 1 APPLICATION TO AFFECTED AREA EXTERNALLY TWO TIMES A DAY TO LOWER FACE AND NECK MIXED 1:1 WITH OTC HYDROCORTISONE 1% AFTER WASHING TAKING ROBAXIN-750 750 MG TABLET 1/2 TAB ORALLY Q6H PRN TAKING TOUJEO SOLOSTAR 300 UNIT/ML SOLUTION PEN-INJECTOR 70 U EVERY MORNING SUBCUTANEOUS 38 TAKING HUMALOG KWIKPEN 100 UNIT/ML SOLUTION PEN-INJECTOR DIRECTED DAILY SUBCUTANEOUS 30 DAY(S) TAKING DRISDOL 74066 UNIT CAPSULE 1 CAPSULE ORALLY WEEKLY TAKING COMPRESSION STOCKINGS 15-20 MMHG 1 PAIR OF STOCKING VIVIENNE __#[id number], DX: R60.9 DAILY TAKING GABAPENTIN 400 MG CAPSULE 1 CAPSULE ORALLY THREE TIMES DAILY TAKING BRIEFS OVERNIGHT LARGE - MISCELLANEOUS WEAR 1 UNDERPAD NEEDED VIVIENNE # [id number]; DX: R15.2, K52.1: WAIST 47 INCHES, HIPS 45 INCHES EVERY 4 HOURS NEEDED, 6 PER DAY NOT-TAKING URSODIOL 300 MG CAPSULE 1 CAP ORALLY THREE TIMES A DAY NOT-TAKING VENTOLIN HFA 108 (90 BASE) MCG/ACT AEROSOL SOLUTION 2 PUFFS NEEDED INHALATION EVERY 4 HRS MEDICATION LIST REVIEWED AND RECONCILED WITH THE PATIENT PAST MEDICAL HISTORY DMII , EYE EXAM AND FOOT EXAM BOTH DUE IN AUGUST HTN, GOAL < 140/< 90 CKD STAGE III - FOLLOWED BY MAJOR DEPRESSIVE DISORDER TOBACCO ABUSE HX PANCREATITIS HYPERLIPIDEMIA ASCVD RISK 14.0% 07/2016 (10 YEAR RISK) 2NDARY HYPERPARATHYROIDISM DIABETES W/O RETINOPATHY POSSIBLE GLAUCOMA; [facility] HX CHOLEDOCHOLYTHIASIS (S/P CHOLECYSTECTOMY) HISTORY OF CRACK COCAINE USE FOR 4 YEARS LAST USE WAS 2009 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 ADEN ELEVATED AMMONIA LEVEL ALLERGIES N.K.D.A. SURGICAL HISTORY HYSTERECTOMY 2007 CHOLECYSTECTOMY LEFT BREAST CYST REMOVAL T 7-9 LAMINECTOMY 12/2014 COLONOSCOPY 12/12/14 FAMILY HISTORY FATHER: ALIVE, DIABETES, HTN MOTHER: ALIVE, DIABETES, HTN SIBLINGS: ALIVE 2 BROTHER(S) , 1 SISTER(S) - HEALTHY. DENIES FAMILY HX OF MELANOMA OR PANCREATIC CANCER. SOCIAL HISTORY GENERAL: TOBACCO USE ARE YOU A:CURRENT SMOKER ARE YOU INTERESTED IN QUITTING?THINKING ABOUT QUITTING STATES SHE HAS PATCHES THAT IS USES AT TIMES PREVIOUS QUIT ATTEMPTS?YES, WITHIN THE LAST 6 MONTHS. COUNSELED THE PATIENT ON SMOKING CESSATION, EDUCATION [id number]/04/2019 HOW MANY CIGARETTES A DAY DO YOU SMOKE?5 OR LESS HOW SOON AFTER YOU WAKE UP DO YOU SMOKE YOUR FIRST CIGARETTE?6-30 MIN HOW OFTEN DO YOU SMOKE CIGARETTES?EVERY DAY PATIENT COUNSELED ON THE DANGERS OF TOBACCO USE AND URGED TO QUIT:08/15/2018 PT COUNCELED ON THE IMPORTANCE OF QUITTING. SHE IS INTERESTED IN QUITTING AND ALREADY HAS INFORMATION ON IT. ADDITIONAL FINDINGS: TOBACCO USER PT IS CURRENTLY USING PATCH ON AND OFF TRYING TO CUT DOWN ON SMOKING HIV / HEP-C SCREENING HIV TEST OFFERED TO PATIENT:YES DATE OFFERED:06/10/2011 TEST ACCEPTED:NO REASON:PATIENT DECLINED OTHERS AT HOME: NONE. EDUCATION LEVEL OF EDUCATION:HIGH SCHOOL DIET: REGULAR. LANGUAGE LAO. DOMESTIC VIOLENCE DO YOU FEEL SAFE IN YOUR ENVIRONMENT?YES BMI CARE GOAL FOLLOW-UP ABOVE NORMAL BMI FOLLOW-UPDIETARY NEEDS EDUCATION RECREATIONAL DRUG USE DRUG USE?NO EXERCISE: NO REGULAR EXERCISE. LEARNING BARRIERS / SPECIAL NEEDS CHANGE FROM LAST VISIT?NO BARRIERS TO LEARNING?NO HEARING IMPAIRED?NO VISION IMPAIRED?YES COGNITIVELY IMPAIRED?NO :CORRECTIVE LENSES READINESS TO LEARN?YES LEARNING PREFERENCES?NO LEARNING CAPABILITIES PRESENT?YES EMOTIONAL BARRIERS?NO SPECIAL DEVICES?NO LINING STITCHER NEEDED?NO LUNG CANCER SCREENING SMOKING STATUS:CURRENT SMOKER PAIN CLINIC PFS, CLERGY, PUBLIC HEALTH REFERRALS PFS REFERRAL NEEDED?NO CLERGY REFERRAL NEEDED?NO PUBLIC HEALTH REFERRAL NEEDED?NO WAS THE PROVIDER NOTIFIED OF ANY PERTINENT INFO?YES HAS THE PATIENT BEEN EDUCATED REGARDING HIS/HER PLAN OF CARE?YES HAS THE PATIENT BEEN EDUCATED REGARDING PAIN, THE RISK FOR PAIN, THE IMPORTANCE OF EFFECTIVE PAIN MANAGEMENT, AND THE PAIN ASSESSMENT PROCESS?YES CAFFEINE CAFFEINE USE?YES ADVANCE DIRECTIVE ADVANCE DIRECTIVE DISCUSSED WITH PATIENT:YES PT. HAS DNR AND HCP-APRIL MOCK [phone] ASKED TO BRING COPY IN [employer] [id number] YARSANI MARITAL STATUS: .. ALCOHOL SCREENING DID YOU HAVE A DRINK CONTAINING ALCOHOL IN THE PAST YEAR?NO POINTS0 INTERPRETATIONNEGATIVE OCCUPATION: UNEMPLOYED. SEXUAL HX HAD SEX IN THE LAST 12 MONTHS (VAGINAL, ORAL, OR ANAL)?NO UNEMPLOYED, NOT , NO CHILDREN. MOVED TO [place] FROM [place] AT BEGINNING OF 2010. CURRENTLY SMOKES 1/2PPD PRIOR TO HOSPITALIZATION 1 PPD FOR 35 YEARS, NO ETOH OR ILLICITS, 3 CAFFEINATED BEVERAGES A DAY, NO REGULAR EXERCISE10/03/17 1500 INFORMATION REVIEWED WITH PT. ADREVIEWED WITH PT 03/07/18 1338 BV07/17/18 REVIEWED WITH PT. AD. HOSPITALIZATION/MAJOR DIAGNOSTIC PROCEDURE [facility] ACUTE PANCREATITIS SECONDARY TO HYPERTRIGLYCERDEMIA AND UNCONTROLED DMII 02/11- [facility] MRSA CELLULITIS 02/17/2011 [place] E COLI INFECTION [facility] ACUTE PANCREATITIS 03/16- BACK SURGERY 01/06/15-01/10/15 FAINTING SPELLS (HYPERAMMONEMIA) 08/02/16-08/04/16 ELEVATED AMMONIA LEVELS REVIEW OF SYSTEMS REVIEWED BY: PROVIDER: RISSA FRANCE . CONSTITUTIONAL: ANY CHANGE IN YOUR MEDICAL CONDITION? NO . CHILLS NO . FEVER NO . INFECTION: DO YOU HAVE NEW INFECTIONS? NO . DO YOU HAVE HISTORY OF MRSA? YES . MUSCULOSKELETAL: ANY NEW PATTERNS OF PAIN OR NUMBNESS? NO . GASTROENTEROLOGY: ANY NEW CHANGE IN BOWEL CONTROL? NO . GENITOURINARY: ANY NEW CHANGE IN BLADDER CONTROL? NO . IS THERE A CHANCE YOU COULD BE ? NO . HEMATOLOGY/LYMPH: DO YOU TAKE ANY BLOOD THINNERS? (FOR EXAMPLE- COUMADIN, PLAVIX, AGGRENOX, PLATEL, PRADAXA, OR XARELTO) NO . WHEN WAS YOUR LAST DOSE? DATE: TIME: . NEUROLOGY: HAVE YOU FALLEN IN THE PAST 12 MONTHS? YES, FELL LAST MONTH FROM WEAKNESS . ANY NEW EXTREMITY NUMBNESS OR WEAKNESS? YES, L>R LEG NUMBNESS TINGLING BURNING PAIN . CARDIOLOGY: DO YOU HAVE A PACEMAKER OR DEFIBRILLATOR? NO . RESPIRATORY: HAVE YOU BEEN SICK IN THE PAST WEEK? NO . FEVER NO . FLU LIKE SYMPTOMS? NO . COUGH NO . INTEGUMENTARY: DO YOU HAVE ANY RASHES OR OPEN SORES? NO . ALLERGIC/IMMUNO: ARE YOU ALLERGIC TO IV DYE? NO . ANY NEW ALLERGIES? NO . PSYCHIATRIC: DO YOU HAVE THOUGHTS OF HURTING YOURSELF OR SOMEONE ELSE? NO . ARE YOU ABUSED, NEGLECTED, OR IN AN UNSAFE ENVIRONMENT? NO . ENDOCRINOLOGY: ARE YOU DIABETIC? YES . OTHER: DO YOU NEED ANY PRESCRIPTIONS? NO . IF YES, PLEASE LIST: ____ . ANY NEW PROBLEMS WITH YOUR MEDICATIONS? NO . WHEN DID YOU LAST EAT? ____ . WHEN DID YOU LAST DRINK? ____ . WHAT DID YOU LAST DRINK? ____ . NAME OF PERSON DRIVING YOU HOME? ____ . DO YOU HAVE ANY OTHER QUESTIONS OR CONCERNS NO . VITAL SIGNS WT 207.6 LBS, HT 65 IN, BMI 34.54 INDEX, BP 102/56 MM HG, HR 102 /MIN, RR 18 /MIN, TEMP 97.4 F, OXYGEN SAT % 96%, NA INITIALS SC 14:29, REVIEWED BY: NARENDRA. EXAMINATION GENERAL EXAMINATION: LUNGS:LUNG SOUNDS ARE CLEAR . HEART:HEART RATE REGULAR . MUSCULOSKELETAL:*, TRIGGER POINTS:, ELICITED WITH PALPATION OVER MID THORACIC MUSCLES RIGHT.PAIN IS AGGREVATED WITH USE OF RIGHT ARM. . DIAGNOSTIC:MRI THORACIC [id number]-REVIEWED . ASSESSMENTS MYALGIA, OTHER SITE - M79.18 (PRIMARY) PAIN IN THORACIC SPINE - M54.6 TREATMENT MYALGIA, OTHER SITE START OXYCODONE HCL TABLET, 5 MG, 1 TABLET NEEDED, ORALLY, Q8H PRN MDD3, 30 DAY(S), 30, REFILLS 0 NOTES: TPI RIGHT THORACIC SPINEISTOP REGISTRY REVIEWED AND DEMONSTRATES COMPLLIANCE. RISKS AND BENEFITS OF NARCOTIC/OPIOD MEDICATIONS WERE REVIEWED WITH PATIENT - THIS INCLUDES BUT IS NOT LIMITED TO RISK OF DEPENDANCE/DEVELOPMENT OF ADDICTION, MOOD DISTURBANCE AND DEPRESSION, OSTEOPOROSIS, HORMONAL AND LABIDAL CHANGES, RESPIRATORY DEPRESSION AND . PATIENT IS ADVISED NOT TO DRIVE OR DRINK ALCOHOL WHILE ON THESE MEDICATIONS, , [facility] NARCOTIC AGREEMENT WAS REVIEWED AND SIGNED TODAY BY THE PATIENT. SEE ATTACHED DOCUMENT FOR FULL DETAILS; SPECIFIC ISSUES WERE REVIEWED: 1) KEEP PAIN MEDS IN THEIR ORIGINAL BOTTLES AND ANY WEEKLY PLANNERS ARE TO BE BROUGHT TO THE PAIN CENTER AT EVERY VISIT. 2) THE PATIENT IS NOT TO INCREASE DOSING OR TIMING OF THEIR PAIN MEDICATION WITHOUT SPECIFIC DIRECTION OF THEIR PAIN CENTERPROVIDER (NOT ER OR OTHER PROVIDERS). 3) ALL PAIN MEDS ARE TO BE KEPT SECURED, IN A LOCKED BOX. 4) NO PAIN MEDS ARE TO BE SHARED WITH ANY OTHER PERSON FOR ANY REASON. 5) NO PAIN MEDS MAY BE TAKEN FROM ANY FRIENDS OR RELATIVES FOR ANY REASON 6) NO MEDS OR SUBSTANCES WHICH ARE NOT LEGAL ARE TO BE USED- NO MARIJUANA, NO COCAINE, AMPHETAMINES, HEROIN, OR OTHERS ARE EVER TO BE USED. 7)URINE TESTING IS DONE TO ACCOUNT FOR MEDS AND SUBSTANCES BEING TAKEN AND WILL BE DONE RANDOMLY. PROCEDURE CODES FA211 ESTABILISHED PATIENT [facility] CHARGE DISPOSITION & COMMUNICATION FOLLOW UP POST ELECTRONICALLY SIGNED BY EDILMA LAM ON 11/07/2018 AT 01:36 PM EDT DISCLAIMER : THIS IS A VISIT SUMMARY EXTRACTED FROM THE [employer] CHART. IT IS NOT A COPY OF THE [employer] PROGRESS NOTE. ISABELLA
== END ==
LOC: M PAIN 14:15
PROVIDERS: ATTEND Nurse Practitioner Family
DX: M79.18 Myalgia, other site (principal); M54.6 Pain in thoracic spine; E11.9 Type 2 diabetes mellitus without complications; I10 Essential (primary) hypertension; N18.9 Chronic kidney disease, unspecified; Z79.4 Long term (current) use of insulin; Z79.82 Long term (current) use of aspirin; Z79.899 Other long term (current) drug therapy; F17.210 Nicotine dependence, cigarettes, uncomplicated

== ENCOUNTER 2018-11-08 09:44 | Day surgery (SDC) | payer MEDICARE, MEDICAID ==
[~2018-11-08] VITALS: Ht 165.1 cm; Wt 93.3 kg
[~2018-11-08 09:44] MED LIST changes: +LIDOCAINE 1% MDV 20ML VIAL SQ PRN
[2018-11-08 10:09] LABS: HEMATOCRIT 39.8 % (36.0-47.0); HEMOGLOBIN 13.6 g/dl (12.0-15.5); MEAN CORPUSCULAR HEMOGLOBIN 33.1 pg (27.0-33.0); MEAN CORPUSCULAR HGB CONC 34.2 g/dl (32.0-36.5); MEAN CORPUSCULAR VOLUME 96.8 fl (80.0-96.0); PLATELET COUNT, AUTOMATED 187 10^3/uL (150-450); RED BLOOD COUNT 4.11 10^6/uL (4.00-5.40)
[2018-11-08] MEDS ORDERED: LR 1,000 ML IV ONE (10:45)
[2018-11-08] MEDS ORDERED: dexameTHASONE 4 MG/ML 1ML VIAL (J1100) As Ordered ONE (11:42)
[2018-11-08] MEDS ORDERED: KETOROLAC 60 MG/2 ML VIAL (J1885) As Ordered ONE (11:42)
[2018-11-08] MEDS ORDERED: ACETAMINOPHEN 1000MG 100ML IV BTL (OFIRMEV) (J0131 PER 10MG) As Ordered ONE (11:42)
[2018-11-08] MEDS ORDERED: PROPOFOL 200 MG/20 ML VIAL As Ordered ONE ×2 (11:42→13:19)
[2018-11-08] MEDS ORDERED: LIDOCAINE 2% INJ 100 MG/5 ML SDV (FOR ANES.) As Ordered ONE (11:42)
[2018-11-08] MEDS ORDERED: fentaNYL 100 MCG/2 ML INJECTION (J3010) As Ordered ONE (11:43)
[2018-11-08] MEDS ORDERED: MIDAZOLAM INJ 2 MG/2 ML VIAL (J2250) As Ordered ONE (11:43)
[2018-11-08] MEDS ORDERED: ESTROGENS VAGINAL CREAM 30GM As Ordered ONE (12:17)
[2018-11-08] MEDS ORDERED: BUPIVACAINE HCL 0.25% 30 ML VIAL As Ordered ONE (12:17)
[2018-11-08] MEDS ORDERED: PHENYLephrine HCL 500 MCG/5 ML (100MCG/ML) SYRINGE (J2370) As Ordered ONE (13:16)
[2018-11-08] MEDS: PERCOCET 5MG/325MG TAB PO PRN ×3 (14:15→19:56)
[2018-11-08] MEDS ORDERED: PERCOCET 5MG/325MG TAB As Ordered ONE (14:15)
[2018-11-08] MEDS ORDERED: LR 1,000 ML IV SCH ×2 (14:30→14:45)
[2018-11-08] MEDS ORDERED: CHLOROPROCAINE 2 % INJ PRES.FREE 20 ML VIAL (J2400) As Ordered ONE (14:42)
[2018-11-08] MEDS ORDERED: PERCOCET 5MG/325MG TAB PO PRN (14:45)
[2018-11-08] MEDS ORDERED: fentaNYL 100 MCG/2 ML INJECTION (J3010) IV PRN (14:45)
[2018-11-08] MEDS ORDERED: ONDANSETRON 4MG/2ML VIAL (J2405) IV PRN (14:45)
[2018-11-08] MEDS ORDERED: GLUCAGON FOR INJ 1 MG VIAL (J1610) SC PRN (15:45)
[2018-11-08] MEDS ORDERED: GLUCOSE 4 GM CHEW TABLET PO PRN (15:45)
[2018-11-08] MEDS ORDERED: DEXTROSE 50% 50 ML SYRINGE IV PRN (15:45)
[2018-11-08 17:02] VITALS: BP 161/79
[2018-11-08] MEDS: HumaLOG INSULIN (NovoLOG) PER UNIT SC SCH (18:05)
[2018-11-08 19:25] VITALS: BP 151/84
[2018-11-08] MEDS: rifAXIMin 550 MG TAB (XIFAXAN) PO SCH (20:07)
[2018-11-08 20:25] VITALS: BP 148/98
[2018-11-08] MEDS ORDERED: ASPIRIN 81 MG ENTERIC TAB PO SCH (21:00)
[2018-11-08] MEDS ORDERED: traZODone 50 MG TAB PO SCH (21:00)
[2018-11-08] MEDS ORDERED: IPRATROPIUM 0.06% NASAL SPRAY 15 ML (ATROVENT) SCH (21:00)
[2018-11-08] MEDS: GABAPENTIN 400 MG CAP PO SCH (21:18)
[2018-11-08] MEDS: METHOCARBAMOL 500 MG TAB PO SCH (21:18)
[2018-11-08 21:25] VITALS: BP 159/84
[2018-11-09 02:00] VITALS: BP 130/71
[2018-11-09 06:00] VITALS: BP 120/60
[2018-11-09 06:56] LABS: ALBUMIN 2.6 GM/DL (3.2-5.2); BILIRUBIN,TOTAL 0.9 MG/DL (0.2-1.0); CALCIUM LEVEL 9.1 MG/DL (8.5-10.1); CREATININE FOR GFR 1.59 MG/DL (0.55-1.30); GLOMERULAR FILTRATION RATE 43.2 (>51); POTASSIUM SERUM 4.9 MEQ/L (3.5-5.1); TOTAL PROTEIN 7.3 GM/DL (6.4-8.2)
[2018-11-09] MEDS ORDERED: TIOTROPIUM INHALER/CAPSULE (SPIRIVA) INH SCH (08:00)
[2018-11-09] MEDS: HumaLOG INSULIN (NovoLOG) PER UNIT SC SCH ×2 (08:28→12:05)
[2018-11-09] MEDS: GABAPENTIN 400 MG CAP PO SCH (08:28)
[2018-11-09] MEDS: TORSEMIDE 20 MG TAB PO SCH ×2 (08:29→08:53)
[2018-11-09] MEDS: rifAXIMin 550 MG TAB (XIFAXAN) PO SCH (08:29)
[2018-11-09] MEDS: PERCOCET 5MG/325MG TAB PO PRN (08:41)
[2018-11-09] MEDS: METHOCARBAMOL 500 MG TAB PO SCH (08:41)
[2018-11-09] MEDS ORDERED: SPIRONOLACTONE 25 MG TAB PO SCH (09:00)
[2018-11-09] MEDS ORDERED: ESCITALOPRAM OXALATE 10 MG TAB (LEXAPRO) PO SCH (09:00)
[2018-11-09] MEDS ORDERED: CETIRIZINE (ZyrTEC) 10 MG TAB PO SCH (09:00)
[2018-11-09] MEDS ORDERED: NICOTINE 21MG/24HR 1 EA TRANSDERMAL TD SCH (09:00)
[2018-11-09 10:00] VITALS: BP 105/53
[2018-11-09] MEDS ORDERED: OXYC1TAB23 PO (14:31)
--- NOTE | 2018-11-09 16:24 | RO ---
DATE OF PROCEDURE: 11/08/2018 PREPROCEDURE DIAGNOSIS: Left bulbar mass. POSTPROCEDURE DIAGNOSIS: Left bulbar mass. OPERATIVE PROCEDURE: Excision of left bulbar mass. SURGEON: Cal Calero MD PARADICHLOROBENZENE MACHINE OPERATOR: Carmel Stovall MD ANESTHESIA: General endotracheal. ESTIMATED BLOOD LOSS: 50 mL . URINE OUTPUT: 100 mL FINDINGS: Solid mass involving the left labia majora approximately 4 to 5 cm in size. Normal right labia. Normal vagina. Surgically absent uterus. DESCRIPTION OF PROCEDURE: The patient was taken to the operating room where general endotracheal anesthesia was induced. She was prepped and draped in a sterile fashion in the dorsal lithotomy position. The bladder was emptied through the catheter. The outline of the mass was marked with marking pen. Allis clamps were used to grasp the skin overlying the mass. The mass was located in the subcutaneous tissue. Peritoneal skin in this area was excised and elliptical fashion. The mass was then grasped with Allis clamps and dissected sharply. The mass had a fleshy appearance of subcutaneous tissue that was dense and calcified. The borders of the mass were indistinct from the surrounding subcutaneous tissue. The mass was excised in its entirety in several pieces. The deep space was closed with #3-0 Vicryl interrupted sutures. The skin was closed with #3-0 Vicryl in a running fashion. Good hemostasis noted. The patient received dilute Marcaine solution injected into the area, a total of 6 mL. Sponge, instrument and needle counts were correct.
== END 2018-11-09 13:26 | disposition home or self-care (01) ==
LOC: M SDC 09:44 → M MSPAV 17:02 → M SDC 11-09 13:26
PROVIDERS: ATTEND Specialist
DX: L72.0 Epidermal cyst (principal); I12.9 Hypertensive chronic kidney disease with stage 1 through stage 4 chronic kidney disease, or unspecified chronic kidney disease; E11.42 Type 2 diabetes mellitus with diabetic polyneuropathy; E11.22 Type 2 diabetes mellitus with diabetic chronic kidney disease; N18.3 Chronic kidney disease, stage 3 (moderate); R60.0 Localized edema; K74.60 Unspecified cirrhosis of liver; F32.9 Major depressive disorder, single episode, unspecified; M54.5 Low back pain; J44.9 Chronic obstructive pulmonary disease, unspecified; G47.33 Obstructive sleep apnea (adult) (pediatric); Z72.0 Tobacco use; Z90.710 Acquired absence of both cervix and uterus; Z79.899 Other long term (current) drug therapy; Z79.82 Long term (current) use of aspirin; Z79.4 Long term (current) use of insulin
CPT/HCPCS: 11426; 36415; 80053; 85027; 88304; J0131; J2250; J2370; J3010

== ENCOUNTER → 2019-01-02 | Outpatient (CLI) | payer MEDICARE, MEDICAID ==
[~2019-01-02] MED LIST changes: +BUPIVACAINE HCL 0.25% 10 ML VIAL As Ordered ONE; +BUPIVACAINE HCL 0.25% 30 ML VIAL As Ordered ONE; -LIDOCAINE 1% MDV 20ML VIAL SQ PRN; +METH750T2; -METH75TA; +OXYC1TAB23 PO; +TRIAMCINOLONE ACETONIDE SUSP 40 MG/ML VIAL (J3301) As Ordered ONE; +URSO1TAB8 PO; -URSO500T7 PO; +diazePAM 5 MG TAB As Ordered ONE; +oxyCODONE 5MG TAB As Ordered ONE
--- NOTE | 2019-01-10 01:09 | ECWPNPC ---
PATIENT NAME: PABLO HANSEN : 1960 GENDER: FEMALE VISIT DATE: 01/02/2019 DISCHARGE DATE: 01/02/19 1300 VISIT LOCKED DATE TIME: PHYSICIAN: ENRICO VARGAS MD RESOURCE: ENRICO VARGAS MD REASON FOR APPOINTMENT 1. TPI RIGHT THORACIC SPINE HISTORY OF PRESENT ILLNESS HISTORY OF PRESENT ILLNESS: PAIN THE PATIENT DESCRIBES THE PAIN... FALL RISK SCREENING: SCREENING :NO FALLS REPORTED IN THE LAST YEAR CURRENT MEDICATIONS TAKING TRAZODONE 150 150MG TABLET 1 TAB(S) ORALLY DAILY, NOTES: 01/02 800 TAKING ATROVENT 0.06 % SOLUTION 2 DROPS IN EACH NOSTRIL NEEDED NASALLY THREE TIMES A DAY, NOTES: 01/02/19 09 TAKING FREESTYLE TEST STRIPS DX CODE E11.9 STRIP DIRECTED FOUR TIMES A DAY TAKING VITAMIN E 400 UNIT CAPSULE 1 CAPSULE ORALLY ONCE A DAY, NOTES: 01/01/19 0800 TAKING ASPIRIN 81 MG TABLET DELAYED RELEASE 1 TABLET ORALLY ONCE A DAY, NOTES: 01/01/19 PM TAKING LANCETS LANCETS MISCELLANEOUS 1 STRIP _ DX:E11.65 BEFORE MEALS AND AT BEDTIME TAKING SPIRIVA RESPIMAT 2.5 MCG/ACT AEROSOL SOLUTION 2 PUFFS INHALATION ONCE A DAY, NOTES: 01/02/19899 TAKING IPRATROPIUM BROMIDE 0.03 % SOLUTION 2 SPRAYS IN EACH NOSTRIL ORALLY TWICE A DAY, NOTES: 01/02/19 09 TAKING VOLTAREN 1 % GEL DIRECTED TRANSDERMAL APPLY TO RIGHT THORACIC TID, NOTES: NONE RECENT TAKING GLUCOSE 4 GM TABLET CHEWABLE DIRECTED ORALLY 4 TABS NEEDED, NOTES: NONE RECENT TAKING SPIRONOLACTONE 25 MG TABLET 1 TABLET ORALLY AND 1/2 IN THE AFTERNOON ONCE DAILY, NOTES: 01/01/191999 TAKING ESCITALOPRAM OXALATE 20 MG TABLET 1 TABLET ORALLY ONCE A DAY, NOTES: 01/01/19 08 TAKING LACTULOSE 10 GM/15ML SYRUP 35 ML ORALLY BID, NOTES: NONE RECENT TAKING RIFAXIMIN 550 MG TABLET 1 TABLET ORALLY TWICE A DAY, NOTES: 01/01/19 08 TAKING BENZOYL PEROXIDE 5 % GEL 1 APPLICATION TO AFFECTED AREA EXTERNALLY ONCE A DAY, NOTES: NONE RECENT TAKING DICLOFENAC SODIUM 1 % GEL DIRECTED TRANSDERMAL, APPLY TO LOW BACK BILATERALLY FOUR TIMES DAILY NEEDED, NOTES: NONE RECENT TAKING NICODERM CQ 14 MG/24HR PATCH 24 HOUR 1 PATCH TO SKIN TRANSDERMAL ONCE A DAY, NOTES: NONE RECENT TAKING PEN NEEDLES 3/16" 31G X 5 MM PEN NEEDLE USE WITH LANTUS PEN SUBCUTANEOUSLY THREE TIMES A DAY DX; 250 TAKING HUMALOG KWIKPEN 100 UNIT/ML SOLUTION PEN-INJECTOR DIRECTED DAILY SUBCUTANEOUS 30 DAY(S) , NOTES: 01/01/19 TAKING COMPRESSION STOCKINGS 15-20 MMHG 1 PAIR OF STOCKING VIVIENNE #[id number], DX: R60.9 DAILY TAKING BRIEFS OVERNIGHT LARGE - MISCELLANEOUS WEAR 1 UNDERPAD NEEDED VIVIENNE # [id number]; DX: R15.2, K52.1: WAIST 47 INCHES, HIPS 45 INCHES EVERY 4 HOURS NEEDED, 6 PER DAY TAKING CLINDAMYCIN PHOSPHATE 1 % GEL 1 APPLICATION TO AFFECTED AREA EXTERNALLY TWO TIMES A DAY TO LOWER FACE AND NECK MIXED 1:1 WITH OTC HYDROCORTISONE 1% AFTER WASHING, NOTES: NONE RECENT TAKING GLOBAL EASE INJECT PEN NEEDLES 31G X 5 MM MISCELLANEOUS USE WITH LANTUS PEN THREE TIMES DAILY TAKING CETIRIZINE HCL 10 MG TABLET 1 TABLET ORALLY ONCE A DAY, NOTES: 01/01/19 1200 TAKING ROBAXIN-750 750 MG TABLET 1/2 TAB ORALLY Q6H PRN, NOTES: 01/01/19 PM TAKING DRISDOL 16803 UNIT CAPSULE 1 CAPSULE ORALLY WEEKLY, NOTES: 01/01/19 0800 TAKING GABAPENTIN 400 MG CAPSULE 1 CAPSULE ORALLY THREE TIMES DAILY, NOTES: 01/01/19 2000 TAKING BLOOD GLUCOSE TEST - STRIP 1 STRIP IN VITRO 4 TIMES DAILY DX:E11.65 TAKING TOUJEO SOLOSTAR 300 UNIT/ML SOLUTION PEN-INJECTOR 70 U EVERY MORNING SUBCUTANEOUS 38 , NOTES: 01/01/19 NOT-TAKING OXYCODONE HCL 5 MG TABLET 1 TABLET NEEDED ORALLY Q8H PRN MDD3 NOT-TAKING TRAZODONE HCL 150 MG TABLET TAKE ONE TABLET BY MOUTH ONCE DAILY 28 NOT-TAKING ESCITALOPRAM OXALATE 20 MG TABLET 1 TABLET ONCE A DAY ORALLY NOT-TAKING URSODIOL 300 MG CAPSULE 1 CAP ORALLY THREE TIMES A DAY NOT-TAKING VENTOLIN HFA 108 (90 BASE) MCG/ACT AEROSOL SOLUTION 2 PUFFS NEEDED INHALATION EVERY 4 HRS MEDICATION LIST REVIEWED AND RECONCILED WITH THE PATIENT PAST MEDICAL HISTORY DMII , EYE EXAM AND FOOT EXAM BOTH DUE IN AUGUST HTN, GOAL < 140/< 90 CKD STAGE III - FOLLOWED BY MAJOR DEPRESSIVE DISORDER TOBACCO ABUSE HX PANCREATITIS HYPERLIPIDEMIA ASCVD RISK 14.0% 07/2016 (10 YEAR RISK) 2NDARY HYPERPARATHYROIDISM DIABETES W/O RETINOPATHY POSSIBLE GLAUCOMA; [facility] HX CHOLEDOCHOLYTHIASIS (S/P CHOLECYSTECTOMY) HISTORY OF CRACK COCAINE USE FOR 4 YEARS LAST USE WAS 2009 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 ADEN ELEVATED AMMONIA LEVEL ALLERGIES N.K.D.A. SURGICAL HISTORY HYSTERECTOMY 2007 CHOLECYSTECTOMY LEFT BREAST CYST REMOVAL T 7-9 LAMINECTOMY 12/2014 COLONOSCOPY 12/12/14 RUPTURED CYST IN [place]ORTA 10/2018 FAMILY HISTORY FATHER: ALIVE, DIABETES, HTN MOTHER: ALIVE, DIABETES, HTN SIBLINGS: ALIVE 2 BROTHER(S) , 1 SISTER(S) - HEALTHY. DENIES FAMILY HX OF MELANOMA OR PANCREATIC CANCER. SOCIAL HISTORY GENERAL: TOBACCO USE ARE YOU A:CURRENT SMOKER HOW OFTEN DO YOU SMOKE CIGARETTES?EVERY DAY HOW SOON AFTER YOU WAKE UP DO YOU SMOKE YOUR FIRST CIGARETTE?6-30 MIN HOW MANY CIGARETTES A DAY DO YOU SMOKE?5 OR LESS ARE YOU INTERESTED IN QUITTING?THINKING ABOUT QUITTING STATES SHE HAS PATCHES THAT IS USES AT TIMES ADDITIONAL FINDINGS: TOBACCO USER PT IS CURRENTLY USING PATCH ON AND OFF TRYING TO CUT DOWN ON SMOKING PATIENT COUNSELED ON THE DANGERS OF TOBACCO USE AND URGED TO QUIT:08/15/2018 PT COUNCELED ON THE IMPORTANCE OF QUITTING. SHE IS INTERESTED IN QUITTING AND ALREADY HAS INFORMATION ON IT. COUNSELED THE PATIENT ON SMOKING CESSATION, EDUCATION [id number]/04/2019 PREVIOUS QUIT ATTEMPTS?YES, WITHIN THE LAST 6 MONTHS. HIV / HEP-C SCREENING HIV TEST OFFERED TO PATIENT:YES DATE OFFERED:06/10/2011 TEST ACCEPTED:NO REASON:PATIENT DECLINED OTHERS AT HOME: NONE. EDUCATION LEVEL OF EDUCATION:HIGH SCHOOL DIET: REGULAR. LANGUAGE LUXEMBOURGER. DOMESTIC VIOLENCE DO YOU FEEL SAFE IN YOUR ENVIRONMENT?YES BMI CARE GOAL FOLLOW-UP ABOVE NORMAL BMI FOLLOW-UPDIETARY NEEDS EDUCATION RECREATIONAL DRUG USE DRUG USE?NO EXERCISE: NO REGULAR EXERCISE. LEARNING BARRIERS / SPECIAL NEEDS CHANGE FROM LAST VISIT?NO BARRIERS TO LEARNING?NO HEARING IMPAIRED?NO VISION IMPAIRED?YES COGNITIVELY IMPAIRED?NO :CORRECTIVE LENSES READINESS TO LEARN?YES LEARNING PREFERENCES?NO LEARNING CAPABILITIES PRESENT?YES EMOTIONAL BARRIERS?NO SPECIAL DEVICES?NO COMMODITIES MANAGER NEEDED?NO LUNG CANCER SCREENING SMOKING STATUS:CURRENT SMOKER PAIN CLINIC PFS, CLERGY, PUBLIC HEALTH REFERRALS PFS REFERRAL NEEDED?NO CLERGY REFERRAL NEEDED?NO PUBLIC HEALTH REFERRAL NEEDED?NO WAS THE PROVIDER NOTIFIED OF ANY PERTINENT INFO?YES HAS THE PATIENT BEEN EDUCATED REGARDING HIS/HER PLAN OF CARE?YES HAS THE PATIENT BEEN EDUCATED REGARDING PAIN, THE RISK FOR PAIN, THE IMPORTANCE OF EFFECTIVE PAIN MANAGEMENT, AND THE PAIN ASSESSMENT PROCESS?YES CAFFEINE CAFFEINE USE?YES ADVANCE DIRECTIVE ADVANCE DIRECTIVE DISCUSSED WITH PATIENT:YES PT. HAS DNR AND HCP-MOTHER, APRIL [phone] ASKED TO BRING COPY IN 01/02/19 TEMPLE [id number] SCIENTOLOGIST MARITAL STATUS: .. ALCOHOL SCREENING DID YOU HAVE A DRINK CONTAINING ALCOHOL IN THE PAST YEAR?NO POINTS0 INTERPRETATIONNEGATIVE OCCUPATION: UNEMPLOYED. SEXUAL HX HAD SEX IN THE LAST 12 MONTHS (VAGINAL, ORAL, OR ANAL)?NO UNEMPLOYED, NOT , NO CHILDREN. MOVED TO [place] FROM [place] AT BEGINNING OF 2010. CURRENTLY SMOKES 1/2PPD PRIOR TO HOSPITALIZATION 1 PPD FOR 35 YEARS, NO ETOH OR ILLICITS, 3 CAFFEINATED BEVERAGES A DAY, NO REGULAR EXERCISE10/03/17 1500 INFORMATION REVIEWED WITH PT. SUSHANT WITH PT 03/07/18 1338 BV07/17/18 REVIEWED WITH PTRemy CANCHOLA WITH PT 01/02/19 1159 BV. HOSPITALIZATION/MAJOR DIAGNOSTIC PROCEDURE [facility] ACUTE PANCREATITIS SECONDARY TO HYPERTRIGLYCERDEMIA AND UNCONTROLED DMII 02/11- [facility] MRSA CELLULITIS 02/17/2011 [place] E COLI INFECTION [facility] ACUTE PANCREATITIS 03/16- BACK SURGERY 01/06/15-01/10/15 FAINTING SPELLS (HYPERAMMONEMIA) 08/02/16-08/04/16 ELEVATED AMMONIA LEVELS RUPTURED CYST IN [place]ORT[place] 10/2018 REVIEW OF SYSTEMS REVIEWED BY: PROVIDER: . CONSTITUTIONAL: ANY CHANGE IN YOUR MEDICAL CONDITION? NO . CHILLS NO . FEVER NO . INFECTION: DO YOU HAVE NEW INFECTIONS? NO . DO YOU HAVE HISTORY OF MRSA? YES, TO RIGHT WRIST, WAS TREATED PREVIOUSLY . MUSCULOSKELETAL: ANY NEW PATTERNS OF PAIN OR NUMBNESS? NO . GASTROENTEROLOGY: ANY NEW CHANGE IN BOWEL CONTROL? NO . GENITOURINARY: ANY NEW CHANGE IN BLADDER CONTROL? NO . IS THERE A CHANCE YOU COULD BE ? NO . HEMATOLOGY/LYMPH: DO YOU TAKE ANY BLOOD THINNERS? (FOR EXAMPLE- COUMADIN, PLAVIX, AGGRENOX, PLATEL, PRADAXA, OR XARELTO) NO . WHEN WAS YOUR LAST DOSE? DATE: TIME: . NEUROLOGY: HAVE YOU FALLEN IN THE PAST 12 MONTHS? NO . ANY NEW EXTREMITY NUMBNESS OR WEAKNESS? NO . CARDIOLOGY: DO YOU HAVE A PACEMAKER OR DEFIBRILLATOR? NO . RESPIRATORY: HAVE YOU BEEN SICK IN THE PAST WEEK? NO . FEVER NO . FLU LIKE SYMPTOMS? NO . COUGH NO . INTEGUMENTARY: DO YOU HAVE ANY RASHES OR OPEN SORES? NO . ALLERGIC/IMMUNO: ARE YOU ALLERGIC TO IV DYE? NO . ANY NEW ALLERGIES? NO . PSYCHIATRIC: DO YOU HAVE THOUGHTS OF HURTING YOURSELF OR SOMEONE ELSE? NO . ARE YOU ABUSED, NEGLECTED, OR IN AN UNSAFE ENVIRONMENT? NO . ENDOCRINOLOGY: ARE YOU DIABETIC? NO . OTHER: DO YOU NEED ANY PRESCRIPTIONS? NO . IF YES, PLEASE LIST: ____ . ANY NEW PROBLEMS WITH YOUR MEDICATIONS? NO . WHEN DID YOU LAST EAT? YES 01/01/19 PM . WHEN DID YOU LAST DRINK? 01/02/19 0900 . WHAT DID YOU LAST DRINK? WATER . NAME OF PERSON DRIVING YOU HOME? [employer] . DO YOU HAVE ANY OTHER QUESTIONS OR CONCERNS NO . VITAL SIGNS WT 207.9 LBS, HT 65 IN, BMI 34.59 INDEX, BP 136/70 MM HG, HR 93 /MIN, RR 18 /MIN, TEMP 96.3 F, OXYGEN SAT % 95%, NA INITIALS AW 1045, REVIEWED BY: BV. ASSESSMENTS MYALGIA, OTHER SITE - M79.18 (PRIMARY) PROCEDURES PN TRIGGER POINT INJECTION WITH STEROIDS PRE PROCEDURE DIAGNOSIS 1. MYALGIA 2. PAIN AT RIGHT THORACIC AREA POST PROCEDURE DIAGNOSIS 1. MYALGIA 2. PAIN AT RIGHT THORACIC AREA PROCEDURE TRIGGER POINT INJECTION AT RIGHT THORACIC AREA. SURGEON DR. ENRICO VARGAS DIESEL ENGINE OPERATOR NONE ANESTHESIA LOCAL PRE PROCEDURE NOTE THE PATIENT HAS A HISTORY OF CHRONIC PAIN AT THE RIGHT THORACIC AREA. I EVALUATED THE PATIENT AND REVIEWED THE CHART. THERE IS EVIDENCE OF BANDS OF TISSUE WITH RESTRICTION OF MOVEMENT AND PRESENCE OF TRIGGER POINT AT THE AFFECTED AREA. I WENT OVER THE RISKS, ALTERNATIVES, AND BENEFITS ASSOCIATED WITH THIS PROCEDURE. THE PATIENT WOULD LIKE TO PROCEED AND GIVE CONSENT TO PERFORMED THE PROCEDURE. THE PATIENT DENIES UNEXPLAINABLE WEIGHT LOSS, FEVER, CHILLS, OR NEW CHANGES IN URINARY OR BOWEL CONTROL DESCRIPTION OF PROCEDURE THE PATIENT WAS BROUGHT TO THE PROCEDURE ROOM AND PLACED IN THE SITTING POSITION. THE AREA WAS CLEANED WITH ALCOHOL. THE PROCEDURE WAS DONE USING ASEPTIC STERILE TECHNIQUE. I CHECKED LATERALITY AND THE LEVEL WHERE THE PROCEDURE WAS GOING TO BE PERFORMED WITH THE PATIENT AND THE SUPPORTING STAFF AT THE MOMENT OF THE TIME OUT IN THE PROCEDURE ROOM. USING A 25-GAUGE NEEDLE, TRIGGER POINTS WERE INJECTED AT THE RIGHT THORACIC AREA WITH A TOTAL OF 40 ML OF BUPIVACAINE 0.25% AND KENALOG 40 MG. THERE WAS NO EVIDENCE OF BLOOD, PARESTHESIA OR CEREBROSPINAL FLUID DURING THE PROCEDURE. THE PATIENT WAS SENT TO THE RECOVERY ROOM. THE PATIENT WAS MOVING THE EXTREMITIES AND DOING WELL. THERE WAS NO COMPLICATION DURING THE PROCEDURE POST PROCEDURE NOTE THE PATIENT WILL BE SEEN IN A FOLLOW UP IN THE NEXT FEW WEEKS. INSTRUCTIONS WERE GIVEN, QUESTIONS WERE ANSWERED, AND THE PATIENT EXPRESSED UNDERSTANDING AND AGREES WITH THE PLAN. I, YUE MELENDEZ, DOCUMENTED THE ABOVE INFORMATION ACTING A SCRIBE FOR DR. VARGAS. I HAVE REVIEWED THE ABOVE DOCUMENT, WRITTEN BY YUE HOBSON AND I VERIFY THAT IT IS ACCURATE. PROCEDURE CODES 30503 INJECT TRIGGER POINT, 1 OR 2 DISPOSITION & COMMUNICATION FOLLOW UP 3 WEEKS ELECTRONICALLY SIGNED BY ENRICO VARGAS MD, MD ON 01/09/2019 AT 12:51 PM EDT DISCLAIMER : THIS IS A VISIT SUMMARY EXTRACTED FROM THE [facility] CHART. IT IS NOT A COPY OF THE [employer] PROGRESS NOTE. ISABELLA
== END ==
LOC: M PAIN 10:45
PROVIDERS: ATTEND Anesthesiology
DX: G89.29 Other chronic pain (principal); M79.18 Myalgia, other site; E11.9 Type 2 diabetes mellitus without complications; I12.9 Hypertensive chronic kidney disease with stage 1 through stage 4 chronic kidney disease, or unspecified chronic kidney disease; N18.3 Chronic kidney disease, stage 3 (moderate); F17.210 Nicotine dependence, cigarettes, uncomplicated; Z79.4 Long term (current) use of insulin; Z79.82 Long term (current) use of aspirin; Z79.899 Other long term (current) drug therapy
CPT/HCPCS: 20552; J3301

== ENCOUNTER → 2019-01-12 | Outpatient (REF) | payer MEDICARE, MEDICAID ==
[~2019-01-12] MED LIST changes: -BUPIVACAINE HCL 0.25% 10 ML VIAL As Ordered ONE; -BUPIVACAINE HCL 0.25% 30 ML VIAL As Ordered ONE; -TRIAMCINOLONE ACETONIDE SUSP 40 MG/ML VIAL (J3301) As Ordered ONE; -diazePAM 5 MG TAB As Ordered ONE; -oxyCODONE 5MG TAB As Ordered ONE
[2019-01-12 16:48] LABS: BASO # 0.1 10^3/uL (0.0-0.2); BASO % 0.4 % (0.0-1.0); EOS # 0.1 10^3/uL (0.0-0.50); EOS % 0.7 % (0.0-3.0); HEMATOCRIT 41.1 % (36.0-47.0); HEMOGLOBIN 13.6 g/dl (12.0-15.5); LYMPH # 2.9 10^3/uL (1.5-4.5); LYMPH % 23.6 % (24.0-44.0); MEAN CORPUSCULAR HEMOGLOBIN 33.1 pg (27.0-33.0); MEAN CORPUSCULAR HGB CONC 33.1 g/dl (32.0-36.5); MONO # 1.9 10^3/uL (0.0-0.8); MONO % 15.7 % (0.0-5.0); NEUTROPHILS # 7.2 10^3/uL (1.8-7.7); NEUTROPHILS % 59.2 % (36.0-66.0); PLATELET COUNT, AUTOMATED 169 10^3/uL (150-450); RED BLOOD COUNT 4.11 10^6/uL (4.00-5.40); WHITE BLOOD COUNT 12.2 10^3/uL (4.0-10.0)
[2019-01-12 18:51] LABS: HEMOGLOBIN A1c 9.1 %
== END ==
LOC: M SFHCPLAZ 12:45
PROVIDERS: ATTEND Family Medicine
DX: E11.42 Type 2 diabetes mellitus with diabetic polyneuropathy (principal); R05 Cough

== ENCOUNTER → 2019-01-19 | Outpatient (CLI) | payer MEDICARE, MEDICAID ==
--- NOTE | 2019-02-08 02:07 | ECWPNPC ---
PATIENT NAME: PABLO HANSEN : 1960 GENDER: FEMALE VISIT DATE: 01/19/2019 DISCHARGE DATE: 01/19/19 1130 VISIT LOCKED DATE TIME: PHYSICIAN: RISSA MOORE RESOURCE: RISSA MOORE REASON FOR APPOINTMENT 1. POST TPI HISTORY OF PRESENT ILLNESS HISTORY OF PRESENT ILLNESS: HERE FOR POST PROCEDURE F/U.HAD TPI RIGHT THORACIC REGION ON 01/02/19.REPORTING >80 PERCENT REDUCTION IN PAIN THAT CONTINUES TODAY.RATING PAIN VAS 2/10.DISCUSSED TREATMENT OPTIONS. PAIN THE PATIENT DESCRIBES THE PAIN... THE PATIENT DESCRIBES THE PAIN... FALL RISK SCREENING: SCREENING :NO FALLS REPORTED IN THE LAST YEAR CURRENT MEDICATIONS TAKING TRAZODONE 150 150MG TABLET 1 TAB(S) ORALLY DAILY, NOTES: 01/02 800 TAKING ATROVENT 0.06 % SOLUTION 2 DROPS IN EACH NOSTRIL NEEDED NASALLY THREE TIMES A DAY, NOTES: 01/02/19899 TAKING VITAMIN E 400 UNIT CAPSULE 1 CAPSULE ORALLY ONCE A DAY, NOTES: 01/01/19799 TAKING ASPIRIN 81 MG TABLET DELAYED RELEASE 1 TABLET ORALLY ONCE A DAY, NOTES: 01/01/19 PM TAKING LANCETS LANCETS MISCELLANEOUS 1 STRIP _ DX:E11.65 BEFORE MEALS AND AT BEDTIME TAKING SPIRIVA RESPIMAT 2.5 MCG/ACT AEROSOL SOLUTION 2 PUFFS INHALATION ONCE A DAY, NOTES: 01/02/19899 TAKING IPRATROPIUM BROMIDE 0.03 % SOLUTION 2 SPRAYS IN EACH NOSTRIL ORALLY TWICE A DAY, NOTES: 01/02/19899 TAKING VOLTAREN 1 % GEL DIRECTED TRANSDERMAL APPLY TO RIGHT THORACIC TID, NOTES: NONE RECENT TAKING GLUCOSE 4 GM TABLET CHEWABLE DIRECTED ORALLY 4 TABS NEEDED, NOTES: NONE RECENT TAKING SPIRONOLACTONE 25 MG TABLET 1 TABLET ORALLY AND 1/2 IN THE AFTERNOON ONCE DAILY, NOTES: 01/01/191999 TAKING ESCITALOPRAM OXALATE 20 MG TABLET 1 TABLET ORALLY ONCE A DAY, NOTES: 01/01/19799 TAKING LACTULOSE 10 GM/15ML SYRUP 35 ML ORALLY BID, NOTES: NONE RECENT TAKING RIFAXIMIN 550 MG TABLET 1 TABLET ORALLY TWICE A DAY, NOTES: 01/01/19799 TAKING BENZOYL PEROXIDE 5 % GEL 1 APPLICATION TO AFFECTED AREA EXTERNALLY ONCE A DAY, NOTES: NONE RECENT TAKING DICLOFENAC SODIUM 1 % GEL DIRECTED TRANSDERMAL, APPLY TO LOW BACK BILATERALLY FOUR TIMES DAILY NEEDED, NOTES: NONE RECENT TAKING NICODERM CQ 14 MG/24HR PATCH 24 HOUR 1 PATCH TO SKIN TRANSDERMAL ONCE A DAY, NOTES: NONE RECENT TAKING PEN NEEDLES 3/16" 31G X 5 MM PEN NEEDLE USE WITH LANTUS PEN SUBCUTANEOUSLY THREE TIMES A DAY DX; 250 TAKING HUMALOG KWIKPEN 100 UNIT/ML SOLUTION PEN-INJECTOR DIRECTED DAILY SUBCUTANEOUS 30 DAY(S) , NOTES: 01/01/19 TAKING COMPRESSION STOCKINGS 15-20 MMHG 1 PAIR OF STOCKING VIVIENNE #[id number], DX: R60.9 DAILY TAKING BRIEFS OVERNIGHT LARGE - MISCELLANEOUS WEAR 1 UNDERPAD NEEDED VIVIENNE # [id number]; DX: R15.2, K52.1: WAIST 47 INCHES, HIPS 45 INCHES EVERY 4 HOURS NEEDED, 6 PER DAY TAKING CLINDAMYCIN PHOSPHATE 1 % GEL 1 APPLICATION TO AFFECTED AREA EXTERNALLY TWO TIMES A DAY TO LOWER FACE AND NECK MIXED 1:1 WITH OTC HYDROCORTISONE 1% AFTER WASHING, NOTES: NONE RECENT TAKING GABAPENTIN 400 MG CAPSULE 1 CAPSULE ORALLY THREE TIMES DAILY, NOTES: 01/01/191999 TAKING BLOOD GLUCOSE TEST - STRIP 1 STRIP IN VITRO 4 TIMES DAILY DX:E11.65 TAKING TOUJEO SOLOSTAR 300 UNIT/ML SOLUTION PEN-INJECTOR 70 U EVERY MORNING SUBCUTANEOUS 38 , NOTES: 01/01/19 TAKING GLOBAL EASE INJECT PEN NEEDLES 31G X 5 MM MISCELLANEOUS USE WITH LANTUS PEN THREE TIMES DAILY TAKING DRISDOL 96258 UNIT CAPSULE 1 CAPSULE ORALLY WEEKLY TAKING CETIRIZINE HCL 10 MG TABLET 1 TABLET ORALLY ONCE A DAY TAKING ESCITALOPRAM OXALATE 20 MG TABLET 1 TABLET ONCE A DAY ORALLY TAKING ROBAXIN-750 750 MG TABLET 1/2 TAB ORALLY Q6H PRN TAKING XIFAXAN 550 MG TABLET 1 TABLET TWICE A DAY ORALLY 30 DAY(S) TAKING OXYCODONE HCL 5 MG TABLET 1 TABLET NEEDED ORALLY Q8H PRN MDD3 NOT-TAKING FREESTYLE TEST STRIPS DX CODE E11.9 STRIP DIRECTED FOUR TIMES A DAY NOT-TAKING TRAZODONE HCL 150 MG TABLET TAKE ONE TABLET BY MOUTH ONCE DAILY 28 NOT-TAKING URSODIOL 300 MG CAPSULE 1 CAP ORALLY THREE TIMES A DAY NOT-TAKING VENTOLIN HFA 108 (90 BASE) MCG/ACT AEROSOL SOLUTION 2 PUFFS NEEDED INHALATION EVERY 4 HRS MEDICATION LIST REVIEWED AND RECONCILED WITH THE PATIENT PAST MEDICAL HISTORY DMII , EYE EXAM AND FOOT EXAM BOTH DUE IN AUGUST HTN, GOAL < 140/< 90 CKD STAGE III - FOLLOWED BY MAJOR DEPRESSIVE DISORDER TOBACCO ABUSE HX PANCREATITIS HYPERLIPIDEMIA ASCVD RISK 14.0% 07/2016 (10 YEAR RISK) 2NDARY HYPERPARATHYROIDISM DIABETES W/O RETINOPATHY POSSIBLE GLAUCOM[facility]; [facility] HX CHOLEDOCHOLYTHIASIS (S/P CHOLECYSTECTOMY) HISTORY OF CRACK COCAINE USE FOR 4 YEARS LAST USE WAS 2009 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 ADEN ELEVATED AMMONIA LEVEL ALLERGIES N.K.D.A. SURGICAL HISTORY HYSTERECTOMY 2007 CHOLECYSTECTOMY LEFT BREAST CYST REMOVAL T 7-9 LAMINECTOMY 12/2014 COLONOSCOPY 12/12/14 RUPTURED CYST IN [place] 10/2018 FAMILY HISTORY FATHER: ALIVE, DIABETES, HTN MOTHER: ALIVE, DIABETES, HTN SIBLINGS: ALIVE 2 BROTHER(S) , 1 SISTER(S) - HEALTHY. DENIES FAMILY HX OF MELANOMA OR PANCREATIC CANCER. SOCIAL HISTORY GENERAL: TOBACCO USE ARE YOU A:CURRENT SMOKER HOW OFTEN DO YOU SMOKE CIGARETTES?EVERY DAY HOW SOON AFTER YOU WAKE UP DO YOU SMOKE YOUR FIRST CIGARETTE?6-30 MIN HOW MANY CIGARETTES A DAY DO YOU SMOKE?5 OR LESS ARE YOU INTERESTED IN QUITTING?THINKING ABOUT QUITTING STATES SHE HAS PATCHES THAT IS USES AT TIMES ADDITIONAL FINDINGS: TOBACCO USER PT IS CURRENTLY USING PATCH ON AND OFF TRYING TO CUT DOWN ON SMOKING PATIENT COUNSELED ON THE DANGERS OF TOBACCO USE AND URGED TO QUIT:01/12/2019 PT COUNCELED ON THE IMPORTANCE OF QUITTING. SHE IS INTERESTED IN QUITTING AND ALREADY HAS INFORMATION ON IT. COUNSELED THE PATIENT ON SMOKING CESSATION, EDUCATION [id number]/23/2019 PREVIOUS QUIT ATTEMPTS?YES, WITHIN THE LAST 6 MONTHS. HIV / HEP-C SCREENING HIV TEST OFFERED TO PATIENT:YES DATE OFFERED:06/10/2011 TEST ACCEPTED:NO REASON:PATIENT DECLINED OTHERS AT HOME: NONE. EDUCATION LEVEL OF EDUCATION:HIGH SCHOOL DIET: REGULAR. LANGUAGE JAMAICAN. DOMESTIC VIOLENCE DO YOU FEEL SAFE IN YOUR ENVIRONMENT?YES BMI CARE GOAL FOLLOW-UP ABOVE NORMAL BMI FOLLOW-UPDIETARY NEEDS EDUCATION RECREATIONAL DRUG USE DRUG USE?NO EXERCISE: NO REGULAR EXERCISE. LEARNING BARRIERS / SPECIAL NEEDS CHANGE FROM LAST VISIT?NO BARRIERS TO LEARNING?NO HEARING IMPAIRED?NO VISION IMPAIRED?YES COGNITIVELY IMPAIRED?NO :CORRECTIVE LENSES READINESS TO LEARN?YES LEARNING PREFERENCES?NO LEARNING CAPABILITIES PRESENT?YES EMOTIONAL BARRIERS?NO SPECIAL DEVICES?NO LANDING SCALER NEEDED?NO LUNG CANCER SCREENING SMOKING STATUS:CURRENT SMOKER PAIN CLINIC PFS, CLERGY, PUBLIC HEALTH REFERRALS PFS REFERRAL NEEDED?NO CLERGY REFERRAL NEEDED?NO PUBLIC HEALTH REFERRAL NEEDED?NO WAS THE PROVIDER NOTIFIED OF ANY PERTINENT INFO?YES HAS THE PATIENT BEEN EDUCATED REGARDING HIS/HER PLAN OF CARE?YES HAS THE PATIENT BEEN EDUCATED REGARDING PAIN, THE RISK FOR PAIN, THE IMPORTANCE OF EFFECTIVE PAIN MANAGEMENT, AND THE PAIN ASSESSMENT PROCESS?YES LATEX QUESTIONNAIRE LATEX ALLERGY : HAVE YOU EVER DEVELOPED ANY TYPE OF REACTION AFTER HANDLING LATEX PRODUCTS SUCH RUBBER GLOVES, CONDOMS, DIAPHRAGMS, BALLOONS, SOCKS, OR UNDERWEAR?NO LATEX ALLERGY : HAVE YOU EVER DEVELOPED ANY TYPE OF REACTION DURING OR AFTER DENTAL APPOINTMENT, VAGINAL/RECTAL EXAMINATION, SURGICAL PROCEDURE, OR ANY OTHER EXPOSURE?NO DATE ASKED : 01/12/2019 LATEX RISK : HAVE YOU EVER HAD ANY DIFFICULTY BREATHING OR HIVES AFTER EATING OR HANDLING ANY FRUITS, OR VEGETABLES; SUCH KIWI, BANANAS, STONE FRUITS, OR CHESTNUTSNO LATEX RISK : DO YOU HAVE A PREVIOUS PERSONAL HISTORY OF MORE THAN NINE SURGERIES, SPINA BIFIDA, OR REPEATED CATHERIZATIONS? NO LATEX RISK : ARE YOU FREQUENTLY EXPOSED TO LATEX PRODUCTS IN YOUR OCCUPATION?NO CAFFEINE CAFFEINE USE?YES ADVANCE DIRECTIVE ADVANCE DIRECTIVE DISCUSSED WITH PATIENT:YES PT. HAS DNR AND HCP-APRIL MOCK [phone] BUDDHISM [id number] EVANGELICAL MARITAL STATUS: .. ALCOHOL SCREENING DID YOU HAVE A DRINK CONTAINING ALCOHOL IN THE PAST YEAR?NO POINTS0 INTERPRETATIONNEGATIVE OCCUPATION: UNEMPLOYED. SEXUAL HX HAD SEX IN THE LAST 12 MONTHS (VAGINAL, ORAL, OR ANAL)?NO UNEMPLOYED, NOT , NO CHILDREN. MOVED TO [place] FROM [place] AT BEGINNING OF 2010. CURRENTLY SMOKES 1/2PPD PRIOR TO HOSPITALIZATION 1 PPD FOR 35 YEARS, NO ETOH OR ILLICITS, 3 CAFFEINATED BEVERAGES A DAY, NO REGULAR EXERCISE10/03/17 1500 INFORMATION REVIEWED WITH PT. SILVESTREWED WITH PT 03/07/18 1338 BV07/17/18 REVIEWED WITH PT. AD01/19/19 REVIEWED WITH PATIENT TOMMIEREVIEWED WITH PT 01/02/19 1159 BV. HOSPITALIZATION/MAJOR DIAGNOSTIC PROCEDURE [facility] ACUTE PANCREATITIS SECONDARY TO HYPERTRIGLYCERDEMIA AND UNCONTROLED DMII 02/11- [facility] MRSA CELLULITIS 02/17/2011 [place] E COLI INFECTION [facility] ACUTE PANCREATITIS 03/16- BACK SURGERY 01/06/15-01/10/15 FAINTING SPELLS (HYPERAMMONEMIA) 08/02/16-08/04/16 ELEVATED AMMONIA LEVELS RUPTURED CYST IN [place] 10/2018 REVIEW OF SYSTEMS REVIEWED BY: PROVIDER: RISSA FRANCE . CONSTITUTIONAL: ANY CHANGE IN YOUR MEDICAL CONDITION? NO . CHILLS NO . FEVER NO . INFECTION: DO YOU HAVE NEW INFECTIONS? NO . DO YOU HAVE HISTORY OF MRSA? NO . MUSCULOSKELETAL: ANY NEW PATTERNS OF PAIN OR NUMBNESS? NO . GASTROENTEROLOGY: ANY NEW CHANGE IN BOWEL CONTROL? NO . GENITOURINARY: ANY NEW CHANGE IN BLADDER CONTROL? NO . IS THERE A CHANCE YOU COULD BE ? NO . HEMATOLOGY/LYMPH: DO YOU TAKE ANY BLOOD THINNERS? (FOR EXAMPLE- COUMADIN, PLAVIX, AGGRENOX, PLATEL, PRADAXA, OR XARELTO) NO . WHEN WAS YOUR LAST DOSE? DATE: TIME: . NEUROLOGY: HAVE YOU FALLEN IN THE PAST 12 MONTHS? NO . ANY NEW EXTREMITY NUMBNESS OR WEAKNESS? NO . CARDIOLOGY: DO YOU HAVE A PACEMAKER OR DEFIBRILLATOR? NO . RESPIRATORY: HAVE YOU BEEN SICK IN THE PAST WEEK? NO . FEVER NO . FLU LIKE SYMPTOMS? NO . COUGH NO . INTEGUMENTARY: DO YOU HAVE ANY RASHES OR OPEN SORES? NO . ALLERGIC/IMMUNO: ARE YOU ALLERGIC TO IV DYE? NO . ANY NEW ALLERGIES? NO . PSYCHIATRIC: DO YOU HAVE THOUGHTS OF HURTING YOURSELF OR SOMEONE ELSE? NO . ARE YOU ABUSED, NEGLECTED, OR IN AN UNSAFE ENVIRONMENT? NO . ENDOCRINOLOGY: ARE YOU DIABETIC? YES . OTHER: DO YOU NEED ANY PRESCRIPTIONS? YES . IF YES, PLEASE LIST: ____ROBAXIN (WOULD LIKE TO TAKE A WHOLE TABLET INSTEAD OF A HALF), OXYCODONE . ANY NEW PROBLEMS WITH YOUR MEDICATIONS? NO . WHEN DID YOU LAST EAT? ____ . WHEN DID YOU LAST DRINK? ____ . WHAT DID YOU LAST DRINK? ____ . NAME OF PERSON DRIVING YOU HOME? ____ . DO YOU HAVE ANY OTHER QUESTIONS OR CONCERNS NO . VITAL SIGNS WT 214.4 LBS, HT 65 IN, BMI 35.67 INDEX, BP 132/76 MM HG, HR 95 /MIN, RR 18 /MIN, TEMP 97.3 F, OXYGEN SAT % 97%, NA INITIALS AW 1039. EXAMINATION GENERAL EXAMINATION: LUNGS:LUNG SOUNDS ARE CLEAR . HEART:HEART RATE REGULAR . MUSCULOSKELETAL:*, TRIGGER POINTS:, ELICITED WITH PALPATION OVER MID THORACIC MUSCLES RIGHT.PAIN IS AGGREVATED WITH USE OF RIGHT ARM. . DIAGNOSTIC:MRI THORACIC [id number]-REVIEWED . ASSESSMENTS MYALGIA, OTHER SITE - M79.18 (PRIMARY) PAIN IN THORACIC SPINE - M54.6 TREATMENT MYALGIA, OTHER SITE REFILL OXYCODONE HCL TABLET, 5 MG, 1 TABLET NEEDED, ORALLY, Q8H PRN MDD3 #30 TAB SHOULD LAST 30 DAYS, 30 DAY(S), 30, REFILLS 0 NOTES: ISTOP REGISTRY REVIEWED AND DEMONSTRATES COMPLLIANCE. , [facility] NARCOTIC AGREEMENT WAS REVIEWED AND SIGNED TODAY BY THE PATIENT. SEE ATTACHED DOCUMENT FOR FULL DETAILS; SPECIFIC ISSUES WERE REVIEWED: 1) KEEP PAIN MEDS IN THEIR ORIGINAL BOTTLES AND ANY WEEKLY PLANNERS ARE TO BE BROUGHT TO THE PAIN CENTER AT EVERY VISIT. 2) THE PATIENT IS NOT TO INCREASE DOSING OR TIMING OF THEIR PAIN MEDICATION WITHOUT SPECIFIC DIRECTION OF THEIR PAIN CENTERPROVIDER (NOT ER OR OTHER PROVIDERS). 3) ALL PAIN MEDS ARE TO BE KEPT SECURED, IN A LOCKED BOX. 4) NO PAIN MEDS ARE TO BE SHARED WITH ANY OTHER PERSON FOR ANY REASON. 5) NO PAIN MEDS MAY BE TAKEN FROM ANY FRIENDS OR RELATIVES FOR ANY REASON 6) NO MEDS OR SUBSTANCES WHICH ARE NOT LEGAL ARE TO BE USED- NO MARIJUANA, NO COCAINE, AMPHETAMINES, HEROIN, OR OTHERS ARE EVER TO BE USED. 7)URINE TESTING IS DONE TO ACCOUNT FOR MEDS AND SUBSTANCES BEING TAKEN AND WILL BE DONE RANDOMLY., RISKS AND BENEFITS OF NARCOTIC/OPIOD MEDICATIONS WERE REVIEWED WITH PATIENT - THIS INCLUDES BUT IS NOT LIMITED TO RISK OF DEPENDANCE/DEVELOPMENT OF ADDICTION, MOOD DISTURBANCE AND DEPRESSION, OSTEOPOROSIS, HORMONAL AND LABIDAL CHANGES, RESPIRATORY DEPRESSION AND . PATIENT IS ADVISED NOT TO DRIVE OR DRINK ALCOHOL WHILE ON THESE MEDICATIONS. OTHERS REFILL GABAPENTIN CAPSULE, 400 MG, 1 CAPSULE, ORALLY, THREE TIMES DAILY, 28, 90, REFILLS 0, NOTES: 01/01/191999 REFILL ROBAXIN-750 TABLET, 750 MG, 1 TAB, ORALLY, Q8H, 30 DAYS, 90, REFILLS 0 PROCEDURE CODES FA211 ESTABILISHED PATIENT [facility] CHARGE DISPOSITION & COMMUNICATION FOLLOW UP 4 WEEKS ELECTRONICALLY SIGNED BY EDILMA LAM ON 02/06/2019 AT 04:05 PM EDT DISCLAIMER : THIS IS A VISIT SUMMARY EXTRACTED FROM THE [employer] CHART. IT IS NOT A COPY OF THE [employer] PROGRESS NOTE. MTDD
== END ==
LOC: M PAIN 10:45
PROVIDERS: ATTEND Nurse Practitioner Family
DX: M79.18 Myalgia, other site (principal); M54.6 Pain in thoracic spine; E11.9 Type 2 diabetes mellitus without complications; I10 Essential (primary) hypertension; Z86.59 Personal history of other mental and behavioral disorders; E78.5 Hyperlipidemia, unspecified; G47.33 Obstructive sleep apnea (adult) (pediatric); F17.210 Nicotine dependence, cigarettes, uncomplicated; Z86.14 Personal history of Methicillin resistant Staphylococcus aureus infection; Z79.82 Long term (current) use of aspirin; Z79.4 Long term (current) use of insulin; Z79.899 Other long term (current) drug therapy

== ENCOUNTER → 2019-01-19 | Outpatient (CLI) | payer MEDICARE, MEDICAID ==
--- NOTE | 2019-01-19 15:07 | REP ---
PA and lateral chest: Comparison is the portable chest dated 10/04/2098 PA and lateral chest dated 04/04/2017. There is chronic elevation of the left hemidiaphragm, unchanged. The lung waller are clear. Cardiac size is normal. The saima, mediastinum, skeletal structures are unremarkable. Impression: There are no acute cardiopulmonary findings. There is no interval change. Electronically Signed by Cy Guzman MD 01/19/2019 02:59 P
== END ==
LOC: M RAD 11:58
PROVIDERS: ATTEND Obstetrics & Gynecology
DX: R05 Cough (principal)

== ENCOUNTER → 2019-02-15 | Outpatient (CLI) | payer MEDICARE, MEDICAID ==
--- NOTE | 2019-02-15 08:56 | REP ---
Bilateral lower extremity Duplex Doppler venous ultrasound: Real time compression and duplex Doppler interrogation of the bilateral lower extremity deep venous system is performed. Bilaterally, the common femoral, superficial femoral and popliteal veins are fully compressible with transducer pressure and demonstrate normal spontaneous and phasic flow, without evidence of deep venous thrombosis. Impression: No evidence of deep venous thrombosis of the bilateral lower extremity femoral popliteal venous system. Electronically Signed by Cy Henderson MD 02/15/2019 08:48 A
== END ==
LOC: M RAD 07:55
PROVIDERS: ATTEND Internal Medicine Nephrology
DX: N18.3 Chronic kidney disease, stage 3 (moderate) (principal); R60.0 Localized edema; K74.69 Other cirrhosis of liver

== ENCOUNTER → 2019-02-19 | Outpatient (CLI) | payer MEDICARE, MEDICAID | LOC: M PAIN 11:30 | PROVIDERS: ATTEND Nurse Practitioner Family | DX: M79.18 Myalgia, other site (principal); M54.6 Pain in thoracic spine; E11.9 Type 2 diabetes mellitus without complications; I10 Essential (primary) hypertension; F17.210 Nicotine dependence, cigarettes, uncomplicated; F32.9 Major depressive disorder, single episode, unspecified; Z79.4 Long term (current) use of insulin; Z79.82 Long term (current) use of aspirin; Z79.891 Long term (current) use of opiate analgesic; Z79.899 Other long term (current) drug therapy ==

== ENCOUNTER → 2019-03-08 | Outpatient (CLI) | payer MEDICARE, MEDICAID ==
--- NOTE | 2019-03-08 16:31 | REP ---
CT chest without contrast: History: Lung cancer screening study. Nicotine dependence. Comparison is made with chest x-ray from January 19, 2019. Comparison chest CT study October 10, 2017 and July 08, 2017. There is a comparison chest CT study from August 02, 2016 as well. Findings: Digital activities director scouting radiograph shows clips in right upper quadrant. There is a calcified granulomatous nodule in the right middle lobe just above the right hemidiaphragm which is unchanged from the August 02, 2016 prior study. There is no evidence of pulmonary mass or significant noncalcified pulmonary nodule. Impression: Lung RADS category 1 negative exam. Repeat screening study would be indicated in 1 year. Electronically Signed by Maged Kay MD 03/08/2019 06:30 P
== END ==
LOC: M RAD 12:40
PROVIDERS: ATTEND Physician Assistant
DX: Z12.2 Encounter for screening for malignant neoplasm of respiratory organs (principal); F17.218 Nicotine dependence, cigarettes, with other nicotine-induced disorders; J84.10 Pulmonary fibrosis, unspecified

== ENCOUNTER → 2019-03-20 | Outpatient (CLI) | payer MEDICARE, MEDICAID ==
[2019-03-20 11:48] VITALS: BP 171/82
--- NOTE | 2019-03-21 11:13 | REP ---
Ultrasound-guided paracentesis The procedure was performed under the direct supervision of Dr. Henderson. The risks and benefits of the procedure were explained to the patient and informed consent was obtained. The largest pocket of fluid was localized in the right lower quadrant in using ultrasound guidance. The skin was prepped and draped in a sterile fashion. 1% lidocaine was used as a local anesthetic. Using ultrasound guidance an 8-Serbian multi side-hole catheter was inserted using trocar technique. 1300 ml of dark yellow fluid was withdrawn and discarded. The patient tolerated the procedure well and there were no immediate complications. After the appropriate amount of monitored convalescence the patient was discharged from the department. Electronically Signed by SAMUEL Blackmon 03/20/2019 05:26 P Electronically Signed by Cy Henderson MD 03/21/2019 11:05 A
== END ==
LOC: M IRPRO 09:54
PROVIDERS: ATTEND Internal Medicine Nephrology
DX: N18.3 Chronic kidney disease, stage 3 (moderate) (principal); K74.69 Other cirrhosis of liver; R60.0 Localized edema

== ENCOUNTER → 2019-04-05 | Outpatient (CLI) | payer MEDICARE, MEDICAID ==
[2019-04-05 15:45] LABS: BASO % 0.6 % (0.0-1.0); EOS # 0.1 10^3/uL (0.0-0.5); EOS % 0.8 % (0.0-3.0); HEMATOCRIT 39.7 % (36.0-47.0); HEMOGLOBIN 12.4 g/dl (12.0-15.5); LYMPH # 1.3 10^3/uL (1.5-5.0); LYMPH % 19.8 % (24.0-44.0); MEAN CORPUSCULAR HEMOGLOBIN 32.5 pg (27.0-33.0); MEAN CORPUSCULAR HGB CONC 31.2 g/dl (32.0-36.5); MEAN CORPUSCULAR VOLUME 104.2 fl (80.0-96.0); MONO # 0.9 10^3/uL (0.0-0.8); MONO % 13.4 % (0.0-5.0); NEUTROPHILS # 4.2 10^3/uL (1.5-8.5); NEUTROPHILS % 65.1 % (36.0-66.0); PLATELET COUNT, AUTOMATED 119 10^3/uL (150-450); RED BLOOD COUNT 3.81 10^6/uL (4.00-5.40); WHITE BLOOD COUNT 6.4 10^3/uL (4.0-10.0)
[2019-04-05 16:03] LABS: INR 1.24; PROTHROMBIN TIME 15.3 SECONDS (11.8-14.0)
[2019-04-05 16:04] LABS: PARTIAL THROMBOPLASTIN TIME 34.7 SECONDS (25.0-38.4)
[2019-04-05 16:14] LABS: ALBUMIN 3.3 GM/DL (3.2-5.2); BILIRUBIN,DIRECT 0.4 MG/DL (0.0-0.2); BILIRUBIN,TOTAL 0.9 MG/DL (0.2-1.0); CALCIUM LEVEL 9.3 MG/DL (8.5-10.1); CREATININE FOR GFR 1.27 MG/DL (0.55-1.30); GLOMERULAR FILTRATION RATE 55.9 (>51); POTASSIUM SERUM 4.3 MEQ/L (3.5-5.1); TOTAL PROTEIN 7.7 GM/DL (6.4-8.2)
== END ==
LOC: M LAB 14:31
PROVIDERS: ATTEND Internal Medicine Gastroenterology
DX: K74.60 Unspecified cirrhosis of liver (principal); R18.8 Other ascites

== ENCOUNTER → 2019-04-05 | Outpatient (CLI) | payer MEDICARE, MEDICAID ==
--- NOTE | 2019-04-24 06:56 | ECWPNPC ---
PATIENT NAME: PABLO HANSEN : 1960 GENDER: FEMALE VISIT DATE: 04/05/2019 DISCHARGE DATE: 04/05/19 1419 VISIT LOCKED DATE TIME: PHYSICIAN: RISSA MOORE RESOURCE: RISSA MOORE REASON FOR APPOINTMENT 1. MEDICARE BLUE- BACK HISTORY OF PRESENT ILLNESS HISTORY OF PRESENT ILLNESS: HERE FOR F/U OF CHRONIC RIGHT MID THORACIC PAIN.USING OXYCODONE SPARINGLY FOR SEVERE PAIN EPISODES.FINDING THIS HELPFUL ALONG WITH GABAPENTIN.RATING PAIN VAS 0-5/10.DENIES SIDE EFFECTS WITH MEDICATION. PAIN THE PATIENT DESCRIBES THE PAIN... THE PATIENT DESCRIBES THE PAIN... FALL RISK SCREENING: SCREENING :NO FALLS REPORTED IN THE LAST YEAR CURRENT MEDICATIONS TAKING TRAZODONE 150 150MG TABLET 1 TAB(S) ORALLY DAILY TAKING ATROVENT 0.06 % SOLUTION 2 DROPS IN EACH NOSTRIL NEEDED NASALLY THREE TIMES A DAY TAKING VITAMIN E 400 UNIT CAPSULE 1 CAPSULE ORALLY ONCE A DAY TAKING ASPIRIN 81 MG TABLET DELAYED RELEASE 1 TABLET ORALLY ONCE A DAY TAKING LANCETS LANCETS MISCELLANEOUS 1 STRIP _ DX:E11.65 BEFORE MEALS AND AT BEDTIME TAKING SPIRIVA RESPIMAT 2.5 MCG/ACT AEROSOL SOLUTION 2 PUFFS INHALATION ONCE A DAY TAKING IPRATROPIUM BROMIDE 0.03 % SOLUTION 2 SPRAYS IN EACH NOSTRIL ORALLY TWICE A DAY TAKING GLUCOSE 4 GM TABLET CHEWABLE DIRECTED ORALLY 4 TABS NEEDED TAKING SPIRONOLACTONE 25 MG TABLET 1 TABLET ORALLY AND 1/2 IN THE AFTERNOON ONCE DAILY TAKING ESCITALOPRAM OXALATE 20 MG TABLET 1 TABLET ORALLY ONCE A DAY TAKING LACTULOSE 10 GM/15ML SYRUP 35 ML ORALLY BID TAKING RIFAXIMIN 550 MG TABLET 1 TABLET ORALLY TWICE A DAY TAKING BENZOYL PEROXIDE 5 % GEL 1 APPLICATION TO AFFECTED AREA EXTERNALLY ONCE A DAY, NOTES: NONE RECENT TAKING DICLOFENAC SODIUM 1 % GEL DIRECTED TRANSDERMAL, APPLY TO LOW BACK BILATERALLY FOUR TIMES DAILY NEEDED, NOTES: NONE RECENT TAKING NICODERM CQ 14 MG/24HR PATCH 24 HOUR 1 PATCH TO SKIN TRANSDERMAL ONCE A DAY, NOTES: NONE RECENT TAKING PEN NEEDLES 3/16" 31G X 5 MM PEN NEEDLE USE WITH LANTUS PEN SUBCUTANEOUSLY THREE TIMES A DAY DX; 250 TAKING HUMALOG KWIKPEN 100 UNIT/ML SOLUTION PEN-INJECTOR DIRECTED DAILY SUBCUTANEOUS 30 DAY(S) TAKING COMPRESSION STOCKINGS 15-20 MMHG 1 PAIR OF STOCKING VIVIENNE #[id number], DX: R60.9 DAILY TAKING BRIEFS OVERNIGHT LARGE - MISCELLANEOUS WEAR 1 UNDERPAD NEEDED VIVIENNE # [id number]; DX: R15.2, K52.1: WAIST 47 INCHES, HIPS 45 INCHES EVERY 4 HOURS NEEDED, 6 PER DAY TAKING CLINDAMYCIN PHOSPHATE 1 % GEL 1 APPLICATION TO AFFECTED AREA EXTERNALLY TWO TIMES A DAY TO LOWER FACE AND NECK MIXED 1:1 WITH OTC HYDROCORTISONE 1% AFTER WASHING, NOTES: NONE RECENT TAKING GLOBAL EASE INJECT PEN NEEDLES 31G X 5 MM MISCELLANEOUS USE WITH LANTUS PEN THREE TIMES DAILY TAKING OXYCODONE HCL 5 MG TABLET 1 TABLET NEEDED ORALLY Q8H PRN MDD3 #30 TAB SHOULD LAST 30 DAYS TAKING ROBAXIN-750 750 MG TABLET 1 TAB ORALLY Q8H TAKING TORSEMIDE 20 MG TABLET 1/2 TAB ORALLY DAILY TAKING DRISDOL 08108 UNIT CAPSULE 1 CAPSULE ORALLY WEEKLY TAKING CETIRIZINE HCL 10 MG TABLET 1 TABLET ORALLY ONCE A DAY TAKING XIFAXAN 550 MG TABLET 1 TABLET TWICE A DAY ORALLY 30 DAY(S) TAKING GABAPENTIN 400 MG CAPSULE 1 CAPSULE ORALLY THREE TIMES DAILY TAKING TOUJEO SOLOSTAR 300 UNIT/ML SOLUTION PEN-INJECTOR 70 U EVERY MORNING SUBCUTANEOUS 38 TAKING BLOOD GLUCOSE TEST - STRIP 1 STRIP IN VITRO 4 TIMES DAILY DX:E11.65 TAKING ALBUTEROL SULFATE HFA 108 (90 BASE) MCG/ACT AEROSOL SOLUTION 2 PUFFS INHALATION EVERY 6 HRS NOT-TAKING VOLTAREN 1 % GEL DIRECTED TRANSDERMAL APPLY TO RIGHT THORACIC TID, NOTES: DUPLICATE NOT-TAKING ESCITALOPRAM OXALATE 20 MG TABLET 1 TABLET ONCE A DAY ORALLY , NOTES: DUPLICATE NOT-TAKING GABAPENTIN 400 MG CAPSULE 1 CAPSULE THREE TIMES DAILY ORALLY 28 , NOTES: DUPLICATE NOT-TAKING FREESTYLE TEST STRIPS DX CODE E11.9 STRIP DIRECTED FOUR TIMES A DAY NOT-TAKING TRAZODONE HCL 150 MG TABLET TAKE ONE TABLET BY MOUTH ONCE DAILY 28 NOT-TAKING URSODIOL 300 MG CAPSULE 1 CAP ORALLY THREE TIMES A DAY NOT-TAKING VENTOLIN HFA 108 (90 BASE) MCG/ACT AEROSOL SOLUTION 2 PUFFS NEEDED INHALATION EVERY 4 HRS MEDICATION LIST REVIEWED AND RECONCILED WITH THE PATIENT PAST MEDICAL HISTORY DMII , EYE EXAM AND FOOT EXAM BOTH DUE IN AUGUST HTN, GOAL < 140/< 90 CKD STAGE III - FOLLOWED BY MAJOR DEPRESSIVE DISORDER TOBACCO ABUSE HX PANCREATITIS HYPERLIPIDEMIA ASCVD RISK 14.0% 07/2016 (10 YEAR RISK) 2NDARY HYPERPARATHYROIDISM DIABETES W/O RETINOPATHY POSSIBLE GLAUCOMA; [facility] HX CHOLEDOCHOLYTHIASIS (S/P CHOLECYSTECTOMY) HISTORY OF CRACK COCAINE USE FOR 4 YEARS LAST USE WAS 2009 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 ADEN ELEVATED AMMONIA LEVEL ASCITES ALLERGIES N.K.D.A. SURGICAL HISTORY HYSTERECTOMY 2007 CHOLECYSTECTOMY LEFT BREAST CYST REMOVAL T 7-9 LAMINECTOMY 12/2014 COLONOSCOPY 12/12/14 RUPTURED CYST IN AORTA 10/2018 PARACENTESIS 02/2019 FAMILY HISTORY FATHER: ALIVE, DIABETES, HTN MOTHER: ALIVE, DIABETES, HTN SIBLINGS: ALIVE 2 BROTHER(S) , 1 SISTER(S) - HEALTHY. DENIES FAMILY HX OF MELANOMA OR PANCREATIC CANCER. SOCIAL HISTORY GENERAL: TOBACCO USE ARE YOU A:CURRENT SMOKER ARE YOU INTERESTED IN QUITTING?THINKING ABOUT QUITTING STATES SHE HAS PATCHES THAT IS USES AT TIMES PREVIOUS QUIT ATTEMPTS?YES, WITHIN THE LAST 6 MONTHS. COUNSELED THE PATIENT ON SMOKING CESSATION, EDUCATION [id number]/14/2019 HOW MANY CIGARETTES A DAY DO YOU SMOKE?5 OR LESS HOW SOON AFTER YOU WAKE UP DO YOU SMOKE YOUR FIRST CIGARETTE?6-30 MIN HOW OFTEN DO YOU SMOKE CIGARETTES?EVERY DAY PATIENT COUNSELED ON THE DANGERS OF TOBACCO USE AND URGED TO QUIT:04/05/2019 PT COUNCELED ON THE IMPORTANCE OF QUITTING. SHE IS INTERESTED IN QUITTING AND ALREADY HAS INFORMATION ON IT. ADDITIONAL FINDINGS: TOBACCO USER PT IS CURRENTLY USING PATCH ON AND OFF TRYING TO CUT DOWN ON SMOKING HIV / HEP-C SCREENING HIV TEST OFFERED TO PATIENT:YES DATE OFFERED:06/10/2011 TEST ACCEPTED:NO REASON:PATIENT DECLINED OTHERS AT HOME: NONE. EDUCATION LEVEL OF EDUCATION:HIGH SCHOOL DIET: REGULAR. 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 DOMESTIC VIOLENCE DO YOU FEEL SAFE IN YOUR ENVIRONMENT?YES BMI CARE GOAL FOLLOW-UP ABOVE NORMAL BMI FOLLOW-UPDIETARY NEEDS EDUCATION RECREATIONAL DRUG USE DRUG USE?NO EXERCISE: NO REGULAR EXERCISE. LEARNING BARRIERS / SPECIAL NEEDS CHANGE FROM LAST VISIT?NO BARRIERS TO LEARNING?NO HEARING IMPAIRED?NO VISION IMPAIRED?YES COGNITIVELY IMPAIRED?NO :CORRECTIVE LENSES READINESS TO LEARN?YES LEARNING PREFERENCES?NO LEARNING CAPABILITIES PRESENT?YES EMOTIONAL BARRIERS?NO SPECIAL DEVICES?NO ELECTRICAL MECHANIC NEEDED?NO LUNG CANCER SCREENING SMOKING STATUS:CURRENT SMOKER PAIN CLINIC PFS, CLERGY, PUBLIC HEALTH REFERRALS PFS REFERRAL NEEDED?NO CLERGY REFERRAL NEEDED?NO PUBLIC HEALTH REFERRAL NEEDED?NO WAS THE PROVIDER NOTIFIED OF ANY PERTINENT INFO?YES HAS THE PATIENT BEEN EDUCATED REGARDING HIS/HER PLAN OF CARE?YES HAS THE PATIENT BEEN EDUCATED REGARDING PAIN, THE RISK FOR PAIN, THE IMPORTANCE OF EFFECTIVE PAIN MANAGEMENT, AND THE PAIN ASSESSMENT PROCESS?YES LATEX QUESTIONNAIRE LATEX ALLERGY : HAVE YOU EVER DEVELOPED ANY TYPE OF REACTION AFTER HANDLING LATEX PRODUCTS SUCH RUBBER GLOVES, CONDOMS, DIAPHRAGMS, BALLOONS, SOCKS, OR UNDERWEAR?NO LATEX ALLERGY : HAVE YOU EVER DEVELOPED ANY TYPE OF REACTION DURING OR AFTER DENTAL APPOINTMENT, VAGINAL/RECTAL EXAMINATION, SURGICAL PROCEDURE, OR ANY OTHER EXPOSURE?NO LATEX RISK : HAVE YOU EVER HAD ANY DIFFICULTY BREATHING OR HIVES AFTER EATING OR HANDLING ANY FRUITS, OR VEGETABLES; SUCH KIWI, BANANAS, STONE FRUITS, OR CHESTNUTSNO LATEX RISK : DO YOU HAVE A PREVIOUS PERSONAL HISTORY OF MORE THAN NINE SURGERIES, SPINA BIFIDA, OR REPEATED CATHERIZATIONS? NO LATEX RISK : ARE YOU FREQUENTLY EXPOSED TO LATEX PRODUCTS IN YOUR OCCUPATION?NO DATE ASKED : 01/12/2019 CAFFEINE CAFFEINE USE?YES ADVANCE DIRECTIVE ADVANCE DIRECTIVE DISCUSSED WITH PATIENT:YES PT. HAS DNR AND HCP-APRIL MOCK [phone] GNOSTICIST [id number] EVANGELICAL MARITAL STATUS: .. ALCOHOL SCREENING DID YOU HAVE A DRINK CONTAINING ALCOHOL IN THE PAST YEAR?NO POINTS0 INTERPRETATIONNEGATIVE OCCUPATION: UNEMPLOYED. SEXUAL HX HAD SEX IN THE LAST 12 MONTHS (VAGINAL, ORAL, OR ANAL)?NO UNEMPLOYED, NOT , NO CHILDREN. MOVED TO [place] FROM [place] AT BEGINNING OF 2010. CURRENTLY SMOKES 1/2PPD PRIOR TO HOSPITALIZATION 1 PPD FOR 35 YEARS, NO ETOH OR ILLICITS, 3 CAFFEINATED BEVERAGES A DAY, NO REGULAR EXERCISE10/03/17 1500 INFORMATION REVIEWED WITH PT. ADREVIEWED WITH PT 03/07/18 1338 BV07/17/18 REVIEWED WITH PT. AD01/19/19 REVIEWED WITH PATIENT LASREVIEWED WITH PT 01/02/19 1159 BVREVIEWED WITH PT 02/19/19 NLJREVIEWED WITH PATIENT 04/05/19 1344 JS. HOSPITALIZATION/MAJOR DIAGNOSTIC PROCEDURE [facility] ACUTE PANCREATITIS SECONDARY TO HYPERTRIGLYCERDEMIA AND UNCONTROLED DMII 02/11- [facility] MRSA CELLULITIS 02/17/2011 [place] E COLI INFECTION [facility] ACUTE PANCREATITIS 03/16- BACK SURGERY 01/06/15-01/10/15 FAINTING SPELLS (HYPERAMMONEMIA) 08/02/16-08/04/16 ELEVATED AMMONIA LEVELS RUPTURED CYST IN AORTA 10/2018 REVIEW OF SYSTEMS REVIEWED BY: PROVIDER: RISSA FRANCE . CONSTITUTIONAL: ANY CHANGE IN YOUR MEDICAL CONDITION? NO . CHILLS NO . FEVER NO . INFECTION: DO YOU HAVE NEW INFECTIONS? NO . DO YOU HAVE HISTORY OF MRSA? NO . MUSCULOSKELETAL: ANY NEW PATTERNS OF PAIN OR NUMBNESS? NO . GASTROENTEROLOGY: ANY NEW CHANGE IN BOWEL CONTROL? NO . GENITOURINARY: ANY NEW CHANGE IN BLADDER CONTROL? NO . IS THERE A CHANCE YOU COULD BE ? NO . HEMATOLOGY/LYMPH: DO YOU TAKE ANY BLOOD THINNERS? (FOR EXAMPLE- COUMADIN, PLAVIX, AGGRENOX, PLATEL, PRADAXA, OR XARELTO) NO . WHEN WAS YOUR LAST DOSE? DATE: TIME: . NEUROLOGY: HAVE YOU FALLEN IN THE PAST 12 MONTHS? YES, STATES MULTIPLE FALLS RECENTLY INCLUDING A FALL ON TUESDAY BETWEEN COFFEE TABLE AND RECLINER FROM WEAKNESS IN LEGS. STATES NO ED VISITS, NO IMAGING . ANY NEW EXTREMITY NUMBNESS OR WEAKNESS? NO . CARDIOLOGY: DO YOU HAVE A PACEMAKER OR DEFIBRILLATOR? NO . RESPIRATORY: HAVE YOU BEEN SICK IN THE PAST WEEK? YES, COUGH . FEVER NO . FLU LIKE SYMPTOMS? NO . COUGH YES . INTEGUMENTARY: DO YOU HAVE ANY RASHES OR OPEN SORES? NO . ALLERGIC/IMMUNO: ARE YOU ALLERGIC TO IV DYE? NO . ANY NEW ALLERGIES? NO . PSYCHIATRIC: DO YOU HAVE THOUGHTS OF HURTING YOURSELF OR SOMEONE ELSE? NO . ARE YOU ABUSED, NEGLECTED, OR IN AN UNSAFE ENVIRONMENT? NO . ENDOCRINOLOGY: ARE YOU DIABETIC? YES . OTHER: DO YOU NEED ANY PRESCRIPTIONS? NO . IF YES, PLEASE LIST: ____ . ANY NEW PROBLEMS WITH YOUR MEDICATIONS? NO . WHEN DID YOU LAST EAT? ____ . WHEN DID YOU LAST DRINK? ____ . WHAT DID YOU LAST DRINK? ____ . NAME OF PERSON DRIVING YOU HOME? ____ . DO YOU HAVE ANY OTHER QUESTIONS OR CONCERNS FLU VACCINE IN FEBRUARY . VITAL SIGNS WT 215.2 LBS, HT 65 IN, BMI 35.81 INDEX, BP 139/62 MM HG, HR 94 /MIN, RR 18 /MIN, TEMP 97.1 F, OXYGEN SAT % 98%, SAFE IN ENV? (Y/N) YES, NA INITIALS AW 1322, REVIEWED BY: DIOGO. EXAMINATION GENERAL EXAMINATION: LUNGS:LUNG SOUNDS ARE CLEAR . HEART:HEART RATE REGULAR . MUSCULOSKELETAL:*, TRIGGER POINTS:, ELICITED WITH PALPATION OVER MID THORACIC MUSCLES RIGHT.PAIN IS AGGREVATED WITH USE OF RIGHT ARM. . DIAGNOSTIC:MRI THORACIC [id number]-REVIEWED . ASSESSMENTS MYALGIA, OTHER SITE - M79.18 (PRIMARY) PAIN IN THORACIC SPINE - M54.6 TREATMENT MYALGIA, OTHER SITE NOTES: ISTOP REGISTRY REVIEWED AND DEMONSTRATES COMPLLIANCE. BRINGS IN MEDICATIONS WHICH IS APPROPRIATE FOR WHAT WAS DISPENSED. RECENT URINE TOXICOLOGY REVIEWED. NO UNAUTHORIZED MEDICATIONS. NO ILLICIT SUBSTANCES AND PRESCRIBED MEDICATIONS WERE PRESENT. PROCEDURE CODES FA211 ESTABILISHED PATIENT [facility] FACILITY CHARGE DISPOSITION & COMMUNICATION FOLLOW UP 3 MONTHS ELECTRONICALLY SIGNED BY EDILMA LAM ON 04/23/2019 AT 01:19 PM EST DISCLAIMER : THIS IS A VISIT SUMMARY EXTRACTED FROM THE [employer] CHART. IT IS NOT A COPY OF THE [employer] PROGRESS NOTE. MTDD
== END ==
LOC: M PAIN 13:15
PROVIDERS: ATTEND Nurse Practitioner Family
DX: M79.18 Myalgia, other site (principal); M54.6 Pain in thoracic spine; E11.9 Type 2 diabetes mellitus without complications; I10 Essential (primary) hypertension; Z86.59 Personal history of other mental and behavioral disorders; E78.5 Hyperlipidemia, unspecified; G47.33 Obstructive sleep apnea (adult) (pediatric); F17.210 Nicotine dependence, cigarettes, uncomplicated; Z86.14 Personal history of Methicillin resistant Staphylococcus aureus infection; Z91.81 History of falling; Z79.82 Long term (current) use of aspirin; Z79.4 Long term (current) use of insulin; Z79.899 Other long term (current) drug therapy

== ENCOUNTER → 2019-04-06 | Outpatient (CLI) | payer MEDICARE, MEDICAID ==
[2019-04-06 10:20] VITALS: BP 150/82
[2019-04-06 11:08] LABS: APPEARANCE, BODY FLUID HAZY (CLEAR); ASCITES FL COLOR PALE YELLOW (COLORLESS); SOURCE, BODY FLUID ASCITES
[2019-04-06 11:40] LABS: LDH, BODY FLUID 35 U/L (NOT ESTABLISHED); SOURCE, BODY FLUID ALBUMIN ASCITES; SOURCE, BODY FLUID LDH ASCITES; SOURCE, BODY FLUID TOT PROTEIN ASCITES; TOTAL PROTEIN, BODY FLUID 0.7 G/DL (NOT ESTABLISHED)
--- NOTE | 2019-04-06 14:44 | REP ---
Complete abdominal sonography with visceral Doppler assessment: History: Ascites. Hepatic cirrhosis, pulmonary fibrosis, chronic kidney disease. Rule out intra-abdominal thrombosis or vascular obstruction. Rule out liver mass. Findings: Scanning through right upper quadrant demonstrates a coarse heterogeneous liver texture with a somewhat micronodular contour consistent with cirrhosis. No focal liver lesion is seen. The gallbladder is surgically absent. Common bile duct is normal measuring 0.5 cm in greatest diameter. Limited views of the pancreas show no abnormality. The spleen is normal in size measuring 12.3 cm in greatest diameter. It contains granulomatous calcifications. No focal splenic lesion is seen. There is a very small quantity of ascitic fluid surrounding the liver and spleen. Renal cortical echogenicity pattern is normal. Right renal dimensions are 9.4 x 4.3 x 4.7 cm. The left kidney measures 11.6 x 5.2 x 5.2 cm. No hydronephrosis is seen. There is a 0.8 cm cyst in the left kidney. Normal caliber aorta. Visceral Doppler assessment: The main portal vein is 12 mm normal in size. Hepatic arterial peak systolic flow velocity is 148 cm/sec. Normal direction of flow is seen in the splenic vein, portal vein and intrahepatic veins. Near the splenic hilus splenic vein velocity is 13.3 cm/sec. Centrally the splenic vein velocity is 19.8 cm/sec. Main portal vein flow velocity is 13.7 cm/sec. There is some portalization of hepatic vein Doppler tracing consistent with portal hypertension. Impression: Findings suggestive of cirrhosis. Trace ascites. Coarse liver texture. No evidence of vascular thrombosis. Gallbladder surgically absent. Electronically Signed by Maged Kay MD 04/06/2019 06:40 P
--- NOTE | 2019-04-06 18:44 | REP ---
Ultrasound-guided paracentesis The procedure was performed under the direct supervision of Dr. Kay. The risks and benefits of the procedure were explained to the patient and informed consent was obtained. The largest pocket of fluid was localized in the right upper quadrant using ultrasound guidance. The skin was prepped and draped in a sterile fashion. 1% lidocaine was used as a local anesthetic. Using ultrasound guidance an 8-Hong Konger multi side-hole catheter was inserted using trocar technique. 950 ml of yellow fluid was withdrawn with a sample sent to the lab for analysis. The patient tolerated the procedure well and there were no immediate complications. After the appropriate amount of monitored convalescence the patient was discharged from the department. Electronically Signed by SAMUEL Blackmon 04/06/2019 03:35 P Electronically Signed by Maged Kay MD 04/06/2019 06:35 P
== END ==
LOC: M IRPRO 09:24
PROVIDERS: ATTEND Internal Medicine Gastroenterology
DX: R18.8 Other ascites (principal)

== ENCOUNTER → 2019-05-29 | Outpatient (REF) | payer MEDICARE, MEDICAID ==
[2019-05-29 14:05] LABS: ALBUMIN 3.2 GM/DL (3.2-5.2); CALCIUM LEVEL 9.7 MG/DL (8.5-10.1); CREATININE FOR GFR 1.52 MG/DL (0.55-1.30); GLOMERULAR FILTRATION RATE 45.5 (>51); PHOSPHORUS LEVEL 3.8 MG/DL (2.5-4.9); POTASSIUM SERUM 3.9 MEQ/L (3.5-5.1); URIC ACID 6.3 MG/DL (2.6-6.0)
== END ==
LOC: M LAB REF 12:47
PROVIDERS: ATTEND Internal Medicine Nephrology
DX: N18.3 Chronic kidney disease, stage 3 (moderate) (principal)

== ENCOUNTER → 2019-06-22 | Outpatient (REF) | payer MEDICARE, MEDICAID ==
[2019-06-22 14:27] LABS: HEMOGLOBIN A1c 7.6 %
== END ==
LOC: M SFHCPLAZ 10:44
PROVIDERS: ATTEND Family Medicine
DX: E11.42 Type 2 diabetes mellitus with diabetic polyneuropathy (principal)

== ENCOUNTER → 2019-06-25 | Outpatient (REF) | payer MEDICARE, MEDICAID | LOC: M LAB REF 14:03 | PROVIDERS: ATTEND Obstetrics & Gynecology | DX: C44.320 Squamous cell carcinoma of skin of unspecified parts of face (principal) ==

== ENCOUNTER → 2019-07-06 | Outpatient (CLI) | payer MEDICARE, MEDICAID ==
--- NOTE | 2019-07-24 08:17 | ECWPNPC ---
PATIENT NAME: PABLO HANSEN : 1960 GENDER: FEMALE VISIT DATE: 07/06/2019 DISCHARGE DATE: 07/06/19 1504 VISIT LOCKED DATE TIME: PHYSICIAN: RISSA MOORE RESOURCE: RISSA MOORE REASON FOR APPOINTMENT 1. MEDICARE BLUE-THORACIC PAIN HISTORY OF PRESENT ILLNESS HISTORY OF PRESENT ILLNESS: HERE FOR FOLLOW-UP OF CHRONIC RIGHT THORACIC BACK PAIN. REPORTS NEW ONSET OF LEFT MIDTHORACIC BACK PAIN. CONTINUES TO SUFFER FROM RIGHT-SIDED MID THORACIC BACK PAIN. FINDINGS OXYCODONE SOMEWHAT HELPFUL AT REDUCING SEVERE PAIN EPISODES. DENIES SIDE EFFECTS OF MEDICATION. DENIES INJURY. RECENT EXCISION OF A CANCEROUS NODULE FROM HER NECK. NO RECENT THORACIC IMAGING OF THE SOFT TISSUE AVAILABLE. RATING PAIN VAS 4/10. PAIN THE PATIENT DESCRIBES THE PAIN... FALL RISK SCREENING: SCREENING :NO FALLS REPORTED IN THE LAST YEAR CURRENT MEDICATIONS TAKING TRAZODONE 150 150MG TABLET 1 TAB(S) ORALLY DAILY TAKING ATROVENT 0.06 % SOLUTION 2 DROPS IN EACH NOSTRIL NEEDED NASALLY THREE TIMES A DAY TAKING VITAMIN E 400 UNIT CAPSULE 1 CAPSULE ORALLY ONCE A DAY TAKING ASPIRIN 81 MG TABLET DELAYED RELEASE 1 TABLET ORALLY ONCE A DAY TAKING LANCETS LANCETS MISCELLANEOUS 1 STRIP _ DX:E11.65 BEFORE MEALS AND AT BEDTIME TAKING SPIRIVA RESPIMAT 2.5 MCG/ACT AEROSOL SOLUTION 2 PUFFS INHALATION ONCE A DAY TAKING IPRATROPIUM BROMIDE 0.03 % SOLUTION 2 SPRAYS IN EACH NOSTRIL ORALLY TWICE A DAY TAKING GLUCOSE 4 GM TABLET CHEWABLE DIRECTED ORALLY 4 TABS NEEDED TAKING SPIRONOLACTONE 25 MG TABLET 1 TABLET ORALLY AND 1/2 IN THE AFTERNOON ONCE DAILY TAKING LACTULOSE 10 GM/15ML SYRUP 35 ML ORALLY BID TAKING RIFAXIMIN 550 MG TABLET 1 TABLET ORALLY TWICE A DAY TAKING BENZOYL PEROXIDE 5 % GEL 1 APPLICATION TO AFFECTED AREA EXTERNALLY ONCE A DAY, NOTES: NONE RECENT TAKING DICLOFENAC SODIUM 1 % GEL DIRECTED TRANSDERMAL, APPLY TO LOW BACK BILATERALLY FOUR TIMES DAILY NEEDED, NOTES: NONE RECENT TAKING PEN NEEDLES 3/16" 31G X 5 MM PEN NEEDLE USE WITH LANTUS PEN SUBCUTANEOUSLY THREE TIMES A DAY DX; 250 TAKING HUMALOG KWIKPEN 100 UNIT/ML SOLUTION PEN-INJECTOR DIRECTED DAILY SUBCUTANEOUS 30 DAY(S) TAKING COMPRESSION STOCKINGS 15-20 MMHG 1 PAIR OF STOCKING VIVIENNE #[id number], DX: R60.9 DAILY TAKING BRIEFS OVERNIGHT LARGE - MISCELLANEOUS WEAR 1 UNDERPAD NEEDED VIVIENNE # [id number]; DX: R15.2, K52.1: WAIST 47 INCHES, HIPS 45 INCHES EVERY 4 HOURS NEEDED, 6 PER DAY TAKING CLINDAMYCIN PHOSPHATE 1 % GEL 1 APPLICATION TO AFFECTED AREA EXTERNALLY TWO TIMES A DAY TO LOWER FACE AND NECK MIXED 1:1 WITH OTC HYDROCORTISONE 1% AFTER WASHING, NOTES: NONE RECENT TAKING OXYCODONE HCL 5 MG TABLET 1 TABLET NEEDED ORALLY Q8H PRN MDD3 #30 TAB SHOULD LAST 30 DAYS TAKING TORSEMIDE 20 MG TABLET 1/2 TAB ORALLY DAILY TAKING ALBUTEROL SULFATE HFA 108 (90 BASE) MCG/ACT AEROSOL SOLUTION 2 PUFFS INHALATION EVERY 6 HRS TAKING EMBRACE LANCETS ULTRA THIN 30G - MISCELLANEOUS 1 STRIP BEFORE MEALS AND AT BEDTIME _ DX:E11.65 30 DAY(S) TAKING GLOBAL EASE INJECT PEN NEEDLES 31G X 5 MM MISCELLANEOUS USE WITH LANTUS PEN THREE TIMES DAILY TAKING TOUJEO SOLOSTAR 300 UNIT/ML SOLUTION PEN-INJECTOR 70 U EVERY MORNING SUBCUTANEOUS 38 SUBCUTANEOUS ONCE DAILY TAKING TESSALON PERLES 100 MG CAPSULE 1 CAPSULE NEEDED ORALLY THREE TIMES A DAY TAKING ONDANSETRON 4 MG TABLET DISINTEGRATING 1 TABLET ON THE TONGUE AND ALLOW TO DISSOLVE ORALLY FOUR TIMES DAILY NEEDED TAKING BLOOD GLUCOSE TEST - STRIP 1 STRIP IN VITRO 4 TIMES DAILY DX:E11.65 TAKING ROBAXIN-750 750 MG TABLET 1 TAB ORALLY Q8H TAKING ESCITALOPRAM OXALATE 20 MG TABLET 1 TABLET ONCE A DAY ORALLY 28 28 TAKING XIFAXAN 550 MG TABLET 1 TABLET TWICE A DAY ORALLY 30 DAY(S) 28 28 TAKING CETIRIZINE HCL 10 MG TABLET 1 TABLET ONCE A DAY ORALLY 28 28 TAKING GABAPENTIN 400 MG CAPSULE 1 CAPSULE THREE TIMES DAILY ORALLY 28 28 TAKING DRISDOL 1.25 MG ([id number] UT) CAPSULE 1 CAPSULE WEEKLY ORALLY 28 NOT-TAKING ESCITALOPRAM OXALATE 20 MG TABLET 1 TABLET ORALLY ONCE A DAY, NOTES: DUPLICATE NOT-TAKING NICODERM CQ 14 MG/24HR PATCH 24 HOUR 1 PATCH TO SKIN TRANSDERMAL ONCE A DAY, NOTES: NONE RECENT NOT-TAKING DRISDOL 99329 UNIT CAPSULE 1 CAPSULE ORALLY WEEKLY, NOTES: DUPLICATE NOT-TAKING GABAPENTIN 400 MG CAPSULE 1 CAPSULE ORALLY THREE TIMES DAILY, NOTES: DUPLICATE NOT-TAKING GUAIFENESIN AC 100-10 MG/5ML SYRUP 5 ML ORALLY EVERY 4 HRS NOT-TAKING VOLTAREN 1 % GEL DIRECTED TRANSDERMAL APPLY TO RIGHT THORACIC TID, NOTES: DUPLICATE NOT-TAKING FREESTYLE TEST STRIPS DX CODE E11.9 STRIP DIRECTED FOUR TIMES A DAY NOT-TAKING TRAZODONE HCL 150 MG TABLET TAKE ONE TABLET BY MOUTH ONCE DAILY 28 NOT-TAKING URSODIOL 300 MG CAPSULE 1 CAP ORALLY THREE TIMES A DAY NOT-TAKING VENTOLIN HFA 108 (90 BASE) MCG/ACT AEROSOL SOLUTION 2 PUFFS NEEDED INHALATION EVERY 4 HRS MEDICATION LIST REVIEWED AND RECONCILED WITH THE PATIENT PAST MEDICAL HISTORY DMII , EYE EXAM AND FOOT EXAM BOTH DUE IN AUGUST HTN, GOAL < 140/< 90 CKD STAGE III - FOLLOWED BY MAJOR DEPRESSIVE DISORDER TOBACCO ABUSE HX PANCREATITIS HYPERLIPIDEMIA ASCVD RISK 14.0% 07/2016 (10 YEAR RISK) 2NDARY HYPERPARATHYROIDISM DIABETES W/O RETINOPATHY POSSIBLE GLAUCOMA; [facility] HX CHOLEDOCHOLYTHIASIS (S/P CHOLECYSTECTOMY) HISTORY OF CRACK COCAINE USE FOR 4 YEARS LAST USE WAS 2009 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 ADEN ELEVATED AMMONIA LEVEL ASCITES ALLERGIES N.K.D.A. SURGICAL HISTORY HYSTERECTOMY 2007 CHOLECYSTECTOMY LEFT BREAST CYST REMOVAL T 7-9 LAMINECTOMY 12/2014 COLONOSCOPY 12/12/14 RUPTURED CYST IN AORTA 10/2018 PARACENTESIS 02/2019 LUMPS REMOVED - NECK FAMILY HISTORY FATHER: ALIVE, DIABETES, HTN MOTHER: ALIVE, DIABETES, HTN SIBLINGS: ALIVE 2 BROTHER(S) , 1 SISTER(S) - HEALTHY. DENIES FAMILY HX OF MELANOMA OR PANCREATIC CANCER. SOCIAL HISTORY GENERAL: TOBACCO USE ARE YOU A:CURRENT SMOKER ARE YOU INTERESTED IN QUITTING?THINKING ABOUT QUITTING PREVIOUS QUIT ATTEMPTS?YES, WITHIN THE LAST 6 MONTHS. COUNSELED THE PATIENT ON SMOKING CESSATION, EDUCATION [id number]/2020 HOW MANY CIGARETTES A DAY DO YOU SMOKE?5 OR LESS HOW SOON AFTER YOU WAKE UP DO YOU SMOKE YOUR FIRST CIGARETTE?6-30 MIN HOW OFTEN DO YOU SMOKE CIGARETTES?EVERY DAY PATIENT COUNSELED ON THE DANGERS OF TOBACCO USE AND URGED TO QUIT:07/06/2019 PT COUNCELED ON THE IMPORTANCE OF QUITTING. SHE IS INTERESTED IN QUITTING AND ALREADY HAS INFORMATION ON IT. ADDITIONAL FINDINGS: TOBACCO USER PT IS CURRENTLY USING PATCH ON AND OFF TRYING TO CUT DOWN ON SMOKING HIV / HEP-C SCREENING HIV TEST OFFERED TO PATIENT:YES DATE OFFERED:06/10/2011 TEST ACCEPTED:NO REASON:PATIENT DECLINED OTHERS AT HOME: NONE. EDUCATION LEVEL OF EDUCATION:HIGH SCHOOL DIET: REGULAR. LANGUAGE DJIBOUTIAN. DOMESTIC VIOLENCE DO YOU FEEL SAFE IN YOUR ENVIRONMENT?YES BMI CARE GOAL FOLLOW-UP ABOVE NORMAL BMI FOLLOW-UPDIETARY NEEDS EDUCATION RECREATIONAL DRUG USE DRUG USE?NO EXERCISE: NO REGULAR EXERCISE. LEARNING BARRIERS / SPECIAL NEEDS CHANGE FROM LAST VISIT?NO BARRIERS TO LEARNING?NO HEARING IMPAIRED?NO VISION IMPAIRED?YES COGNITIVELY IMPAIRED?NO :CORRECTIVE LENSES READINESS TO LEARN?YES LEARNING PREFERENCES?NO LEARNING CAPABILITIES PRESENT?YES EMOTIONAL BARRIERS?NO SPECIAL DEVICES?NO POWERHOUSE ATTENDANT NEEDED?NO LUNG CANCER SCREENING SMOKING STATUS:CURRENT SMOKER PAIN CLINIC PFS, CLERGY, PUBLIC HEALTH REFERRALS PFS REFERRAL NEEDED?NO CLERGY REFERRAL NEEDED?NO PUBLIC HEALTH REFERRAL NEEDED?NO WAS THE PROVIDER NOTIFIED OF ANY PERTINENT INFO?YES HAS THE PATIENT BEEN EDUCATED REGARDING HIS/HER PLAN OF CARE?YES HAS THE PATIENT BEEN EDUCATED REGARDING PAIN, THE RISK FOR PAIN, THE IMPORTANCE OF EFFECTIVE PAIN MANAGEMENT, AND THE PAIN ASSESSMENT PROCESS?YES LATEX QUESTIONNAIRE LATEX ALLERGY : HAVE YOU EVER DEVELOPED ANY TYPE OF REACTION AFTER HANDLING LATEX PRODUCTS SUCH RUBBER GLOVES, CONDOMS, DIAPHRAGMS, BALLOONS, SOCKS, OR UNDERWEAR?NO LATEX ALLERGY : HAVE YOU EVER DEVELOPED ANY TYPE OF REACTION DURING OR AFTER DENTAL APPOINTMENT, VAGINAL/RECTAL EXAMINATION, SURGICAL PROCEDURE, OR ANY OTHER EXPOSURE?NO LATEX RISK : HAVE YOU EVER HAD ANY DIFFICULTY BREATHING OR HIVES AFTER EATING OR HANDLING ANY FRUITS, OR VEGETABLES; SUCH KIWI, BANANAS, STONE FRUITS, OR CHESTNUTSNO LATEX RISK : DO YOU HAVE A PREVIOUS PERSONAL HISTORY OF MORE THAN NINE SURGERIES, SPINA BIFIDA, OR REPEATED CATHERIZATIONS? NO LATEX RISK : ARE YOU FREQUENTLY EXPOSED TO LATEX PRODUCTS IN YOUR OCCUPATION?NO DATE ASKED : 01/12/2019 CAFFEINE CAFFEINE USE?YES ADVANCE DIRECTIVE ADVANCE DIRECTIVE DISCUSSED WITH PATIENT:YES PT. HAS DNR AND HCP-APRIL MOCK [phone] EPISCOPALIAN [id number] TAOIST MARITAL STATUS: .. ALCOHOL SCREENING DID YOU HAVE A DRINK CONTAINING ALCOHOL IN THE PAST YEAR?NO POINTS0 INTERPRETATIONNEGATIVE OCCUPATION: UNEMPLOYED. SEXUAL HX HAD SEX IN THE LAST 12 MONTHS (VAGINAL, ORAL, OR ANAL)?NO UNEMPLOYED, NOT , NO CHILDREN. MOVED TO [place] FROM [place] AT BEGINNING OF 2010. CURRENTLY SMOKES 1/2PPD PRIOR TO HOSPITALIZATION 1 PPD FOR 35 YEARS, NO ETOH OR ILLICITS, 3 CAFFEINATED BEVERAGES A DAY, NO REGULAR EXERCISE10/03/17 1500 INFORMATION REVIEWED WITH PT. ADREVIEWED WITH PT 03/07/18 1338 BV07/17/18 REVIEWED WITH PT. AD01/19/19 REVIEWED WITH PATIENT LASREVIEWED WITH PT 01/02/19 1159 BVREVIEWED WITH PT 02/19/19 NLJREVIEWED WITH PATIENT 04/05/19 1344 JSREVIEWED WITH PATIENT 07/06/2019 1422 JS. HOSPITALIZATION/MAJOR DIAGNOSTIC PROCEDURE [facility] ACUTE PANCREATITIS SECONDARY TO HYPERTRIGLYCERDEMIA AND UNCONTROLED DMII 02/11- [facility] MRSA CELLULITIS 02/17/2011 [place] E COLI INFECTION [facility] ACUTE PANCREATITIS 03/16- BACK SURGERY 01/06/15-01/10/15 FAINTING SPELLS (HYPERAMMONEMIA) 08/02/16-08/04/16 ELEVATED AMMONIA LEVELS RUPTURED CYST IN AORTA 10/2018 REVIEW OF SYSTEMS REVIEWED BY: PROVIDER: RISSA FRANCE . CONSTITUTIONAL: ANY CHANGE IN YOUR MEDICAL CONDITION? NO . CHILLS NO . FEVER NO . INFECTION: DO YOU HAVE NEW INFECTIONS? NO . DO YOU HAVE HISTORY OF MRSA? YES . MUSCULOSKELETAL: ANY NEW PATTERNS OF PAIN OR NUMBNESS? YES, STATES PAIN WORSENING AND RADIATING FROM THE RIGHT TO LEFT AND BACK TO RIGHT AGAIN . GASTROENTEROLOGY: ANY NEW CHANGE IN BOWEL CONTROL? NO . GENITOURINARY: ANY NEW CHANGE IN BLADDER CONTROL? NO . IS THERE A CHANCE YOU COULD BE ? NO . HEMATOLOGY/LYMPH: DO YOU TAKE ANY BLOOD THINNERS? (FOR EXAMPLE- COUMADIN, PLAVIX, AGGRENOX, PLATEL, PRADAXA, OR XARELTO) NO . WHEN WAS YOUR LAST DOSE? DATE: TIME: . NEUROLOGY: HAVE YOU FALLEN IN THE PAST 12 MONTHS? YES, STATES MULTIPLE FALLS, FEELS DIZZY A LOT. HIT HEAD DURING ONE FALL - HAS TO HAVE CT OF HEAD SOON, ALSO SCHEDULED TO SEE NEURO SOON . ANY NEW EXTREMITY NUMBNESS OR WEAKNESS? YES, NUMBNESS TO BILATERAL LEGS . CARDIOLOGY: DO YOU HAVE A PACEMAKER OR DEFIBRILLATOR? NO . RESPIRATORY: HAVE YOU BEEN SICK IN THE PAST WEEK? NO . FEVER NO . FLU LIKE SYMPTOMS? NO . COUGH NO . INTEGUMENTARY: DO YOU HAVE ANY RASHES OR OPEN SORES? NO . ALLERGIC/IMMUNO: ARE YOU ALLERGIC TO IV DYE? NO . ANY NEW ALLERGIES? NO . PSYCHIATRIC: DO YOU HAVE THOUGHTS OF HURTING YOURSELF OR SOMEONE ELSE? NO . ARE YOU ABUSED, NEGLECTED, OR IN AN UNSAFE ENVIRONMENT? NO . ENDOCRINOLOGY: ARE YOU DIABETIC? NO . OTHER: DO YOU NEED ANY PRESCRIPTIONS? NO . IF YES, PLEASE LIST: ____ . ANY NEW PROBLEMS WITH YOUR MEDICATIONS? NO . WHEN DID YOU LAST EAT? ____ . WHEN DID YOU LAST DRINK? ____ . WHAT DID YOU LAST DRINK? ____ . NAME OF PERSON DRIVING YOU HOME? ____ . DO YOU HAVE ANY OTHER QUESTIONS OR CONCERNS NO . VITAL SIGNS WT 202.8 LBS, HT 65 IN, BMI 33.74 INDEX, BP 109/65 MM HG, HR 98 /MIN, RR 18 /MIN, TEMP 97.0 F, OXYGEN SAT % 100%, SAFE IN ENV? (Y/N) YES, NA INITIALS AW 1422, REVIEWED BY: DIOGO. EXAMINATION GENERAL EXAMINATION: LUNGS:LUNG SOUNDS ARE CLEAR . HEART:HEART RATE REGULAR . MUSCULOSKELETAL:*, TRIGGER POINTS:, ELICITED WITH PALPATION OVER MID THORACIC MUSCLES RIGHT.PAIN IS AGGREVATED WITH USE OF RIGHT ARM. . ASSESSMENTS PAIN IN THORACIC SPINE - M54.6 (PRIMARY) OTHER CHRONIC PAIN - G89.29 TREATMENT PAIN IN THORACIC SPINE REFILL OXYCODONE HCL TABLET, 5 MG, 1 TABLET NEEDED, ORALLY, Q8H PRN MDD3 #30 TAB SHOULD LAST 30 DAYS, 30 DAY(S), 30, REFILLS 0 MRI : THORACIC [id number] NOTES: ISTOP REGISTRY REVIEWED AND DEMONSTRATES COMPLLIANCE. (REF # ) BRINGS IN MEDICATIONS WHICH IS APPROPRIATE FOR WHAT WAS DISPENSED. RECENT URINE TOXICOLOGY REVIEWED. NO UNAUTHORIZED MEDICATIONS. NO ILLICIT SUBSTANCES AND PRESCRIBED MEDICATIONS WERE PRESENT. , RISKS OF NARCOTIC/OPIOD MEDICATIONS INCLUDES BUT IS NOT LIMITED TO RISK OF DEPENDANCE/DEVELOPMENT OF ADDICTION, MOOD DISTURBANCE AND DEPRESSION, OSTEOPOROSIS, HORMONAL AND LABIDAL CHANGES, RESPIRATORY DEPRESSION AND . PATIENT IS ADVISED NOT TO DRIVE OR DRINK ALCOHOL WHILE ON THESE MEDICATIONS. PROCEDURE CODES FA211 ESTABILISHED PATIENT [facility] FACILITY CHARGE DISPOSITION & COMMUNICATION FOLLOW UP 6-8 WEEKS MRI FOLLOW-UP (REASON: MRI THORACIC SPINE REVIEW) ELECTRONICALLY SIGNED BY EDILMA LAM ON 07/23/2019 AT 04:45 PM EST DISCLAIMER : THIS IS A VISIT SUMMARY EXTRACTED FROM THE [employer] CHART. IT IS NOT A COPY OF THE [employer] PROGRESS NOTE. ISABELLA
== END ==
LOC: M PAIN 13:30
PROVIDERS: ATTEND Nurse Practitioner Family
DX: M54.6 Pain in thoracic spine (principal); G89.29 Other chronic pain

== ENCOUNTER → 2019-07-17 | Outpatient (CLI) | payer MEDICARE, MEDICAID ==
--- NOTE | 2019-07-17 08:43 | REPVR ---
PROCEDURE INFORMATION: Exam: CT Head Without Contrast Exam date and time: 07/17/2019 7:47 AM Age: 58 years old Clinical indication: Syncope and collapse TECHNIQUE: Imaging protocol: Computed tomography of the head without contrast. Radiation optimization: All CT scans at this facility use at least one of these dose optimization techniques: automated exposure control; mA and/or kV adjustment per patient size (includes targeted exams where dose is matched to clinical indication); or iterative reconstruction. COMPARISON: CT Head without contrast 05/29/2018 4:10 PM FINDINGS: Brain: Moderate hypoattenuating foci are redemonstrated in the cerebral, posterior superior periatrial and anterior lateral ventricular periventricular white matter bilaterally. No intracranial hemorrhage. No mass or acute cortical infarction identified. Ventricles: Mild prominence of the ventricular system and subarachnoid spaces is slightly excessive for the patient's age of 58 years. Bones/joints: Unremarkable. No acute fracture. Sinuses: Visualized sinuses are unremarkable. No fluid levels. Mastoid air cells: Visualized mastoid air cells are well aerated. Soft tissues: Unremarkable. Vasculature: Atherosclerotic calcifications are present involving the carotid artery siphons bilaterally. IMPRESSION: 1. Mild supratentorial and infratentorial atrophy. 2. Moderate chronic white matter microvascular ischemic disease, stable. 3. No acute intracranial abnormality identified. Electronically signed by: Anil Buitrago On 07/17/2019 08:42:41 AM
== END ==
LOC: M RAD 07:39
PROVIDERS: ATTEND Student in an Organized Health Care Education/Training Program
DX: R55 Syncope and collapse (principal)

== ENCOUNTER → 2019-08-02 | Outpatient (CLI) | payer MEDICARE, MEDICAID ==
--- NOTE | 2019-08-02 14:25 | REPVR ---
PROCEDURE INFORMATION: Exam: MR Thoracic Spine Without Contrast Exam date and time: 08/02/2019 12:23 PM Age: 58 years old Clinical indication: Pain in thoracic spine; Without myelpathy or radiculopathy; Prior surgery; Surgery date: 6+ months; Surgery type: T8-9 TECHNIQUE: Imaging protocol: Multiplanar magnetic resonance images of the thoracic spine without contrast. COMPARISON: MRI-Spine,Thoracic without con 07/29/2016 10:57 AM FINDINGS: Vertebrae: There is accentuation of the normal thoracic kyphosis distally. There is no fracture or listhesis. There are changes reflecting multilevel laminectomies from T7 to T9. Spinal cord: There is focally increased signal within the substance of cord at T7/8, unchanged. Discs/Spinal canal/Neural foramina: At T1/2, there is diffuse disc bulging asymmetric to the right. This indents the ventral thecal sac. There is mild facet hypertrophy. The neural foramina are patent. At T4/5, there is diffuse disc bulging with a prominent left subarticular/foraminal component. There is mild facet hypertrophy. Spinal canal and neural foramina are patent. At T5/6 there is a left subarticular/foraminal protrusion. There is mild facet hypertrophy. The neural foramina are patent. At T6/7, there is shallow disc bulging. There is mild facet hypertrophy. The spinal canal and neural foramina are patent. At T7/8 there is disc bulging with a right paracentral component. There is mild facet hypertrophy. The neural foramina are patent. At T8/9 there is diffuse disc bulging with a superimposed left foraminal protrusion. There is mild facet hypertrophy. There is mild left neural foraminal narrowing. Focal ventral epidural material at T8 could reflect extruded disc. This indents the ventral thecal sac. At T9/10, there is diffuse disc bulging. There is mild facet hypertrophy. There is mild bilateral neural foraminal narrowing. Soft tissues: Unremarkable. IMPRESSION: 1. Postsurgical change reflecting multilevel laminectomies from T7 to T9. 2. Stable presumed myelomalacia within the substance of the cord at T7/8. 3. Degenerative disc disease and spondylosis. Questionable extruded disc material along ventral epidural margin of T8. This could be better assessed with gadolinium. Electronically signed by: Lita Corral On 08/02/2019 14:24:43 PM
== END ==
LOC: M RAD 10:51
PROVIDERS: ATTEND Nurse Practitioner Family
DX: M47.814 Spondylosis without myelopathy or radiculopathy, thoracic region (principal)

== ENCOUNTER → 2019-08-02 | Outpatient (CLI) | payer MEDICARE, MEDICAID ==
[2019-08-02 14:20] LABS: BASO % 0.5 % (0.0-1.0); EOS # 0.1 10^3/uL (0.0-0.5); EOS % 0.9 % (0.0-3.0); HEMATOCRIT 41.6 % (36.0-47.0); HEMOGLOBIN 13.7 g/dl (12.0-15.5); LYMPH # 1.5 10^3/uL (1.5-5.0); LYMPH % 22.7 % (24.0-44.0); MEAN CORPUSCULAR HGB CONC 32.9 g/dl (32.0-36.5); MEAN CORPUSCULAR VOLUME 100.2 fl (80.0-96.0); MONO # 0.7 10^3/uL (0.0-0.8); MONO % 10.8 % (0.0-5.0); NEUTROPHILS # 4.3 10^3/uL (1.5-8.5); NEUTROPHILS % 64.9 % (36.0-66.0); PLATELET COUNT, AUTOMATED 118 10^3/uL (150-450); RED BLOOD COUNT 4.15 10^6/uL (4.00-5.40); WHITE BLOOD COUNT 6.7 10^3/uL (4.0-10.0)
[2019-08-02 14:25] LABS: ALBUMIN 3.4 GM/DL (3.2-5.2); BILIRUBIN,TOTAL 1.1 MG/DL (0.2-1.0); CALCIUM LEVEL 9.4 MG/DL (8.5-10.1); CREATININE FOR GFR 1.61 MG/DL (0.55-1.30); GLOMERULAR FILTRATION RATE 42.5 (>51); POTASSIUM SERUM 4.7 MEQ/L (3.5-5.1); TOTAL PROTEIN 7.7 GM/DL (6.4-8.2)
[2019-08-02 14:31] LABS: INR 1.17; PROTHROMBIN TIME 14.6 SECONDS (11.8-14.0)
== END ==
LOC: M LAB 12:31
PROVIDERS: ATTEND Nurse Practitioner Family
DX: K72.90 Hepatic failure, unspecified without coma (principal)

== ENCOUNTER → 2019-08-09 | Outpatient (CLI) | payer MEDICARE, MEDICAID ==
--- NOTE | 2019-08-10 01:47 | ECWPNPC ---
PATIENT NAME: PABLO HANSEN : 1960 GENDER: FEMALE VISIT DATE: 08/09/2019 DISCHARGE DATE: 08/09/19 1149 VISIT LOCKED DATE TIME: PHYSICIAN: RISSA MOORE RESOURCE: RISSA MOORE REASON FOR APPOINTMENT 1. MRI RESULTS HISTORY OF PRESENT ILLNESS HISTORY OF PRESENT ILLNESS: HERE FOR FOLLOW-UP OF CHRONIC THORACIC BACK PAIN. REVIEWED MRI OF THE THORACIC SPINE DONE ON 08/02/2019. 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 SHE HAS FOLLOW-UP WITH PRIMARY CARE NEXT WEEK. I WILL SEND THEM THIS INFORMATION FOR THEM TO REVIEW BEFORE PROCEEDING WITH SCHEDULING ANY FURTHER TRIGGER POINT INJECTIONS VERSUS THORACIC FACET BLOCK. RATING PAIN LEVEL 4/10 VAS. USING OXYCODONE 5 MG SPARINGLY AND INFREQUENTLY FOR SEVERE PAIN EPISODES. PATIENT BRINGS IN HER MEDICATION, WHICH DEMONSTRATES COMPLIANCE. REPORTS PAIN RELIEF WHEN SHE DOES TAKE THIS FOR SEVERE EPISODES OF PAIN. DENIES SIDE EFFECTS. PAIN THE PATIENT DESCRIBES THE PAIN... FALL RISK SCREENING: SCREENING :NO FALLS REPORTED IN THE LAST YEAR CURRENT MEDICATIONS TAKING TRAZODONE 150 150MG TABLET 1 TAB(S) ORALLY DAILY TAKING ATROVENT 0.06 % SOLUTION 2 DROPS IN EACH NOSTRIL NEEDED NASALLY THREE TIMES A DAY TAKING VITAMIN E 400 UNIT CAPSULE 1 CAPSULE ORALLY ONCE A DAY TAKING ASPIRIN 81 MG TABLET DELAYED RELEASE 1 TABLET ORALLY ONCE A DAY TAKING LANCETS LANCETS MISCELLANEOUS 1 STRIP _ DX:E11.65 BEFORE MEALS AND AT BEDTIME TAKING SPIRIVA RESPIMAT 2.5 MCG/ACT AEROSOL SOLUTION 2 PUFFS INHALATION ONCE A DAY TAKING IPRATROPIUM BROMIDE 0.03 % SOLUTION 2 SPRAYS IN EACH NOSTRIL ORALLY TWICE A DAY TAKING GLUCOSE 4 GM TABLET CHEWABLE DIRECTED ORALLY 4 TABS NEEDED TAKING SPIRONOLACTONE 25 MG TABLET 1 TABLET ORALLY AND 1/2 IN THE AFTERNOON ONCE DAILY TAKING LACTULOSE 10 GM/15ML SYRUP 35 ML ORALLY BID TAKING RIFAXIMIN 550 MG TABLET 1 TABLET ORALLY TWICE A DAY TAKING BENZOYL PEROXIDE 5 % GEL 1 APPLICATION TO AFFECTED AREA EXTERNALLY ONCE A DAY, NOTES: NONE RECENT TAKING DICLOFENAC SODIUM 1 % GEL DIRECTED TRANSDERMAL, APPLY TO LOW BACK BILATERALLY FOUR TIMES DAILY NEEDED, NOTES: NONE RECENT TAKING PEN NEEDLES 3/16" 31G X 5 MM PEN NEEDLE USE WITH LANTUS PEN SUBCUTANEOUSLY THREE TIMES A DAY DX; 250 TAKING HUMALOG KWIKPEN 100 UNIT/ML SOLUTION PEN-INJECTOR DIRECTED DAILY SUBCUTANEOUS 30 DAY(S) TAKING COMPRESSION STOCKINGS 15-20 MMHG 1 PAIR OF STOCKING VIVIENNE #[id number], DX: R60.9 DAILY TAKING BRIEFS OVERNIGHT LARGE - MISCELLANEOUS WEAR 1 UNDERPAD NEEDED VIVIENNE # [id number]; DX: R15.2, K52.1: WAIST 47 INCHES, HIPS 45 INCHES EVERY 4 HOURS NEEDED, 6 PER DAY TAKING CLINDAMYCIN PHOSPHATE 1 % GEL 1 APPLICATION TO AFFECTED AREA EXTERNALLY TWO TIMES A DAY TO LOWER FACE AND NECK MIXED 1:1 WITH OTC HYDROCORTISONE 1% AFTER WASHING, NOTES: NONE RECENT TAKING TORSEMIDE 20 MG TABLET 1/2 TAB ORALLY DAILY TAKING ALBUTEROL SULFATE HFA 108 (90 BASE) MCG/ACT AEROSOL SOLUTION 2 PUFFS INHALATION EVERY 6 HRS TAKING EMBRACE LANCETS ULTRA THIN 30G - MISCELLANEOUS 1 STRIP BEFORE MEALS AND AT BEDTIME _ DX:E11.65 30 DAY(S) TAKING TOUJEO SOLOSTAR 300 UNIT/ML SOLUTION PEN-INJECTOR 70 U EVERY MORNING SUBCUTANEOUS 38 SUBCUTANEOUS ONCE DAILY TAKING TESSALON PERLES 100 MG CAPSULE 1 CAPSULE NEEDED ORALLY THREE TIMES A DAY TAKING ONDANSETRON 4 MG TABLET DISINTEGRATING 1 TABLET ON THE TONGUE AND ALLOW TO DISSOLVE ORALLY FOUR TIMES DAILY NEEDED TAKING ROBAXIN-750 750 MG TABLET 1 TAB ORALLY Q8H TAKING OXYCODONE HCL 5 MG TABLET 1 TABLET NEEDED ORALLY Q8H PRN MDD3 #30 TAB SHOULD LAST 30 DAYS TAKING TRAZODONE HCL 150 MG TABLET TAKE ONE TABLET BY MOUTH ONCE DAILY 28 TAKING GLOBAL EASE INJECT PEN NEEDLES 31G X 5 MM MISCELLANEOUS USE WITH LANTUS PEN THREE TIMES DAILY TAKING BLOOD GLUCOSE TEST - STRIP 1 STRIP IN VITRO 4 TIMES DAILY DX:E11.65 TAKING CETIRIZINE HCL 10 MG TABLET 1 TABLET ONCE A DAY ORALLY 28 28 TAKING GABAPENTIN 400 MG CAPSULE 1 CAPSULE THREE TIMES DAILY ORALLY 28 28 TAKING ESCITALOPRAM OXALATE 20 MG TABLET 1 TABLET ONCE A DAY ORALLY 28 28 TAKING XIFAXAN 550 MG TABLET 1 TABLET TWICE A DAY ORALLY 30 DAY(S) 28 28 TAKING DRISDOL 1.25 MG (62846 UT) CAPSULE 1 CAPSULE WEEKLY ORALLY 28 NOT-TAKING ESCITALOPRAM OXALATE 20 MG TABLET 1 TABLET ORALLY ONCE A DAY, NOTES: DUPLICATE NOT-TAKING NICODERM CQ 14 MG/24HR PATCH 24 HOUR 1 PATCH TO SKIN TRANSDERMAL ONCE A DAY, NOTES: NONE RECENT NOT-TAKING DRISDOL 52694 UNIT CAPSULE 1 CAPSULE ORALLY WEEKLY, NOTES: DUPLICATE NOT-TAKING GABAPENTIN 400 MG CAPSULE 1 CAPSULE ORALLY THREE TIMES DAILY, NOTES: DUPLICATE NOT-TAKING GUAIFENESIN AC 100-10 MG/5ML SYRUP 5 ML ORALLY EVERY 4 HRS NOT-TAKING VOLTAREN 1 % GEL DIRECTED TRANSDERMAL APPLY TO RIGHT THORACIC TID, NOTES: DUPLICATE NOT-TAKING FREESTYLE TEST STRIPS DX CODE E11.9 STRIP DIRECTED FOUR TIMES A DAY NOT-TAKING URSODIOL 300 MG CAPSULE 1 CAP ORALLY THREE TIMES A DAY NOT-TAKING VENTOLIN HFA 108 (90 BASE) MCG/ACT AEROSOL SOLUTION 2 PUFFS NEEDED INHALATION EVERY 4 HRS MEDICATION LIST REVIEWED AND RECONCILED WITH THE PATIENT PAST MEDICAL HISTORY DMII , EYE EXAM AND FOOT EXAM BOTH DUE IN AUGUST HTN, GOAL < 140/< 90 CKD STAGE III - FOLLOWED BY MAJOR DEPRESSIVE DISORDER TOBACCO ABUSE HX PANCREATITIS HYPERLIPIDEMIA ASCVD RISK 14.0% 07/2016 (10 YEAR RISK) 2NDARY HYPERPARATHYROIDISM DIABETES W/O RETINOPATHY POSSIBLE [facility]; [facility] HX CHOLEDOCHOLYTHIASIS (S/P CHOLECYSTECTOMY) HISTORY OF CRACK COCAINE USE FOR 4 YEARS LAST USE WAS 2009 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 ADEN ELEVATED AMMONIA LEVEL ASCITES ALLERGIES N.K.D.A. SURGICAL HISTORY HYSTERECTOMY 2007 CHOLECYSTECTOMY LEFT BREAST CYST REMOVAL T 7-9 LAMINECTOMY 12/2014 COLONOSCOPY 12/12/14 RUPTURED CYST IN AORTA 10/2018 PARACENTESIS 02/2019 LUMPS REMOVED - NECK FAMILY HISTORY FATHER: ALIVE, DIABETES, HTN MOTHER: ALIVE, DIABETES, HTN SIBLINGS: ALIVE 2 BROTHER(S) , 1 SISTER(S) - HEALTHY. DENIES FAMILY HX OF MELANOMA OR PANCREATIC CANCER. SOCIAL HISTORY GENERAL: TOBACCO USE ARE YOU A:CURRENT SMOKER ARE YOU INTERESTED IN QUITTING?THINKING ABOUT QUITTING PREVIOUS QUIT ATTEMPTS?YES, WITHIN THE LAST 6 MONTHS. COUNSELED THE PATIENT ON SMOKING CESSATION, EDUCATION [id number]/19/2020 HOW MANY CIGARETTES A DAY DO YOU SMOKE?5 OR LESS HOW SOON AFTER YOU WAKE UP DO YOU SMOKE YOUR FIRST CIGARETTE?6-30 MIN HOW OFTEN DO YOU SMOKE CIGARETTES?EVERY DAY PATIENT COUNSELED ON THE DANGERS OF TOBACCO USE AND URGED TO QUIT:08/09/2019 PT COUNCELED ON THE IMPORTANCE OF QUITTING. SHE IS INTERESTED IN QUITTING AND ALREADY HAS INFORMATION ON IT. ADDITIONAL FINDINGS: TOBACCO USER PT IS CURRENTLY USING PATCH ON AND OFF TRYING TO CUT DOWN ON SMOKING HIV / HEP-C SCREENING HIV TEST OFFERED TO PATIENT:YES DATE OFFERED:06/10/2011 TEST ACCEPTED:NO REASON:PATIENT DECLINED OTHERS AT HOME: NONE. EDUCATION LEVEL OF EDUCATION:HIGH SCHOOL DIET: REGULAR. LANGUAGE GEORGIAN. DOMESTIC VIOLENCE DO YOU FEEL SAFE IN YOUR ENVIRONMENT?YES NEW PATIENT PAIN DIARY TODAY'S VISITNOTES 08/09/2019 PATIENT DESCRIBES PAIN :ACHING FROM 0-10, WHAT LEVEL IS YOUR PAIN TODAY?3 BMI CARE GOAL FOLLOW-UP ABOVE NORMAL BMI FOLLOW-UPDIETARY NEEDS EDUCATION RECREATIONAL DRUG USE DRUG USE?NO EXERCISE: NO REGULAR EXERCISE. 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 NEEDED?NO LUNG CANCER SCREENING SMOKING STATUS:CURRENT SMOKER PAIN CLINIC PFS, CLERGY, PUBLIC HEALTH REFERRALS PFS REFERRAL NEEDED?NO CLERGY REFERRAL NEEDED?NO PUBLIC HEALTH REFERRAL NEEDED?NO WAS THE PROVIDER NOTIFIED OF ANY PERTINENT INFO?YES HAS THE PATIENT BEEN EDUCATED REGARDING HIS/HER PLAN OF CARE?YES HAS THE PATIENT BEEN EDUCATED REGARDING PAIN, THE RISK FOR PAIN, THE IMPORTANCE OF EFFECTIVE PAIN MANAGEMENT, AND THE PAIN ASSESSMENT PROCESS?YES LATEX QUESTIONNAIRE LATEX ALLERGY : HAVE YOU EVER DEVELOPED ANY TYPE OF REACTION AFTER HANDLING LATEX PRODUCTS SUCH RUBBER GLOVES, CONDOMS, DIAPHRAGMS, BALLOONS, SOCKS, OR UNDERWEAR?NO LATEX ALLERGY : HAVE YOU EVER DEVELOPED ANY TYPE OF REACTION DURING OR AFTER DENTAL APPOINTMENT, VAGINAL/RECTAL EXAMINATION, SURGICAL PROCEDURE, OR ANY OTHER EXPOSURE?NO LATEX RISK : HAVE YOU EVER HAD ANY DIFFICULTY BREATHING OR HIVES AFTER EATING OR HANDLING ANY FRUITS, OR VEGETABLES; SUCH KIWI, BANANAS, STONE FRUITS, OR CHESTNUTSNO LATEX RISK : DO YOU HAVE A PREVIOUS PERSONAL HISTORY OF MORE THAN NINE SURGERIES, SPINA BIFIDA, OR REPEATED CATHERIZATIONS? NO LATEX RISK : ARE YOU FREQUENTLY EXPOSED TO LATEX PRODUCTS IN YOUR OCCUPATION?NO DATE ASKED : 01/12/2019 CAFFEINE CAFFEINE USE?YES ADVANCE DIRECTIVE ADVANCE DIRECTIVE DISCUSSED WITH PATIENT:YES PT. HAS DNR AND HCP-MOTHERAPRIL [phone] TEMPLE [id number] PROTESTANT MARITAL STATUS: .. ALCOHOL SCREENING DID YOU HAVE A DRINK CONTAINING ALCOHOL IN THE PAST YEAR?NO POINTS0 INTERPRETATIONNEGATIVE OCCUPATION: UNEMPLOYED. SEXUAL HX HAD SEX IN THE LAST 12 MONTHS (VAGINAL, ORAL, OR ANAL)?NO UNEMPLOYED, NOT , NO CHILDREN. MOVED TO [place] FROM [place] AT BEGINNING OF 2010. CURRENTLY SMOKES 1/2PPD PRIOR TO HOSPITALIZATION 1 PPD FOR 35 YEARS, NO ETOH OR ILLICITS, 3 CAFFEINATED BEVERAGES A DAY, NO REGULAR EXERCISE. HOSPITALIZATION/MAJOR DIAGNOSTIC PROCEDURE [facility] ACUTE PANCREATITIS SECONDARY TO HYPERTRIGLYCERDEMIA AND UNCONTROLED DMII 02/11- [facility] MRSA CELLULITIS 02/17/2011 [place] E COLI INFECTION [facility] ACUTE PANCREATITIS 03/16- BACK SURGERY 01/06/15-01/10/15 FAINTING SPELLS (HYPERAMMONEMIA) 08/02/16-08/04/16 ELEVATED AMMONIA LEVELS RUPTURED CYST IN AORTA 10/2018 REVIEW OF SYSTEMS REVIEWED BY: PROVIDER: RISSA FRANCE . CONSTITUTIONAL: ANY CHANGE IN YOUR MEDICAL CONDITION? NO . CHILLS NO . FEVER NO . INFECTION: DO YOU HAVE NEW INFECTIONS? NO . DO YOU HAVE HISTORY OF MRSA? YES . MUSCULOSKELETAL: ANY NEW PATTERNS OF PAIN OR NUMBNESS? NO . GASTROENTEROLOGY: ANY NEW CHANGE IN BOWEL CONTROL? NO . GENITOURINARY: ANY NEW CHANGE IN BLADDER CONTROL? NO . IS THERE A CHANCE YOU COULD BE ? NO . HEMATOLOGY/LYMPH: DO YOU TAKE ANY BLOOD THINNERS? (FOR EXAMPLE- COUMADIN, PLAVIX, AGGRENOX, PLATEL, PRADAXA, OR XARELTO) NO . WHEN WAS YOUR LAST DOSE? DATE: TIME: . NEUROLOGY: HAVE YOU FALLEN IN THE PAST 12 MONTHS? YES, STATES FALL YESTERDAY TRYING TO GET HER SLIPPERS, RIGHT KNEE AND LEFT HIP HURTING, NO ED VISIT . ANY NEW EXTREMITY NUMBNESS OR WEAKNESS? NO . CARDIOLOGY: DO YOU HAVE A PACEMAKER OR DEFIBRILLATOR? NO . RESPIRATORY: HAVE YOU BEEN SICK IN THE PAST WEEK? NO . FEVER NO . FLU LIKE SYMPTOMS? NO . COUGH NO . INTEGUMENTARY: DO YOU HAVE ANY RASHES OR OPEN SORES? NO . ALLERGIC/IMMUNO: ARE YOU ALLERGIC TO IV DYE? NO . ANY NEW ALLERGIES? NO . PSYCHIATRIC: DO YOU HAVE THOUGHTS OF HURTING YOURSELF OR SOMEONE ELSE? NO . ARE YOU ABUSED, NEGLECTED, OR IN AN UNSAFE ENVIRONMENT? NO . ENDOCRINOLOGY: ARE YOU DIABETIC? YES . OTHER: DO YOU NEED ANY PRESCRIPTIONS? NO . IF YES, PLEASE LIST: ____ . ANY NEW PROBLEMS WITH YOUR MEDICATIONS? NO . WHEN DID YOU LAST EAT? ____ . WHEN DID YOU LAST DRINK? ____ . WHAT DID YOU LAST DRINK? ____ . NAME OF PERSON DRIVING YOU HOME? ____ . DO YOU HAVE ANY OTHER QUESTIONS OR CONCERNS NO . VITAL SIGNS WT 205.0 LBS, HT 65 IN, BMI 34.11 INDEX, BP 112/55 MM HG, HR 91 /MIN, RR 18 /MIN, TEMP 96.8 F, OXYGEN SAT % 98%, SAFE IN ENV? (Y/N) YES, NA INITIALS AW 1110, REVIEWED BY: DIOGO. EXAMINATION GENERAL EXAMINATION: LUNGS: LUNG SOUNDS ARE CLEAR . HEART: HEART RATE REGULAR . MUSCULOSKELETAL:*, TRIGGER POINTS:, ELICITED WITH PALPATION OVER MID THORACIC MUSCLES RIGHT.PAIN IS AGGREVATED WITH USE OF RIGHT ARM. . THORACIC SPINE:WELL-HEALED SURGICAL INCISION MIDTHORACIC TO LOWER THORACIC . DIAGNOSTIC TESTS REVIEWED MRI THORACIC SPINE-2020. ASSESSMENTS PAIN IN THORACIC SPINE - M54.6 (PRIMARY) OTHER CHRONIC PAIN - G89.29 TREATMENT PAIN IN THORACIC SPINE CONTINUE ROBAXIN-750 TABLET, 750 MG, 1 TAB, ORALLY, Q8H CONTINUE OXYCODONE HCL TABLET, 5 MG, 1 TABLET NEEDED, ORALLY, Q8H PRN MDD3 #30 TAB SHOULD LAST 30 DAYS NOTES: ISTOP REGISTRY REVIEWED AND DEMONSTRATES COMPLLIANCE. BRINGS IN MEDICATIONS WHICH IS APPROPRIATE FOR WHAT WAS DISPENSED. RECENT URINE TOXICOLOGY REVIEWED. NO UNAUTHORIZED MEDICATIONS. NO ILLICIT SUBSTANCES AND PRESCRIBED MEDICATIONS WERE PRESENT. , RISKS OF NARCOTIC/OPIOD MEDICATIONS INCLUDES BUT IS NOT LIMITED TO RISK OF DEPENDANCE/DEVELOPMENT OF ADDICTION, MOOD DISTURBANCE AND DEPRESSION, OSTEOPOROSIS, HORMONAL AND LABIDAL CHANGES, RESPIRATORY DEPRESSION AND . PATIENT IS ADVISED NOT TO DRIVE OR DRINK ALCOHOL WHILE ON THESE MEDICATIONSREQUEST SENT TO [facility] TO REVIEW THORACIC MRI. PROCEDURE CODES FA211 ESTABILISHED PATIENT [facility] CHARGE DISPOSITION & COMMUNICATION FOLLOW UP 3 MONTHS (REASON: THORACIC BACK PAIN) ELECTRONICALLY SIGNED BY EDILMA LAM ON 08/09/2019 AT 12:07 PM EDT DISCLAIMER : THIS IS A VISIT SUMMARY EXTRACTED FROM THE [employer] CHART. IT IS NOT A COPY OF THE [employer] PROGRESS NOTE. ISABELLA
== END ==
LOC: M PAIN 11:15
PROVIDERS: ATTEND Nurse Practitioner Family
DX: M54.6 Pain in thoracic spine (principal); G89.29 Other chronic pain; E11.9 Type 2 diabetes mellitus without complications; I10 Essential (primary) hypertension; Z86.59 Personal history of other mental and behavioral disorders; G47.33 Obstructive sleep apnea (adult) (pediatric); F17.210 Nicotine dependence, cigarettes, uncomplicated; Z86.14 Personal history of Methicillin resistant Staphylococcus aureus infection; Z79.82 Long term (current) use of aspirin; Z79.4 Long term (current) use of insulin; Z79.899 Other long term (current) drug therapy

== ENCOUNTER → 2019-10-12 | Outpatient (CLI) | payer MEDICARE, MEDICAID ==
[2019-10-12 15:16] LABS: ALBUMIN 3.3 GM/DL (3.2-5.2); ALT/SGPT 25 U/L (12-78); BILIRUBIN,DIRECT 0.4 MG/DL (0.0-0.2); BILIRUBIN,TOTAL 1.2 MG/DL (0.2-1.0); BLOOD UREA NITROGEN 15 MG/DL (7-18); CALCIUM LEVEL 8.7 MG/DL (8.5-10.1); CARBON DIOXIDE LEVEL 28 MEQ/L (21-32); CHLORIDE LEVEL 105 MEQ/L (98-107); CREATININE FOR GFR 1.47 MG/DL (0.55-1.30); GLOMERULAR FILTRATION RATE 47.1 (>51); GLUCOSE, FASTING 198 MG/DL (70-100); POTASSIUM SERUM 4.3 MEQ/L (3.5-5.1); SODIUM LEVEL 138 MEQ/L (136-145); TOTAL PROTEIN 7.4 GM/DL (6.4-8.2)
== END ==
LOC: M LAB 13:26
PROVIDERS: ATTEND Internal Medicine Gastroenterology
DX: K74.60 Unspecified cirrhosis of liver (principal); R18.8 Other ascites; R94.5 Abnormal results of liver function studies

== ENCOUNTER → 2019-10-12 | Outpatient (CLI) | payer MEDICARE, MEDICAID ==
[2019-10-12 13:13] VITALS: BP 127/7
--- NOTE | 2019-10-12 15:58 | REP ---
Ultrasound-guided paracentesis The procedure was performed under the direct supervision of Dr. Henderson. The risks and benefits of the procedure were explained to the patient and informed consent was obtained. The largest pocket of fluid was localized in the left lower quadrant using ultrasound guidance. The skin was prepped and draped in a sterile fashion. 1% lidocaine was used as a local anesthetic. Using ultrasound guidance an 8-Slovenian multi side-hole catheter was inserted using trocar technique. 1150 ml of yellow fluid was withdrawn and discarded. The patient tolerated the procedure well and there were no immediate complications. After the appropriate amount of monitored convalescence the patient was discharged from the department. Electronically Signed by SAMUEL Blackmon 10/12/2019 03:21 P Electronically Signed by Cy Henderson MD 10/12/2019 03:50 P
== END ==
LOC: M IRPRO 12:12
PROVIDERS: ATTEND Internal Medicine Nephrology
DX: K74.69 Other cirrhosis of liver (principal); R18.8 Other ascites; N18.3 Chronic kidney disease, stage 3 (moderate)
CPT/HCPCS: 49083; P9047

== ENCOUNTER → 2019-11-02 | Outpatient (REF) | payer MEDICARE, MEDICAID ==
[~2019-11-02] MED LIST changes: -LACT10SO29 PO; +LACT20EL PO
[2019-11-02 18:22] LABS: HEMOGLOBIN A1c 8.9 %
[2019-11-02 18:37] LABS: CREATININE, URINE 83.5 MG/DL; MALB URINE SIEMENS 50.7 MG/L; MAU/CREAT RATIO 60.7 MCG/MG (0.0-30.0)
== END ==
LOC: M SFHCPLAZ 14:24
DX: E11.42 Type 2 diabetes mellitus with diabetic polyneuropathy (principal)

== ENCOUNTER → 2019-11-20 | Outpatient (CLI) | payer MEDICARE, MEDICAID ==
[~2019-11-20] MED LIST changes: +ALBU83IN INH; +VITA-55 PO
--- NOTE | 2019-12-04 03:46 | ECWPNPC ---
PATIENT NAME: PABLO HANSEN : 1960 GENDER: FEMALE VISIT DATE: 11/20/2019 DISCHARGE DATE: 11/20/19 1438 VISIT LOCKED DATE TIME: PHYSICIAN: RISSA MOORE RESOURCE: RISSA MOORE REASON FOR APPOINTMENT 1. THORACIC PAIN PAT DONE HISTORY OF PRESENT ILLNESS GENERAL: PATIENT IS AGREEABLE TO TELEPHONE VISIT TODAY. CONTINUES TO HAVE SIGNIFICANT THORACIC BACK PAIN. RECENT MRI WHICH SHOWING DISC HERNIATION AND MYOMALACIA. SHE HAD THIS REVIEWED BY DR. LUCIA HER PRIMARY CARE PROVIDER WHO HAS REFERRED HER TO DR. VARGHESE,NEUROSURGEON IN [place]. REPORTING EPISODES OF EXCRUCIATING PAIN. DOES FIND HER CURRENT MEDICINE HELPFUL AT REDUCING PAIN. SHE TAKES OXYCODONE AND ROBAXIN PERIODICALLY FOR SEVERE PAIN EPISODES. DISCUSSED MEDICATION AND TREATMENT PLAN. -. FALL RISK SCREENING: SCREENING :ONE FALL WITH INJURY IN THE PAST YEAR PT STATES THAT SHE FELL IN LAST YEAR, HIT HEAD, SAW PCP AND BEING REFFERED TO [place] FOR EVALUATION OF ANEURYSM ON November PAIN SCREENING: PATIENT HAS A COMPLAINT OF ACUTE OR CHRONIC PAIN :YES LOCATION OF PAIN:UPPER BACK, MID BACK INTENSITY OF PAIN (SCALE OF 1 TO 10):10 WHAT DOES YOUR PAIN FEEL LIKE:ACHING, CONTINOUS, SHARP, STABBING, TENDER, SORE NURSING NOTE: -. PAIN CENTER INTAKE QUESTIONS: DO YOU HAVE A HISTORY OF MRSA? :YES PT STATES THAT SHE HAS HX OF MRSA ON RIGHT WRIST, NO OPEN AREAS NOW DO YOU TAKE A BLOOD THINNERS? :NO DO YOU HAVE ANY BLEEDING DISORDERS? :NO ANY NEW NUMBNESS OR WEAKNESS IN YOUR LEGS OR ARMS? :NO ANY PACEMAKER,DEFIBRILLATOR, OR DORSAL COLUMN STIMULATOR? :NO DO YOU HAVE ANY RASHES OR OPEN SORES? :NO ARE YOU ALLERGIC TO IV DYE? :NO ARE YOU DIABETIC? :YES MANAGED TOUJEO ANY NEW PROBLEMS WITH YOUR MEDICATIONS? :NO HAVE YOU RECEIVED A VACCINE IN THE PAST 30 DAYS? :NO DO YOU PLAN TO RECEIVE A VACCINE IN THE NEXT 21 DAYS? :NO DO YOU NEED ANY PRESCRIPTION? :NO DO YOU TAKE ANY IMMUNOSUPPRESSIVE MEDICATIONS? :NO IS THERE A CHANCE YOU COULD BE ? :NO ARE YOU BREAST FEEDING? :NO CURRENT MEDICATIONS TAKING TRAZODONE 150 150MG TABLET 1 TAB(S) ORALLY DAILY TAKING ATROVENT 0.06 % SOLUTION 2 DROPS IN EACH NOSTRIL NEEDED NASALLY THREE TIMES A DAY TAKING ASPIRIN 81 MG TABLET DELAYED RELEASE 1 TABLET ORALLY ONCE A DAY TAKING LANCETS MISC LANCETS MISCELLANEOUS 1 STRIP _ DX:E11.65 BEFORE MEALS AND AT BEDTIME TAKING SPIRIVA RESPIMAT 2.5 MCG/ACT AEROSOL SOLUTION 2 PUFFS INHALATION ONCE A DAY TAKING IPRATROPIUM BROMIDE 0.03 % SOLUTION 2 SPRAYS IN EACH NOSTRIL ORALLY TWICE A DAY TAKING GLUCOSE 4 GM TABLET CHEWABLE DIRECTED ORALLY 4 TABS NEEDED TAKING SPIRONOLACTONE 25 MG TABLET 1 TABLET ORALLY AND 1/2 IN THE AFTERNOON ONCE DAILY TAKING LACTULOSE 10 GM/15ML SYRUP 35 ML ORALLY BID TAKING RIFAXIMIN 550 MG TABLET 1 TABLET ORALLY TWICE A DAY TAKING BENZOYL PEROXIDE 5 % GEL 1 APPLICATION TO AFFECTED AREA EXTERNALLY ONCE A DAY, NOTES: NONE RECENT TAKING DICLOFENAC SODIUM 1 % GEL DIRECTED TRANSDERMAL, APPLY TO LOW BACK BILATERALLY FOUR TIMES DAILY NEEDED, NOTES: NONE RECENT TAKING HUMALOG KWIKPEN 100 UNIT/ML SOLUTION PEN-INJECTOR DIRECTED DAILY SUBCUTANEOUS 30 DAY(S) TAKING COMPRESSION STOCKINGS 15-20 MMHG 1 PAIR OF STOCKING VIVIENNE #[id number], DX: R60.9 DAILY TAKING BRIEFS OVERNIGHT LARGE - MISCELLANEOUS WEAR 1 UNDERPAD NEEDED VIVIENNE # [id number]; DX: R15.2, K52.1: WAIST 47 INCHES, HIPS 45 INCHES EVERY 4 HOURS NEEDED, 6 PER DAY TAKING CLINDAMYCIN PHOSPHATE 1 % GEL 1 APPLICATION TO AFFECTED AREA EXTERNALLY TWO TIMES A DAY TO LOWER FACE AND NECK MIXED 1:1 WITH OTC HYDROCORTISONE 1% AFTER WASHING, NOTES: NONE RECENT TAKING TORSEMIDE 20 MG TABLET 1/2 TAB ORALLY DAILY TAKING ALBUTEROL SULFATE HFA 108 (90 BASE) MCG/ACT AEROSOL SOLUTION 2 PUFFS INHALATION EVERY 6 HRS TAKING EMBRACE LANCETS ULTRA THIN 30G - MISCELLANEOUS 1 STRIP BEFORE MEALS AND AT BEDTIME _ DX:E11.65 30 DAY(S) TAKING TOUJEO SOLOSTAR 300 UNIT/ML SOLUTION PEN-INJECTOR 70 U EVERY MORNING SUBCUTANEOUS 38 SUBCUTANEOUS ONCE DAILY TAKING TESSALON PERLES 100 MG CAPSULE 1 CAPSULE NEEDED ORALLY THREE TIMES A DAY TAKING ONDANSETRON 4 MG TABLET DISINTEGRATING 1 TABLET ON THE TONGUE AND ALLOW TO DISSOLVE ORALLY FOUR TIMES DAILY NEEDED TAKING OXYCODONE HCL 5 MG TABLET 1 TABLET NEEDED ORALLY Q8H PRN MDD3 #30 TAB SHOULD LAST 30 DAYS TAKING BLOOD GLUCOSE TEST - STRIP 1 STRIP IN VITRO 4 TIMES DAILY DX:E11.65 TAKING VITAMIN E 400 UNIT CAPSULE 1 CAPSULE ORALLY ONCE A DAY TAKING TRAZODONE HCL 150 MG TABLET TAKE ONE TABLET BY MOUTH ONCE DAILY 28 TAKING CETIRIZINE HCL 10 MG TABLET 1 TABLET ONCE A DAY ORALLY 28 28 TAKING GABAPENTIN 400 MG CAPSULE 1 CAPSULE THREE TIMES DAILY ORALLY 28 28 TAKING XIFAXAN 550 MG TABLET 1 TABLET TWICE A DAY ORALLY 30 DAY(S) 28 28 TAKING PEN NEEDLES 3/16" 31G X 5 MM PEN NEEDLE USE WITH LANTUS PEN SUBCUTANEOUSLY THREE TIMES A DAY DX; 250 TAKING GLOBAL EASE INJECT PEN NEEDLES 31G X 5 MM MISCELLANEOUS USE WITH LANTUS PEN THREE TIMES DAILY TAKING SHOWER CHAIR WITHOUT WHEELS DIRECTED FIELD [facility]# [id number], DX:G89.29, G90.0, R29.6 DAILY USE TAKING WELLBUTRIN XL 150 MG TABLET EXTENDED RELEASE 24 HOUR 1 TABLET IN THE MORNING ORALLY ONCE A DAY TAKING ESCITALOPRAM OXALATE 20 MG TABLET 1 TABLET ONCE A DAY ORALLY 28 28 TAKING DRISDOL 1.25 MG (34367 UT) CAPSULE 1 CAPSULE WEEKLY ORALLY 28 ORALLY TAKING ROBAXIN-750 750 MG TABLET 1 TAB ORALLY Q8H NOT-TAKING NICODERM CQ 14 MG/24HR PATCH 24 HOUR 1 PATCH TO SKIN TRANSDERMAL ONCE A DAY, NOTES: NONE RECENT NOT-TAKING DRISDOL 90385 UNIT CAPSULE 1 CAPSULE ORALLY WEEKLY, NOTES: DUPLICATE NOT-TAKING GABAPENTIN 400 MG CAPSULE 1 CAPSULE ORALLY THREE TIMES DAILY, NOTES: DUPLICATE NOT-TAKING VOLTAREN 1 % GEL DIRECTED TRANSDERMAL APPLY TO RIGHT THORACIC TID, NOTES: DUPLICATE NOT-TAKING FREESTYLE TEST STRIPS DX CODE E11.9 STRIP DIRECTED FOUR TIMES A DAY NOT-TAKING URSODIOL 300 MG CAPSULE 1 CAP ORALLY THREE TIMES A DAY NOT-TAKING VENTOLIN HFA 108 (90 BASE) MCG/ACT AEROSOL SOLUTION 2 PUFFS NEEDED INHALATION EVERY 4 HRS MEDICATION LIST REVIEWED AND RECONCILED WITH THE PATIENT PAST MEDICAL HISTORY DMII , EYE EXAM AND FOOT EXAM BOTH DUE IN AUGUST HTN, GOAL < 140/< 90 CKD STAGE III - FOLLOWED BY MAJOR DEPRESSIVE DISORDER TOBACCO ABUSE HX PANCREATITIS HYPERLIPIDEMIA ASCVD RISK 14.0% 07/2016 (10 YEAR RISK) 2NDARY HYPERPARATHYROIDISM DIABETES W/O RETINOPATHY POSSIBLE GLAUCOMA; [facility] HX CHOLEDOCHOLYTHIASIS (S/P CHOLECYSTECTOMY) HISTORY OF CRACK COCAINE USE FOR 4 YEARS LAST USE WAS 2009 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 ADEN) AUTOIMMUNE HEPATITIS, FOLLOWS WITH DR. ADEN ELEVATED AMMONIA LEVEL ASCITES ALLERGIES N.K.D.A. SURGICAL HISTORY HYSTERECTOMY 2007 CHOLECYSTECTOMY LEFT BREAST CYST REMOVAL T 7-9 LAMINECTOMY 12/2014 COLONOSCOPY 12/12/14 RUPTURED CYST IN [place]ORTA 10/2018 PARACENTESIS 02/2019 LUMPS REMOVED - NECK FAMILY HISTORY FATHER: ALIVE, DIABETES, HTN MOTHER: ALIVE, DIABETES, HTN SIBLINGS: ALIVE 2 BROTHER(S) , 1 SISTER(S) - HEALTHY. DENIES FAMILY HX OF MELANOMA OR PANCREATIC CANCER. SOCIAL HISTORY GENERAL: TOBACCO USE ARE YOU A:CURRENT SMOKER ARE YOU INTERESTED IN QUITTING?THINKING ABOUT QUITTING PREVIOUS QUIT ATTEMPTS?YES, WITHIN THE LAST 6 MONTHS. COUNSELED THE PATIENT ON SMOKING CESSATION, EDUCATION [id number]/2020 HOW MANY CIGARETTES A DAY DO YOU SMOKE?5 OR LESS HOW SOON AFTER YOU WAKE UP DO YOU SMOKE YOUR FIRST CIGARETTE?6-30 MIN HOW OFTEN DO YOU SMOKE CIGARETTES?EVERY DAY PATIENT COUNSELED ON THE DANGERS OF TOBACCO USE AND URGED TO QUIT:11/19/2019 PT COUNCELED ON THE IMPORTANCE OF QUITTING. SHE IS INTERESTED IN QUITTING AND ALREADY HAS INFORMATION ON IT. ADDITIONAL FINDINGS: TOBACCO USER PT IS CURRENTLY USING PATCH ON AND OFF TRYING TO CUT DOWN ON SMOKING LATEX QUESTIONNAIRE LATEX ALLERGY : HAVE YOU EVER DEVELOPED ANY TYPE OF REACTION AFTER HANDLING LATEX PRODUCTS SUCH RUBBER GLOVES, CONDOMS, DIAPHRAGMS, BALLOONS, SOCKS, OR UNDERWEAR?NO LATEX ALLERGY : HAVE YOU EVER DEVELOPED ANY TYPE OF REACTION DURING OR AFTER DENTAL APPOINTMENT, VAGINAL/RECTAL EXAMINATION, SURGICAL PROCEDURE, OR ANY OTHER EXPOSURE?NO LATEX RISK : HAVE YOU EVER HAD ANY DIFFICULTY BREATHING OR HIVES AFTER EATING OR HANDLING ANY FRUITS, OR VEGETABLES; SUCH KIWI, BANANAS, STONE FRUITS, OR CHESTNUTSNO LATEX RISK : DO YOU HAVE A PREVIOUS PERSONAL HISTORY OF MORE THAN NINE SURGERIES, SPINA BIFIDA, OR REPEATED CATHERIZATIONS? NO LATEX RISK : ARE YOU FREQUENTLY EXPOSED TO LATEX PRODUCTS IN YOUR OCCUPATION?NO DATE ASKED : 11/19/2019 LUNG CANCER SCREENING SMOKING STATUS:CURRENT SMOKER BMI CARE GOAL FOLLOW-UP ABOVE NORMAL BMI FOLLOW-UPDIETARY NEEDS EDUCATION ALCOHOL SCREENING DID YOU HAVE A DRINK CONTAINING ALCOHOL IN THE PAST YEAR?NO POINTS0 INTERPRETATIONNEGATIVE RECREATIONAL DRUG USE DRUG USE?NO CAFFEINE CAFFEINE USE?YES SEXUAL HX HAD SEX IN THE LAST 12 MONTHS (VAGINAL, ORAL, OR ANAL)?NO HIV / HEP-C SCREENING HIV TEST OFFERED TO PATIENT:YES DATE OFFERED:06/10/2011 TEST ACCEPTED:NO REASON:PATIENT DECLINED SYNAGOGUE [id number] BAPTISM LANGUAGE IRANIAN. EDUCATION LEVEL OF EDUCATION:HIGH SCHOOL LEARNING BARRIERS / SPECIAL NEEDS CHANGE FROM LAST VISIT?NO BARRIERS TO LEARNING?NO HEARING IMPAIRED?NO VISION IMPAIRED?YES COGNITIVELY IMPAIRED?NO :CORRECTIVE LENSES READINESS TO LEARN?YES LEARNING PREFERENCES?NO LEARNING CAPABILITIES PRESENT?YES EMOTIONAL BARRIERS?NO SPECIAL DEVICES?NO HISTORICAL SOCIETY DIRECTOR NEEDED?NO DOMESTIC VIOLENCE DO YOU FEEL SAFE IN YOUR ENVIRONMENT?YES OCCUPATION: UNEMPLOYED. DIET: REGULAR. EXERCISE: NO REGULAR EXERCISE. MARITAL STATUS: .. OTHERS AT HOME: NONE. PAIN CLINIC PFS, CLERGY, PUBLIC HEALTH REFERRALS PFS REFERRAL NEEDED?NO CLERGY REFERRAL NEEDED?NO PUBLIC HEALTH REFERRAL NEEDED?NO WAS THE PROVIDER NOTIFIED OF ANY PERTINENT INFO?YES HAS THE PATIENT BEEN EDUCATED REGARDING HIS/HER PLAN OF CARE?YES HAS THE PATIENT BEEN EDUCATED REGARDING PAIN, THE RISK FOR PAIN, THE IMPORTANCE OF EFFECTIVE PAIN MANAGEMENT, AND THE PAIN ASSESSMENT PROCESS?YES ADVANCE DIRECTIVE ADVANCE DIRECTIVE DISCUSSED WITH PATIENT:YES PT. HAS DNR AND HCP-MOTHERAPRIL [phone] UNEMPLOYED, NOT , NO CHILDREN. MOVED TO [place] FROM [place] AT BEGINNING OF 2010. CURRENTLY SMOKES 1/2PPD PRIOR TO HOSPITALIZATION 1 PPD FOR 35 YEARS, NO ETOH OR ILLICITS, 3 CAFFEINATED BEVERAGES A DAY, NO REGULAR EXERCISE. HOSPITALIZATION/MAJOR DIAGNOSTIC PROCEDURE [facility] ACUTE PANCREATITIS SECONDARY TO HYPERTRIGLYCERDEMIA AND UNCONTROLED DMII 02/11- [facility] MRSA CELLULITIS 02/17/2011 [place] E COLI INFECTION [facility] ACUTE PANCREATITIS 03/16- BACK SURGERY 01/06/15-01/10/15 FAINTING SPELLS (HYPERAMMONEMIA) 08/02/16-08/04/16 ELEVATED AMMONIA LEVELS RUPTURED CYST IN AORTA 10/2018 REVIEW OF SYSTEMS CONSTITUTIONAL: ANY RECENT FEVER NO . CHILLS NO . WEIGHT CHANGE OF UNKNOWN REASONS NO . GASTROENTEROLOGY: NEW UNEXPLAINABLE CHANGES IN BOWEL CONTROL NO . CONSTIPATION NO . GENITOURINARY: ANY NEW CHANGE IN BLADDER CONTROL? NO . NEUROLOGY: NEW ONSET DIZZINESS OR NEUROLOGICAL CHANGES NOT MENTIONED NO . NEW NUMBNESS OR PAIN PATTERNS NOT MENTIONED AND PERTINENT TO TODAY'S VISIT NO . CARDIOLOGY: NEW CHEST PRESSURE NO . NEW CHEST PAIN NO . RESPIRATORY: UNEXPLAINABLE COUGH NO . NEW SHORTNESS OF BREATH NO . EXAMINATION GENERAL EXAMINATION: DIAGNOSTIC TESTS REVIEWED MRI THORACIC SPINE-2019. ASSESSMENTS PAIN IN THORACIC SPINE - M54.6 (PRIMARY) TREATMENT PAIN IN THORACIC SPINE REFILL OXYCODONE HCL TABLET, 5 MG, 1 TABLET NEEDED, ORALLY, Q8H PRN MDD3 #30 TAB SHOULD LAST 30 DAYS, 30 DAYS, 30, REFILLS 0 CONTINUE ROBAXIN-750 TABLET, 750 MG, 1 TAB, ORALLY, Q8H NOTES: ADVISED TO CONTINUE CURRENT INTERMITTENT USE OF PAIN MEDICATIONS FOR SEVERE PAIN EPISODES. SHE IS VERY UNCOMFORTABLE AND WOULD LIKE TO CONSIDER DOING PROCEDURES AGAIN THAT WERE HELPFUL . INFORMED HER THAT WE WOULD NEED DR. CLINTON TO EVALUATE HER PRIOR TO DOING ANY MORE PROCEDURES AND HAVE ENCOURAGED HER TO TRACK THIS REFERRAL THAT WAS MADE BY PRIMARY CARE. FOLLOW-UP IS SCHEDULED AT THE PAIN CLINIC IN 2 MONTHS. TOTAL TIME SPENT DURING TELEPHONE VISIT WAS APPROXIMATELY 12 MINUTES. DISPOSITION & COMMUNICATION FOLLOW UP 2 MONTHS (REASON: F/U ON NEUROSURGEON VISIT WITH DR VARGHESE/FORREST MGMNT) ELECTRONICALLY SIGNED BY EDILMA LAM ON 12/03/2019 AT 03:10 PM EDT DISCLAIMER : THIS IS A VISIT SUMMARY EXTRACTED FROM THE [facility] CHART. IT IS NOT A COPY OF THE [facility] PROGRESS NOTE. NELDAD
== END ==
LOC: M PAIN 13:45
PROVIDERS: ATTEND Nurse Practitioner Family
DX: M54.6 Pain in thoracic spine (principal)

== ENCOUNTER → 2019-11-26 | Outpatient (CLI) | payer MEDICARE, MEDICAID | LOC: M LABSMTC 11:15 | PROVIDERS: ATTEND Anesthesiology | DX: Z01.818 Encounter for other preprocedural examination (principal); Z11.59 Encounter for screening for other viral diseases | CPT/HCPCS: C9803; U0003 ==

== ENCOUNTER → 2019-11-29 | Day surgery (SDC) | payer MEDICARE, MEDICAID ==
[~2019-11-29] VITALS: Ht 165.1 cm; Wt 100.2 kg
[~2019-11-29] MED LIST changes: +AMLO1TAB24 PO; -AMLO5TAB6 PO; +BUPR150T3; +BUPR150T3 PO; +CALC1CAP31; +CALC1CAP31 PO; +CETI10TA4 PO; +GABA-845 PO; +LACT10SO3; +LIDOCAINE 2% 100MG/5ML SDV (FOR ANES.) As Ordered ONE; +LOPE-39 PO; +MED REC COMMENT; +METH750T2 PO; +MIDO2.5T PO; +NS 1,000 ML IV ONE; +ONDA-195 PO; +ONDA-83; +ONDANSETRON 4MG/2ML VIAL As Ordered ONE; +OXYC-517 PO; +PANT20TA6 PO; +PATIENT COMMENT; +POTA1TAB14 PO; +PROAAER10 INH; +SIMETHICONE 40MG/0.6ML DROPS 30ML As Ordered ONE; +SPIR-10; +TORS10TA3; +TORS20TA2 PO; +TRAZ150T90 PO; +XALA0.007 OU; +propofoL 200 MG/20 ML VIAL As Ordered ONE
[2019-11-29 13:51] VITALS: BP 121/71
== END | disposition home or self-care (01) ==
LOC: M OPP 12:49
PROVIDERS: ATTEND Internal Medicine Gastroenterology
DX: K74.69 Other cirrhosis of liver (principal)
CPT/HCPCS: 87486; 87581; 87633; 87798; J2405

== ENCOUNTER 2019-11-30 11:45 | Day surgery (SDC) | payer MEDICARE, MEDICAID ==
[~2019-11-30] VITALS: Ht 167.6 cm; Wt 100.2 kg
[~2019-11-30 11:45] MED LIST changes: -BUPR150T3; -BUPR150T3 PO; -CALC1CAP31; -CALC1CAP31 PO; -CETI10TA4 PO; -GABA-845 PO; -LACT10SO3; -LIDOCAINE 2% 100MG/5ML SDV (FOR ANES.) As Ordered ONE; +LIDOCAINE 2% 100MG/5ML SDV (FOR ANES.) ONE; -LOPE-39 PO; -MED REC COMMENT; -METH750T2 PO; -MIDO2.5T PO; -NS 1,000 ML IV ONE; -ONDA-195 PO; -ONDA-83; -ONDANSETRON 4MG/2ML VIAL As Ordered ONE; -OXYC-517 PO; -PANT20TA6 PO; -PATIENT COMMENT; -POTA1TAB14 PO; -PROAAER10 INH; -SIMETHICONE 40MG/0.6ML DROPS 30ML As Ordered ONE; -SPIR-10; -TORS10TA3; -TORS20TA2 PO; -TRAZ150T90 PO; -XALA0.007 OU; -propofoL 200 MG/20 ML VIAL As Ordered ONE; +propofoL 200 MG/20 ML VIAL ONE
[2019-11-30] MEDS ORDERED: NS 1,000 ML IV ONE (12:00)
[2019-11-30] MEDS ORDERED: ONDANSETRON 4MG/2ML VIAL ONE (13:04)
--- NOTE | 2019-11-30 13:25 | ROOR ---
Patient Name: Jill Avery Procedure Date: 11/30/2019 12:40 PM Date of : 1960 Age: 59 Room: [facility] Gender: Female Note Status: Finalized Procedure: Upper GI endoscopy Indications: For therapy of esophageal varices in patient with suspected portal hypertension Providers: Eagle Boyle MD Referring MD: [facility] D. [facility], Admin. Requesting Provider: Medicines: Monitored Anesthesia Care Complications: No immediate complications. Procedure: Pre-Anesthesia Assessment: - Prior to the procedure, a History and Physical was performed, and patient medications and allergies were reviewed. The patient is competent. The risks and benefits of the procedure and the sedation options and risks were discussed with the patient. All questions were answered and informed consent was obtained. Patient identification and proposed procedure were verified by the physician, the nurse and the anesthesiologist in the procedure room. Mental Status Examination: alert and oriented. Airway Examination: normal oropharyngeal airway and neck mobility. Respiratory Examination: clear to auscultation. CV Examination: normal. Prophylactic Antibiotics: The patient does not require prophylactic antibiotics. Prior Anticoagulants: The patient has taken no previous anticoagulant or antiplatelet agents. ASA Grade Assessment: III - A patient with severe systemic disease. After reviewing the risks and benefits, the patient was deemed in satisfactory condition to undergo the procedure. The anesthesia plan was to use monitored anesthesia care (MAC). Immediately prior to administration of medications, the patient was re-assessed for adequacy to receive sedatives. The heart rate, respiratory rate, oxygen saturations, blood pressure, adequacy of pulmonary ventilation, and response to care were monitored throughout the procedure. The physical status of the patient was re-assessed after the procedure. The Endoscope was introduced through the mouth, and advanced to the second part of duodenum. The upper GI endoscopy was accomplished without difficulty. The patient tolerated the procedure well. Findings: Two columns of non-bleeding large (> 5 mm) varices were found in the middle third of the esophagus and in the lower third of the esophagus,. They were 10 mm in largest diameter. No stigmata of recent bleeding were evident and red cyn signs were present. Three bands were successfully placed with complete eradication, resulting in deflation of varices. There was no bleeding during and at the end of the procedure. Diffuse mild inflammation characterized by congestion (edema) and granularity was found in the gastric body and in the gastric antrum. The duodenal bulb and second portion of the duodenum were normal. Impression: - Non-bleeding large (> 5 mm) esophageal varices. Completely eradicated. Banded. - Gastritis. - Normal duodenal bulb and second portion of the duodenum. - No specimens collected. Recommendation: - Patient has a contact number available for emergencies. The signs and symptoms of potential delayed complications were discussed with the patient. Return to normal activities tomorrow. Written discharge instructions were provided to the patient. - Clear liquid diet for 1 day, then advance as tolerated to soft diet. - Continue present medications. - No aspirin, ibuprofen, naproxen, or other non-steroidal anti-inflammatory drugs for 10 days. - Use Protonix (pantoprazole) 20 mg PO twice daily - to be taken in morning (1/2 hour before breakfast) and at bedtime ( atleast 3 hours after last meal) for 6 weeks. - Repeat upper endoscopy in 6 weeks to check healing and for retreatment. - Telephone GI clinic if symptomatic. - Telephone GI clinic to schedule appointment in 4 weeks. - Return to primary care physician. Eagle Boyle MD Eagle Boyle MD 11/30/2019 1:25:01 PM Electronically signed by Eagle Boyle MD Number of Addenda: 0 Note Initiated On: 11/30/2019 12:40 PM Estimated Blood Loss: Estimated blood loss was minimal.
[2019-11-30 13:57] VITALS: BP 141/77
[2019-11-30] MEDS ORDERED: SODIUM CHLORIDE 0.9% 1000ML ONE (13:59)
[2019-11-30] MEDS ORDERED: SIMETHICONE 40MG/0.6ML DROPS 30ML ONE (15:24)
== END 2019-11-30 13:56 | disposition home or self-care (01) ==
LOC: M OPP 11:45
PROVIDERS: ATTEND Internal Medicine Gastroenterology
DX: I85.00 Esophageal varices without bleeding (principal); K29.70 Gastritis, unspecified, without bleeding; K74.69 Other cirrhosis of liver; E11.9 Type 2 diabetes mellitus without complications; G47.30 Sleep apnea, unspecified; F17.210 Nicotine dependence, cigarettes, uncomplicated; Z79.4 Long term (current) use of insulin; Z79.82 Long term (current) use of aspirin; Z79.899 Other long term (current) drug therapy
CPT/HCPCS: 43244; J2405

== ENCOUNTER → 2019-12-24 | Outpatient (CLI) | payer MEDICARE, MEDICAID ==
[~2019-12-24] MED LIST changes: +BUPR150T3; +BUPR150T3 PO; +CALC1CAP31; +CALC1CAP31 PO; +CETI10TA4 PO; +GABA-845 PO; +LACT10SO3; -LIDOCAINE 2% 100MG/5ML SDV (FOR ANES.) ONE; +LOPE-39 PO; +MED REC COMMENT; +METH750T2 PO; +MIDO2.5T PO; +ONDA-195 PO; +ONDA-83; +OXYC-517 PO; +PANT20TA6 PO; +PATIENT COMMENT; +POTA1TAB14 PO; +PROAAER10 INH; +SPIR-10; +TORS10TA3; +TORS20TA2 PO; +TRAZ150T90 PO; +XALA0.007 OU; -propofoL 200 MG/20 ML VIAL ONE
== END ==
LOC: M RAD 16:20
PROVIDERS: ATTEND Student in an Organized Health Care Education/Training Program
DX: R22.42 Localized swelling, mass and lump, left lower limb (principal)

== ENCOUNTER 2020-01-04 13:10 | Inpatient (IN) | payer MEDICARE, MEDICAID ==
[~2020-01-04 13:10] MED LIST changes: -BUPR150T3; -BUPR150T3 PO; -CALC1CAP31; -CALC1CAP31 PO; -CETI10TA4 PO; -GABA-845 PO; -LACT10SO3; -LOPE-39 PO; -MED REC COMMENT; -METH750T2 PO; -MIDO2.5T PO; -ONDA-195 PO; -ONDA-83; -OXYC-517 PO; -PANT20TA6 PO; -PATIENT COMMENT; -POTA1TAB14 PO; -PROAAER10 INH; -SPIR-10; -TORS10TA3; -TORS20TA2 PO; -TRAZ150T90 PO; -XALA0.007 OU
[2020-01-05] MEDS ORDERED: HEPARIN SOD (PORCINE) 5000UNITS/ML 1ML VIAL/SYRINGE As Ordered ONE ×3 (01:36→22:16)
[2020-01-05] MEDS ORDERED: LACTULOSE 20 GM/30 ML SYRUP UD As Ordered ONE ×6 (01:36→22:39)
[2020-01-05] MEDS ORDERED: LEVEMIR (INSULIN DETEMIR) 1 UNITS/0.01ML ONE (01:36)
[2020-01-05] MEDS ORDERED: LACTULOSE 20 GM/30 ML SYRUP UD ONE ×6 (01:36→22:39)
[2020-01-05] MEDS ORDERED: GABAPENTIN 400 MG CAP ONE ×4 (01:36→20:50)
[2020-01-05] MEDS ORDERED: rifAXIMin 550 MG TAB (XIFAXAN) ONE ×4 (01:36→20:50)
[2020-01-05] MEDS ORDERED: HEPARIN SOD (PORCINE) 5000UNITS/ML 1ML VIAL/SYRINGE ONE ×3 (01:36→22:16)
[2020-01-05] MEDS ORDERED: GABAPENTIN 400 MG CAP As Ordered ONE ×4 (01:36→20:50)
[2020-01-05] MEDS ORDERED: rifAXIMin 550 MG TAB (XIFAXAN) As Ordered ONE ×3 (01:36→20:50)
[2020-01-05] MEDS ORDERED: LEVEMIR (INSULIN DETEMIR) 1 UNITS/0.01ML As Ordered ONE (01:37)
[2020-01-05] MEDS ORDERED: HumaLOG INSULIN (NovoLOG) PER UNIT ONE ×3 (10:32→17:56)
[2020-01-05] MEDS ORDERED: ESCITALOPRAM OXALATE 10 MG TAB (LEXAPRO) ONE (10:32)
[2020-01-05] MEDS ORDERED: ASPIRIN 81 MG ENTERIC TAB ONE (10:32)
[2020-01-05] MEDS ORDERED: ESCITALOPRAM OXALATE 10 MG TAB (LEXAPRO) As Ordered ONE (10:34)
[2020-01-05] MEDS ORDERED: HumaLOG INSULIN (NovoLOG) PER UNIT As Ordered ONE ×3 (10:34→17:56)
[2020-01-05] MEDS ORDERED: ASPIRIN 81 MG ENTERIC TAB As Ordered ONE (10:35)
[2020-01-05] MEDS ORDERED: buPROPion **XL** TABLET 150MG (WELLBUTRIN XL) ONE (10:44)
[2020-01-05] MEDS ORDERED: buPROPion **XL** TABLET 150MG (WELLBUTRIN XL) As Ordered ONE (10:44)
[2020-01-05] MEDS ORDERED: methocarbamoL 750 MG TAB ONE (21:00)
[2020-01-06] MEDS ORDERED: LACTULOSE 20 GM/30 ML SYRUP UD ONE ×3 (06:25→18:07)
[2020-01-06] MEDS ORDERED: LACTULOSE 20 GM/30 ML SYRUP UD As Ordered ONE ×3 (06:25→18:07)
[2020-01-06] MEDS ORDERED: HEPARIN SOD (PORCINE) 5000UNITS/ML 1ML VIAL/SYRINGE ONE (06:25)
[2020-01-06] MEDS ORDERED: HEPARIN SOD (PORCINE) 5000UNITS/ML 1ML VIAL/SYRINGE As Ordered ONE (06:26)
[2020-01-06] MEDS ORDERED: GABAPENTIN 400 MG CAP ONE ×3 (09:43→20:16)
[2020-01-06] MEDS ORDERED: ESCITALOPRAM OXALATE 10 MG TAB (LEXAPRO) ONE (09:43)
[2020-01-06] MEDS ORDERED: buPROPion **XL** TABLET 150MG (WELLBUTRIN XL) ONE (09:43)
[2020-01-06] MEDS ORDERED: rifAXIMin 550 MG TAB (XIFAXAN) As Ordered ONE ×2 (09:43→20:16)
[2020-01-06] MEDS ORDERED: ASPIRIN 81 MG ENTERIC TAB ONE (09:43)
[2020-01-06] MEDS ORDERED: HumaLOG INSULIN (NovoLOG) PER UNIT ONE ×3 (09:43→17:01)
[2020-01-06] MEDS ORDERED: rifAXIMin 550 MG TAB (XIFAXAN) ONE ×2 (09:43→20:16)
[2020-01-06] MEDS ORDERED: buPROPion **XL** TABLET 150MG (WELLBUTRIN XL) As Ordered ONE (09:43)
[2020-01-06] MEDS ORDERED: ESCITALOPRAM OXALATE 10 MG TAB (LEXAPRO) As Ordered ONE (09:45)
[2020-01-06] MEDS ORDERED: HumaLOG INSULIN (NovoLOG) PER UNIT As Ordered ONE ×3 (09:45→17:01)
[2020-01-06] MEDS ORDERED: GABAPENTIN 400 MG CAP As Ordered ONE ×3 (09:45→20:16)
[2020-01-06] MEDS ORDERED: ASPIRIN 81 MG ENTERIC TAB As Ordered ONE (09:46)
[2020-01-06] MEDS ORDERED: MIDODRINE 5 MG TAB ONE (15:15)
[2020-01-06] MEDS ORDERED: MIDODRINE 5 MG TAB As Ordered ONE (15:15)
[2020-01-06] MEDS ORDERED: LEVEMIR (INSULIN DETEMIR) 1 UNITS/0.01ML As Ordered ONE (20:30)
[2020-01-06] MEDS ORDERED: LEVEMIR (INSULIN DETEMIR) 1 UNITS/0.01ML ONE (20:30)
[2020-01-07] MEDS ORDERED: MIDODRINE 5 MG TAB ONE ×3 (00:53→08:28)
[2020-01-07] MEDS ORDERED: MIDODRINE 5 MG TAB As Ordered ONE ×3 (00:53→08:28)
[2020-01-07] MEDS ORDERED: LACTULOSE 20 GM/30 ML SYRUP UD ONE ×2 (06:02→12:27)
[2020-01-07] MEDS ORDERED: LACTULOSE 20 GM/30 ML SYRUP UD As Ordered ONE ×2 (06:02→12:27)
[2020-01-07] MEDS ORDERED: rifAXIMin 550 MG TAB (XIFAXAN) As Ordered ONE (08:28)
[2020-01-07] MEDS ORDERED: ASPIRIN 81 MG ENTERIC TAB ONE (08:28)
[2020-01-07] MEDS ORDERED: rifAXIMin 550 MG TAB (XIFAXAN) ONE (08:28)
[2020-01-07] MEDS ORDERED: GABAPENTIN 400 MG CAP As Ordered ONE (08:28)
[2020-01-07] MEDS ORDERED: GABAPENTIN 400 MG CAP ONE (08:28)
[2020-01-07] MEDS ORDERED: buPROPion **XL** TABLET 150MG (WELLBUTRIN XL) ONE (08:28)
[2020-01-07] MEDS ORDERED: buPROPion **XL** TABLET 150MG (WELLBUTRIN XL) As Ordered ONE (08:28)
[2020-01-07] MEDS ORDERED: ESCITALOPRAM OXALATE 10 MG TAB (LEXAPRO) ONE (08:28)
[2020-01-07] MEDS ORDERED: ASPIRIN 81 MG ENTERIC TAB As Ordered ONE (08:29)
[2020-01-07] MEDS ORDERED: ESCITALOPRAM OXALATE 10 MG TAB (LEXAPRO) As Ordered ONE (08:29)
[2020-01-07] MEDS ORDERED: TIOTROPIUM INHALER/CAPSULE (SPIRIVA) ONE (10:00)
[2020-01-07] MEDS ORDERED: ADVAIR HFA 230/21MCG INHALER ONE (10:00)
[2020-01-07] MEDS ORDERED: methocarbamoL 750 MG TAB ONE (13:00)
[2020-01-07] MEDS ORDERED: HumaLOG INSULIN (NovoLOG) PER UNIT As Ordered ONE (13:04)
[2020-01-07] MEDS ORDERED: HumaLOG INSULIN (NovoLOG) PER UNIT ONE (13:04)
--- NOTE | 2020-02-06 14:54 | ECGEPIP ---
SINUS RHYTHM POSSIBLE LEFT ATRIAL ENLARGEMENT MARKED LEFT AXIS DEVIATION ABNORMAL ECG SEE SCANNED DOWNTIME REPORT MTDD
[2020-02-10 21:03] LABS: HEMOGLOBIN 12.9 g/dl (12.0-15.5); MEAN CORPUSCULAR HEMOGLOBIN 32.4 pg (27.0-33.0); MEAN CORPUSCULAR HGB CONC 33.1 g/dl (32.0-36.5); RED BLOOD COUNT 3.98 10^6/uL (4.00-5.40); WHITE BLOOD COUNT 4.6 10^3/uL (4.0-10.0)
[2020-02-10 21:05] LABS: PLATELET COUNT, AUTOMATED 57 10^3/uL (150-450)
[2020-02-18 11:54] LABS: BASO # 0.1 10^3/uL (0.0-0.2); BASO % 0.8 % (0.0-1.0); EOS # 0.1 10^3/uL (0.0-0.5); EOS % 1.4 % (0.0-3.0); HEMATOCRIT 44.8 % (36.0-47.0); HEMOGLOBIN 14.6 g/dl (12.0-15.5); LYMPH # 2.6 10^3/uL (1.5-5.0); LYMPH % 35.9 % (24.0-44.0); MEAN CORPUSCULAR HEMOGLOBIN 32.4 pg (27.0-33.0); MEAN CORPUSCULAR HGB CONC 32.6 g/dl (32.0-36.5); MEAN CORPUSCULAR VOLUME 99.3 fl (80.0-96.0); MONO % 13.5 % (0.0-5.0); NEUTROPHILS # 3.5 10^3/uL (1.5-8.5); NEUTROPHILS % 48.3 % (36.0-66.0); PLATELET COUNT, AUTOMATED 117 10^3/uL (150-450); RED BLOOD COUNT 4.51 10^6/uL (4.00-5.40); WHITE BLOOD COUNT 7.2 10^3/uL (4.0-10.0)
[2020-02-18 13:38] LABS: INR 1.11; PROTHROMBIN TIME 14.5 SECONDS (12.5-14.3)
[2020-02-18 13:56] LABS: APPEARANCE, URINE MANUAL HAZY (CLEAR); COLOR, URINE MANUAL DK YELLOW (YELLOW); GLUCOSE, URINE (UA) MANUAL NEGATIVE (NEGATIVE); KETONE, URINE MANUAL 1+ mg/dL (NEGATIVE); PROTEIN, URINE MANUAL 1+ mg/dL (NEGATIVE); SPECIFIC GRAVITY,URINE MANUAL 1.025 (1.002-1.035)
[2020-02-18 13:57] LABS: BACTERIA, URINE LARGE AMOUNT; BILIRUBIN, URINE MANUAL NEGATIVE (NEGATIVE); BLOOD URINE MANUAL NEGATIVE (NEGATIVE); HYALINE CAST, URINE NONE SEEN /lpf (0-1); LEUKOCYTE ESTERASE, URINE MAN NEGATIVE (NEGATIVE); MUCUS, URINE SMALL AMOUNT (NEGATIVE); NITRITE, URINE MANUAL NEGATIVE (NEGATIVE); RBC, URINE NONE SEEN /hpf (0-3); SQUAMOUS EPITHELIAL CELL URINE LARGE AMOUNT /hpf (SMALL AMT); UROBILINOGEN, URINE MANUAL 4 MG mg/dl (NORMAL); WBC, URINE 0-1 /hpf (0-3)
[2020-03-02 18:14] LABS: HEMATOCRIT 43.4 % (36.0-47.0); HEMOGLOBIN 14.4 g/dl (12.0-15.5); MEAN CORPUSCULAR HEMOGLOBIN 32.3 pg (27.0-33.0); MEAN CORPUSCULAR HGB CONC 33.2 g/dl (32.0-36.5); MEAN CORPUSCULAR VOLUME 97.3 fl (80.0-96.0); RED BLOOD COUNT 4.46 10^6/uL (4.00-5.40); WHITE BLOOD COUNT 5.5 10^3/uL (4.0-10.0)
[2020-03-02 18:17] LABS: PLATELET COUNT, AUTOMATED 85 10^3/uL (150-450)
[2020-03-17 15:20] LABS: HEMATOCRIT 40.9 % (36.0-47.0); HEMOGLOBIN 13.4 g/dl (12.0-15.5); MEAN CORPUSCULAR HEMOGLOBIN 32.4 pg (27.0-33.0); MEAN CORPUSCULAR HGB CONC 32.8 g/dl (32.0-36.5); MEAN CORPUSCULAR VOLUME 98.8 fl (80.0-96.0); PLATELET COUNT, AUTOMATED 61 10^3/uL (150-450); RED BLOOD COUNT 4.14 10^6/uL (4.00-5.40); WHITE BLOOD COUNT 4.7 10^3/uL (4.0-10.0)
[2020-03-23 07:48] LABS: ALBUMIN 3.3 GM/DL (3.2-5.2); CALCIUM LEVEL 9.2 MG/DL (8.5-10.1); CREATININE FOR GFR 2.05 MG/DL (0.55-1.30); GLOMERULAR FILTRATION RATE 32.1 (>51); PHOSPHORUS LEVEL 2.9 MG/DL (2.5-4.9); POTASSIUM SERUM 4.4 MEQ/L (3.5-5.1)
[2020-03-28 13:33] LABS: ALBUMIN 3.4 GM/DL (3.2-5.2); ALT/SGPT 25 U/L (12-78); BILIRUBIN,TOTAL 2.2 MG/DL (0.2-1.0); BLOOD UREA NITROGEN 31 MG/DL (7-18); CALCIUM LEVEL 9.5 MG/DL (8.5-10.1); CARBON DIOXIDE LEVEL 30 MEQ/L (21-32); CHLORIDE LEVEL 102 MEQ/L (98-107); CK-MB VALUE MASS 3.3 NG/ML (<3.6); CPK CREATINE PHOSPHOKINASE 197 U/L (26-192); CREATININE FOR GFR 2.85 MG/DL (0.55-1.30); GLOMERULAR FILTRATION RATE 21.9 (>51); GLUCOSE, FASTING 197 MG/DL (70-100); MB/CK RELATIVE INDEX 1.68 (< OR =4); POTASSIUM SERUM 4.6 MEQ/L (3.5-5.1); SODIUM LEVEL 137 MEQ/L (136-145); TOTAL PROTEIN 8.2 GM/DL (6.4-8.2); TROPONIN I < 0.02 NG/ML (< 0.10)
[2020-03-30 11:11] LABS: CALCIUM LEVEL 9.8 MG/DL (8.5-10.1); CREATININE FOR GFR 2.52 MG/DL (0.55-1.30); GLOMERULAR FILTRATION RATE 25.3 (>51); POTASSIUM SERUM 4.5 MEQ/L (3.5-5.1)
[2020-03-30 11:12] LABS: ALBUMIN 3.5 GM/DL (3.2-5.2); BILIRUBIN,TOTAL 1.8 MG/DL (0.2-1.0)
== END 2020-01-07 15:30 | disposition home or self-care (01) | DRG 442 ==
LOC: M ED 13:10 → M MS5PR 17:00
PROVIDERS: ADMIT Internal Medicine; ATTEND Internal Medicine
DX: K72.00 Acute and subacute hepatic failure without coma (principal); N17.9 Acute kidney failure, unspecified; E86.0 Dehydration; N18.3 Chronic kidney disease, stage 3 (moderate); K74.60 Unspecified cirrhosis of liver; J44.9 Chronic obstructive pulmonary disease, unspecified; E11.9 Type 2 diabetes mellitus without complications; I12.9 Hypertensive chronic kidney disease with stage 1 through stage 4 chronic kidney disease, or unspecified chronic kidney disease; G47.33 Obstructive sleep apnea (adult) (pediatric); I95.1 Orthostatic hypotension

== ENCOUNTER 2020-02-07 13:24 | Emergency (ER) | payer MEDICARE, MEDICAID ==
[~2020-02-07] VITALS: Ht 165.1 cm; Wt 105.0 kg
[2020-02-07 13:58] LABS: BASO % 0.4 % (0.0-1.0); EOS % 0.6 % (0.0-3.0); HEMATOCRIT 33.2 % (36.0-47.0); HEMOGLOBIN 10.8 g/dl (12.0-15.5); LYMPH # 1.1 10^3/uL (1.5-5.0); LYMPH % 19.9 % (24.0-44.0); MEAN CORPUSCULAR HEMOGLOBIN 32.8 pg (27.0-33.0); MEAN CORPUSCULAR HGB CONC 32.5 g/dl (32.0-36.5); MEAN CORPUSCULAR VOLUME 100.9 fl (80.0-96.0); MONO # 0.7 10^3/uL (0.0-0.8); MONO % 12.5 % (0.0-5.0); NEUTROPHILS # 3.6 10^3/uL (1.5-8.5); NEUTROPHILS % 66.2 % (36.0-66.0); PLATELET COUNT, AUTOMATED 118 10^3/uL (150-450); RED BLOOD COUNT 3.29 10^6/uL (4.00-5.40); WHITE BLOOD COUNT 5.4 10^3/uL (4.0-10.0)
[2020-02-07] MEDS ORDERED: LACT10SO3 (14:02)
[2020-02-07] MEDS ORDERED: TORS10TA3 (14:02)
[2020-02-07] MEDS ORDERED: BUPR150T3 (14:02)
[2020-02-07] MEDS ORDERED: ONDA-83 (14:02)
[2020-02-07] MEDS ORDERED: CALC1CAP31 (14:02)
[2020-02-07] MEDS ORDERED: SPIR-10 (14:02)
[2020-02-07] MEDS ORDERED: CETI10TA4 PO (14:02)
[2020-02-07 14:29] LABS: BILIRUBIN,DIRECT 0.6 MG/DL (0.0-0.2); BILIRUBIN,TOTAL 1.6 MG/DL (0.2-1.0); CREATININE FOR GFR 1.34 MG/DL (0.55-1.30); GLOMERULAR FILTRATION RATE 52.4 (>51); POTASSIUM SERUM 3.6 MEQ/L (3.5-5.1); TOTAL PROTEIN 7.2 GM/DL (6.4-8.2)
[2020-02-07] MEDS ORDERED: ISOVUE-370 76% 100ML VIAL As Ordered ONE (14:36)
[2020-02-07 14:48] LABS: PARTIAL THROMBOPLASTIN TIME 35.7 SECONDS (24.2-38.5)
[2020-02-07 15:03] LABS: INR 1.34; PROTHROMBIN TIME 16.9 SECONDS (12.5-14.3)
--- NOTE | 2020-02-07 15:14 | REPVR ---
PROCEDURE INFORMATION: Exam: CT Abdomen And Pelvis With Contrast Exam date and time: 02/07/2020 2:33 PM Age: 59 years old Clinical indication: Bloating and other: Gi bleed; Additional info: Abdominal distended/ upper gi bleed TECHNIQUE: Imaging protocol: Computed tomography of the abdomen and pelvis with intravenous contrast. Radiation optimization: All CT scans at this facility use at least one of these dose optimization techniques: automated exposure control; mA and/or kV adjustment per patient size (includes targeted exams where dose is matched to clinical indication); or iterative reconstruction. Contrast material: ISOVUE 370; Contrast volume: 100 ml; Contrast route: INTRAVENOUS (IV); COMPARISON: CT ABD/PEL W/IV CONTRAST ONLY 05/29/2018 6:11 PM FINDINGS: Lungs: Interstitial prominence and chronic granulomatous disease. Coronary artery calcification. Liver: Lobulated morphology of the liver in a pattern of cirrhosis, with inhomogeneous attenuation. Gallbladder and bile ducts: Status post cholecystectomy. Pancreas: No pancreatic mass or ductal dilatation. Spleen: Enlarged spleen measuring 13.7 cm in length. Adrenals: Subtle adrenal nodularity. Kidneys and ureters: Lobulated renal morphology. Poorly characterized 5 mm nodular hypodensity in the upper pole the right kidney. No hydronephrosis. Stomach and bowel: Wall thickening in the nondistended stomach. Mild small bowel dilatation without a transition zone. Scattered diverticula. Marked colonic wall thickening, in a pattern of colitis. Appendix: No acute appendicitis. Intraperitoneal space: Infiltration of mesenteric fat and large quantity of intraperitoneal fluid. Vasculature: Venous collaterals. Intraluminal thrombus in the portal vein. Normal caliber of the abdominal aorta. Atherosclerotic plaque and vascular calcification. Lymph nodes: Subcentimeter lymph nodes. Bladder: Unremarkable bladder. Reproductive: Status post hysterectomy. Bones/joints: Osteopenia, degenerative change, and disc bulging. Soft tissues: Prominent subcutaneous edema. 5 mm calcification in the umbilicus. Punctate right breast calcifications. IMPRESSION: 1. Intraluminal thrombus in the portal vein. 2. Marked colonic wall thickening, in a pattern of colitis. 3. Cirrhosis and splenomegaly 4. Infiltration of mesenteric fat and large quantity of intraperitoneal fluid. 5. Additional findings as described above. THIS REPORT CONTAINS FINDINGS THAT MAY BE CRITICAL TO PATIENT CARE. The findings were verbally communicated via telephone conference with TANIYA Ortiz at 3:13 PM EDT on 02/07/2020. The findings were acknowledged and understood. Electronically signed by: Michoacano Merritt On 02/07/2020 15:14:29 PM
[2020-02-07] MEDS ORDERED: PANTOPRAZOLE 40MG VIAL (C9113 PER 1) IV ONE (16:30)
[2020-02-07 18:13] VITALS: BP 133/70
== END 2020-02-07 18:15 | disposition short-term general hospital (02) ==
LOC: EDBD 13:24 → M ED 13:24
DX: I81 Portal vein thrombosis (principal); K92.2 Gastrointestinal hemorrhage, unspecified; E11.9 Type 2 diabetes mellitus without complications; N18.3 Chronic kidney disease, stage 3 (moderate); E78.5 Hyperlipidemia, unspecified; F33.9 Major depressive disorder, recurrent, unspecified; G47.33 Obstructive sleep apnea (adult) (pediatric); K74.60 Unspecified cirrhosis of liver; Z79.899 Other long term (current) drug therapy; Z79.82 Long term (current) use of aspirin; Z79.4 Long term (current) use of insulin; F17.210 Nicotine dependence, cigarettes, uncomplicated
CPT/HCPCS: 74177; 80048; 80076; 83690; 85025; 85610; 85730; 86850; 86900; 86901; 96374; 99291; C9113; Q9967

== ENCOUNTER 2020-02-19 12:44 | Emergency (ER) | payer MEDICARE, MEDICAID ==
[~2020-02-19] VITALS: Ht 167.6 cm; Wt 107.7 kg
[~2020-02-19 12:44] MED LIST changes: +BUPR150T3; +CALC1CAP31; +CETI10TA4 PO; +LACT10SO3; +ONDA-83; +SPIR-10; +TORS10TA3
[2020-02-19 13:39] LABS: BASO % 0.4 % (0.0-1.0); EOS % 0.6 % (0.0-3.0); HEMATOCRIT 33.1 % (36.0-47.0); HEMOGLOBIN 10.6 g/dl (12.0-15.5); LYMPH # 1.8 10^3/uL (1.5-5.0); LYMPH % 24.1 % (24.0-44.0); MEAN CORPUSCULAR HEMOGLOBIN 32.3 pg (27.0-33.0); MEAN CORPUSCULAR VOLUME 100.9 fl (80.0-96.0); MONO % 14.2 % (0.0-5.0); NEUTROPHILS # 4.4 10^3/uL (1.5-8.5); NEUTROPHILS % 60.4 % (36.0-66.0); PLATELET COUNT, AUTOMATED 120 10^3/uL (150-450); RED BLOOD COUNT 3.28 10^6/uL (4.00-5.40); WHITE BLOOD COUNT 7.3 10^3/uL (4.0-10.0)
[2020-02-19 14:02] LABS: INR 1.42; PROTHROMBIN TIME 17.7 SECONDS (12.5-14.3)
[2020-02-19 14:03] LABS: PARTIAL THROMBOPLASTIN TIME 37.7 SECONDS (24.2-38.5)
--- NOTE | 2020-02-19 14:33 | REPVR ---
PROCEDURE INFORMATION: Exam: US Duplex Lower Extremity Veins, Bilateral Exam date and time: 02/19/2020 2:25 PM Age: 59 years old Clinical indication: Swelling (edema) of limb; Lower extremity, bilateral; Additional info: Bilateral lower leg swelling TECHNIQUE: Imaging protocol: Real-time duplex ultrasound of the extremities with 2-D wise scale, color Doppler flow and spectral waveform analysis with image documentation. Complete exam focused on the bilateral lower extremity veins. COMPARISON: US Duplex, Ext,LOWER veins,unilat LEFT 12/24/2019 5:06 PM (report not provided) FINDINGS: Right deep veins: Unremarkable. The common femoral, femoral, proximal profunda femoral and popliteal veins are patent without thrombus. Normal Doppler waveforms. Normal compressibility and/or augmentation response. Right superficial veins: Saphenofemoral junction is patent without thrombus. Left deep veins: Unremarkable. The common femoral, femoral, proximal profunda femoral and popliteal veins are patent without thrombus. Normal Doppler waveforms. Normal compressibility and/or augmentation response. Left superficial veins: Saphenofemoral junction is patent without thrombus. Soft tissues: Unremarkable. IMPRESSION: No deep venous thrombus demonstrated in either lower extremity. Electronically signed by: Cayden Pitt On 02/19/2020 14:33:12 PM
[2020-02-19 15:05] LABS: ALBUMIN 2.7 GM/DL (3.2-5.2); BILIRUBIN,DIRECT 0.3 MG/DL (0.0-0.2); BILIRUBIN,TOTAL 0.9 MG/DL (0.2-1.0); CALCIUM LEVEL 8.1 MG/DL (8.5-10.1); CREATININE FOR GFR 1.53 MG/DL (0.55-1.30); MAGNESIUM LEVEL 1.4 MG/DL (1.8-2.4); POTASSIUM SERUM 2.9 MEQ/L (3.5-5.1)
[2020-02-19] MEDS ORDERED: KCL 10MEQ/100ML SWI (KRUN) 10 MEQ in IV 1 EA IV ONE (15:15)
[2020-02-19] MEDS ORDERED: POTASSIUM CHLORIDE 10 MEQ SR TABLET PO ONE (15:15)
[2020-02-19] MEDS ORDERED: NS 500 ML IV ONE (17:00)
[2020-02-19] MEDS ORDERED: ISOVUE-370 76% 100ML VIAL As Ordered ONE (17:01)
--- NOTE | 2020-02-19 17:34 | REPVR ---
PROCEDURE INFORMATION: Exam: CT Abdomen And Pelvis With Contrast Exam date and time: 02/19/2020 5:10 PM Age: 59 years old Clinical indication: Abdominal pain; Additional info: Lower abdominal pain; Diarrhea TECHNIQUE: Imaging protocol: Computed tomography of the abdomen and pelvis with intravenous contrast. Radiation optimization: All CT scans at this facility use at least one of these dose optimization techniques: automated exposure control; mA and/or kV adjustment per patient size (includes targeted exams where dose is matched to clinical indication); or iterative reconstruction. Contrast material: ISOVIE 370; Contrast volume: 100 ml; Contrast route: INTRAVENOUS (IV); COMPARISON: CT ABD/PEL W/IV CONTRAST ONLY 02/07/2020 2:36 PM FINDINGS: Lungs: Calcified granuloma right middle lobe. Liver: Examination of the liver demonstrates a lobular surface contour, reduction in hepatic volume with relative enlargement of the left and caudate lobes, findings consistent with late stage cirrhosis. No focal abnormalities demonstrated. Gallbladder and bile ducts: There has been a cholecystectomy. Pancreas: There is diffuse pancreatic atrophy. Spleen: There is mild splenomegaly with a maximum span of 14 centimeters. No focal abnormalities demonstrated. Adrenals: Normal. No mass. Kidneys and ureters: Small bilateral simple renal cysts measuring up to 1 cm in the upper pole of the right kidney. No follow-up suggested. Stomach and bowel: Diffuse boggy appearance of the colon. Clinical correlation to exclude colitis suggested. Appendix: No evidence of appendicitis. Intraperitoneal space: There is a moderate amount of free intraperitoneal fluid present. Vasculature: Redemonstration of nonocclusive intraluminal thrombus in the main portal vein. The aortoiliac vessels demonstrate mild atherosclerotic calcification. Lymph nodes: Unremarkable. No enlarged lymph nodes. Urinary bladder: Unremarkable as visualized. Reproductive: There has been a hysterectomy. Bones/joints: Moderate central spinal stenosis L3-L4 and severe central spinal stenosis L4-L5. Soft tissues: Subcutaneous edema demonstrated in the lower anterior abdominal wall. IMPRESSION: 1. Examination of the liver demonstrates a lobular surface contour, reduction in hepatic volume with relative enlargement of the left and caudate lobes, findings consistent with late stage cirrhosis. No focal abnormalities demonstrated. 2. There has been a cholecystectomy. 3. There is mild splenomegaly with a maximum span of 14 centimeters. No focal abnormalities demonstrated. 4. There is diffuse pancreatic atrophy. 5. There has been a hysterectomy. 6. Redemonstration of nonocclusive intraluminal thrombus in the main portal vein. 7. Diffuse boggy appearance of the colon. Clinical correlation to exclude colitis suggested. COMMENTS: Consistent with the [employer]'s Incidental Findings Committee white paper (J Am Taylor Radiol 2018): Any incidental renal lesion less than 1 cm or classified as too small to characterize, or any incidental cystic renal lesion characterized as simple-appearing, is likely benign. No follow-up imaging is recommended for these lesions per consensus recommendations based on imaging criteria. Electronically signed by: Luis Adames On 02/19/2020 17:33:39 PM
[2020-02-19] MEDS ORDERED: POTA1TAB14 PO (18:04)
[2020-02-19] MEDS ORDERED: LOPE-39 PO (18:04)
[2020-02-19 18:28] VITALS: BP 123/72
--- NOTE | 2020-02-20 18:17 | ED PDOC ---
Post-Departure Follow-Up dr dumont faxed formal report of ct abd/p for fu Gary Flowers MD Feb 20, 2020 18:17
== END 2020-02-19 18:46 | disposition home or self-care (01) ==
LOC: EDBD 12:44 → M ED 12:44
DX: E87.6 Hypokalemia (principal); K52.9 Noninfective gastroenteritis and colitis, unspecified; R16.1 Splenomegaly, not elsewhere classified; N18.3 Chronic kidney disease, stage 3 (moderate); K74.60 Unspecified cirrhosis of liver; E78.5 Hyperlipidemia, unspecified; F33.9 Major depressive disorder, recurrent, unspecified; K21.9 Gastro-esophageal reflux disease without esophagitis; Z79.82 Long term (current) use of aspirin; Z79.4 Long term (current) use of insulin; Z79.899 Other long term (current) drug therapy; Z98.890 Other specified postprocedural states; Z86.73 Personal history of transient ischemic attack (TIA), and cerebral infarction without residual deficits; Z86.718 Personal history of other venous thrombosis and embolism
CPT/HCPCS: 36415; 74177; 80048; 80076; 83605; 83690; 83735; 85025; 85610; 85730; 86850; 86900; 86901; 87507; 93041; 93970; 96360; 96361; 99285; Q9967

== ENCOUNTER → 2020-03-07 | Outpatient (CLI) | payer MEDICARE, MEDICAID ==
[~2020-03-07] MED LIST changes: +BUPR150T3 PO; +CALC1CAP31 PO; +GABA-845 PO; +LOPE-39 PO; +MED REC COMMENT; +METH750T2 PO; +MIDO2.5T PO; +ONDA-195 PO; +OXYC-517 PO; +PANT20TA6 PO; +PATIENT COMMENT; +POTA1TAB14 PO; +PROAAER10 INH; +TORS20TA2 PO; +TRAZ150T90 PO; +XALA0.007 OU
--- NOTE | 2020-03-07 14:22 | REPMRS ---
Patient History The patient states she had a clinical breast exam in February 2020. Family history of colorectal cancer in maternal uncle. Benign radio exam breast specimen of the right breast, January 11, 2013. Benign stereotatic loc for ea lesion of the right breast, January 11, 2013. Benign excisional biopsy of the left breast, 2005. No Hormone Replacement Therapy Digital Woman Screen Mammo: March 07, 2020 - Exam #: [id number] Bilateral CC and MLO view(s) were taken. Technologist: RT Austyn Prior study comparison: November 10, 2017, bilateral digital woman screen mammo performed at [facility]. March 04, 2016, digital woman screen mammo performed at [facility]. February 13, 2015, digital woman screen mammo performed at [facility]. FINDINGS: There are scattered fibroglandular densities. The Volpara volumetric breast density category is:B. There are numerous benign-appearing dystrophic calcifications again noted on the right. There is a needle biopsy marker clip again] noted in the right breast. There has been no change in the appearance of the mammogram from the prior studies. There is a mild amount of scattered fibroglandular density which is fairly symmetric. There is no interval development of dominant mass, architectural distortion, or grouped microcalcification suggestive of malignancy. 3-D tomosynthesis shows no additional findings. Assessment: BI-RADS/ACR category 2 mammogram. Benign Findings. Recommendation Routine screening mammogram of both breasts in 1 year (for women over age 40). This patient's Lifetime Breast Cancer Risk is estimated at 10.7 %. This mammogram was interpreted with the aid of an FDA-approved computer-aided dectection system. Electronically Signed By: Samy Kay MD 03/07/20 [id number]
== END ==
LOC: M WHC 12:18
PROVIDERS: ATTEND Nurse Practitioner Women's Health
DX: Z12.31 Encounter for screening mammogram for malignant neoplasm of breast (principal); Z86.018 Personal history of other benign neoplasm

== ENCOUNTER → 2020-03-10 | Outpatient (CLI) | payer MEDICARE, MEDICAID ==
[~2020-03-10] MED LIST changes: +SODIUM BICARBONATE 8.4% INJ 50MEQ 50 ML VIAL As Ordered ONE
[2020-03-10 11:55] VITALS: BP 135/65
--- NOTE | 2020-03-10 16:21 | REP ---
INDICATION: ASCITES CKD III COMPARISON: None. TECHNIQUE: The procedure was performed by SAMUEL Leal, under the direct supervision of Dr. Henderson The risks and benefits of the procedure were explained to the patient and an informed consent was obtained both verbally and written. Directly prior to the start of the procedure a formal time-out was completed in the procedure room. The largest pocket of fluid was localized in the using ultrasound guidance. The skin was prepped and draped in a sterile fashion. 11 ML of buffered lidocaine was used as a local anesthetic. An 8-Italian multi side-hole catheter was inserted using trocar technique . FINDINGS: 4450 mL of light yellow ascites fluid was removed and discarded. The patient tolerated the procedure well and there were no immediate complications. After the appropriate amount of monitored convalescence, the patient was discharged from the department. IMPRESSION: Successful ultrasound-guided paracentesis. <Electronically signed by Cy Henderson > 03/10/20 [id number]
== END ==
LOC: M IRPRO 10:49
PROVIDERS: ATTEND Internal Medicine Nephrology
DX: R18.8 Other ascites (principal); N18.32 Chronic kidney disease, stage 3b; K74.69 Other cirrhosis of liver

== ENCOUNTER 2020-03-25 21:06 | Emergency (ER) | payer MEDICARE, MEDICAID ==
[~2020-03-25] VITALS: Ht 167.6 cm; Wt 98.2 kg
[~2020-03-25 21:06] MED LIST changes: -BUPR150T3 PO; -CALC1CAP31 PO; -GABA-845 PO; -MED REC COMMENT; -METH750T2 PO; -MIDO2.5T PO; -ONDA-195 PO; -OXYC-517 PO; -PANT20TA6 PO; -PATIENT COMMENT; -PROAAER10 INH; -SODIUM BICARBONATE 8.4% INJ 50MEQ 50 ML VIAL As Ordered ONE; -TORS20TA2 PO; -TRAZ150T90 PO; -XALA0.007 OU
[2020-03-25 22:10] LABS: BASO % 0.3 % (0.0-1.0); EOS # 0.1 10^3/uL (0.0-0.5); EOS % 1.7 % (0.0-3.0); HEMATOCRIT 33.8 % (36.0-47.0); HEMOGLOBIN 10.4 g/dl (12.0-15.5); LYMPH # 1.3 10^3/uL (1.5-5.0); LYMPH % 21.3 % (24.0-44.0); MEAN CORPUSCULAR HGB CONC 30.8 g/dl (32.0-36.5); MEAN CORPUSCULAR VOLUME 100.9 fl (80.0-96.0); MONO # 0.9 10^3/uL (0.0-0.8); MONO % 14.6 % (0.0-5.0); NEUTROPHILS # 3.7 10^3/uL (1.5-8.5); NEUTROPHILS % 61.9 % (36.0-66.0); PLATELET COUNT, AUTOMATED 114 10^3/uL (150-450); RED BLOOD COUNT 3.35 10^6/uL (4.00-5.40)
[2020-03-25 22:20] LABS: INR 1.25
[2020-03-25 22:44] LABS: ALBUMIN 2.9 GM/DL (3.2-5.2); BILIRUBIN,DIRECT 0.6 MG/DL (0.0-0.2); BILIRUBIN,TOTAL 1.4 MG/DL (0.2-1.0); CALCIUM LEVEL 9.1 MG/DL (8.5-10.1); CREATININE FOR GFR 1.56 MG/DL (0.55-1.30); POTASSIUM SERUM 3.4 MEQ/L (3.5-5.1); TOTAL PROTEIN 7.4 GM/DL (6.4-8.2)
[2020-03-25 23:04] LABS: AMPHETAMINES LEVEL URINE NEGATIVE (NEGATIVE); BARBITURATES URINE NEGATIVE (NEGATIVE); BENZODIAZEPINES URINE NEGATIVE (NEGATIVE); CANNABINOIDS URINE NEGATIVE (NEGATIVE); COCAINE METABOLITE URINE NEGATIVE (NEGATIVE); METHADONE URINE NEGATIVE (NEGATIVE); OPIATES URINE NEGATIVE (NEGATIVE); PHENCYCLIDINE URINE NEGATIVE (NEGATIVE)
[2020-03-25] MEDS ORDERED: SPIR12.9 INH (23:40)
[2020-03-25] MEDS ORDERED: TRAZ150T90 PO (23:40)
[2020-03-25] MEDS ORDERED: ONDA-195 PO (23:40)
[2020-03-25] MEDS ORDERED: CALC1CAP31 PO (23:40)
[2020-03-25] MEDS ORDERED: MIDO2.5T PO (23:40)
[2020-03-25] MEDS ORDERED: PROAAER10 INH (23:40)
[2020-03-25] MEDS ORDERED: METH750T2 PO (23:40)
[2020-03-25] MEDS ORDERED: LACT20EL PO (23:40)
[2020-03-25] MEDS ORDERED: BUPR150T3 PO (23:40)
[2020-03-25] MEDS ORDERED: XALA0.007 OU (23:40)
[2020-03-25] MEDS ORDERED: CETI10TA4 PO (23:40)
[2020-03-25] MEDS ORDERED: OXYC-517 PO (23:40)
[2020-03-25] MEDS ORDERED: TORS20TA2 PO (23:40)
[2020-03-25] MEDS ORDERED: GABA-845 PO (23:40)
[2020-03-25] MEDS ORDERED: SPIR-10 PO (23:40)
[2020-03-25] MEDS ORDERED: PANT20TA6 PO (23:40)
[2020-03-25] MEDS ORDERED: PATIENT COMMENT (23:41)
[2020-03-26 00:31] VITALS: BP 159/84
--- NOTE | 2020-03-28 08:56 | ECGEPIP ---
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
== END 2020-03-26 00:30 | disposition home or self-care (01) ==
LOC: EDBD 21:06 → M ED 21:06
DX: N18.30 Chronic kidney disease, stage 3 unspecified (principal); K74.69 Other cirrhosis of liver; G89.29 Other chronic pain; M54.9 Dorsalgia, unspecified; R26.9 Unspecified abnormalities of gait and mobility; E11.9 Type 2 diabetes mellitus without complications; I12.9 Hypertensive chronic kidney disease with stage 1 through stage 4 chronic kidney disease, or unspecified chronic kidney disease; J44.9 Chronic obstructive pulmonary disease, unspecified; E78.5 Hyperlipidemia, unspecified; F33.9 Major depressive disorder, recurrent, unspecified; G47.33 Obstructive sleep apnea (adult) (pediatric); Z79.899 Other long term (current) drug therapy; Z79.82 Long term (current) use of aspirin; Z79.4 Long term (current) use of insulin

== ENCOUNTER → 2020-03-31 | Outpatient (CLI) | payer MEDICARE, MEDICAID ==
[~2020-03-31] MED LIST changes: +BUPR150T3 PO; +CALC1CAP31 PO; +GABA-845 PO; +MED REC COMMENT; +METH750T2 PO; +MIDO2.5T PO; +ONDA-195 PO; +OXYC-517 PO; +PANT20TA6 PO; +PATIENT COMMENT; +PROAAER10 INH; +SODIUM BICARBONATE 8.4% INJ 50MEQ 50 ML VIAL As Ordered ONE; +TORS20TA2 PO; +TRAZ150T90 PO; +XALA0.007 OU
[2020-03-31 11:52] VITALS: BP 122/76
[2020-03-31 12:28] LABS: SOURCE, BODY FLUID ALBUMIN ASCITES; SOURCE, BODY FLUID TOT PROTEIN ASCITES; TOTAL PROTEIN, BODY FLUID 0.9 G/DL (NOT ESTABLISHED)
[2020-03-31 13:02] LABS: APPEARANCE, BODY FLUID CLEAR (CLEAR); ASCITES FL COLOR PALE YELLOW (COLORLESS); SOURCE, BODY FLUID ASCITES
--- NOTE | 2020-03-31 16:05 | REP ---
INDICATION: CIRRHOSIS COMPARISON: None. TECHNIQUE: The procedure was performed by Dr. Parks under the personal supervision of Shirley Womack [facility], and under the direct supervision of Dr. Kay. The risks and benefits of the procedure were explained to the patient and an informed consent was obtained both verbally and written. Directly prior to the start of the procedure a formal time-out was completed in the procedure room. The largest pocket of fluid was localized in the left flank using ultrasound guidance. The skin was prepped and draped in a sterile fashion. Eleven ML of buffered lidocaine was used as a local anesthetic. An 8-Hungarian multi side-hole catheter was inserted using trocar technique. FINDINGS: 4150 mL of yellow fluid was removed. 500 mL was sent to the lab for further analysis of the rest was discarded. The patient tolerated the procedure well and there were no immediate complications. After the appropriate amount of monitored convalescence, the patient was discharged from the department. IMPRESSION: Ultrasound-guided paracentesis. <Electronically signed by Shirley Womack > 03/31/20 [id number] <Electronically signed by Samy Kay > 03/31/20 1605
== END ==
LOC: M IRPRO 10:10
PROVIDERS: ATTEND Internal Medicine Gastroenterology
DX: R18.8 Other ascites (principal); K74.60 Unspecified cirrhosis of liver; N18.32 Chronic kidney disease, stage 3b; I95.9 Hypotension, unspecified; E11.22 Type 2 diabetes mellitus with diabetic chronic kidney disease; N25.81 Secondary hyperparathyroidism of renal origin

== ENCOUNTER 2020-04-03 14:59 | Inpatient (IN) | payer MEDICARE, MEDICAID ==
[2020-04-03] VITALS (17 sets, daily range): BP systolic 73–131; BP diastolic 40–97
[~2020-04-03] VITALS: Ht 162.6 cm; Wt 102.5 kg
[~2020-04-03 14:59] MED LIST changes: -MED REC COMMENT; -SODIUM BICARBONATE 8.4% INJ 50MEQ 50 ML VIAL As Ordered ONE
[2020-04-03] MEDS ORDERED: DEXTROSE 50% 50 ML SYRINGE IV STA (15:15)
[2020-04-03] MEDS ORDERED: NS 1,000 ML IV ONE (15:15)
[2020-04-03] MEDS ORDERED: DEXTROSE 50% 50 ML SYRINGE As Ordered ONE (15:16)
--- NOTE | 2020-04-03 15:38 | REP ---
INDICATION: Altered Mental Status. COMPARISON: Comparison head CT study January 04, 2020.. TECHNIQUE: Helical scanning is acquired. 5 mm axial images were reformatted. Coronal MPR images were generated. FINDINGS: Bone window settings demonstrate an intact bony calvarium. There is no evidence of skull fracture or incidental bony calvarial lesion. The visualized paranasal sinuses appear clear. No intraorbital abnormality is seen. On soft tissue window setting images; the lateral, third, and fourth ventricles are normal in size and position. Henderson-white differentiation pattern is normal above and below the tentorium. There are is no evidence of intracranial hemorrhage. No mass, edema, infarction, or midline shift is seen. No extra-axial fluid collection is appreciated. There is minimal generalized volume loss. Periventricular low-density pattern is seen consistent with small vessel atherosclerotic change. This is stable from the January 04, 2020 prior study and the July 17, 2019 prior exam. Vascular calcification is again noted in the distal internal carotid arteries. IMPRESSION: Vascular calcification, minimal diffuse atrophy and small vessel atherosclerotic changes again noted. No acute intracranial abnormality seen.. <Electronically signed by Samy Kay > 04/03/20 [id number]
[2020-04-03 15:43] LABS: HEMATOCRIT 34.8 % (36.0-47.0); HEMOGLOBIN 10.8 g/dl (12.0-15.5); MEAN CORPUSCULAR VOLUME 103.3 fl (80.0-96.0); RED BLOOD COUNT 3.37 10^6/uL (4.00-5.40)
[2020-04-03 15:45] LABS: PLATELET COUNT, AUTOMATED 67 10^3/uL (150-450)
--- NOTE | 2020-04-03 15:47 | REP ---
INDICATION: Altered Mental Status. COMPARISON: Comparison study January 04, 2020.. TECHNIQUE: Single semi-erect AP portable radiograph. FINDINGS: Monitoring electrodes are seen. The lungs are symmetrically aerated and free of infiltrate. There is minimal linear fibrosis versus platelike atelectasis in the left lateral pleural angle. There is a mild linear density in the right perihilar region as well consistent with platelike atelectasis in this location. Lung waller are otherwise clear. Right hemidiaphragm is slightly elevated. The heart is not enlarged. Aorta is slightly tortuous. No acute bony abnormality. IMPRESSION: Mild discoid atelectasis in the left base and right perihilar region. Otherwise no acute disease. <Electronically signed by Samy Kay > 04/03/20 [id number]
[2020-04-03 15:53] LABS: INR 2.16; PROTHROMBIN TIME 24.6 SECONDS (12.5-14.3)
[2020-04-03 16:11] LABS: ACETAMINOPHEN LEVEL < 2.0 UG/ML (10.0-30.0); ALBUMIN 2.1 GM/DL (3.2-5.2); ALT/SGPT 59 U/L (12-78); BILIRUBIN,DIRECT 4.2 MG/DL (0.0-0.2); BILIRUBIN,TOTAL 5.3 MG/DL (0.2-1.0); ETHYL ALCOHOL (ETHANOL) < 0.003 % (0.000-0.010); SALICYLATE LEVEL < 1.7 MG/DL (5.0-30.0); TOTAL PROTEIN 6.1 GM/DL (6.4-8.2)
[2020-04-03] MEDS ORDERED: CEFEPIME HCL 2 GM in D5W MINI-BAG PLUS 50 ML IV ONE (16:15)
[2020-04-03] MEDS ORDERED: NS 3,030 ML in IV 1 EA IV ONE (16:15)
[2020-04-03 16:19] LABS: ATYPICAL LYMPH 2 % (0-5); LYMPHOCYTES 7 % (16-44); MONOCYTES 12 % (0-5); NEUTROPHILS 28 % (28-66)
[2020-04-03 16:20] LABS: ANISOCYTOSIS 1+; HYPOCHROMASIA 1+; PLATELET ESTIMATE DECREASED (NORMAL)
[2020-04-03 16:32] LABS: PARTIAL THROMBOPLASTIN TIME 42.5 SECONDS (24.2-38.5)
[2020-04-03] MEDS ORDERED: GABA-843 PO (16:34)
[2020-04-03] MEDS ORDERED: MED REC COMMENT (16:35)
[2020-04-03 17:00] LABS: AMYLASE 21 U/L (25-115); CPK CREATINE PHOSPHOKINASE 2460 U/L (26-192)
[2020-04-03 17:24] LABS: AMPHETAMINES LEVEL URINE NEGATIVE (NEGATIVE); BARBITURATES URINE NEGATIVE (NEGATIVE); BENZODIAZEPINES URINE NEGATIVE (NEGATIVE); CANNABINOIDS URINE NEGATIVE (NEGATIVE); COCAINE METABOLITE URINE NEGATIVE (NEGATIVE); METHADONE URINE NEGATIVE (NEGATIVE); OPIATES URINE POSITIVE (NEGATIVE); PHENCYCLIDINE URINE NEGATIVE (NEGATIVE)
--- NOTE | 2020-04-03 17:33 | REP ---
INDICATION: fall. COMPARISON: None. TECHNIQUE: Helical scanning is acquired and overlapping 2 mm high resolution axial images were generated and reviewed at bone and soft tissue window settings. Coronal and sagittal multiplanar re-formations images are generated. FINDINGS: There is no evidence of cervical spine element fracture. No skull base fracture is seen. Cervical vertebral body heights are preserved. Alignment is normal. Facet joints are normally aligned bilaterally at each cervical level on multiplanar re-formations images. There is no evidence of intraspinal or paraspinal hematoma. No extra vertebral abnormality is seen. There is moderate degenerative disc disease at C 4 5 and C5-6 with anterior and posterior osteophytic ridging. There is mild osteoarthritic facet hypertrophy in the midcervical spine. There is a partially calcified broad-based disc protrusion at C4-5 reason mild central canal stenosis. There is disc bulging at C5-6 as well. IMPRESSION: Degenerative spondylosis changes most pronounced at C4-5 and C5-6. No traumatic abnormality. Otherwise negative.. <Electronically signed by Samy Kay > 04/03/20 [id number]
[2020-04-03] MEDS ORDERED: oxyCODONE 5MG TAB PO PRN (19:15)
[2020-04-03] MEDS ORDERED: NS 1,000 ML IV SCH (19:15)
[2020-04-03] MEDS ORDERED: IPRATROPIUM 0.06% NASAL SPRAY 15 ML (ATROVENT) PRN (19:15)
[2020-04-03] MEDS ORDERED: ONDANSETRON 4 MG TAB PO PRN (19:15)
[2020-04-03] MEDS ORDERED: ALBUTEROL 90 MCG/ACT 8GM HFA INHALER INH PRN (19:15)
[2020-04-03] MEDS: ADVAIR HFA 115/21MCG INHALER INH SCH (20:00)
[2020-04-03] MEDS: NOREPINEPHRINE BITARTRATE 8 MG in D5W 492 ML IV SCH (20:05)
[2020-04-03] MEDS ORDERED: GABAPENTIN 300 MG CAP PO SCH (21:00)
[2020-04-03] MEDS ORDERED: ASPIRIN 81 MG ENTERIC TAB PO SCH (21:00)
[2020-04-03] MEDS ORDERED: VANCOMYCIN HCL 1,000 MG, VIAL MATE ADAPTER 1 EACH in D5W 250 ML IV ONE (21:15)
--- NOTE | 2020-04-03 21:19 | REPVR ---
PROCEDURE INFORMATION: Exam: XR Chest, 1 View Exam date and time: 04/03/2020 9:05 PM Age: 59 years old Clinical indication: Device placement; Other: Line; Additional info: S/P line placement TECHNIQUE: Imaging protocol: XR of the chest Views: 1 view. COMPARISON: [place] PORTABLE CHEST X-RAY 04/03/2020 3:29 PM FINDINGS: Tubes, catheters and devices: Right IJ central venous catheter in place, suspected to be within the superior vena cava, however tip is central in location and crosses midline, potentially secondary to artifact from patient positioning during scan. Lungs: Crowding of lung markings, likely secondary to low lung volumes. Pleural space: No pleural effusion or pneumothorax. Heart/Mediastinum: Cardiac and mediastinal silhouettes are unremarkable. Bones/joints: No acute osseus lesion or fracture. IMPRESSION: Right IJ central venous catheter in place, suspected to be within the superior vena cava, however tip is central in location and crosses midline, potentially secondary to artifact from patient positioning during scan. Recommend follow-up chest x-ray with proper positioning of patient for complete confirmation of catheter location. Electronically signed by: Davis Hallman On 04/03/2020 21:18:58 PM
--- NOTE | 2020-04-03 21:24 | HPEPDOC ---
General Date of Admission Apr 03, 2020 at 17:42 Date of Service: Apr 03, 2020 Attending Physician: JENNYFER HALL DO Chief Complaint The patient is a 59-year-old female admitted with a reason for visit of septic shock Source: Family History of Present Illness Mrs. 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 Mrs. Avery was still confused in the ED. Spoke to both the ED provider and patient's health care proxy and mom, Alyse Raya. Patient was last seen on 03/31/2020 for paracentesis. They removed more than 4100 mL of fluid. Mother says she has a healthcare taker at sees her in the morning. The last time she would've heard from her daughter was last Tuesday. They lasted over the phone, but the daughter said that she felt like she was dying. Since the mother hadn't heard from her daughter in a while, they did a wellness check at her apartment. They found her on the ground unconscious. Systolic blood pressure was in the 60 s, and her blood glucose was 35. EMS brought her to the ER. She is found to have a rectal temperature of 90.6. Admission was called. She was given 3 L of fluid and cefepime. Her blood pressure initially responded, but when they brought her to the ICU, she became hypotensive again. They have used Doppler for blood pressure reading which was 60/40. I reached out to critical care for central line placement. I also called her mom for consent for blood. Anticipating needing either albumin or packed red blood cells since she has an INR of 2. Home Medications Scheduled Aspirin (Aspirin EC) 81 Mg Tab, 81 MG PO QHS, (Reported) Bupropion Hcl (Bupropion Xl) 150 Mg Tab.er.24h, 150 MG PO DAILY, (Reported) Calcitriol (Calcitriol) 0.25 Mcg Capsule, 0.25 MCG PO 3XW, (Reported) TUESDAY, TUESDAY AND TUESDAY Cetirizine HCl (Cetirizine HCl) 10 Mg Tablet, 10 MG PO DAILY, (Reported) TAKES AT 1200 Escitalopram Oxalate (Escitalopram Oxalate) 20 Mg Tab, 20 MG PO DAILY, (Reported) Fluticasone/Vilanterol (Breo Ellipta 200-25 Mcg INH) 1 Inh Inh, 1 PUFF INH DAILY, (Reported) Gabapentin (Gabapentin) 300 Mg Capsule, 300 MG PO BID, (Reported) Insulin Glargine,Hum.rec.anlog (Toujeo Solostar) 300 Unit/Ml Inj, 70 UNIT SC DAILY, (Reported) Insulin Lispro (Humalog Kwikpen U-100) 100 Unit/Ml Inj, 1 DOSE SC AC, (Reported) PER SLIDING SCALE Lactulose (Lactulose) 10 Gm/15 Ml Solution, 15 ML PO DAILY, (Reported) Latanoprost (Xalatan) 0.005% 2.5ML Drops, 1 DROP OU QHS, (Reported) Methocarbamol (Methocarbamol) 750 Mg Tablet, 750 MG PO TID, (Reported) 0800, 1200, 2000 Midodrine HCl (Midodrine HCl) 2.5 Mg Tablet, 2.5 MG PO TID, (Reported) 0800, 1200, 2000 Pantoprazole Sodium (Pantoprazole Sodium) 20 Mg Tablet.dr, 20 MG PO DAILY, (Reported) Rifaximin (Xifaxan) 550 Mg Tab, 550 MG PO BID, (Reported) 0800, 1700 Spironolactone (Spironolactone) 25 Mg Tablet, 25 MG PO BID, (Reported) 0800, 1700 Tiotropium [place] (Spiriva Respimat) 4 Gm Mist.inhal, 2 PUFFS INH DAILY, (Reported) Torsemide (Torsemide) 20 Mg Tablet, 20 MG PO DAILY, (Reported) Trazodone HCl (Trazodone HCl) 150 Mg Tablet, 150 MG PO QHS, (Reported) Vitamin E (Dl,Tocopheryl Acet) (Vitamin E) 400 Unit Capsule, 400 UNIT PO DAILY, (Reported) Scheduled PRN Albuterol Sulfate (Proair Hfa) 8.5 Gm Hfa.aer.ad, 2 PUFF INH Q4H PRN for [place] RTNESS OF BREATH, (Reported) Ipratropium [place] (Ipratropium [place]) 165 [place]/15 Ml Naspr, 1 SPRAY NA BID PRN for NASAL CONGESTION, (Reported) Ondansetron HCl (Ondansetron HCl) 4 Mg Tablet, 4 MG PO DAILY PRN for NAUSEA, (R eported) Oxycodone HCl (Oxycodone HCl) 5 Mg Tablet, 5 MG PO Q8H PRN for PAIN, (Reported) Miscellaneous Medications [Med Rec Comment] , (Reported) LIST OBTAINED FROM [facility] Allergies Coded Allergies: No Known Allergies (Verified , 02/07/20) Past Medical History Medical History 1. Diabetes mellitus type 2 2. Hypertension 3. CK disease stage III 4. Major depressive disorder 5. Tobacco abuse 6. Hyperlipidemia 7. Secondary hyperparathyroidism 8. History of crack cocaine use for 4 years, last use was in 2009 9. 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 JAYLEN with emphysema 11. 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 Hysterectomy 2. Cholecystectomy 3. Left breast cyst removal 4. Ruptured cyst and aorta 5. Lumps in neck removed Family History Father: Diabetes, hypertension Mother: Diabetes, hypertension Social History * Smoker: current smoker Alcohol: Denies Drugs: cocaine (history of crack coaine, last used in 2009) Social history and past medical history obtained from outpatient records A-FIB/CHADSVASC A-FIB History Current/History of A-Fib/PAF?: No Review of Systems Other systems Unable to obtain while in the ED as she was still lethargic and confused Physical Examination General Exam: Negative: Alert Eye Exam: Positive: Sclera icteric ENT Exam: Positive: Atraumatic Chest Exam: Positive: Clear to auscultation Heart Exam: Positive: Rate Normal, Regular Rhythm Abdomen Exam: Positive: BS Hypoactive, Soft, Other (obese) Extremity Exam: Positive: Edema Skin Exam: Negative: Nl turgor and temperature Neuro Exam: Positive: Other (unable to do as lethargic at time of examination) Psych Exam: Negative: Oriented x 3 Vital Signs Vital Signs Date Time Temp Pulse Resp B/P (MAP) Pulse Ox O2 Delivery O2 Flow Rate FiO2 04/03/20 19:25 93.7 80 18 113/85 (94) 97 Nasal Cannula 3.0 Laboratory Data Labs 24H Laboratory Tests 2 04/03/20 15:14: Bedside Glucose (Misc Panel) 27*L, POC Glucose (Misc Panel) 76, POC Sodium (Misc Panel) 138, POC Potassium (Misc Panel) 3.4L, POC Chloride (Misc Panel) 99, POC Total CO2 (Misc Panel) 26.0, POC Blood Urea Nitrogen (Misc Panel 25, POC Ionized Calcium (Misc Panel) 4.0L, POC Creatinine (Misc Panel) 3.2H, POC Hematocrit (Misc Panel) 35.0L 04/03/20 15:16: POC Troponin I (Misc) 0.02 04/03/20 15:20: Neutrophils (%) (Auto) , Nucleated Red Blood Cells % (auto) 0.0, Neutrophils 28, Band Neutrophils 51H, Lymphocytes (Manual) 7L, Monocytes (Manual) 12H, Atypical Lymphocytes 2, Hypochromasia 1+, Anisocytosis 1+, Macrocytosis 2+, Platelet Estimate DECREASED, Immature Platelet Fraction 7.0, Prothrombin Time 24.6H, Prothromb Time International Ratio 2.16, Activated Partial Thromboplast Time 42.5H, Lactic Acid Level 8.7*H, Total Bilirubin 5.3H, Direct Bilirubin 4.2H, Aspartate Amino Transf (AST/SGOT) 251H, Alanine Aminotransferase (ALT/SGPT) 59, Alkaline Phosphatase 124H, Ammonia 35H, Total Creatine Kinase 2460H, C-Reactive Protein, Quantitative 13.30H, Total Protein 6.1L, Albumin 2.1L, Albumin/Globulin Ratio 0.5L, Amylase Level 21L, Thyroid Stimulating Hormone (TSH) 3.500, Salicylates Level < 1.7L, Acetaminophen Level < 2.0L, Ethyl Alcohol Level < 0.003 04/03/20 16:41: Urine Color WINNIE, Urine Appearance CLOUDYH, Urine pH 5.0, Urine Specific [place] 1.026, Urine Protein 2+H, Urine Glucose (UA) NEGATIVE, Urine Ketones NEGATIVE, Urine Blood NEGATIVE, Urine Nitrite NEGATIVE, Urine Bilirubin 2+H, Urine Urobilinogen 4.0H, Urine Leukocyte Esterase NEGATIVE, Urine WBC (Auto) 9H, Urine RBC (Auto) 2, Urine Hyaline Casts (Auto) 3, Urine Bacteria (Auto) 1+H, Urine Squamous Epithelial Cells 10, Urine Amorphous Sediment SMALLH, Urine Sperm (Auto) , Urine Opiates Screen POSITIVEH, Urine Methadone Screen NEGATIVE, Urine Barbiturates Screen NEGATIVE, Urine Phencyclidine Screen NEGATIVE, Urine Amphetamines Screen NEGATIVE, Urine Benzodiazepines Screen NEGATIVE, Urine Cocaine Metabolite Screen NEGATIVE, Urine Cannabinoids Screen NEGATIVE 04/03/20 17:24: Coronavirus (COVID-19)(PCR) NEGATIVE 04/03/20 17:30: POC pH (Misc Panel) 7.228*L, POC Base Excess (Misc Panel) -7.0L, POC Saturated Percent O2 (Misc) 88L, POC pO2 (Misc Panel) 64.0L, POC pCO2 (Misc Panel) 49.1H, POC HCO3 (Misc Panel) 20.5L, POC Total CO2 (Misc Panel) 22.0L CBC/BMP Laboratory Tests 04/03/20 15:20 Microbiology Microbiology 04/03/20 Blood Culture, Received Pending 04/03/20 Blood Culture, Received Pending Assessment/Plan Mrs. 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 She is here with shock not responsive to fluids and requiring Levophed. She was given 3L of fluid prior to starting pressor. She may have SBP, cefepime given empirically. Will obtain US abdomen to look for ascites. Another possibility is postparacentesis hypotension as she recently had a paracentesis. Otherwise, I spoke with the mom and HCP, Alyse Raya. We spoke about code status. She was made DNR/DNI Plan / VTE VTE Prophylaxis Ordered?: Yes VTE Exclusion Pharmacological: Thrombocytopenia Plan Plan 1. Shock -Lactic acid was 8.7 -Septic shock vs postparacentesis hypotension -IVF and IV antibiotics -May need albumin 2. Leukocytosis -Possibly demargination vs infection (SBP) -Blood cultures x2 -IV cefepime 3. Cirrhosis with ascites -Secondary to autoimmune hepatitis -US abd for ascites 4.Toxic metabolic encephalopathy -Secondary to hypoglycemia which may be secondary to insulin -Secondary to sedating medications such as oxycodone and tizanidine -Secondary to possible infection (SBP) -Ammonia level not significantly elevated 5. COPD -No wheezing, no supplemental oxygen -Continue triple therapy and rescue inhaler 6. DVT ppx -SCD and TEDs HCP Alyse Raya: [phone] JENNYFER HALL DO Apr 03, 2020 21:24
[2020-04-03] MEDS ORDERED: GLUCOSE 4GM CHEW TABLET PO PRN (21:30)
[2020-04-03] MEDS ORDERED: GLUCAGON INJ 1MG VIAL SC PRN (21:30)
[2020-04-03] MEDS: rifAXIMin 550 MG TAB (XIFAXAN) PO SCH (21:39)
[2020-04-03] MEDS: LATANOPROST 0.005% OPHTH SOLN 2.5 ML OU SCH (21:40)
[2020-04-03 22:08] LABS: CALCIUM LEVEL 7.8 MG/DL (8.5-10.1); CREATININE FOR GFR 3.11 MG/DL (0.55-1.30); GLOMERULAR FILTRATION RATE 19.8 (>51); MAGNESIUM LEVEL 1.7 MG/DL (1.8-2.4); POTASSIUM SERUM 3.5 MEQ/L (3.5-5.1); TROPONIN I 0.08 NG/ML (< 0.10)
[2020-04-03] MEDS ORDERED: MAG SULF 1GM/100ML (MAG RUN) 1 GM in IV 1 EA IV ONE (22:30)
[2020-04-03] MEDS ORDERED: VANCOMYCIN HCL 500 MG in D5W MINI-BAG PLUS 100 ML IV ONE (23:00)
[2020-04-04] VITALS (88 sets, daily range): BP systolic 67–139; BP diastolic 35–97
[2020-04-04] MEDS: DEXTROSE 50% 50 ML SYRINGE IV PRN ×3 (00:35→14:56)
[2020-04-04] MEDS: NOREPINEPHRINE BITARTRATE 8 MG in D5W 492 ML IV SCH ×3 (04:54→18:54)
[2020-04-04] MEDS ORDERED: LORazepam 2 MG/ML VIAL IV STA (05:03)
[2020-04-04 05:09] LABS: HEMATOCRIT 32.2 % (36.0-47.0); HEMOGLOBIN 9.8 g/dl (12.0-15.5); MEAN CORPUSCULAR HEMOGLOBIN 31.4 pg (27.0-33.0); MEAN CORPUSCULAR HGB CONC 30.4 g/dl (32.0-36.5); MEAN CORPUSCULAR VOLUME 103.2 fl (80.0-96.0); PLATELET COUNT, AUTOMATED 100 10^3/uL (150-450); RED BLOOD COUNT 3.12 10^6/uL (4.00-5.40); WHITE BLOOD COUNT 23.4 10^3/uL (4.0-10.0)
[2020-04-04] MEDS ORDERED: LORazepam 2 MG/ML VIAL As Ordered ONE (05:10)
[2020-04-04 05:21] LABS: INR 4.16; PROTHROMBIN TIME 41.2 SECONDS (12.5-14.3)
[2020-04-04 05:37] LABS: LYMPHOCYTES 4 % (16-44); MONOCYTES 1 % (0-5); NEUTROPHILS 85 % (28-66)
[2020-04-04 05:38] LABS: PLATELET ESTIMATE DECREASED (NORMAL)
[2020-04-04 05:39] LABS: HYPOCHROMASIA 1+
[2020-04-04 06:00] LABS: ALBUMIN 2.5 GM/DL (3.2-5.2); BILIRUBIN,TOTAL 5.8 MG/DL (0.2-1.0); CALCIUM LEVEL 7.8 MG/DL (8.5-10.1); CREATININE FOR GFR 3.38 MG/DL (0.55-1.30); MAGNESIUM LEVEL 1.9 MG/DL (1.8-2.4); PHOSPHORUS LEVEL 6.6 MG/DL (2.5-4.9); POTASSIUM SERUM 3.8 MEQ/L (3.5-5.1); TOTAL PROTEIN 6.3 GM/DL (6.4-8.2); TROPONIN I 0.18 NG/ML (< 0.10)
[2020-04-04] MEDS: CEFEPIME HCL 1 GM in D5W MINI-BAG PLUS 50 ML IV SCH ×2 (07:41→18:00)
[2020-04-04] MEDS ORDERED: TIOTROPIUM INHALER/CAPSULE (SPIRIVA) INH SCH (08:00)
[2020-04-04] MEDS: ADVAIR HFA 115/21MCG INHALER INH SCH (08:00)
[2020-04-04] MEDS ORDERED: NOREPINEPHRINE BITARTRATE 8 MG in D5W 492 ML IV SCH ×2 (08:00→17:00)
[2020-04-04] MEDS ORDERED: MIDODRINE 2.5 MG TAB PO SCH (08:00)
[2020-04-04] MEDS ORDERED: METOPROLOL TART 25 MG TABLET PO ONE (08:30)
[2020-04-04] MEDS ORDERED: ESCITALOPRAM OXALATE 10 MG TAB (LEXAPRO) PO SCH (09:00)
[2020-04-04] MEDS ORDERED: buPROPion **XL** TABLET 150MG (WELLBUTRIN XL) PO SCH (09:00)
[2020-04-04] MEDS ORDERED: VITAMIN E 400 INTERNATIONAL UNITS CAP PO SCH (09:00)
[2020-04-04] MEDS ORDERED: LACTULOSE 20 GM/30 ML SYRUP UD PO SCH (09:00)
[2020-04-04] MEDS ORDERED: CALCITRIOL 0.25 MCG CAP (S0169) PO SCH (09:00)
[2020-04-04] MEDS ORDERED: CETIRIZINE (ZyrTEC) 10 MG TAB PO SCH (09:00)
[2020-04-04] MEDS ORDERED: PANTOPRAZOLE 20 MG TAB PO SCH (09:00)
[2020-04-04] MEDS: rifAXIMin 550 MG TAB (XIFAXAN) PO SCH (09:00)
[2020-04-04] MEDS: HYDROCORTISONE 100 MG/2 ML VIAL (J1720 PER 1) IV SCH ×2 (09:29→16:49)
[2020-04-04] MEDS: IPRATROPIUM 0.5MG/ALBUTEROL 2.5MG INH SOL UD 3ML (DUONEB) NEB SCH ×5 (09:29→23:50)
[2020-04-04] MEDS ORDERED: SODIUM CHLORIDE 0.9% INJ 10 ML SYR IV PRN (10:45)
--- NOTE | 2020-04-04 10:49 | CR ---
PULMONARY/CRITICAL CARE CONSULTATION DATE OF CONSULTATION: 04/03/2020 NOTE: History was obtained from the chart and other collateral information as patient was lethargic on examination. CHIEF COMPLAINT: Hypotension. HISTORY OF PRESENT ILLNESS: Ms. Avery is a 59-year-old female with a past medical history of diabetes, hypertension, CKD, depression, hyperlipidemia, JAYLEN, COPD, chronic liver failure with a history of ascites who presented to the ED with complaints of altered mental status and hypoglycemia. Patient has a previous history of hepatic encephalopathy as well as a GI bleed. She has a history of ascites as well requiring paracentesis. Patient reportedly had a paracentesis done usually every 2-3 weeks and had a recent paracentesis with reported removal of 4 liters of fluid. Patient then had EMS called as a welfare check from her neighbor as she was not seen for the past 2 days. Upon EMS arrival she was lethargic and hypotensive with a fingerstick glucose of 45. She was given D10 and started on I.V. fluids. In the ED patient was given a 3 liter normal saline bolus with another liter bolus running. She was also given broad spectrum antibiotics with cefepime and given additional amp of D50. Despite I.V. fluids patient continued to be hypotensive in the ICU and peripheral Levophed was started. In the ICU patients mental status improved. She was still confused, but was able to answer questions and oriented to person and place. She reports some shortness of breath and dyspnea as well as abdominal pain. She did not have any chest pain and she denied any nausea or vomiting. She reported some coughing as well, but no mucus production. Patient was hypothermic as well on admission and was on a heating blanket in the ICU. PAST MEDICAL AND SURGICAL HISTORY: * Diabetes. * Hypertension now with chronic hypotension on midodrine. * CKD. * History of nicotine dependence. * Depression. * COPD. * Hyperlipidemia. * History of pancreatitis. * Choledocholithiasis status post cholecystectomy. * Previous history of crack cocaine abuse; last reported use was in 2009. * Anterior herniation of spinal cord. * JAYLEN. * Cirrhosis secondary to autoimmune hepatitis. * Hepatic encephalopathy. * Recurrent ascites. * Hysterectomy. * Left breast cyst removal. * Laminectomy. * Ruptured cyst in aorta. HOME MEDICATIONS: * Trazodone. * Aspirin. * Spiriva. * Spironolactone. * Lactulose. * Rifaximin. * Humalog. * Torsemide. * Albuterol p.r.n. * Toujeo. * Zofran p.r.n. * Vitamin E. * Oxycodone p.r.n. * Escitalopram. * Gabapentin. * Cetirizine. * Wellbutrin. * Midodrine. ALLERGIES: No known drug allergies. FAMILY HISTORY: Mother with history of diabetes and hypertension. Father with history of diabetes and hypertension. SOCIAL HISTORY: Patient is a reported current smoker and smokes 5 cigarettes daily; previously had smoked more. There is a previous history of cocaine use as well although last use was reportedly in 2009. No alcohol use. PHYSICAL EXAMINATION: Vitals: Temperature on admission was 90.6, T current 93.7, pulse 80, respiration 18, blood pressure was 67/43 now 113/65, O2 sat 97% on 3 liters nasal cannula, in is 2.1 liters. General: Patient is drowsy, is lying in bed, but is arousable and answering questions appropriately although confused. She is alert and oriented times 2. HEENT: Normocephalic, atraumatic. Moist mucous membranes noted. There is scleral icterus. Neck: Supple, trachea is midline. No palpable adenopathy. Positive JVD. Cardiac: Regular rate and rhythm, normal S1 and S2, faint murmur auscultated. Pulmonary: Diminished breath sounds bilaterally with a few crackles at the bases. No wheezes or rhonchi. Abdomen: Distended with a positive fluid wave. There is generalized diffuse tenderness to palpation. Extremities: There is no significant lower extremity edema bilaterally. LABORATORY DATA: WBC 17, hemoglobin 10.8, platelets 67. Chemistries: Sodium 138, potassium 3.4, chloride 99, bicarb 26, BUN 25, creatinine 3.2, glucose 27. Total bilirubin 5.3, direct bilirubin 4.2, AST 251, ALT 59, alkaline phosphatase 124. Albumin 2.1. Troponin 0.02. CPK 2460. Lactic acid 8.7. INR 2.16. Urine toxicology is positive of opioids, salicylates and acetaminophen negative, ethyl alcohol negative. UA was cloudy with positive protein, bilirubin, negative leukocyte esterase and positive bacteria. MicroCOVID PCR negative. IMAGING DATA: Head CT showed vascular calcification and small vessel arthrosclerotic disease and minimal diffuse atrophy. No acute cranial findings. CT neck showed degenerative spondylosis changes, but no traumatic abnormality. Chest x-ray: There is right hemidiaphragm elevation with some atelectasis in the left base as well as atelectasis in the right perihilar region. ASSESSMENT AND PLAN: Ms. Avery is a 59-year-old female with a past medical history of diabetes, CKD, cirrhosis secondary to autoimmune hepatitis, JAYLEN, COPD, history of hepatic encephalopathy as well as recurrent ascites who presented with complaints of altered mental status and hypoglycemia. Patient reportedly had a recent paracentesis performed with a large volume removal of fluid of reportedly 4 liters. EMS was called after her neighbors had not seen the patient for 2 days or so. Upon their arrival she was lethargic as well as hypotensive, hypoglycemic and hypothermic. She was given glucose and placed on a warming blanket as well as given I.V. fluids and broad spectrum antibiotics. In the ICU patient's mental status improved, she was answering questions appropriately and oriented times 2. She continued to be hypotensive despite fluid repletion and was started on peripheral Levophed with improvement in her blood pressure. -Altered mental status likely metabolic encephalopathy in the setting of hypoglycemia as well as sepsis: Patient's mental status appears to be improving. She is somewhat confused still, but is now alert and oriented times 2 and occasionally times 3. -She does have a history of hepatic encephalopathy as well: Her ammonia level was not significantly elevated. We will continue with her home medications of rifaximin and lactulose with close monitoring. -Patient does have a history of depression and is on antidepressants: We will continue for now, but would hold if excessive sedation or concern for drug interaction. -She also has a history of neuropathy and is on gabapentin chronically: We will continue gabapentin for now, but hold for excessive sedation and altered mental status. -Septic shock: Patient with hypotension likely in the setting of septic shock. She did have leukocytosis on admission and was also hypothermic with altered mental status. Patient has a history of ascites and frequent paracentesis. She is complaining of some abdominal pain as well most likely with SBP as her source of sepsis. She does also have elevated bilirubin so that she may potentially have an infectious etiology there although she reportedly had a cholecystectomy and she may still have residual common bile duct. We will continue patient with broad spectrum antibiotics. She is on cefepime renally dosed, but we will add vancomycin given her history of frequent procedures as well as hospitalizations. We will follow results of blood cultures. We will send urine culture as well. -Patient had elevated lactic acidosis in the setting of her septic shock and liver failure. We will follow repeat lactate. She was given 3 liters of normal saline; however, she does clinically appear to have elevated JVD and with her history of cirrhosis as well as ascites would hold off on further normal saline fluids and continue with Levophed to target a MAP above 65. We will check abdominal ultrasound. We will restart the patient's home medication midodrine once she is able to tolerate oral intake safely. -History of cirrhosis secondary to autoimmune hepatitis with history of hepatic encephalopathy and recurrent ascites: Patient with elevated bilirubin as well as AST likely in the setting of her end-stage liver disease and likely shock liver now. We will continue to trend liver function tests. -Patient does appear to have evidence of some ascites clinically on exam: We need to monitor closely and consider therapeutic drainage if needed and when her hypotension and sepsis improves. We will continue to monitor ammonia level as well as her LFTs. History of CKD with ELLA on top likely hepatorenal in the setting of her sepsis: Patient had hypokalemia on admission. We will monitor electrolytes including magnesium and phosphorus and replete as needed. We will continue to monitor her renal function and urine output. She has a Patel in place now. We will check her urine lytes for evaluation of her ELLA. Given suspicion of hepatorenal syndrome can consider albumin administration and octreotide if there is no improvement with the Levophed. History of diabetes now with hypoglycemia likely in the setting of her end-stage liver disease and sepsis: We will continue to monitor fingerstick glucose q6h. We will start her on a diet once her mental status improves. History of COPD and nicotine dependence. Also a history of JAYLEN, questionable compliance with CPAP: Patient is not on oxygen supplementation at home. She is currently on 3 liters nasal cannula oxygen. We will wean down as tolerated to maintain an O2 sat above 90%. Continue with her home inhalers for her COPD. Thrombocytopenia and coagulopathy likely in the setting of her end-stage liver disease: Patient does not appear to have active bleeding at this time. We will get a type and screen and continue to monitor and transfuse as needed. DVT prophylaxis: TEDS/SCDs CODE STATUS: DNR/DNI. Total critical care time spent not including any procedures approx 1 hour and 25mins MTDD
--- NOTE | 2020-04-04 10:56 | REP ---
INDICATION: ascites. COMPARISON: None. TECHNIQUE: Limited 4 quadrant ultrasound for ascites FINDINGS: Scanning through the 4 quadrants demonstrates ascites the in all 4 quadrants, greater on the left than right side. IMPRESSION: Abdominal ascites demonstrated in all 4 quadrants, left greater than right side. <Electronically signed by Hermelindo Crowe > 04/04/20 [id number]
[2020-04-04] MEDS ORDERED: OCTREOTIDE ACETATE 1,200 MCG in NS 238.8 ML IV SCH (11:00)
--- NOTE | 2020-04-04 11:50 | RO ---
DATE OF OPERATION: 04/03/2020 PRE PROCEDURE DIAGNOSIS: Septic shock. POST PROCEDURE DIAGNOSIS: Septic shock. PROCEDURE: Internal jugular central line. ATTENDING PHYSICIAN: Dr. Dia Clarke. INDICATION: Vasopressor administration. CONSENT: The consent was obtained from the patient's healthcare proxy prior to the procedure. Indications, risks and benefits were explained at length. PROCEDURE: Central line insertion practice form was completed by independent room service server starting with the first hay wash. A timeout was performed. Full sterile technique was performed including surgical cap, mask with protective eyewear, full gown and sterile gloves throughout the procedure. The patient was placed in Trendelenburg position. The right neck region was prepped using chlorhexidine scrub and draped in a sterile fashion using a fenestrated drape and a sterile probe cover was employed. The right internal jugular vein was identified using ultrasound. Anesthesia was achieved over the vein using 1% lidocaine. Using real-time [id number] guidance, the introducer needle was inserted into the internal jugular vein under direct ultrasound visualization. Venous blood was withdrawn. The syringe was removed and a guidewire was advanced into the introducer needle. The needle was removed over the guidewire. A small incision was made at the skin surface with the scalpel and a dilator was exchanged over the guidewire. After appropriate dilation was obtained, the dilator was exchanged over the wire for a triple-lumen central venous catheter. The wire was removed and the catheter was sutured in place at 17 cm. A sterile chlorhexidine- impregnated dressing was placed over the catheter at the insertion site. The patient tolerated the procedure without any hemodynamic compromise. At the time of procedure completion, all ports were aspirated and flushed properly. Post- procedure chest x-ray shows the central line in satisfactory position with no pneumothorax. ESTIMATED BLOOD LOSS: Less than 3 mL. MTDD
--- NOTE | 2020-04-04 12:06 | IPNPDOC ---
Subjective Date Seen The patient was seen on 04/04/20. Subjective Chief Complaint/HPI Mrs. 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 Overnight, she was given albumin and continued to need Levophed. Patel catheter was placed, no urine output. This morning, patient is not arousable. Objective Physical Examination General Exam: Negative: Alert Eye Exam: Positive: Sclera icteric ENT Exam: Positive: Atraumatic Chest Exam: Positive: Clear to auscultation Heart Exam: Positive: Rate Normal, Regular Rhythm Abdomen Exam: Positive: BS Hypoactive, Soft, Other (obese) Extremity Exam: Positive: Edema Skin Exam: Negative: Nl turgor and temperature Neuro Exam: Positive: Other (unable to do as lethargic at time of examination) Psych Exam: Negative: Oriented x 3 Assessment /Plan Assessment Mrs. 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 After 30cc/kg of IVF and IV antibiotics, patient was still unstable. Critical care team was consulted. Recommendations appreciated. Central line placed and Levophed has been ordered. Patient was anuric despite fluid, albumin, and blood pressure support. Nephrology consulted, recommendations appreciated. Planning for dialysis Plan/VTE VTE Prophylaxis Ordered?: Yes Plan 1. Septic shock -Elevated lactic acid (9.8) -Broad spectrum IV antibiotics with vancomycin and cefepime -Patient is anuric, holding fluids -Requiring Levophed -Critical care following, recommendations appreciated 2. ELLA on CKD stage 3 / Anuria -Possibly hepatorenal disease vs ATN from septic shock -Nephrology following, recommendations appreciated -Planning for dialysis 3. Cirrhosis with ascites -Secondary to autoimmune hepatitis -Child-izaguirre class C, Meld score 40% -Coagulopathy and hypoalbuminemia: Consented to blood products -Poor prognosis -Octreotide, received albumin 4.Toxic metabolic encephalopathy -Secondary to septic shock, hypoglycemia, medications (tizanidine and oxy) -Ammonia level not significantly elevated 5. COPD -No wheezing, no supplemental oxygen -Unable to use inhalers, switched to scheduled duoneb treatments 6. DVT ppx -SCD and TEDs HCP Alyse Raya: [phone] VS, I&O, 24H, Fishbone Vital Signs/I&O Vital Signs Date Time Temp Pulse Resp B/P (MAP) Pulse Ox O2 Delivery O2 Flow Rate FiO2 04/04/20 10:00 98.1 86 25 102/57 99 Nasal Cannula 2.0 I&O- Last 24 Hours up to 6 AM 04/04/20 06:00 Intake Total 4170.0 ml Balance 4170.0 ml Laboratory Data 24H LABS Laboratory Tests 2 04/03/20 15:14: Bedside Glucose (Misc Panel) 27*L, POC Glucose (Misc Panel) 76, POC Sodium (Misc Panel) 138, POC Potassium (Misc Panel) 3.4L, POC Chloride (Misc Panel) 99, POC Total CO2 (Misc Panel) 26.0, POC Blood Urea Nitrogen (Misc Panel 25, POC Ionized Calcium (Misc Panel) 4.0L, POC Creatinine (Misc Panel) 3.2H, POC Hematocrit (Misc Panel) 35.0L 04/03/20 15:16: POC Troponin I (Misc) 0.02 04/03/20 15:20: Neutrophils (%) (Auto) , Nucleated Red Blood Cells % (auto) 0.0, Neutrophils 28, Band Neutrophils 51H, Lymphocytes (Manual) 7L, Monocytes (Manual) 12H, Atypical Lymphocytes 2, Hypochromasia 1+, Anisocytosis 1+, Macrocytosis 2+, Platelet Estimate DECREASED, Immature Platelet Fraction 7.0, Prothrombin Time 24.6H, Prothromb Time International Ratio 2.16, Activated Partial Thromboplast Time 42.5H, Lactic Acid Level 8.7*H, Total Bilirubin 5.3H, Direct Bilirubin 4.2H, Aspartate Amino Transf (AST/SGOT) 251H, Alanine Aminotransferase (ALT/SGPT) 59, Alkaline Phosphatase 124H, Ammonia 35H, Total Creatine Kinase 2460H, C-Reactive Protein, Quantitative 13.30H, Total Protein 6.1L, Albumin 2.1L, Albumin/Globulin Ratio 0.5L, Amylase Level 21L, Thyroid Stimulating Hormone (TSH) 3.500, Salicylates Level < 1.7L, Acetaminophen Level < 2.0L, Ethyl Alcohol Level < 0.003 04/03/20 16:41: Urine Color WINNIE, Urine Appearance CLOUDYH, Urine pH 5.0, Urine Specific [place] 1.026, Urine Protein 2+H, Urine Glucose (UA) NEGATIVE, Urine Ketones NEGATIVE, Urine Blood NEGATIVE, Urine Nitrite NEGATIVE, Urine Bilirubin 2+H, Urine Urobilinogen 4.0H, Urine Leukocyte Esterase NEGATIVE, Urine WBC (Auto) 9H, Urine RBC (Auto) 2, Urine Hyaline Casts (Auto) 3, Urine Bacteria (Auto) 1+H, Urine Squamous Epithelial Cells 10, Urine Amorphous Sediment SMALLH, Urine Sperm (Auto) , Urine Opiates Screen POSITIVEH, Urine Methadone Screen NEGATIVE, Urine Barbiturates Screen NEGATIVE, Urine Phencyclidine Screen NEGATIVE, Urine Amphetamines Screen NEGATIVE, Urine Benzodiazepines Screen NEGATIVE, Urine Cocaine Metabolite Screen NEGATIVE, Urine Cannabinoids Screen NEGATIVE 04/03/20 17:24: Coronavirus (COVID-19)(PCR) NEGATIVE 04/03/20 17:30: POC pH (Misc Panel) 7.228*L, POC Base Excess (Misc Panel) -7.0L, POC Saturated Percent O2 (Misc) 88L, POC pO2 (Misc Panel) 64.0L, POC pCO2 (Misc Panel) 49.1H, POC HCO3 (Misc Panel) 20.5L, POC Total CO2 (Misc Panel) 22.0L 04/03/20 21:10: Anion Gap 15, Glomerular Filtration Rate 19.8L, Lactic Acid Followup at 4 Hours 7.4*H, Calcium Level 7.8L, Magnesium Level 1.7L, Total Creatine Kinase 2866H, Troponin I 0.08 04/04/20 00:31: Bedside Glucose (Misc Panel) 50L 04/04/20 00:56: Bedside Glucose (Misc Panel) 92 04/04/20 04:17: Bedside Glucose (Misc Panel) 72 04/04/20 04:39: Immature Granulocyte % (Auto) , Neutrophils (%) (Auto) , Nucleated Red Blood Cells % (auto) 0.0, Neutrophils 85H, Band Neutrophils 10, Lymphocytes (Manual) 4L, Monocytes (Manual) 1, Hypochromasia 1+, Macrocytosis 2+, Platelet Estimate DECREASED, Prothrombin Time 41.2H, Prothromb Time International Ratio 4.16, Anion Gap 17H, Glomerular Filtration Rate 18.0L, Lactic Acid Level 9.8*H, Calcium Level 7.8L, Phosphorus Level 6.6H, Magnesium Level 1.9, Total Bilirubin 5.8H, Aspartate Amino Transf (AST/SGOT) 306H, Alanine Aminotransferase ( ALT/SGPT) 83H, Alkaline Phosphatase 98, Total Creatine Kinase 2157H, Troponin I 0.18#H, Total Protein 6.3L, Albumin 2.5L, Albumin/Globulin Ratio 0.7L 04/04/20 05:40: Ammonia 31 04/04/20 07:59: Bedside Glucose (Misc Panel) 58L 04/04/20 08:08: Methicillin-Resist S.aureus DNA PCR NOT DETECTED 04/04/20 09:11: Lab Scanned Report Miscellaneous Lab 04/04/20 09:26: Bedside Glucose (Misc Panel) 77 04/04/20 09:49: Lactic Acid Followup at 4 Hours 9.3*H CBC/BMP Laboratory Tests 04/03/20 15:20 04/03/20 21:10 04/04/20 04:39 Microbiology Microbiology 04/03/20 Blood Culture - Preliminary, Resulted 04/03/20 Blood Culture, Received Pending JENNYFER HALL DO Apr 04, 2020 11:05
[2020-04-04] MEDS ORDERED: D10W 1,000 ML IV SCH (15:45)
[2020-04-04 19:00] LABS: IONIZED CALCIUM 3.8 MG/DL (4.5-5.3)
[2020-04-04 19:05] LABS: HEMOGLOBIN 8.6 g/dl (12.0-15.5); MEAN CORPUSCULAR HEMOGLOBIN 31.6 pg (27.0-33.0); MEAN CORPUSCULAR HGB CONC 29.7 g/dl (32.0-36.5); MEAN CORPUSCULAR VOLUME 106.6 fl (80.0-96.0); RED BLOOD COUNT 2.72 10^6/uL (4.00-5.40); WHITE BLOOD COUNT 27.8 10^3/uL (4.0-10.0)
[2020-04-04 19:11] LABS: PLATELET COUNT, AUTOMATED 88 10^3/uL (150-450)
--- NOTE | 2020-04-04 19:21 | ECGEPIP ---
[facility] - ED Test Date: 2020-04-03 Pat Name: PABLO HANSEN Department: Room: [place] [address] Gender: Female Laboratory Technician: MIRTA : 1960 Requested By: Jose Alfredo Mota Order Number: [id number] Reading MD: Sahra Saxena Measurements Intervals [place] Rate: 79 P: 78 CT: 120 QRS: 52 QRSD: 107 T: 38 QT: 428 QTc: 491 Interpretive Statements SINUS RHYTHM LOW QRS VOLTAGE IN PRECORDIAL LEADS MODERATE INTRAVENTRICULAR CONDUCTION DELAY NONSPECIFIC T-WAVE ABNORMALITY SIMILAR 03/25/20 Electronically Signed on 04-04-2020 19:21:17 EST by Sahra Saxena
[2020-04-04 19:33] LABS: CALCIUM LEVEL 7.5 MG/DL (8.5-10.1); CREATININE FOR GFR 2.89 MG/DL (0.55-1.30); GLOMERULAR FILTRATION RATE 21.6 (>51); PHOSPHORUS LEVEL 5.8 MG/DL (2.5-4.9); POTASSIUM SERUM 4.3 MEQ/L (3.5-5.1)
[2020-04-04] MEDS: CALCIUM GLUCONATE 1,000 MG in NS 100 ML IV SCH ×2 (20:14→21:23)
[2020-04-04] MEDS: LATANOPROST 0.005% OPHTH SOLN 2.5 ML OU SCH (20:15)
[2020-04-04] MEDS ORDERED: VANCOMYCIN HCL 1,000 MG, VIAL MATE ADAPTER 1 EACH in D5W 250 ML IV SCH (21:00)
[2020-04-04] MEDS ORDERED: MORPHINE 2 MG/ML 1ML VIAL (J2270) IV ONE (23:15)
[2020-04-04] MEDS ORDERED: MORPHINE 2 MG/ML 1ML VIAL (J2270) IV PRN (23:30)
[2020-04-04] MEDS ORDERED: NALOXONE INJ 0.4MG/1ML VIAL (J2310 PER 1MG) IV PRN (23:30)
[2020-04-04 23:48] LABS: IONIZED CALCIUM 4.1 MG/DL (4.5-5.3)
[2020-04-04 23:53] LABS: ABG BASE EXCESS -14.5 (-2.0-2.0); ABG HCO3 13.3 MEQ/L (22.0-26.0); ABG O2 SATURATION 85.5 % (95.0-99.0); ABG PARTIAL PRESSURE CO2 38.8 mmHg (35.0-45.0); ABG PARTIAL PRESSURE O2 58.3 mmHg (75.0-100.0); ABG STANDARD HCO3 12.9 MEQ/L (22.0-26.0); ABG TOTAL CO2 14.5 MEQ/L (22.0-29.0); ABG pH (ARTERIAL) 7.153 UNITS (7.350-7.450)
[2020-04-05] VITALS (40 sets, daily range): BP systolic 63–115; BP diastolic 30–60
[2020-04-05 00:12] LABS: CALCIUM LEVEL 7.5 MG/DL (8.5-10.1); CREATININE FOR GFR 2.53 MG/DL (0.55-1.30); GLOMERULAR FILTRATION RATE 25.2 (>51); MAGNESIUM LEVEL 2.1 MG/DL (1.8-2.4); PHOSPHORUS LEVEL 4.6 MG/DL (2.5-4.9); POTASSIUM SERUM 4.2 MEQ/L (3.5-5.1)
[2020-04-05] MEDS: NOREPINEPHRINE BITARTRATE 8 MG in D5W 492 ML IV SCH ×2 (00:21→05:28)
[2020-04-05] MEDS ORDERED: CALCIUM GLUCONATE 1,000 MG, VIAL MATE ADAPTER 1 EACH in NS 100 ML IV ONE ×4 (01:15)
[2020-04-05] MEDS: HYDROCORTISONE 100 MG/2 ML VIAL (J1720 PER 1) IV SCH (01:18)
[2020-04-05] MEDS: IPRATROPIUM 0.5MG/ALBUTEROL 2.5MG INH SOL UD 3ML (DUONEB) NEB SCH ×2 (04:00→07:27)
[2020-04-05] MEDS: CEFEPIME HCL 1 GM in D5W MINI-BAG PLUS 50 ML IV SCH (05:19)
[2020-04-05 05:24] LABS: HEMATOCRIT 28.8 % (36.0-47.0); HEMOGLOBIN 8.3 g/dl (12.0-15.5); MEAN CORPUSCULAR HGB CONC 28.8 g/dl (32.0-36.5); MEAN CORPUSCULAR VOLUME 107.5 fl (80.0-96.0); RED BLOOD COUNT 2.68 10^6/uL (4.00-5.40)
[2020-04-05 05:43] LABS: PLATELET COUNT, AUTOMATED 76 10^3/uL (150-450); WHITE BLOOD COUNT 32.5 10^3/uL (4.0-10.0)
[2020-04-05 05:59] LABS: ALBUMIN 2.7 GM/DL (3.2-5.2); BILIRUBIN,TOTAL 7.1 MG/DL (0.2-1.0); CREATININE FOR GFR 2.16 MG/DL (0.55-1.30); GLOMERULAR FILTRATION RATE 30.2 (>51); MAGNESIUM LEVEL 2.2 MG/DL (1.8-2.4); PHOSPHORUS LEVEL 4.2 MG/DL (2.5-4.9); POTASSIUM SERUM 4.4 MEQ/L (3.5-5.1); TOTAL PROTEIN 6.1 GM/DL (6.4-8.2)
[2020-04-05] MEDS ORDERED: CALCIUM GLUCONATE 1,000 MG in NS 100 ML IV ONE (06:00)
[2020-04-05] MEDS: CALCIUM GLUCONATE 1,000 MG, VIAL MATE ADAPTER 1 EACH in NS 100 ML IV SCH ×2 (06:00→06:50)
[2020-04-05] MEDS ORDERED: MORPHINE 2 MG/ML 1ML VIAL (J2270) IV PRN ×2 (10:00→11:15)
[2020-04-05] MEDS ORDERED: SCOPOLAMINE 1MG TRANSDERMAL PATCH TOP PRN (10:00)
[2020-04-05] MEDS ORDERED: LORazepam 2 MG/ML VIAL IV PRN (10:00)
[2020-04-05] MEDS ORDERED: ONDANSETRON 4MG/2ML VIAL IV PRN (10:00)
--- NOTE | 2020-04-05 19:47 | DS.PDOC ---
Discharge Summary General Date of Admission Apr 03, 2020 at 17:42 Date of Discharge Apr 05, 2020 Attending Physician: JENNYFER HALL DO Specialist/Consultants [facility], Dr. Clarke Nephrology, Dr. Short Discharge Summary PROCEDURES PERFORMED DURING STAY: Central line x2 ADMITTING DIAGNOSES: 1. Septic shock 2. Cirrhosis with ascites 3. Toxic metabolic encephalopathy 4. COPD DISCHARGE DIAGNOSES: 1. Septic shock 2. Cirrhosis with ascites 3. Toxic metabolic encephalopathy 4. COPD 5. Acute renal failure 6. Shock liver 7. Hypercoagulable 8. Metabolic acidosis 9. Hypoglycemia COMPLICATIONS/CHIEF COMPLAINT: Acute toxic metabolic encephalopathy HISTORY OF PRESENT ILLNESS: Mrs. 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 Mrs. Avery was still confused in the ED. Spoke to both the ED provider and patient's health care proxy and mom, Alyse Raya. Patient was last seen on 03/31/2020 for paracentesis. They removed more than 4100 mL of fluid. Mother says she has a healthcare taker at sees her in the morning. The last time she would've heard from her daughter was last Tuesday. They lasted over the phone, but the daughter said that she felt like she was dying. Since the mother hadn't heard from her daughter in a while, they did a wellness check at her apartment. They found her on the ground unconscious. Systolic blood pressure was in the 60s, and her blood glucose was 35. EMS brought her to the ER. She is found to have a rectal temperature of 90.6. Admission was called. She was given 3 L of fluid and cefepime. Her blood pressure initially responded, but when they brought her to the ICU, she became hypotensive again. They have used Doppler for blood pressure reading which was 60/40. I reached out to critical care for central line placement. I also called her mom for consent for blood. Anticipating needing either albumin or packed red blood cells since she has an INR of 2. HOSPITAL COURSE: Central line was placed and patient was put on Levophed. The following morning she required 16 mcg/min and she became anuric. Nephrology was consulted. They contacted the healthcare proxy and discussed continues dialysis. Healthcare proxy agreed and another line was placed. Next day, she continued to decline. She maxed out on Levophed. Despite broad-spectrum antibiotics (vancomycin and cefepime), blood pressure support, and continuous dialysis, she was not improving. Lactic acid increased from 7 to 12 and white blood count increased from 17 to 32.5. Her liver enzymes also increased significantly. Dr. Clarke reached out to healthcare proxy and discussed poor prognosis despite therapy. Healthcare proxy had decided comfort measures. I reached out to healthcare proxy and confirmed comfort measures. Healthcare proxy had no further questions. She was made comfortable. On 04/05/2020 at 11:22 AM, Jill Avery had peacefully past away. Vital Signs/I&Os Vital Signs Date Time Temp Pulse Resp B/P (MAP) Pulse Ox O2 Delivery O2 Flow Rate FiO2 04/05/20 09:24 75 71/47 (55) 100 Room Air 04/05/20 08:00 95.7 16 04/04/20 19:15 2.0 I&O- Last 24 Hours up to 6 AM 04/05/20 06:00 Intake Total 3756.0 ml Output Total 269 ml Balance 3487.0 ml Laboratory Data Labs 24H Laboratory Tests 2 04/04/20 22:42: Bedside Glucose (Misc Panel) 139H 04/04/20 23:38: Anion Gap 17H, Glomerular Filtration Rate 25.2L, Lactic Acid Level 12.0*H, Calcium Level 7.5L, Whole Blood Ionized Calcium 4.1L, Phosphorus Level 4.6#, Magnesium Level 2.1, Troponin I 0.34#H 04/04/20 23:41: Blood Gas Bicarbonate Standard 12.9L, Arterial Blood pH 7.153*L, Arterial Blood Partial Pressure CO2 38.8, Arterial Blood Partial Pressure O2 58.3L, Arterial Blood Total CO2 14.5L, Arterial Blood HCO3 13.3L, Arterial Blood Base Excess - 14.5L, Arterial Blood Oxygen Saturation 85.5L 04/05/20 05:13: Anion Gap 15, Glomerular Filtration Rate 30.2L, Calcium Level 8.0L, Whole Blood Ionized Calcium 4.2L, Phosphorus Level 4.2, Magnesium Level 2.2, Nucleated Red Blood Cells % (auto) 0.0, Activated Partial Thromboplast Time 61.3H, Lactic Acid Followup at 4 Hours 11.7*H, Total Bilirubin 7.1H, Aspartate Amino Transf (AST/SGOT) 989H, Alanine Aminotransferase (ALT/SGPT) 220H, Alkaline Phosphatase 107, Total Protein 6.1L, Albumin 2.7L, Albumin/Globulin Ratio 0.8L CBC/BMP Laboratory Tests 04/04/20 23:38 04/05/20 05:13 FSBS Laboratory Tests Test 04/04/20 22:42 Range/Units Bedside Glucose (Misc Panel) 139 70-105 MG/DL Microbiology Microbiology 04/03/20 Blood Culture - Preliminary, Resulted 04/03/20 Blood Culture - Preliminary, Resulted No Growth after 48 hours. All Specime... Discharge Medications Scheduled Aspirin (Aspirin EC) 81 Mg Tab, 81 MG PO QHS, (Reported) Bupropion Hcl (Bupropion Xl) 150 Mg Tab.er.24h, 150 MG PO DAILY, (Reported) Calcitriol (Calcitriol) 0.25 Mcg Capsule, 0.25 MCG PO 3XW, (Reported) TUESDAY, TUESDAY AND TUESDAY Cetirizine HCl (Cetirizine HCl) 10 Mg Tablet, 10 MG PO DAILY, (Reported) TAKES AT 1200 Escitalopram Oxalate (Escitalopram Oxalate) 20 Mg Tab, 20 MG PO DAILY, (Reported) Fluticasone/Vilanterol (Breo Ellipta 200-25 Mcg INH) 1 Inh Inh, 1 PUFF INH DAILY, (Reported) Gabapentin (Gabapentin) 300 Mg Capsule, 300 MG PO BID, (Reported) Insulin Glargine,Hum.rec.anlog (Toujeo Solostar) 300 Unit/Ml Inj, 70 UNIT SC DA CARMEL, (Reported) Insulin Lispro (Humalog Kwikpen U-100) 100 Unit/Ml Inj, 1 DOSE SC AC, (Reported) PER SLIDING SCALE Lactulose (Lactulose) 10 Gm/15 Ml Solution, 15 ML PO DAILY, (Reported) Latanoprost (Xalatan) 0.005% 2.5ML Drops, 1 DROP OU QHS, (Reported) Methocarbamol (Methocarbamol) 750 Mg Tablet, 750 MG PO TID, (Reported) 0800, 1200, 1999 Midodrine HCl (Midodrine HCl) 2.5 Mg Tablet, 2.5 MG PO TID, (Reported) 0800, 1200, 1999 Pantoprazole Sodium (Pantoprazole Sodium) 20 Mg Tablet.dr, 20 MG PO DAILY, (Reported) Rifaximin (Xifaxan) 550 Mg Tab, 550 MG PO BID, (Reported) 0800, 1700 Spironolactone (Spironolactone) 25 Mg Tablet, 25 MG PO BID, (Reported) 0800, 1700 Tiotropium Sweeny (Spiriva Respimat) 4 Gm Mist.inhal, 2 PUFFS INH DAILY, (Reported) Torsemide (Torsemide) 20 Mg Tablet, 20 MG PO DAILY, (Reported) Trazodone HCl (Trazodone HCl) 150 Mg Tablet, 150 MG PO QHS, (Reported) Vitamin E (Dl,Tocopheryl Acet) (Vitamin E) 400 Unit Capsule, 400 UNIT PO DAILY, (Reported) Scheduled PRN Albuterol Sulfate (Proair Hfa) 8.5 Gm Hfa.aer.ad, 2 PUFF INH Q4H PRN for SHORTNESS OF BREATH, (Reported) Ipratropium Sweeny (Ipratropium Sweeny) 165 King/15 Ml Naspr, 1 SPRAY NA BID PRN for NASAL CONGESTION, (Reported) Ondansetron HCl (Ondansetron HCl) 4 Mg Tablet, 4 MG PO DAILY PRN for NAUSEA, (Reported) Oxycodone HCl (Oxycodone HCl) 5 Mg Tablet, 5 MG PO Q8H PRN for PAIN, (Reported) Miscellaneous Medications [Med Rec Comment] , (Reported) LIST OBTAINED FROM [facility] Allergies Coded Allergies: No Known Allergies (Verified , 02/07/20) JENNYFER HALL DO Apr 05, 2020 19:46
--- NOTE | 2020-04-06 15:57 | CR ---
DATE OF CONSULTATION: 04/04/2020 REQUESTING PHYSICIAN: Dr. Bar Tam CONSULTING PHYSICIAN: Dr. Short REASON FOR CONSULTATION: Management of acute anuric renal failure. CHIEF COMPLAINT: Patient was brought into the emergency room after she was found on the floor. HISTORY OF PRESENT ILLNESS: Gray Avery is a 59-year-old female with past medical history of autoimmune hepatitis, diabetes mellitus, type 2, chronic kidney disease, stage III, cirrhosis with ascites, requiring diuretics and sometimes ascitic taps. She follows up with myself as outpatient as well. Previously she has been evaluated at [facility] for liver transplant. Currently not listed. She was found on the ground at her home. She was hypotensive, hypothermic, and hypoglycemic. She was admitted to intensive care unit (ICU) last night with septic shock. Patel catheter was placed. She is anuric at this time. Despite 3 liters of normal saline bolus and administration of intravenous (IV) albumin today morning, patient is in metabolic acidosis. She is requiring Levophed at 14 mcg. Nephrology service was called for further help in the management of this patient. Patient needed my immediate attention. She was seen and examined at the bedside this morning the ICU. She was made DO NOT RESUSCITATE/DO NOT INTUBATE after discussion with her mother last night by the medical team. She was breathing via the nasal cannula. Otherwise, she is totally obtunded. She is unable to follow any commands, and most of the history was obtained from patient's chart, previous hospitalizations, and from the medical team and ICU team. MEDICAL HISTORY: 1. Chronic kidney disease, stage III. 2. Diabetes mellitus, type II. 3. History of depression. 4. Cirrhosis secondary to autoimmune hepatitis. 5. History of ascites, requiring ascitic tap. SURGICAL HISTORY AND PROCEDURES: 1. Status post hysterectomy. 2. Status post cholecystectomy. 3. Status post left breast cyst removal. 4. History of neck lump removal. 5. Status post Bartholin cyst surgery in the past. 6. She had an ascitic tap done, 4.1 liters removed 4 days ago. ALLERGIES: No known drug allergies. FAMILY HISTORY: No significant family history of end-stage renal disease. Both parents are diabetic and hypertensive. SOCIAL HISTORY: Patient lives alone. She is an active smoker. She does not have any history of alcohol abuse. There is a remote history of cocaine abuse in the patient, but that was more than 10 years ago. Her mother is the healthcare proxy, and her mother's name is Alyse Raya. Her cell phone is . REVIEW OF SYSTEMS: I was unable to do any review of systems in this patient, who is comatose. PHYSICAL EXAMINATION: GENERAL: Patient is lying in bed. Eyes are closed. Wearing nasal cannula in moderate respiratory distress. VITAL SIGNS: Temperature is 97.9 degrees Fahrenheit, blood pressure is 95/43, pulse is 87, respiratory rate of 25, saturating 100% on nasal cannula at 2 liters. HEAD AND NECK: Eyes are closed. Pupils are equally round and reactive to light. Her mouth is closed. I could to examine the mucous membranes. Neck is supple. Significantly elevated jugular venous distention (JVD). She has a right internal jugular (IJ) triple-lumen catheter. CARDIOVASCULAR: S1, S2, regular rate. Trace edema of the bilateral lower extremities. RESPIRATORY: Decreased breath sounds with inspiratory crackles bilaterally at the bases with expiratory rhonchi. ABDOMEN: Soft. Positive bowel sounds. Mild amount of abdominal ascites was noted. GENITOURINARY: She has an indwelling Patel catheter. MUSCULOSKELETAL: She has trace edema of the bilateral lower extremities. CENTRAL NERVOUS SYSTEM: Patient is comatose. She does not follow commands. She moves extremities on painful stimuli. LABORATORY REVIEW: CBC showed a WBC of 23.4, hemoglobin 9.8, platelets are 100. INR is 4.1. Urinalysis showed it was cloudy with 2+ protein and 2+ bilirubin. No ketones. Leukocyte esterase was negative. Only 9 WBC were seen in the urine. BMP showed sodium 139, potassium 3.8, chloride 103, bicarbonate 19, BUN 25, creatinine 3.3, glucose 75, lactic acid 9.3. Ionized calcium 3.7, phosphorus 6.6, magnesium 1.9. Total bilirubin 5.8, AST 306, ALT 83, alkaline phosphatase 98. Ammonia is 31. CPK is 2157. Troponin is 0.18. Albumin 2.5. Urine toxicology is positive for opiates. Microbiology: Blood cultures, preliminary, sent yesterday: One out of two is positive for gram-negative rods. IMAGING: Abdominal ultrasound was done, which showed mild amount of ascites. CT scan of the C spine and CT scan of the head did not show any acute pathology. Chest x-ray done yesterday showed mild discoid atelectasis in the left base and right perihilar region. Otherwise no acute disease. CURRENT INPATIENT MEDICATIONS: Patient's medications include cefepime 1 gram IV every 24. She is getting Levophed at 14 mcg at this time. She was given a dose of magnesium sulfate 1 gram IV times one dose. She was given 3 liter normal saline bolus followed by 1 liter bolus. I have started her on Sandostatin drip at 10 mL per hour. She was also given a dose of IV vancomycin yesterday. She was getting aspirin, Wellbutrin, calcitriol, and cetirizine, which I have stopped now. She was also on Lexapro and gabapentin as outpatient, which have been stopped. She has been started on hydrocortisone 50 mg IV every 8 hours. She was also supposed to get lactulose and rifaximin; however, she cannot get these medications at this time. She is on Zofran as needed for nausea, which is being stopped because it is oral, and she is unable to take any oral medications at this time. She is on Protonix 40 mg by mouth daily. I am going to change it to IV. She is on Advair, which is being stopped as well. ASSESSMENT: A 59-year-old female with history of autoimmune hepatitis and cirrhosis, chronic kidney disease (CKD) III, insulin-dependent diabetic, this admission with septic shock, acute anuric renal failure, and high anion gap metabolic acidosis. PLAN: 1. Acute anuric renal failure. It is secondary to combination of septic shock. History of cirrhosis in the past. Baseline she has CKD III. She was hypotensive and hypothermic, found on the floor. Most likely she has a combination of ATN secondary to hypotension, and she was already taking diuretics at home as well. At this point, since patient is very acidotic and has high anion gap acidosis with anuria, signs of volume overload now with aggressive IV fluid hydration, even though patient is DO NOT RESUSCITATE/DO NOT INTUBATE; however, if we want to salvage the patient we will have to start the patient on continuous venovenous hemodiafiltration (CVVHDF) . I discussed the goals of care with the patient's mother. She agrees for us to start CVVHDF. Catheter will be placed by the pulmonary team, and dialysis will be started as soon as we have the access available. 2. High anion gap metabolic acidosis. It is secondary to a combination of renal failure and lactic acidosis. Acidosis will be corrected with dialysis. No need of IV bicarbonate drip at this time. 3. Septic shock secondary to gram-negative kadie bacteremia. One out of two blood cultures are positive. Patient is currently getting vancomycin and cefepime. Continue broad-spectrum IV antibiotics at this time. Rule out spontaneous bacterial peritonitis (SBP), since patient has history of recurrent ascitic taps. Continue Levophed. Since patient is in renal failure, I have also started the patient on octreotide infusion, and she is already receiving albumin infusions as well. 4. Rhabdomyolysis. Patient has mild rhabdomyolysis, because she was found on the floor and hypothermic and hypotensive. No need of aggressive IV fluid hydration at this time, since patient is anuric, and the CPK level will slowly resolve over time. 5. History of autoimmune hepatitis and cirrhosis. Patient has a mild amount of ascites. Ammonia level is only 31 on repeat labs. No need of lactulose and rifaximin at this time. 6. History of diabetes mellitus, type 2. Patient was hypoglycemic on arrival. Glucose levels are better now. She can get as-needed IV dextrose. Thank you for involving me in the car of this patient. I shall be happy to follow the patient along with you tomorrow morning. Total critical care time spent in the management of this patient today morning in the ICU, excluding all the procedures, was 1 hour and 15 minutes. MTDD
--- NOTE | 2020-04-06 15:59 | CCN ---
DATE: 04/05/2020 SUBJECTIVE: The patient was seen and examined this morning during bedside rounds. Yesterday afternoon, she was started on CVVHD with no fluid removal. The patient tolerated that well; however, overnight she required increasing amounts of Levophed for blood pressure support and at one time was on maximum Levophed. The patient continued to be lethargic as well, although she did have episodes of agitation overnight. One of the episodes, the patient had pulled at her central line in the right IJ. This morning, the patient is hypothermic still. She is on CVVH with no fluid removal and Levophed currently at 28 mcg/min. She is obtunded, appears to have some agonal breathing now. OBJECTIVE: VITAL SIGNS: Temperature 95.4, pulse 81, respirations 16, blood pressure 102/54, O2 of 98% on nasal cannula. INTAKE/OUTPUT: Ins 3.1 liters, out 259 mL. GENERAL: Patient is obtunded, lying in bed, appears to have some labored and agonal appearing breaths. HEENT: Normocephalic, atraumatic. There are moist mucous membranes noted. There is scleral icterus. NECK: Supple. Trachea is midline. No palpable adenopathy. There is positive JVD. CARDIAC: Regular rate and rhythm. Normal S1 and S2 with systolic murmur auscultated. PULMONARY: Increased crackles bilaterally. No wheezes or rhonchi noted. ABDOMEN: Distended with a positive fluid wave. There does not appear to be any tenderness to palpation. EXTREMITIES: There is increased pitting edema in the bilateral lower extremities. LABORATORY DATA: WBC 32.5, hemoglobin 8.3, platelets 76,000. Chemistry with sodium 132, potassium 4.1, chloride 100, bicarb 17, BUN 13, creatinine 2.16, glucose 124. Lactic acid increased to 11.7. Total bilirubin increased to 7.1, AST increasing to 984, ALT is 820. Phosphorus is 4.2. Troponin was increased to 0.34. IMAGING: Abdominal ultrasound shows ascites in all four quadrants. ASSESSMENT/PLAN: Ms. Avery is a 59-year-old female with a history of diabetes, chronic kidney disease (CKD), cirrhosis secondary to autoimmune hepatitis with a history of recurrent ascites, hepatic encephalopathy, obstructive sleep apnea (JAYLEN) noncompliant with CPAP, and chronic obstructive pulmonary disease (COPD) who presented initially with altered mental status and hypoglycemia. Patient on admission was found to be hypotensive, as well as hypothermic and hypoglycemic. She had leukocytosis as well, and the patient likely with sepsis secondary to spontaneous bacterial peritonitis (SBP). The patient was given intravenous (IV) fluid boluses with no improvement. She was in septic shock requiring Levophed or her blood pressure support. The patient was also in worsening renal failure and acidosis, as well as oliguric with concern or possible Hepatorenal versus prerenal from her hypotension and acute tubular necrosis (ATN). The patient was started on continuous veno-venous hemofiltration (CVVH) with improvement in her renal function. She continues to have increasing lactic acidosis, as well as increasing pressor requirements in the setting of her septic shock, as well as end-stage liver disease. The patient also appears to have worsening shock liver as well. - The patient appears to be obtunded in the setting of metabolic encephalopathy. She also appears to have more labored breathing as well today with some more agonal breaths. She does have a DO NOT RESUSCITATE / DO NOT INTUBATE and after discussion with the patients health care proxy, her mother, about her increasing pressor requirements as well as overall poor prognosis given her history of end-stage liver disease, the patients mother stated that the patient herself had discussed with her that prior to her hospitalization that she was feeling that she was in a decline and that she was tired, and that she was slowly in her words dying. 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 CODE STATUS: DO NOT RESUSCITATE / DO NOT INTUBATE, comfort measures only. Total critical care time spent not including procedures approximately 50 minutes. NELDAD
--- NOTE | 2020-04-06 16:02 | IPN ---
DATE: 04/05/2020 SUBJECTIVE: The patient was seen and examined at the bedside today morning in the ICU. Last 24 hours events are noted. She was started on CVVHDF yesterday. It was very difficult to remove fluid or even maintaining her with CVVHDF, she was requiring very high dose of pressors. She was almost on Levophed at 28 mcg. She had persistent lactic acidosis and early in the morning she also lost her right IJ triple lumen catheter. She remained oliguric and acidotic. She was just on nasal cannula because she had DNR/DNI status. Her respiratory failure was also getting worse. So her deteriorating clinical status with multiorgan failure was discussed by the Pulmonary Critical Care team with her mother, who is the healthcare proxy. So the patient was made comfort measures only. CVVHDF was stopped. All the medications and pressors were stopped. The patient is hypotensive and hypoxemic. Comfort measures only have been started. She has been started on Morphine and Scopolamine. Nephrology Service is going to sign off at this moment. ISABELLA
--- NOTE | 2020-04-07 10:47 | RO ---
DATE OF OPERATION: 04/04/2020 PROCEDURE: Hemodialysis catheter insertion. INDICATIONS: Hemodialysis access. PREPROCEDURE DIAGNOSIS: Acute renal failure. POSTPROCEDURE DIAGNOSIS: Acute renal failure. ATTENDING PHYSICIAN: Dr. Dia Clarke CONSENT: Due to the emergent nature of the procedure consent was implied. There was verbal consent obtained from the patients healthcare proxy. Indications, risks and benefits were explained at length. PROCEDURE SUMMARY: Central line insertion practice form was completed by an independent observer. Time out was performed. Full sterile technique was maintained throughout the procedure including surgical cap, mask, protective eyewear, sterile gown and sterile gloves. The right inguinal region was prepped using Chlorhexidine scrub and draped in sterile fashion using fenestrated drape and sterile probe cover was employed. The right femoral vein was identified using ultrasound. Anesthesia was achieved over the vein using 1% Lidocaine. The introducer needle was inserted into the femoral vein using real-time [id number] ultrasound guidance. Venous blood was withdrawn. The syringe was removed and guidewire was advanced into the introducer needle. The introducer needle was removed over the guidewire. A small incision was made at the skin surface with a scalpel and a dilator was exchanged over the guidewire. After appropriate dilation was obtained the dilator was exchanged over the wire for a dual lumen hemodialysis catheter. The wire was removed and the catheter was sutured in place. A sterile Chlorhexidine impregnated dressing was placed over the catheter at the insertion site. The patient tolerated the procedure without any hemodynamic compromise. At time of procedure completion all ports were aspirated and flushed properly and Heparin was instilled in the ports. Estimated blood loss is 5 mL. MTDD
--- NOTE | 2020-04-07 14:59 | CR.PDOC ---
General Date of Consultation: Apr 04, 2020 Consultation REASON FOR CONSULTATION/CHIEF COMPLAINT: Altered mental status/likely sepsis/hypotension. HISTORY OF PRESENT ILLNESS: Patient is a 59-year-old female with a past medical history of diabetes type 2 with neuropathy, hypertension, stage III chronic kidney disease, chronic liver failure with a history of ascites, COPD, JAYLEN, who presented with complaints of altered mental status and hypoglycemia. Patient had a paracentesis done recently with removal of 4 L of fluid. Patient was hypoten sive in ICU, was given small fluid bolus given hx of decompensated cirrhosis with no improvement in BP. ALLERGIES: Please see below. HOME MEDICATIONS: Please see below. PAST MEDICAL HISTORY: 1. Diabetes mellitus type II. 2. Chronic liver failure with a history of hepatic encephalopathy. 3. Chronic kidney disease stage III 4.history of nicotine dependence 5.recurrent ascites. 6.hyperlipidemia. 7.COPD. 8.history of pancreatitis. 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 PAST SURGICAL HISTORY: 1. Laminectomy 2. 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 FAMILY HISTORY: Father: History of hypertension and diabetes Mother: History of hypertension and diabetes SOCIAL HISTORY: Marital status and/or living arrangements: Lives alone in an independent living facility Employment: On disability Tobacco use: Current smoker, smokes 5 cigarettes daily ETOH: Denies Illicit drug use: History of cocaine use, last use was reported in 2009 PHYSICAL EXAMINATION: VITAL SIGNS: Please see below. GENERAL APPEARANCE: Patient is altered lying in bed, not alert to time place or person. HEENT: Atraumatic normocephalic. Moist mucous membranes, PERRLA, pallor present scleral icterus present. RESPIRATORY: Diminished breath sounds bilaterally with a few crackles at bases. No wheezes or rhonchi heard. CARDIOVASCULAR: Regular rate and rhythm, although heart sounds, no murmur heard. ABDOMEN: Distended with positive fluid thrill, likely due to a cystitis, generalized diffuse tenderness to palpation. EXTREMITIES: No significant lower extremity edema bilaterally. NEUROLOGICAL: Patient has altered to time place and person, good muscle tone. Power and sensations could not be assessed. PSYCHIATRIC: Could not be assessed. LABORATORY DATA: Please see below. ASSESSMENT/PLAN: Patient is a 59-year-old female with a past medical history of diabetes type 2 with neuropathy, hypertension, stage III chronic kidney disease, chronic liver failure with a history of ascites, COPD, JAYLEN, who presented with complaints of altered mental status and hypoglycemia. Patient had a paracentesis done recently with removal of 4 L of fluid. Patient was hypotensive in ICU, was given IVF bolus with minimal response in BP. Cardiovascular: Hx chronic hypotension in setting of cirrhosis, was on midodrine. Patient with worsening hypotension and shock, possibly septic requiring vasopressors - central line placed, patient started on levophed to maintain MAP above 65 - lactic acidosis in setting of shock and liver disease Pulmonary: the patient has a past medical history of COPD and JAYLEN. She saturating at 98% on 3 L oxygen via nasal cannula. Patient's ABGs are improving. Patient is not wheezing on examination with diminished bilateral breath sounds. Today patient was switched to scheduled duo neb treatments. Renal: The patient may have acute kidney injury on chronic kidney disease stage III/hepatorenal syndrome/ATN from septic shock: The patient has Fluid overload and third spacing. She is in a positive balance of 3.5 L with minimal urine output. Patient was started on levophed and given albumin for possible hepatorenal syndrome. Nephrology was consulted and she was also given octreotide. Given worsening renal failure and acidosis with anuria patient will be started on CVVHD. HD catheter placed, appreciate renal consult and recs. Infectious diseases:. Likely Septic shock, likely 2/2 SBP given hx of recurrent ascites and paracentesis. -Afebrile, with a white count of 23.4 Past medical history of hypertension -Elevated lactic acid (9.8). 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 The patient has previously been referred for liver transplant. Appears to have reaccumulation of ascites and worsening liver failure with SBP. Her belly is distended with palpa ble tenderness. Her bilirubin today is 5.8 albumin of 2.5 ammonia 31 with high AST and ALT of 306 and 83 respectively. The patient was recently treated with paracenteses and about 4 L were removed. Hold off on further paracentesis given hypotension and possible hepatorenal syndrome Endo: Patient has a history of diabetes mellitus type 2 with neuropathy. FSG checks and sliding scale coverage as needed Hematology: The patient's INR emma from 2-4 because of cirrhosis with worsening liver failure. Today is 9.8. Continue to monitor INR. No evidence of bleeding acutely. Neurological: The patient is altered to time place and person likely due to metabolic encephalopathy secondary to septic shock/hypoglycemia. She has a history of hepatic encephalopathy. We will continue to monitor her ammonia levels. DVT prophylaxis: The patient is on Lopez and sequentials. GI prophylaxis: Patient is on Protonix 40 mg IV. Code status: DNR/DNI Total critical care time spent not including any procedures approx 1hr and 40 mins IShabbir, conducted an independent examination of the patient and agree with the above plan as detailed by the resident and discussed during rounds. Vital Signs/I&O Vital Signs Date Time Temp Pulse Resp B/P (MAP) Pulse Ox O2 Delivery O2 Flow Rate FiO2 04/04/20 14:36 95.5 79 19 83/41 98 Nasal Cannula 2.0 I&O- Last 24 Hours up to 6 AM 04/04/20 06:00 Intake Total 4170.0 ml Balance 4170.0 ml Laboratory Data Labs 24H Laboratory Tests 2 04/03/20 16:41: Urine Color WINNIE, Urine Appearance CLOUDYH, Urine pH 5.0, Urine Specific [place] 1.026, Urine Protein 2+H, Urine Glucose (UA) NEGATIVE, Urine Ketones NEGATIVE, Urine Blood NEGATIVE, Urine Nitrite NEGATIVE, Urine Bilirubin 2+H, Urine Urobilinogen 4.0H, Urine Leukocyte Esterase NEGATIVE, Urine WBC (Auto) 9H, Urine RBC (Auto) 2, Urine Hyaline Casts (Auto) 3, Urine Bacteria (Auto) 1+H, Urine Squamous Epithelial Cells 10, Urine Amorphous Sediment SMALLH, Urine Sperm (Auto) , Urine Opiates Screen POSITIVEH, Urine Methadone Screen NEGATIVE, Urine Barbiturates Screen NEGATIVE, Urine Phencyclidine Screen NEGATIVE, Urine Amphetamines Screen NEGATIVE, Urine Benzodiazepines Screen NEGATIVE, Urine Cocaine Metabolite Screen NEGATIVE, Urine Cannabinoids Screen NEGATIVE 04/03/20 17:24: Coronavirus (COVID-19)(PCR) NEGATIVE 04/03/20 17:30: POC pH (Misc Panel) 7.228*L, POC Base Excess (Misc Panel) -7.0L, POC Saturated Percent O2 (Misc) 88L, POC pO2 (Misc Panel) 64.0L, POC pCO2 (Misc Panel) 49.1H, POC HCO3 (Misc Panel) 20.5L, POC Total CO2 (Misc Panel) 22.0L 04/03/20 21:10: Anion Gap 15, Glomerular Filtration Rate 19.8L, Lactic Acid Followup at 4 Hours 7.4*H, Calcium Level 7.8L, Magnesium Level 1.7L, Total Creatine Kinase 2866H, Troponin I 0.08 04/04/20 00:31: Bedside Glucose (Misc Panel) 50L 04/04/20 00:56: Bedside Glucose (Misc Panel) 92 04/04/20 04:17: Bedside Glucose (Misc Panel) 72 04/04/20 04:39: Immature Granulocyte % (Auto) , Neutrophils (%) (Auto) , Nucleated Red Blood Cells % (auto) 0.0, Neutrophils 85H, Band Neutrophils 10, Lymphocytes (Manual) 4L, Monocytes (Manual) 1, Hypochromasia 1+, Macrocytosis 2+, Platelet Estimate DECREASED, Prothrombin Time 41.2H, Prothromb Time International Ratio 4.16, An ion Gap 17H, Glomerular Filtration Rate 18.0L, Lactic Acid Level 9.8*H, Calcium Level 7.8L, Phosphorus Level 6.6H, Magnesium Level 1.9, Total Bilirubin 5.8H, Aspartate Amino Transf (AST/SGOT) 306H, Alanine Aminotransferase (ALT/SGPT) 83H, Alkaline Phosphatase 98, Total Creatine Kinase 2157H, Troponin I 0.18#H, Total Protein 6.3L, Albumin 2.5L, Albumin/Globulin Ratio 0.7L 04/04/20 05:40: Ammonia 31 04/04/20 07:59: Bedside Glucose (Misc Panel) 58L 04/04/20 08:08: Methicillin-Resist S.aureus DNA PCR NOT DETECTED 04/04/20 09:11: Lab Scanned Report Miscellaneous Lab 04/04/20 09:26: Bedside Glucose (Misc Panel) 77 04/04/20 09:49: Lactic Acid Followup at 4 Hours 9.3*H 04/04/20 11:24: Activated Partial Thromboplast Time 68.1H, Whole Blood Ionized Calcium 3.7L 04/04/20 11:57: Bedside Glucose (Misc Panel) 83 04/04/20 14:44: Bedside Glucose (Misc Panel) 33*L 04/04/20 14:52: Bedside Glucose Confirm (Misc) 45 CBC/BMP Laboratory Tests 04/03/20 21:10 04/04/20 04:39 Microbiology Microbiology 04/03/20 Blood Culture - Preliminary, Resulted 04/03/20 Blood Culture - Preliminary, Resulted No growth after 24 hours . All specim... Allergies Coded Allergies: No Known Allergies (Verified , 02/07/20) Home Medications Scheduled Aspirin (Aspirin EC) 81 Mg Tab, 81 MG PO QHS, (Reported) Bupropion Hcl (Bupropion Xl) 150 Mg Tab.er.24h, 150 MG PO DAILY, (Reported) Calcitriol (Calcitriol) 0.25 Mcg Capsule, 0.25 MCG PO 3XW, (Reported) TUESDAY, TUESDAY AND TUESDAY Cetirizine HCl (Cetirizine HCl) 10 Mg Tablet, 10 MG PO DAILY, (Reported) TAKES AT 1200 Escitalopram Oxalate (Escitalopram Oxalate) 20 Mg Tab, 20 MG PO DAILY, (Reported) Fluticasone/Vilanterol (Breo Ellipta 200-25 Mcg INH) 1 Inh Inh, 1 PUFF INH DAILY, (Reported) Gabapentin (Gabapentin) 300 Mg Capsule, 300 MG PO BID, (Reported) Insulin Glargine,Hum.rec.anlog (Toujeo Solostar) 300 Unit/Ml Inj, 70 UNIT SC DAILY, (Reported) Insulin Lispro (Humalog Kwikpen U-100) 100 Unit/Ml Inj, 1 DOSE SC AC, (Reported) PER SLIDING SCALE Lactulose (Lactulose) 10 Gm/15 Ml Solution, 15 ML PO DAILY, (Reported) Latanoprost (Xalatan) 0.005% 2.5ML Drops, 1 DROP OU QHS, (Reported) Methocarbamol (Methocarbamol) 750 Mg Tablet, 750 MG PO TID, (Reported) 0800, 1200, 1999 Midodrine HCl (Midodrine HCl) 2.5 Mg Tablet, 2.5 MG PO TID, (Reported) 0800, 1200, 1999 Pantoprazole Sodium (Pantoprazole Sodium) 20 Mg Tablet.dr, 20 MG PO DAILY, (Reported) Rifaximin (Xifaxan) 550 Mg Tab, 550 MG PO BID, (Reported) 0800, 1700 Spironolactone (Spironolactone) 25 Mg Tablet, 25 MG PO BID, (Reported) 0800, 1700 Tiotropium [place] (Spiriva Respimat) 4 Gm Mist.inhal, 2 PUFFS INH DAILY, (Reported) Torsemide (Torsemide) 20 Mg Tablet, 20 MG PO DAILY, (Reported) Trazodone HCl (Trazodone HCl) 150 Mg Tablet, 150 MG PO QHS, (Reported) Vitamin E (Dl,Tocopheryl Acet) (Vitamin E) 400 Unit Capsule, 400 UNIT PO DAILY, (Reported) Scheduled PRN Albuterol Sulfate (Proair Hfa) 8.5 Gm Hfa.aer.ad, 2 PUFF INH Q4H PRN for SHORTNESS OF BREATH, (Reported) Ipratropium [place] (Ipratropium [place]) 165 [place]/15 Ml Naspr, 1 SPRAY NA BID PRN for NASAL CONGESTION, (Reported) Ondansetron HCl (Ondansetron HCl) 4 Mg Tablet, 4 MG PO DAILY PRN for NAUSEA, (Reported) Oxycodone HCl (Oxycodone HCl) 5 Mg Tablet, 5 MG PO Q8H PRN for PAIN, (Reported) Miscellaneous Medications [Med Rec Comment] , (Reported) LIST OBTAINED FROM [facility] GME ATTESTATION E ATTESTATION My faculty preceptor for this patient encounter was physically present during the encounter and was fully available. All aspects of the patient interview, examination, medical decision making process, and medical care plan development were reviewed and approved by the faculty preceptor. The faculty preceptor is aware and concurs with the plan as stated in the body of this note and will attest to such by his/her cosignature. Mark Shields MD Apr 04, 2020 16:11 SHABBIR STARR MD Apr 10, 2020 12:05
== END 2020-04-05 13:00 | disposition expired | DRG 871 ==
LOC: M ED 14:59 → EDBD 14:59 → M ED INP 17:42 → M ICU 19:30
PROVIDERS: ADMIT Internal Medicine; ATTEND Internal Medicine
PROC: 06HM33Z Insertion of Infusion Device into Right Femoral Vein, Percutaneous Approach (ICD-10-PCS; principal; 2020-04-04)
PROC: 5A1D90Z Performance of Urinary Filtration, Continuous, Greater than 18 hours Per Day (ICD-10-PCS; 2020-04-04)
DX: A41.59 Other Gram-negative sepsis (principal); R65.21 Severe sepsis with septic shock; G92 Toxic encephalopathy; G93.41 Metabolic encephalopathy; K65.2 Spontaneous bacterial peritonitis; K72.00 Acute and subacute hepatic failure without coma; N25.81 Secondary hyperparathyroidism of renal origin; R18.8 Other ascites; M62.82 Rhabdomyolysis; E87.2 Acidosis; Z51.5 Encounter for palliative care; Z66 Do not resuscitate; E11.22 Type 2 diabetes mellitus with diabetic chronic kidney disease; N18.30 Chronic kidney disease, stage 3 unspecified; I12.9 Hypertensive chronic kidney disease with stage 1 through stage 4 chronic kidney disease, or unspecified chronic kidney disease; E11.649 Type 2 diabetes mellitus with hypoglycemia without coma; F32.9 Major depressive disorder, single episode, unspecified; F17.200 Nicotine dependence, unspecified, uncomplicated; R68.0 Hypothermia, not associated with low environmental temperature; E78.5 Hyperlipidemia, unspecified; G47.33 Obstructive sleep apnea (adult) (pediatric); K74.60 Unspecified cirrhosis of liver; K75.4 Autoimmune hepatitis; Z79.82 Long term (current) use of aspirin; Z79.4 Long term (current) use of insulin; Z79.899 Other long term (current) drug therapy; Z20.828 Contact with and (suspected) exposure to other viral communicable diseases